=== PATIENT | female | born 1940 | race Caucasian/White ===

== ENCOUNTER 2019-05-11 08:34 | Emergency (ER) | payer MEDICARE, BC, SELFPAY ==
[2019-05-11 08:34] VITALS: BP 139/75; PULSE 81; RESP 17; TEMP 36.6; O2SAT 97; BMI 24.2
--- NOTE | 2019-05-11 09:01 | CT_ITS ---
STUDY: CT ABDOMEN AND PELVIS WITH CONTRAST REASON FOR EXAM: Female, 78 years old. Abdominal pain today RADIATION DOSAGE (If Supplied By Facility): CTDIvol = ( 10.70 ) mGy, DLP = ( 601.11 ) mGycm TECHNIQUE: Transaxial images were obtained from the dome of the diaphragm to the symphysis pubis with oral contrast. 80ml ml of Isovue 300 contrast was administered. Sagittal and coronal images were reconstructed. Individualized dose optimization techniques were used for this CT. COMPARISON: None. FINDINGS: Body wall soft tissues: No acute process. Osseous structures: Scoliosis, osteopenia, multilevel lumbar degenerative disc disease and facet arthropathy contributing to multilevel at least mild foraminal narrowing. Inferior chest: Minimal lung base atelectasis, normal distal esophagus, mild cardiomegaly. Hepatobiliary: The gallbladder appears to be present, partially contracted, obscured by bowel motion artifact and respiratory motion artifact. Nondilated intrahepatic biliary tree. Hepatic duct 9.1 mm. Common bile duct within the head of the pancreas 8.1 mm, ectatic. No visible radiodense calculus within the duct. Pancreas: Mild fatty atrophy. No ductal ectasia or suspicious lesion. Spleen: Normal. Adrenal glands: Normal. Urogenital: Left renal lower pole nonobstructing calyceal calculus 7 mm. Right kidney no calculi. No hydronephrosis or hydroureter. Normal urinary bladder. Unremarkable uterus. No adnexal mass or cyst. Pelvic floor and sidewalls and retroperitoneum: No mass or adenopathy. Vasculature: Mild atherosclerosis. Stomach: No acute process. Small bowel and mesentery: No acute process. Large bowel: The appendix is not well seen. There are no acute inflammatory features in the region of the cecum. Large bowel and rectum unremarkable. Free fluid or free air: None. CT/Abdomen/Pelvis WITH Contrast IMPRESSION: No acute abdominopelvic process is evident. Chronic-appearing biliary ductal ectasia. No evidence of acute gallbladder inflammation. Mild pancreatic atrophy. Nonobstructing calyceal calculus of the left kidney with no evidence of recent calculus passage. Cardiomegaly. Lumbar spondylosis. Electronically Signed: Mikel Ramires MD at 12:51 EDT Tel , Service support ,
--- NOTE | 2019-05-11 09:18 | ED.VISSUMM ---
- ER Visit Summary Date of Service: 05/11/19 Chief Complaint: Abdominal pain History of Present Illness: The patient is a 78 F who states that approximately 020 0 hours this morning she woke from sleep with a diffuse abdominal pain. She describes it as cramping. States she had a normal bowel movement. She feels bloated. No history of small bowel obstruction. She took a simethicone this morning around 0500. She went to urgent care and was referred here. She does note some nausea. States that she was told she has angioedema in the past states that she was told that this is led to some abdominal intermittent symptoms. She states that she takes his Singulair and carries an EpiPen. Physical Examination: Afebrile vital signs are stable Gen: Well-nourished well-developed Head: Normocephalic atraumatic Eyes: Perrl EOMI ENT: TMs clear no rhinorrhea moist mucous membranes Neck: Supple no lymphadenopathy no JVD nontender CVS: Regular rate rhythm no murmurs normal S1-S2 Respiratory: No distress clear to auscultation bilaterally chest nontender Abdomen: Soft diffusely tender to palpation nondistended hyperactive bowel sounds no masses Back: Nontender Extremity: Nontender no edema Skin: Normal color no rash Neuro: alert orientated ?3 CN II-XII intact normal strength sensation Psych: Normal affect normal mood Test Results: CBC CMP lipase normal. CT down pelvis did not demonstrate any bowel wall edema or any obvious evidence of acute pathology Emergency Department Course and Treatment: She received IV fluids, Zofran, Bentyl. She was improved for a while. After the results of her CTA went ahead and administered Solu-Medrol and Benadryl. Patient will be discharged home with instructions to continue Benadryl as well as low-dose prednisone. Given the negative CT negative labs and mild angioedema of the abdomen is not unreasonable. Impression: 1. Acute abdominal pain This note was generated with [employer] dictation software. It may contain incorrect words, spelling, and punctuation that were not noted in review of the chart prior to signing ED Disposition - Plan for ED Patient: Disposition: Home or Assisted Living Instructions: ABDOMINAL PAIN, Unknown Cause, (Female) Prescriptions: Prednisone [Deltasone] 40 mg PO DAILY #8 tab Prescription Printed Hydrocodone Bitart/Apap 5-325 [[place] 5MG-325MG] 1 tab PO Q6H PRN PRN 3 Days #10 tab PRN Reason: Pain Prescription Printed Ondansetron [Zofran Odt] 4 mg PO Q6H PRN PRN #10 tab PRN Reason: Nausea Prescription Printed Referrals: Castro Kidd MD [Primary Care Provider] - 3-5 Days if not improving Additional Instructions: Benadryl 1/2 tablet every 8 hours for 2 days
[2019-05-11] MEDS: Dicyclomine 20 MG/2 ML Vial IM (09:33)
[2019-05-11 10:12] VITALS: BP 160/67; PULSE 68; RESP 16; O2SAT 96
[2019-05-11] MEDS: 0.9% Normal Saline 1,000 ML 1000 ML IV (10:13)
[2019-05-11 10:14] LABS: Absolute Lymphocyte Count 1.23 X10^3/ul (0.83-4.51); Absolute Neutrophil Count 11.6 X10^3/uL (2.0-7.7); Basophil# 0.03 X10^3/uL; Basophil% 0.2 % (0-1); Eosinophil# 0.07 X10^3/uL; Eosinophils% 0.5 % (0-5); Hematocrit 42.5 % (37-47); Hemoglobin 14.2 g/dl (12.0-15.0); Lymphocyte # 1.23 X10^3/ul (4.0); Lymphocyte % 9.1 % (19-41); Mean Corp Hgb Conc 33.4 g/gl (32-36); Mean Corpuscular Hgb 31.3 pg (27.0-32.0); Mean Corpuscular Volume 93.6 fL (81-99); Mean Platelet Vol. 10.6 fl (6.2-12.0); Monocyte# 0.63 X10^3/uL; Monocyte% 4.7 % (0-10); Neutrophil # 11.57 X10^3/uL (2.7-7.7); Neutrophil % 85.4 % (47-70); POSITIVE COUNT NO; POSITIVE DIFFERENTIAL NO; POSITIVE MORPHOLOGY NO; Platelet Count 262 K/mm3 (150-450); RBC Distribution Width CV 13.8 % (11.6-14.6); RBC Distribution Width SD 47.1 fl (35.1-43.9); Red Blood Count 4.54 M/mm3 (4.2-5.4); White Blood Count 13.5 K/mm3 (4.4-11.0)
[2019-05-11] MEDS: Ondansetron 4 MG/2 ML Vial IV ×2 (10:14→13:07)
[2019-05-11 10:27] LABS: ALB/GLOB Ratio 1.1 RATIO (0.9-2.4); AST(SGOT) 18 U/L (15-37); Alanine Aminotransfer ALT/SGPT 35 U/L (13-56); Albumin, Serum 4.1 g/dL (3.2-5.0); Alkaline Phosphatase 89 U/L (45-117); Anion Gap 12 (5-15); BUN 29 mg/dL (7-18); BUN/Creat Ratio 24.8 RATIO (10-20); Calcium,Total 9.6 mg/dL (8.5-10.1); Chloride 101 mmol/L (98-107); Creatinine, Serum 1.17 mg/dL (0.55-1.02); EST Glomerular Filtration Rate 47 mL/min (>60); Est Glom Filt Rate - Afr Amer 57 mL/min (>60); Globulin 3.7 g/dL (2.2-4.2); Glucose 122 mg/dL (74-106); Lipase 146 U/L (73-393); Potassium 4.3 mmol/L (3.5-5.1); Protein, Total 7.8 g/dL (6.4-8.2); Sodium Level 136 mmol/L (136-145)
[2019-05-11] MEDS: MethylPREDNISolone 125 MG/2 ML Vial IV (13:06)
[2019-05-11] MEDS: DiphenhydrAMINE 50 MG/ML Syringe 12.5 MG IV (13:07)
[2019-05-11 13:12] VITALS: BP 126/96; PULSE 82; RESP 15; O2SAT 98
[2019-05-11] MEDS: Ketorolac 15 MG/ML Vial IV (14:42)
[2019-05-11 14:47] VITALS: BP 167/73; PULSE 75; RESP 16; O2SAT 97
[2019-05-11 15:23] VITALS: BP 168/73; PULSE 82; RESP 13; O2SAT 96
== END 2019-05-11 15:37 | disposition home or self-care (01) ==
PROVIDERS: Emergency Provider Emergency Medicine; Family Provider Family Medicine; PCP Family Medicine
DX: R10.9 Unspecified abdominal pain (principal); R11.0 Nausea; E78.00 Pure hypercholesterolemia, unspecified; Z86.73 Personal history of transient ischemic attack (TIA), and cerebral infarction without residual deficits
CPT/HCPCS: 74177; 80053; 83690; 85025; 96361; 96372; 96374; 96375; 96376; 99285; J7030; Q9967; A4216; J2405

== ENCOUNTER 2019-08-31 18:23 | Emergency (ER) | payer MEDICARE, BC, SELFPAY ==
[2019-08-31 18:24] VITALS: BP 134/77; PULSE 69; RESP 15; TEMP 36.8; O2SAT 95; BMI 23.0
--- NOTE | 2019-08-31 19:22 | CT_ITS ---
STUDY: CT CERVICAL SPINE WITHOUT CONTRAST REASON FOR EXAM: Female, 79 years old. Neck pain after fall. RADIATION DOSAGE (If Supplied By Facility): CTDIvol = ( 16.05 ) mGy, DLP = ( 363.83 ) mGycm TECHNIQUE: High resolution transaxial imaging was performed without contrast material. Sagittal and coronal images were reconstructed. Individualized dose optimization techniques were used for this CT. COMPARISON: None FINDINGS: Normal craniovertebral junction. Normal anterior atlantoaxial articulation. Normal odontoid process. There is straightening of the normal cervical lordosis. Negative for acute fracture of the cervical spine. C2-3: Mild degenerative disc and joint disease without central stenosis or substantial foraminal narrowing. C3-4: Degenerative disc narrowing, uncovertebral arthrosis and bilateral facet arthrosis without central stenosis. Mild bilateral foraminal narrowing. C4-5: Disc space is completely fused. Moderate posterior disc osteophyte. Moderate spinal stenosis and bilateral moderate foraminal narrowing. C5-6: Advanced disc narrowing and uncovertebral arthrosis. Posterior disc osteophyte left greater than right. Mild spinal stenosis and severe bilateral foraminal narrowing. C6-7: Degenerative disc narrowing and uncovertebral arthrosis. Mild posterior disc osteophyte without central stenosis. Moderate foraminal narrowing on the right severe foraminal narrowing on the left C7-T1: Degenerative facet arthrosis. Negative for central stenosis. Negative for substantial foraminal narrowing. CT/Spine Cervical without Contras IMPRESSION: Straightening of the cervical spine with otherwise normal alignment. Negative for acute fracture of the cervical spine. Degenerative disc and joint changes as stated above. Electronically Signed: Lucila Quiroga MD at 20:12 EDT , Service support ,
--- NOTE | 2019-08-31 19:22 | CT_ITS ---
STUDY: CT BRAIN WITHOUT CONTRAST REASON FOR EXAM: Female, 79 years old. Acute head injury during a fall. RADIATION DOSAGE (If Supplied By Facility): CTDIvol = ( 44.99 ) mGy, DLP = ( 779.24 ) mGycm TECHNIQUE: Transaxial CT imaging of the brain was performed without administration of intravenous contrast material. Individualized dose optimization techniques were used for this CT. COMPARISON: No relevant priors. FINDINGS: Posterior left scalp hematoma. Normal calvarium. Normal size ventricles and extra-axial spaces for the patient's age. There are areas of decreased attenuation within the white matter tracts of the supratentorial brain, consistent with microvascular disease changes. Normal basal ganglia and thalami. Normal brainstem. There is mild cerebellar atrophy. There is no intracranial hemorrhage. There are no findings of an acute ischemic infarction. Normal visualized paranasal sinuses. CT/Brain/Head without Contrast IMPRESSION: No acute intracranial findings. Negative for hemorrhage, hematoma or extra-axial fluid collection. Involutional changes normal for age. Posterior left scalp hematoma without underlying skull fracture. Electronically Signed: Lucila Quiroga MD at 19:54 EDT , Service support ,
--- NOTE | 2019-08-31 19:27 | ED.VIS.GEN ---
History of Present Illness Chief Complaint: Fall Informant: Patient Onset: Today Context: Sudden Onset Narrative: Patient is an 79-year-old female presenting with head injury. Patient states she leaned back in her chair and fell backwards. She hit the back of her head on a wooden floor. Patient denies loss of consciousness. She notes she is on Brilinta because of her history of strokes. She has pain in the back of her head. Her last stroke was 4 years ago. Patient came in for further evaluation because of her fall. She denies any other complaints at this time. Patient denies any associated weakness, numbness or vision changes. Past Medical History - Allergies and Home Meds Allergies/Adverse Reactions: Allergies morphine Allergy (Verified 08/31/19 18:26) Unknown Sulfa (Sulfonamide Antibiotics) Allergy (Verified 08/31/19 18:26) Unknown aspirin Adverse Reaction (Verified 08/31/19 18:26) Nausea/Vom/Diarrhea Primary Care Physician: Castro Kidd MD [Primary Care Provider] - Past Medical History: - - Stroke, hyperlipidemia, anxiety Surgical History: - - Oophorectomy, section. Shoulder surgery. Smoking Status: Never smoker - Family History Maternal Family History: Reports: No pertinent history Paternal Family History: Reports: No pertinent history Review of Systems All systems negative except as indicated Neurological: Reports: Headache Physical Exam Vital Signs/Narrative: Vital Signs Temp Pulse Resp BP Pulse Ox 08/31/19 18:24 98.3 F 69 15 134/77 H 95 Inital Vital Signs reviewed: Yes General: Well nourished, Well developed, No Acute Distress Head: Normocephalic, - - Posterior scalp hematoma approximately 2 cm x 2 cm Eyes: Perrl, EOMI, - ENT: Moist mucous membranes, No rhinorrhea, TM's clear, - - No Septal hematoma, no malocclusion Neck: Supple, Nontender, - - Normal range of motion, no midline tenderness, no step-off sign Cardiovascular: Regular rate, Regular rhythm, No murmurs Respiratory: No distress, CTA bilaterally, Chest nontender Abdomen: Soft, Nontender, Nondistended, Normal bowel sounds Back: Nontender, Normal Inspection Extremities: Nontender, No edema Skin: Normal color, No rash. Negative for: Trauma Neurological: Alert, Oriented x3, Cranial nerves II-XII grossly intact, Normal Strength, Normal Sensation, - - Mildly slowed speech, baseline per patient Psychological: Normal affect, Normal Mood Diagnostic/Tx/Re-eval Diagnostic Data Brain CT 08/31/19 19:22 IMPRESSION: No acute intracranial findings. Negative for hemorrhage, hematoma or extra-axial fluid collection. Involutional changes normal for age. Posterior left scalp hematoma without underlying skull fracture. Electronically Signed: Lucila Quiroga MD at 19:54 EDT , Service support , Cervical Spine CT 08/31/19 19:22 IMPRESSION: Straightening of the cervical spine with otherwise normal alignment. Negative for acute fracture of the cervical spine. Degenerative disc and joint changes as stated above. Electronically Signed: Lucila Quiroga MD at 20:12 EDT , Service support , - Medical Decision Making Patient is evaluated after a fall. She has a normal neurologic exam. Patient is hemodynamically stable. She does have a posterior scalp hematoma but no associated abrasion. Head CT and C-spine are negative for intracranial process or acute fracture. Patient be discharged home. Patient is counseled on signs and symptoms requiring return to the emergency room. Patient verbalizes agreement and understand this plan. Patient discharged home in stable and improved condition. ED Disposition - Plan for ED Patient: Disposition: Home or Assisted Living Diagnosis: Fall, Head injury, acute, Scalp hematoma Instructions: FALL, Mechanical, Hematoma Referrals: Castro Kidd MD [Primary Care Provider] - Additional Instructions: Return to the emergency room if you have any worsening symptoms such as change in vision, passing out or worsening headache. Please follow-up with your primary care doctor. Apply ice to the hematoma on the back of your head. You may take Tylenol as needed for pain.
[2019-08-31 20:25] VITALS: BP 139/72; PULSE 109; RESP 15; O2SAT 93
== END 2019-08-31 20:54 | disposition home or self-care (01) ==
PROVIDERS: Emergency Provider Emergency Medicine; Family Provider Family Medicine; PCP Family Medicine
DX: S00.03XA Contusion of scalp, initial encounter (principal); W07.XXXA Fall from chair, initial encounter; Y93.9 Activity, unspecified; Y92.9 Unspecified place or not applicable; E78.5 Hyperlipidemia, unspecified; F41.9 Anxiety disorder, unspecified; Z86.73 Personal history of transient ischemic attack (TIA), and cerebral infarction without residual deficits; Z79.82 Long term (current) use of aspirin; Z79.899 Other long term (current) drug therapy
CPT/HCPCS: 70450; 72125; 99282

== ENCOUNTER 2020-06-11 18:15 | Inpatient (IN) | payer MEDICARE, BC, SELFPAY ==
[2020-06-11 18:16] VITALS: BP 111/38; PULSE 64; RESP 18; TEMP 36.1; O2SAT 96; BMI 25.2
--- NOTE | 2020-06-11 19:20 | ED.VIS.GEN ---
History of Present Illness Chief Complaint: Abd Pain Informant: Patient, Family Limited by: Dementia Narrative: Presents with pain in her abdomen which started today. She states it began after she ate a can of beans. 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 Her son thought that this was the cause so he gave her prednisone and Bentyl prior to arrival. She states that she did have some pain yesterday but states it was sporadic sharp pain around her umbilicus. Today after she ate she started having more pain. He states he has very sensitive food allergies but nothing she ate which she was allergic to. She not had a fever. She is nauseous without vomiting. Patient herself is a very poor historian. Prior similar symptoms: Yes Past Medical History - Allergies and Home Meds Allergies/Adverse Reactions: Allergies morphine Allergy (Verified 06/11/20 18:19) Unknown Sulfa (Sulfonamide Antibiotics) Allergy (Verified 06/11/20 18:19) Unknown aspirin Adverse Reaction (Verified 06/11/20 18:19) Nausea/Vom/Diarrhea Prior records reviewed: Yes Surgical History: - - Oophorectomy, section. Shoulder surgery. Lives: With Family Smoking Status: Never smoker Alcohol: None Drugs: None - Family History Maternal Family History: Reports: No pertinent history Paternal Family History: Reports: No pertinent history Review of Systems General: Denies: Chills, Fever Eyes: Denies: Visual changes - bilaterally, Diplopia ENT: Denies: Rhinorrhea, Sore throat Cardiovascular: Denies: Chest pain, Palpitations Respiratory: Denies: Dyspnea, Cough, Dyspnea on exertion Gastrointestinal: Reports: Abdominal pain, Nausea Genitourinary: Denies: Dysuria, Hematuria Musculoskeletal: Denies: Myalgias Skin: Denies: Rash Neurological: Reports: Weakness. Denies: Headache Hematologic: Denies: Easy bruising, Easy bleeding Allergy: Denies: Uticaria, Swelling of the mouth, Swelling of the tongue Physical Exam Vital Signs/Narrative: Vital Signs Temp Pulse Resp BP Pulse Ox 06/11/20 18:16 97 F L 64 18 111/38 L 96 General: No Acute Distress Head: Normocephalic, Atraumatic Eyes: Perrl. Negative for: Scleral icterus ENT: Moist mucous membranes Cardiovascular: Regular rate, Regular rhythm Respiratory: No distress Abdomen: Tender - Relies tenderness to palpation worse in the central abdomen and right and left lower quadrants. Extremities: Nontender, No edema Skin: Normal color Neurological: Alert Psychological: Normal affect Diagnostic/Tx/Re-eval Clinical Impression(s) from Imaging Studies Abdomen/Pelvis CT 06/11/20 19:30 IMPRESSION: Acute appendicitis cannot be excluded based on the CT appearance as described above. No abscess or free air is seen. (I discussed this case with Dr. Potts by telephone at 9:14 PM EST on day of exam. Clinical presentation is described as more diffuse abdominal pain and swelling and no olive leukocytosis is present at this time.) Distended gallbladder and dilated common bile duct. N.B. : The above information has been verbally conveyed by Castro Pope MD to Hima Potts DO, on 06/11/2020 21:15:35 (ET). Electronically Signed: Castro Pope MD at 21:17 EDT Tel , Service support , ADDENDUM: 06/11/204 IMPRESSION: Acute appendicitis cannot be excluded based on the CT appearance as described above. No abscess or free air is seen. (I discussed this case with Dr. Potts by telephone at 9:14 PM EST on day of exam. Clinical presentation is described as more diffuse abdominal pain and swelling and no olive leukocytosis is present at this time.) Distended gallbladder and dilated common bile duct. N.B. : The above information has been verbally conveyed by Castro Pope MD to Hima Potts DO, on 06/11/2020 21:15:35 (ET). Electronically Signed: Castro Pope MD at 21:17 EDT Tel , Service support , Laboratory Data 06/11/20 06/11/20 06/11/20 19:40 19:40 20:23 WBC 10.9 RBC 3.91 L Hgb 12.4 Hct 38.6 MCV 98.7 MCH 31.7 MCHC 32.1 RDW Std Deviation 51.9 H RDW Coeff of Nithin 14.4 Plt Count 224 MPV 10.4 Immature Gran % (Auto) 0.400 Neut % (Auto) 88.3 H Lymph % (Auto) 7.0 L [place] % (Auto) 3.0 Eos % (Auto) 1.1 Baso % (Auto) 0.2 Absolute Neuts (auto) 9.6 H Absolute Lymphs (auto) 0.76 L Nucleated RBC % 0 Sodium 135 L Potassium 4.9 Chloride 105 Carbon Dioxide 27.0 Anion Gap 3 L BUN 24 H Creatinine 1.07 H Estim Creat Clear Calc 29.62 Est GFR (MDRD) Af Amer 63 Est GFR (MDRD) Non-Af 52 L BUN/Creatinine Ratio 22.4 H Glucose 101 Calcium 8.8 Total Bilirubin 0.50 AST 21 ALT 29 Alkaline Phosphatase 41 L Total Protein 6.2 L Albumin 3.4 Globulin 2.8 Albumin/Globulin Ratio 1.2 Lipase 119 Urine Color Yellow Urine Clarity Clear Urine pH 6.0 Ur Specific [place] 1.015 Urine Protein Negative Urine Glucose (UA) Normal Urine Ketones Negative Urine Occult Blood Negative Urine Nitrite Negative Urine Bilirubin Negative Urine Urobilinogen Normal Ur Leukocyte Esterase Negative Urine RBC 0 SEEN Urine WBC 0 SEEN Ur Squamous Epith Cells 0 SEEN Urine Bacteria 0 SEEN Urine Mucus 0 SEEN - Medical Decision Making She was seen and evaluated for her abdominal pain. Initially they thought it was from angioedema and they stated that she had a similar episode about a year ago in this hospital. I told him that I would look at how they treated her so that I can get her more comfortable. It looks like they initially treated with Bentyl and Zofran and this is what I started with. She continued to have pain and stated that she had an allergy to morphine but it was dry mouth. I asked her if she wanted to have morphine or go without. She and her son decided on a low-dose of morphine. She tolerated this well. Her pain improved. Her lab work is normal. CT abdomen pelvis shows concern for distended gallbladder as well as appendicitis. Given this I did consult general surgery who did review previous records and felt like she had similar presentation on her CT last year, and that her labs were normal. At the initial time of evaluation she was pain-free for morphine and he did not reproduce any pain. Patient was admitted to the medical service given that she has multiple comorbidities and is on Eliquis and cannot have surgery tonight. After she was admitted and evaluated by both the hospitalist and the surgeon she began to have pain again I did have the surgeon come and reevaluate her and he felt it was inconsistent with appendicitis as it was more generalized. Will be admitted for observation can discern the source of her symptoms. Impression: 1. Nausea 2. Stable appendicitis 3. History of angioedema ED Disposition - Plan for ED Patient: Disposition: Acute Care Hospital [facility]
--- NOTE | 2020-06-11 19:30 | CT_ITS ---
STUDY: CT ABDOMEN AND PELVIS WITH CONTRAST REASON FOR EXAM: Female, 80 years old. ABD PAIN TODAY, HX A-FIB,LOOP RECORDER, IBS RADIATION DOSAGE (If Supplied By Facility): CTDIvol = ( 13.65 ) mGy, DLP = ( 629.31 ) mGycm TECHNIQUE: Transaxial images were obtained from the dome of the diaphragm to the symphysis pubis without oral contrast. IV 100mL Isovue-300 was administered. Sagittal and coronal images were reconstructed. Individualized dose optimization techniques were used for this CT. COMPARISON: 05/11/2019 FINDINGS: The visualized lung bases are unremarkable. The visualized portions of the heart are within normal limits. Cardiac monitoring device on the left. Normal liver. Distended gallbladder. Dilated common bile duct, measuring up to 13 mm in diameter. Normal spleen. Normal pancreas. Normal bilateral adrenal glands. Normal right kidney. 8 mm stone in the gravity dependent portion of the left renal sinus. No evidence of ureter obstruction. Normal visualized stomach. Normal small intestine. Normal colon. Acute appendicitis cannot be excluded. The appendix measures 11 mm in diameter as seen on coronal image 49 and axial image 78. Normal abdominal aorta. Normal inferior vena cava. Normal retroperitoneum. Normal urinary bladder. Mild free pelvic fluid. Normal abdominal wall. There are diffuse degenerative changes of the visualized lumbar spine. CT/Abdomen/Pelvis W IV Cont ONLY IMPRESSION: Acute appendicitis cannot be excluded based on the CT appearance as described above. No abscess or free air is seen. (I discussed this case with Dr. Potts by telephone at 9:14 PM EST on day of exam. Clinical presentation is described as more diffuse abdominal pain and swelling and no olive leukocytosis is present at this time.) Distended gallbladder and dilated common bile duct. N.B. : The above information has been verbally conveyed by Castro Pope MD to Hima Potts DO, on 06/11/2020 21:15:35 (ET). Electronically Signed: Castro Pope MD at 21:17 EDT Tel , Service support ,
[2020-06-11 19:50] LABS: Absolute Lymphocyte Count 0.76 X10^3/uL (0.83-4.51); Absolute Neutrophil Count 9.6 X10^3/uL (2.0-7.7); Basophil# 0.02 X10^3/uL; Basophil% 0.2 % (0-1); Eosinophil# 0.12 X10^3/uL; Eosinophils% 1.1 % (0-5); Hematocrit 38.6 % (37-47); Hemoglobin 12.4 g/dL (12.0-15.0); Lymphocyte # 0.76 X10^3/ul (4.0); Mean Corp Hgb Conc 32.1 g/dL (32-36); Mean Corpuscular Hgb 31.7 pg (27.0-32.0); Mean Corpuscular Volume 98.7 fL (81-99); Mean Platelet Vol. 10.4 fl (6.2-12.0); Monocyte# 0.33 X10^3/uL; NRBC Flagged by Analyzer 0 % (0-5); Neutrophil % 88.3 % (47-70); Platelet Count 224 K/mm3 (150-450); RBC Distribution Width CV 14.4 % (11.6-14.6); RBC Distribution Width SD 51.9 fl (35.1-43.9); Red Blood Count 3.91 M/mm3 (4.2-5.4); White Blood Count 10.9 K/mm3 (4.4-11.0)
[2020-06-11] MEDS: 0.9% Normal Saline 1,000 ML 1000 ML IV (20:07)
[2020-06-11] MEDS: Dicyclomine 20 MG/2 ML Vial IM (20:12)
[2020-06-11 20:16] LABS: ALB/GLOB Ratio 1.2 RATIO (0.9-2.4); AST(SGOT) 21 U/L (15-37); Alanine Aminotransfer ALT/SGPT 29 U/L (13-56); Albumin, Serum 3.4 g/dL (3.2-5.0); Alkaline Phosphatase 41 U/L (45-117); Anion Gap 3 (5-15); BUN 24 mg/dL (7-18); BUN/Creat Ratio 22.4 RATIO (10-20); Calcium,Total 8.8 mg/dL (8.5-10.1); Chloride 105 mmol/L (98-107); Creatinine, Serum 1.07 mg/dL (0.55-1.02); EST Glomerular Filtration Rate 52 mL/min (>60); Est Glom Filt Rate - Afr Amer 63 mL/min (>60); Estimated Creatinine Clearance 29.62 ml/min; Globulin 2.8 g/dL (2.2-4.2); Glucose 101 mg/dL (74-106); Lipase 119 U/L (73-393); Potassium 4.9 mmol/L (3.5-5.1); Protein, Total 6.2 g/dL (6.4-8.2); Sodium Level 135 mmol/L (136-145)
[2020-06-11 20:29] LABS: Bacteria 0 SEEN /hpf (None Seen); Mucous, Urine 0 SEEN /hpf (<or=2+); Red Blood Cells-Urine 0 SEEN /hpf (0-5); Squamous Epithelial Cells - UA 0 SEEN /hpf (5-10); White Blood Cells 0 SEEN /hpf (0-5)
[2020-06-11 20:34] LABS: Color, Urine Yellow (Yellow); Glucose, Dipstick Normal (Normal); Ketone-Dipstick Negative (Negative); Leukocyte Esterase-Dipstick Negative /ul (Negative); Nitrite-Dipstick Negative (Negative); Occult Blood-Urine Negative /ul (Negative); Protein-Dipstick Negative (Negative); Specific Gravity, Urine 1.015 (1.002-1.030); Urine Bilirubin Dipstick Negative (Negative); Urine Clarity Clear (Clear); Urine Urobilinogen Normal (Normal)
[2020-06-11] MEDS: Morphine 2 MG/ML Syringe IV (21:54)
[2020-06-11 22:03] VITALS: BP 133/65; PULSE 80; RESP 16; O2SAT 94
--- NOTE | 2020-06-11 22:18 | PCM.CONS.GEN ---
Reason for Consult History of Present Illness: The patient is a 80 year old F [] Past Medical History Past Medical History (Chronic Problems): Chronic Problems (This Medical Record has been edited. Action required.) Hyperlipidemia (Chronic) Depression (Chronic) History of stroke (Chronic) Allergies morphine Allergy (Verified 06/11/20 18:19) Unknown Sulfa (Sulfonamide Antibiotics) Allergy (Verified 06/11/20 18:19) Unknown aspirin Adverse Reaction (Verified 06/11/20 18:19) Nausea/Vom/Diarrhea Home Medications: Ambulatory Orders Medication Instructions Recorded Atorvastatin Calcium [Lipitor] 80 mg PO QHS 09/11/16 Bupropion HCl [Bupropion HCl Sr] 200 mg PO DAILY 09/11/16 Loperamide HCl [Imodium A-D] 2 mg PO QHS 09/11/16 Montelukast [Singulair] 10 mg PO DAILY 09/11/16 Aspirin [Aspirin EC] 1 tab PO DAILY 08/11/17 Doxepin HCl 10 mg PO PRN PRN 08/11/17 Epinephrine [Epipen] 0.3 mg IJ PRN PRN 08/11/17 Multivitamin [Daily Multiple 1 each PO DAILY 08/11/17 Vitamin] Pantoprazole Sodium [Protonix] 40 mg PO DAILY 08/11/17 Travoprost 0.004% [Travatan-Z 1 drop EACH EYE DAILY 08/11/17 0.004% Eye Drop] Meclizine HCl 25 mg PO TID PRN PRN #20 tablet 08/12/17 Apixaban [Eliquis] 2.5 mg PO BID 06/11/20 Dicyclomine HCl 10 mg PO PRN PRN 06/11/20 Diphenoxylate HCl/Atropine 1 ea PO PRN PRN 06/11/20 [Diphenoxylate-Atrop 2.5-0.025] Escitalopram Oxalate [Lexapro] 10 mg PO DAILY 06/11/20 Metoprolol Succinate 25 mg PO DAILY 06/11/20 Nitroglycerin 0.4 mg SL Q5M PRN 06/11/20 Potassium Chloride [Klor-Con] 20 meq PO DAILY 06/11/20 Prednisone [Deltasone] 7.5 mg PO DAILY 06/11/20 traZODone [Desyrel] 300 mg PO QHS 06/11/20 Surgical History: - - Oophorectomy, section. Shoulder surgery. Psychiatric History: Anxiety, Depression MARKETING SUPPORT COORDINATOR History: No pertinent MARKETING SUPPORT COORDINATOR history Smoking Status: Never smoker - *Family History Maternal History Items: No pertinent history Paternal History Items: No pertinent history - Physical Exam Vitals/I&O's: Vital Signs Temp Pulse Resp BP Pulse Ox 97 F L 80 16 133/65 H 94 06/11/20 18:16 06/11/20 22:03 06/11/20 22:03 06/11/20 22:03 06/11/20 22:03 Oxygen Delivery Method Room Air Weight: 58.513 kg Body Mass Index (BMI) 25.2 Intake and Output for Last 24 Hours 06/09/20 06/10/20 06/11/20 23:59 23:59 23:59 Intake Total 1000 / 1000 Balance 1000 / 1000 Laboratory Results 06/11/20 19:40: WBC 10.9, RBC 3.91 L, Hgb 12.4, Hct 38.6, MCV 98.7, MCH 31.7, MCHC 32.1, RDW Std Deviation 51.9 H, RDW Coeff of Nithin 14.4, Plt Count 224, MPV 10.4, Immature Gran % (Auto) 0.400, Neut % (Auto) 88.3 H, Lymph % (Auto) 7.0 L, [place] % (Auto) 3.0, Eos % (Auto) 1.1, Baso % (Auto) 0.2, Absolute Neuts (auto) 9.6 H, Absolute Lymphs (auto) 0.76 L, Nucleated RBC % 0 06/11/20 19:40: Sodium 135 L, Potassium 4.9, Chloride 105, Carbon Dioxide 27.0, Anion Gap 3 L, BUN 24 H, Creatinine 1.07 H, Estim Creat Clear Calc 29.62, Est GFR (MDRD) Af Amer 63, Est GFR (MDRD) Non-Af 52 L, BUN/Creatinine Ratio 22.4 H, Glucose 101, Calcium 8.8, Total Bilirubin 0.50, AST 21, ALT 29, Alkaline Phosphatase 41 L, Total Protein 6.2 L, Albumin 3.4, Globulin 2.8, Albumin/Globulin Ratio 1.2, Lipase 119 06/11/20 20:23: Urine Color Yellow, Urine Clarity Clear, Urine pH 6.0, Ur Specific [place] 1.015, Urine Protein Negative, Urine Glucose (UA) Normal, Urine Ketones Negative, Urine Occult Blood Negative, Urine Nitrite Negative, Urine Bilirubin Negative, Urine Urobilinogen Normal, Ur Leukocyte Esterase Negative, Urine RBC 0 SEEN, Urine WBC 0 SEEN, Ur Squamous Epith Cells 0 SEEN, Urine Bacteria 0 SEEN, Urine Mucus 0 SEEN 06/11/20 21:40: COVID-19 (KATHERINE) Pending Current Medications Sodium Chloride () 1,000 mls @ 150 mls/hr IV .Q6H40M [facility] Assessment/Plan All Active Problems (This Medical Record has been edited. Action required.) Head injury, acute (Acute) Fall (Acute)
--- NOTE | 2020-06-11 22:33 | HP.PCM_ITS ---
Problem List (1) Intractable abdominal pain Status: Acute (2) Abdominal pain Status: Acute Qualifiers: Abdominal location: generalized Qualified Code(s): R10.84 - Generalized abdominal pain (3) Chest pain Status: Acute Qualifiers: Ischemic chest pain type: stable angina pectoris (4) Angioedema Status: Chronic Qualifiers: Encounter type: sequela Qualified Code(s): T78.3XXS - Angioneurotic edema, sequela (5) Hyperlipidemia Status: Chronic (6) Depression Status: Chronic (7) History of stroke Status: Chronic History of Present Illness Date of Admission: 06/11/20 Chief Complaint: abdominal pain The patient is a 80 year old F [place] history of paroxysmal A. fib; and idiopathic angioedema who presents emergency department with 1 day history of excruciating abdominal pain. Abdominal pain is diffuse. It radiates to her back. It worsens with movements. She denies any ameliorating factors. She describes her pain as darting pain. She denies any nausea or vomiting. On the day of presentation patient had diffuse substernal chest pain. The chest pain was nonradiating. The chest pain lasted for about 30 minutes and it was resolved with 3 tablets of sublingual nitroglycerin. Abdomen and pelvis CT at emergency department was interpreted as cannot exclude appendicitis. Subsequently, emergency department doctor discussed the case with Dr. Donnell Gray general surgeon. Because of a history of angioedema patient was evaluated at the emergency department by anesthesiologist. Of note with a history of idiopathic angioedema patients have had abdominal pain and swelling in the past. She was on steroids of 40 mg daily. An attempt was made to wean her off steroids however patient's developed adrenal insufficiency and was maintained on prednisone 7.5 mg daily. Past Medical History Past Medical History (Chronic Problems): Chronic Problems (This Medical Record has been edited. Action required.) Angioedema (Chronic) Hyperlipidemia (Chronic) Depression (Chronic) History of stroke (Chronic) Allergies morphine Allergy (Verified 06/11/20 18:19) Unknown Sulfa (Sulfonamide Antibiotics) Allergy (Verified 06/11/20 18:19) Unknown aspirin Adverse Reaction (Verified 06/11/20 18:19) Nausea/Vom/Diarrhea Home Medications: Ambulatory Orders Medication Instructions Recorded Atorvastatin Calcium [Lipitor] 80 mg PO QHS 09/11/16 Bupropion HCl [Bupropion HCl Sr] 200 mg PO DAILY 09/11/16 Loperamide HCl [Imodium A-D] 2 mg PO QHS 09/11/16 Montelukast [Singulair] 10 mg PO DAILY 09/11/16 Aspirin [Aspirin EC] 1 tab PO DAILY 08/11/17 Doxepin HCl 10 mg PO PRN PRN 08/11/17 Epinephrine [Epipen] 0.3 mg IJ PRN PRN 08/11/17 Multivitamin [Daily Multiple 1 each PO DAILY 08/11/17 Vitamin] Pantoprazole Sodium [Protonix] 40 mg PO DAILY 08/11/17 Travoprost 0.004% [Travatan-Z 1 drop EACH EYE DAILY 08/11/17 0.004% Eye Drop] Meclizine HCl 25 mg PO TID PRN PRN #20 tablet 08/12/17 Apixaban [Eliquis] 2.5 mg PO BID 06/11/20 Dicyclomine HCl 10 mg PO PRN PRN 06/11/20 Diphenoxylate HCl/Atropine 1 ea PO PRN PRN 06/11/20 [Diphenoxylate-Atrop 2.5-0.025] Escitalopram Oxalate [Lexapro] 10 mg PO DAILY 06/11/20 Metoprolol Succinate 25 mg PO DAILY 06/11/20 Nitroglycerin 0.4 mg SL Q5M PRN 06/11/20 Potassium Chloride [Klor-Con] 20 meq PO DAILY 06/11/20 Prednisone [Deltasone] 7.5 mg PO DAILY 06/11/20 traZODone [Desyrel] 300 mg PO QHS 06/11/20 Surgical History: - - Oophorectomy, section. Shoulder surgery. 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 Denies: Palpitations Respiratory: Denies: Cough, Shortness of breath at rest, Sputum production Gastrointestinal: Reports: Abdominal Pain, Constipation. Denies: Nausea, Vomiting Genitourinary: Denies: Dysuria Musculoskeletal: Denies: Joint Pain, Joint Tenderness Skin: Denies: Rash, Wounds Neurological: Denies: Numbness, Tingling, Focal weakness Psychiatric: Reports: Anxiety. Denies: Depression, Homicidal Ideations, Suicidal Ideations Hematologic/ Lymphatic: Denies: Easy Bruising, Easy Bleeding VTE Information - Inpt Only VTE Present on Admission: No VTE Mechan Device Prophylaxis: SCD's VTE Pharm Prophylaxis ordered?: No Patient Problems: Active and Suspected Problems (This Medical Record has been edited. Action required.) Abdominal pain (Acute) Chest pain (Acute) Intractable abdominal pain (Acute) - Physical Exam Vitals/I&O's: Vital Signs Temp Pulse Resp BP Pulse Ox 97 F L 80 16 133/65 H 94 06/11/20 18:16 06/11/20 22:03 06/11/20 22:03 06/11/20 22:03 06/11/20 22:03 Oxygen Delivery Method Room Air Weight: 58.513 kg Body Mass Index (BMI) 25.2 Intake and Output for Last 24 Hours 06/09/20 06/10/20 06/11/20 23:59 23:59 23:59 Intake Total 1000 / 1000 Balance 1000 / 1000 General: Alert, Oriented x3, Cooperative HEENT: Atraumatic, EOMI, Normocephalic Neck: Supple, Trachea Midline Lungs: Clear to auscultation, Normal air movement Cardiovascular: Regular rate, Normal S1, Normal S2, No murmurs Abdomen: Bowel Sounds Present, Soft, Tender Extremities: No edema, Capillary Refill Less than 3 Seconds Skin: No rashes, No breakdown Musculoskeletal: No Tenderness to Palpation of Joints or Extremities Neurological: Cranial nerves II-XII grossly intact - Uses hearing aids. Psych/Mental Status: Anxious Laboratory Results 06/11/20 19:40: WBC 10.9, RBC 3.91 L, Hgb 12.4, Hct 38.6, MCV 98.7, MCH 31.7, MCHC 32.1, RDW Std Deviation 51.9 H, RDW Coeff of Nithin 14.4, Plt Count 224, MPV 10.4, Immature Gran % (Auto) 0.400, Neut % (Auto) 88.3 H, Lymph % (Auto) 7.0 L, [place] % (Auto) 3.0, Eos % (Auto) 1.1, Baso % (Auto) 0.2, Absolute Neuts (auto) 9.6 H, Absolute Lymphs (auto) 0.76 L, Nucleated RBC % 0 06/11/20 19:40: Sodium 135 L, Potassium 4.9, Chloride 105, Carbon Dioxide 27.0, Anion Gap 3 L, BUN 24 H, Creatinine 1.07 H, Estim Creat Clear Calc 29.62, Est GFR (MDRD) Af Amer 63, Est GFR (MDRD) Non-Af 52 L, BUN/Creatinine Ratio 22.4 H, Glucose 101, Calcium 8.8, Total Bilirubin 0.50, AST 21, ALT 29, Alkaline Phosphatase 41 L, Total Protein 6.2 L, Albumin 3.4, Globulin 2.8, Albumin/Globulin Ratio 1.2, Lipase 119 06/11/20 20:23: Urine Color Yellow, Urine Clarity Clear, Urine pH 6.0, Ur Specific [place] 1.015, Urine Protein Negative, Urine Glucose (UA) Normal, Urine Ketones Negative, Urine Occult Blood Negative, Urine Nitrite Negative, Urine Bilirubin Negative, Urine Urobilinogen Normal, Ur Leukocyte Esterase Negative, Urine RBC 0 SEEN, Urine WBC 0 SEEN, Ur Squamous Epith Cells 0 SEEN, Urine Bacteria 0 SEEN, Urine Mucus 0 SEEN 06/11/20 21:40: COVID-19 (KATHERINE) Pending Current Medications Sodium Chloride () 1,000 mls @ 150 mls/hr IV .Q6H40M [facility] Assessment/Plan All Active Problems (This Medical Record has been edited. Action required.) Abdominal pain (Acute) Chest pain (Acute) Intractable abdominal pain (Acute) The patient is a 80 year old F [place] history of paroxysmal A. fib; and idiopathic angioedema who presents emergency department with excruciating abdominal pain and same day history of chest pain relieved with nitroglycerin. Intractable abdominal pain CT of abdomen and pelvis was interpreted as cannot rule out appendicitis. Discussed case with Dr. Gray general surgeon who also looked at current CT and previous CT in 2019. At this point appendicitis is inconclusive from CT. Because patient had received morphine at emergency department abdominal examination to conclude on appendicitis is limiting. The plan is no pain medicine until patient is reexamined by general surgeon in a.m. Received Zosyn at emergency department. Zosyn has been continued inpatient. Reported treatment with IV fluids and as needed antiemetics. N.p.o.Hold Eliquis in the setting of surgical evaluation for possible appendectomy. Depend upon further evaluation patient may be placed on only medical therapy Risk of appendectomy surgery: From ACS NSQIP surgical risk calculator patient risk of serious complication is 13.7%. Average risk is 6.1%. Risk of any complication is 19.0%. Average risk is 9.3%. Risk of pneumonia is also above average. Surgical site infection is above average. Urinary tract infection is above average; risk of venous thromboembolism is above average. Readmission rate is above average; return to the OR is above average; risk of is 2.4% which is above average risk of 0.1%. Discharged to nursing or rehab facility is 33.0% which is about average risk of 1.5%. Her risk of sepsis is 3.3% which is above average risk of 0.6%. Risk of cardiac complication is 0.8% which is above average risk of 0.2%. Will admit patient to progressive care unit. Chest pain We will get stat EKG and trend troponin. Home PRN nitroglycerin continued. Paroxysmal A. fib Hold Eliquis in the setting of surgical evaluation for possible appendectomy. Depression/anxiety Bupropion continued Lexapro continued GERD Protonix continued. DVT prophylaxis SCD ordered. Inpatient E&M: [id number] Init Hosp L3
--- NOTE | 2020-06-11 23:12 | HP.PCM_ITS ---
Problem List (1) Abdominal pain Status: Acute Qualifiers: Abdominal location: generalized Qualified Code(s): R10.84 - Generalized abdominal pain (2) Chest pain Status: Acute Qualifiers: Ischemic chest pain type: stable angina pectoris (3) Angioedema Status: Acute Qualifiers: Encounter type: sequela Qualified Code(s): T78.3XXS - Angioneurotic edema, sequela History of Present Illness Date of Admission: 06/11/20 The patient is a 80 year old F who I was asked to see by Dr. Potts in the emergency room for surgical consultation regarding abdominal pain of undetermined etiology. The patient presents with her son. I have a lot of the history provided by the son. The patient apparently earlier today complained of chest pain. She required 3 nitroglycerin to resolve the pain. According to the son the patient has routine angina. According to the son she had a thorough evaluation approximately a year ago because of a syncopal episode. She was found to be adrenal insufficient. She has a history of angioedema with tongue swelling. The son states she has not had a severe episode of that possibly within the past 7 years. She did have a hospitalization about a year and a half ago. She spends half of the year in [place]. This occurred when she was in [place] and she was hospitalized by report by [facility]. At that time she was said to have diffuse swelling of her abdomen. As far as I can tell it might of been a bout of microcytic colitis. Since that time she has had a syncopal episode which I believe was felt to have been secondary to adrenal insufficiency. According to the son she was on as much as 40 mg of prednisone per day but now is on 7.5 mg daily. At about 4:00 today she complained to the son of generalized abdominal pain. By his report she can be somewhat histrionic. He brought her to the emergency room. Laboratory demonstrates a white blood cell count of 10.9 with a hemoglobin 12.4 hematocrit 38.6 lately count 224,000. 88% neutrophils 7% lymphocytes. BUN is 24 creatinine 1.07. Alkaline phosphatase is 41. Total bilirubin AST and ALT are normal. A CT scan was obtained. It was interpreted as cannot exclude appendicitis. There is felt to be a tubular structure measuring up to 12 mm consistent with the appendix. I then had to personally contact the radiologist to have him compare this to a previous CAT scan done April 2019. At that point the radiologist suggested they could not see the appendix. The current radiologist is just testing he can see the appendix and it measured 10 mm at that time. He thinks perhaps it looks somewhat more active at this point. The current CT scan suggests a distended gallbladder. Dilated common bile duct measuring 13 mm. No stones identified. Urinalysis is not remarkable. COVID-19 is pending Prior to my seeing the patient she had already been given morphine. Her last food was water at 430. She had solid food prior to that. Her Eliquis and aspirin were taken at 11:00 this morning 12 hours ago now. Past Medical History Past Medical History (Chronic Problems): Chronic Problems (This Medical Record has been edited. Action required.) Hyperlipidemia (Chronic) Depression (Chronic) History of stroke (Chronic) Allergies morphine Allergy (Verified 06/11/20 18:19) Unknown Sulfa (Sulfonamide Antibiotics) Allergy (Verified 06/11/20 18:19) Unknown aspirin Adverse Reaction (Verified 06/11/20 18:19) Nausea/Vom/Diarrhea Home Medications: Ambulatory Orders Medication Instructions Recorded Atorvastatin Calcium [Lipitor] 80 mg PO QHS 09/11/16 Bupropion HCl [Bupropion HCl Sr] 200 mg PO DAILY 09/11/16 Loperamide HCl [Imodium A-D] 2 mg PO QHS 09/11/16 Montelukast [Singulair] 10 mg PO DAILY 09/11/16 Aspirin [Aspirin EC] 1 tab PO DAILY 08/11/17 Doxepin HCl 10 mg PO PRN PRN 08/11/17 Epinephrine [Epipen] 0.3 mg IJ PRN PRN 08/11/17 Multivitamin [Daily Multiple 1 each PO DAILY 08/11/17 Vitamin] Pantoprazole Sodium [Protonix] 40 mg PO DAILY 08/11/17 Travoprost 0.004% [Travatan-Z 1 drop EACH EYE DAILY 08/11/17 0.004% Eye Drop] Meclizine HCl 25 mg PO TID PRN PRN #20 tablet 08/12/17 Apixaban [Eliquis] 2.5 mg PO BID 06/11/20 Dicyclomine HCl 10 mg PO PRN PRN 06/11/20 Diphenoxylate HCl/Atropine 1 ea PO PRN PRN 06/11/20 [Diphenoxylate-Atrop 2.5-0.025] Escitalopram Oxalate [Lexapro] 10 mg PO DAILY 06/11/20 Metoprolol Succinate 25 mg PO DAILY 06/11/20 Nitroglycerin 0.4 mg SL Q5M PRN 06/11/20 Potassium Chloride [Klor-Con] 20 meq PO DAILY 06/11/20 Prednisone [Deltasone] 7.5 mg PO DAILY 06/11/20 traZODone [Desyrel] 300 mg PO QHS 06/11/20 Surgical History: - - Oophorectomy, section. Shoulder surgery. 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 Denies: Melena, Vomiting Psychiatric: Reports: Anxiety Endocrine: Denies: Change in Body Habitus VTE Information - Inpt Only VTE Present on Admission: No Patient Problems: Active and Suspected Problems (This Medical Record has been edited. Action required.) Abdominal pain (Acute) Chest pain (Acute) Angioedema (Acute) - Physical Exam Vitals/I&O's: Vital Signs Temp Pulse Resp BP Pulse Ox 97 F L 80 16 133/65 H 94 06/11/20 18:16 06/11/20 22:03 06/11/20 22:03 06/11/20 22:03 06/11/20 22:03 Oxygen Delivery Method Room Air Weight: 129 lb Body Mass Index (BMI) 25.2 Intake and Output for Last 24 Hours 06/09/20 06/10/20 06/11/20 23:59 23:59 23:59 Intake Total 1050 / 1050 Balance 1050 / 1050 General: Lethargic, - - Hard of hearing, appears fatigued HEENT: Atraumatic Oral: Moist Mucosa Neck: Trachea Midline Lungs: Clear to auscultation, Normal air movement Cardiovascular: Regular rate, Regular Rhythm Abdomen: Bowel Sounds Present, Soft, - - Clinical exam performed after the patient had already been given morphine narcotic. At one point she was tender to palpation the right lower quadrant but on reexamination she did not appear to be tender. Another part of the examination was tender in the left midabdomen but on recheck not so. Extremities: No Calf Tenderness Skin: - - Small areas of ecchymosis noted bilateral upper arms, no skin breakdown Musculoskeletal: No Tenderness to Palpation of Joints or Extremities Neurological: - - Patient is hard of hearing. Much of the history is provided by the son Psych/Mental Status: Normal Affect Laboratory Results 06/11/20 19:40: WBC 10.9, RBC 3.91 L, Hgb 12.4, Hct 38.6, MCV 98.7, MCH 31.7, MCHC 32.1, RDW Std Deviation 51.9 H, RDW Coeff of Nithin 14.4, Plt Count 224, MPV 10.4, Immature Gran % (Auto) 0.400, Neut % (Auto) 88.3 H, Lymph % (Auto) 7.0 L, [place] % (Auto) 3.0, Eos % (Auto) 1.1, Baso % (Auto) 0.2, Absolute Neuts (auto) 9.6 H, Absolute Lymphs (auto) 0.76 L, Nucleated RBC % 0 06/11/20 19:40: Sodium 135 L, Potassium 4.9, Chloride 105, Carbon Dioxide 27.0, Anion Gap 3 L, BUN 24 H, Creatinine 1.07 H, Estim Creat Clear Calc 29.62, Est GFR (MDRD) Af Amer 63, Est GFR (MDRD) Non-Af 52 L, BUN/Creatinine Ratio 22.4 H, Glucose 101, Calcium 8.8, Total Bilirubin 0.50, AST 21, ALT 29, Alkaline Phosphatase 41 L, Total Protein 6.2 L, Albumin 3.4, Globulin 2.8, Albumin/Globulin Ratio 1.2, Lipase 119 06/11/20 20:23: Urine Color Yellow, Urine Clarity Clear, Urine pH 6.0, Ur Specific [place] 1.015, Urine Protein Negative, Urine Glucose (UA) Normal, Urine Ketones Negative, Urine Occult Blood Negative, Urine Nitrite Negative, Urine Bilirubin Negative, Urine Urobilinogen Normal, Ur Leukocyte Esterase Negative, Urine RBC 0 SEEN, Urine WBC 0 SEEN, Ur Squamous Epith Cells 0 SEEN, Urine Bacteria 0 SEEN, Urine Mucus 0 SEEN 06/11/20 21:40: COVID-19 (KATHERINE) Pending Current Medications Sodium Chloride () 1,000 mls @ 150 mls/hr IV .Q6H40M [facility] Assessment/Plan All Active Problems (This Medical Record has been edited. Action required.) Abdominal pain (Acute) Chest pain (Acute) Angioedema (Acute) Head injury, acute (Acute) Fall (Acute) 80-year-old female with extraordinarily complex presentation. Abdominal pain of undetermined etiology. CT scan is indeterminate in discussing with the radiologist for appendicitis. The appendix does not look dissimilar from a previous CT scan April 2019 perhaps slightly larger. Small amount of free fluid is noted. The gallbladder is distended but there is no liver function test abnormality and she is not tender in the right upper quadrant. To further complicate features she has a history of angioedema. She has had a history of adrenal insufficiency. She is on chronic prednisone 7.5 mg daily. To further complicate features she has paroxysmal atrial fibrillation. She is on Eliquis and aspirin therapy having taken both of that at 11:00 today. To further complicate features she had chest pain earlier today requiring 3 nitroglycerin tablets. She does not have an absolute leukocytosis but she does have a left shift which would be consistent with acute appendicitis. I have asked Dr. Macias and Dr. Lopez valuate the patient for potential sandoval rgical intervention. This was a 2-hour interaction with the patient and son and review of materials. The son needs to talk to his mother regarding CODE STATUS and potential adverse outcome during the procedure. He clearly is at higher risk for adverse cardiac event angioedema and swelling event and hemorrhage. At this time I cannot absolutely confirm the presence of appendicitis but I have a significant level of suspicion. I recommend hospitalization. Recommend treatment with IV antibiotics. I recommend medical review and then if need be cardiology review. As noted anesthesia is already evaluating the patient. We will repeat clinical exam and laboratory in the morning hopefully when she has not been given narcotics. The son will then hopefully have had an opportunity to talk with his mother regarding options of surgery or no surgery as well as CODE STATUS. Donnell Gray M.D., F.A.C.S.
[2020-06-11 23:38] VITALS: BP 163/70; PULSE 80; RESP 18; O2SAT 100
--- NOTE | 2020-06-11 23:39 | ED.RN ---
THIS RN WENT IN TO EVALUATE PATIENT WHEN FAMILY MEMBER KEPT HIS FINGER ON THE CALL LIGHT UNTIL A NURSE ENTERED THE ROOM. I REQUESTED THE PRESCHOOL EDUCATION DIRECTOR AT THE DOOR TO ASK TO COME EVALUATE THE PT. THE SON AT BEDSIDE STATES THAT THAT PATIENT IS HAVING SOME SORT OF EPISODE WHERE SHE WAS SHAKING, IN PAIN AND HER LEFT ARM TURNING WHITE. THIS RN ASSESSED THE PATIENT AND FOUND HER TO HAVE MINOR TREMORS IN HER HANDS, HER LEFT INDEX AND MIDDLE FINGER PARK NATURALIST IN COLOR BUT WARM AND CAPILLARY REFILL <3 SEC. PT WAS ALERT AND STATES SHE HAS INCREASED PAIN, TENDER TO THE TOUCH IN ABD. DR. AYOUB AT BEDSIDE TO SEE PATIENT AND SET OF VITAL SIGNS OBTAINED AFTER HIS EVALUATION OF THE PATIENT.
[2020-06-12] VITALS (20 sets, daily range): BP systolic 98–158; BP diastolic 59–80; PULSE 61–137; RESP 16–18; TEMP 35.9–37.2; O2SAT 94–100; BMI 25.8
--- NOTE | 2020-06-12 | APP_PTH ---
PATIENT: SANDY HUGHES LOC: PCU U#:[id number] AGE/SX: 80/F ROOM: FMQ222 RE06/11/[address]: Dr. Donnell Gray MD : [id number] BED: 1 DIS: 06/15/2020 SPEC #: [id number] RECD: 06/12/20 12:30 STATUS: SANDRO WERNER #: [id number] BETY: 06/12/20 00:[address]: Donnell Gray DEPT: SURGICAL PATHOLOGY RECD BY: Maldonado Campuzano ENTERED: 06/12/20 12:30 SP TYPE: APPENDIX OTHR DR: MD Dar Peres Dr., MD Dr. Joseph Agyepong, MD Dr. Nicholas F Kotsonis, MD Dr. William Lago, MD Tissues: Appendix, NOS Procedures: Surgery Specimen Level III HEADER OPERATION: Laparoscopic appendectomy PRE-OP DIAGNOSIS: Acute appendicitis TISSUE SUBMITTED: Appendix MICROSCOPIC DIAGNOSIS Appendix, appendectomy: Acute appendicitis and periappendicitis. MEDINA:ella 06/13/20 MICROSCOPIC DESCRIPTION Slides are reviewed. GROSS DESCRIPTION Received is one container labeled with the patient's name and designated appendix. The specimen consists of an appendix measuring 2.9 cm in length and up to 07 cm in diameter. The attached periappendiceal adipose tissue measures up to 2 cm in width. The serosa is congested. No obvious perforation is identified. The lumen appears pinpoint. No fecalith is identified. The lumen also contains a small amount of hemorrhagic fluid. The entire appendix is submitted in one cassette. / MEDINA:ella 06/12/20 TC:2 CPT: 53234
--- NOTE | 2020-06-12 00:40 | EKG12_ITS ---
Test Reason : PRE-OP Blood Pressure : / mmHG Vent. Rate : 071 BPM Atrial Rate : 071 BPM P-R Int : 126 ms QRS Dur : 070 ms QT Int : 382 ms P-R-T Axes : 009 -42 015 degrees QTc Int : 415 ms Sinus rhythm with Premature supraventricular complexes Left axis deviation Nonspecific ST and T wave abnormality Abnormal ECG When compared with ECG of 12-SEP-2016 08:20, Premature supraventricular complexes are now Present Confirmed by JOSE CORTES ([id number]), society editor LANG DOVE ([id number]) on 06/16/2020 12:46:09 PM Referred By: NEGRITA Confirmed By:JOSE CORTES
[2020-06-12] MEDS: 0.9% Normal Saline 1,000 ML 80 ML IV ×2 (00:58→13:36)
[2020-06-12 04:11] LABS: Absolute Lymphocyte Count 0.53 X10^3/uL (0.83-4.51); Absolute Neutrophil Count 11.2 X10^3/uL (2.0-7.7); Basophil# 0.03 X10^3/uL; Basophil% 0.2 % (0-1); Eosinophil# 0.01 X10^3/uL; Eosinophils% 0.1 % (0-5); Hematocrit 35.2 % (37-47); Hemoglobin 11.4 g/dL (12.0-15.0); Lymphocyte # 0.53 X10^3/ul (4.0); Lymphocyte % 4.3 % (19-41); Mean Corp Hgb Conc 32.4 g/dL (32-36); Mean Corpuscular Hgb 32.2 pg (27.0-32.0); Mean Corpuscular Volume 99.4 fL (81-99); Mean Platelet Vol. 10.5 fl (6.2-12.0); Monocyte# 0.57 X10^3/uL; Monocyte% 4.6 % (0-10); NRBC Flagged by Analyzer 0 % (0-5); Neutrophil # 11.19 X10^3/uL (2.7-7.7); Neutrophil % 90.3 % (47-70); POSITIVE DIFFERENTIAL YES; Platelet Count 201 K/mm3 (150-450); RBC Distribution Width CV 14.7 % (11.6-14.6); RBC Distribution Width SD 53.7 fl (35.1-43.9); Red Blood Count 3.54 M/mm3 (4.2-5.4); White Blood Count 12.4 K/mm3 (4.4-11.0)
[2020-06-12 04:20] LABS: International Normalized Ratio 1.1; Prothrombin Time (Protime)PT. 13.6 SECONDS (11.7-14.9)
[2020-06-12 04:21] LABS: Differential Indicated SCAN CRITERIA MET
[2020-06-12 04:35] LABS: Differential Comment SCANNED
[2020-06-12 04:36] LABS: Ovalocyte RARE
[2020-06-12 04:40] LABS: AST(SGOT) 17 U/L (15-37); Alanine Aminotransfer ALT/SGPT 29 U/L (13-56); Albumin, Serum 2.9 g/dL (3.2-5.0); Alkaline Phosphatase 38 U/L (45-117); Amylase 62 U/L (25-115); Anion Gap 4 (5-15); BUN 21 mg/dL (7-18); BUN/Creat Ratio 19.1 RATIO (10-20); Calcium,Total 8.4 mg/dL (8.5-10.1); Chloride 106 mmol/L (98-107); EST Glomerular Filtration Rate 51 mL/min (>60); Est Glom Filt Rate - Afr Amer 61 mL/min (>60); Estimated Creatinine Clearance 28.81 ml/min; Globulin 2.9 g/dL (2.2-4.2); Glucose 111 mg/dL (74-106); Lipase 194 U/L (73-393); Potassium 4.6 mmol/L (3.5-5.1); Protein, Total 5.8 g/dL (6.4-8.2); Sodium Level 136 mmol/L (136-145)
--- NOTE | 2020-06-12 06:20 | PN.SURG_ITS ---
Patient Problems: Active and Suspected Problems (This Medical Record has been edited. Action required.) Abdominal pain (Acute) Chest pain (Acute) Intractable abdominal pain (Acute) Subjective: Patient states that she is feeling somewhat better today. On her own self- examination she notes persistent tenderness in the right lower quadrant. - Physical Exam Vitals/I&O's: Vital Signs Temp Pulse Resp BP Pulse Ox 97.5 F L 86 18 120/60 96 06/12/20 04:09 06/12/20 04:09 06/12/20 04:09 06/12/20 04:09 06/12/20 04:09 Oxygen Delivery Method Room Air Weight: 132 lb 4.438 oz Body Mass Index (BMI) 25.8 Intake and Output for Last 24 Hours 06/10/20 06/11/20 06/12/20 23:59 23:59 23:59 Intake Total 1050 / 1050 Balance 1050 / 1050 Abdomen: Soft - More impressive focal tenderness right lower quadrant. Exam more definitive, bowel sounds diminished from last night, nontender left abdomen Laboratory Results 06/11/20 19:40: WBC 10.9, RBC 3.91 L, Hgb 12.4, Hct 38.6, MCV 98.7, MCH 31.7, MCHC 32.1, RDW Std Deviation 51.9 H, RDW Coeff of Nithin 14.4, Plt Count 224, MPV 10.4, Immature Gran % (Auto) 0.400, Neut % (Auto) 88.3 H, Lymph % (Auto) 7.0 L, [place] % (Auto) 3.0, Eos % (Auto) 1.1, Baso % (Auto) 0.2, Absolute Neuts (auto) 9.6 H, Absolute Lymphs (auto) 0.76 L, Nucleated RBC % 0 06/11/20 19:40: Sodium 135 L, Potassium 4.9, Chloride 105, Carbon Dioxide 27.0, Anion Gap 3 L, BUN 24 H, Creatinine 1.07 H, Estim Creat Clear Calc 29.62, Est GFR (MDRD) Af Amer 63, Est GFR (MDRD) Non-Af 52 L, BUN/Creatinine Ratio 22.4 H, Glucose 101, Calcium 8.8, Total Bilirubin 0.50, AST 21, ALT 29, Alkaline Phosphatase 41 L, Total Protein 6.2 L, Albumin 3.4, Globulin 2.8, Albumin/Globulin Ratio 1.2, Lipase 119 06/11/20 20:23: Urine Color Yellow, Urine Clarity Clear, Urine pH 6.0, Ur Specific [place] 1.015, Urine Protein Negative, Urine Glucose (UA) Normal, Urine Ketones Negative, Urine Occult Blood Negative, Urine Nitrite Negative, Urine Bilirubin Negative, Urine Urobilinogen Normal, Ur Leukocyte Esterase Negative, Urine RBC 0 SEEN, Urine WBC 0 SEEN, Ur Squamous Epith Cells 0 SEEN, Urine Bacteria 0 SEEN, Urine Mucus 0 SEEN 06/11/20 21:40: COVID-19 (KATHERINE) Not Detected 06/12/20 01:02: Troponin I < 0.015 06/12/20 04:00: WBC 12.4 H, RBC 3.54 L, Hgb 11.4 L, Hct 35.2 L, MCV 99.4 H, MCH 32.2 H, MCHC 32.4, RDW Std Deviation 53.7 H, RDW Coeff of Nithin 14.7 H, Plt Count 201, MPV 10.5, Immature Gran % (Auto) 0.500, Neut % (Auto) 90.3 H, Lymph % (Auto) 4.3 L, [place] % (Auto) 4.6, Eos % (Auto) 0.1, Baso % (Auto) 0.2, Absolute Neuts (auto) 11.2 H, Absolute Lymphs (auto) 0.53 L, Nucleated RBC % 0, Differential Comment SCANNED, Ovalocytes RARE 06/12/20 04:00: PT 13.6, INR 1.1 06/12/20 04:00: Sodium 136, Potassium 4.6, Chloride 106, Carbon Dioxide 26.0, Anion Gap 4 L, BUN 21 H, Creatinine 1.10 H, Estim Creat Clear Calc 28.81, Est GFR (MDRD) Af Amer 61, Est GFR (MDRD) Non-Af 51 L, BUN/Creatinine Ratio 19.1, Glucose 111 H, Calcium 8.4 L, Total Bilirubin 0.70, AST 17, ALT 29, Alkaline Phosphatase 38 L, Total Protein 5.8 L, Albumin 2.9 L, Globulin 2.9, Albumin/Globulin Ratio 1.0, Amylase 62, Lipase 194 06/12/20 04:00: Troponin I 0.035 Current Medications Acetaminophen (Tylenol) 650 mg PO Q6H PRN PRN PRN Reason: Pain Score 1-10/10 Atorvastatin Calcium (Lipitor) 80 mg PO QHS [facility] Dextrose (D50w Syringe) 0 gm IV X1 PRN; Protocol PRN Reason: Hypoglycemia Diphenoxylate HCl/Atropine (Lomotil) 1 tablet PO 4X/DAY PRN PRN PRN Reason: LOOSE STOOLS Doxepin HCl (Sinequan) 10 mg PO PRN PRN PRN Reason: Swelling Epinephrine HCl () 0.3 mg IM DAILY PRN PRN PRN Reason: SEVERE ALLERGIC RXN Escitalopram Oxalate (Lexapro) 10 mg PO DAILY [facility] Glucagon () 1 mg IM .X1 PRN PRN Reason: Hypoglycemia Sodium Chloride () 1,000 mls @ 80 mls/hr IV .[id number] [facility] Last Admin: 06/12/20 00:58 Dose: 80 mls/hr Documented by: Piperacillin Sod/Tazobactam (Sod 3.375 gm/ Sodium Chloride) 50 mls @ 12.5 mls/hr IV Q8 [facility] Last Admin: 06/12/20 05:54 Dose: 12.5 mls/hr Documented by: Sodium Chloride () 250 mls @ 15 mls/hr IV .[id number] PRN PRN Reason: Saline Flush Latanoprost (Xalatan Opthalmic) 1 drop EACH EYE QHS [facility] Meclizine HCl (Antivert) 25 mg PO TID PRN PRN PRN Reason: DIZZINESS Metoprolol Succinate (Toprol Xl (Beta Gilson)) 25 mg PO DAILY [facility] Montelukast Sodium (Singulair) 10 mg PO DAILY [facility] Morphine Sulfate () 1 - 2 mg IV Q1H PRN PRN PRN Reason: Pain Score 1-10/10 Nitroglycerin (Nitrostat) 0.4 mg SUBLINGUAL Q5M PRN PRN Reason: CHEST PAIN Ondansetron HCl (Zofran) 4 mg IV Q8H PRN PRN PRN Reason: NAUSEA Pantoprazole Sodium (Protonix) 40 mg PO DAILY [facility] Sodium [facility]loride () 10 - 40 ml IV UD PRN PRN Reason: SALINE FLUSH Trazodone HCl (Desyrel) 300 mg PO QHS [facility] Medical Necessity - Tobacco Use Smoking Status: Never smoker Assessment/Plan All Active Problems (This Medical Record has been edited. Action required.) Abdominal pain (Acute) Chest pain (Acute) Intractable abdominal pain (Acute) 80-year-old female admitted last evening with abdominal pain. Complicating features included in the history and physical. She has been evaluated by medicine. Despite IV antibiotics for suspected early appendicitis she now has localized her pain more consistently to the right lower quadrant and she is focally tender in that area. The CT scan was interpreted as cannot exclude appendicitis. Despite appropriate IV antibiotics being utilized as a conservative means of treatment for acute appendicitis her white blood cell cou nt has increased. At 11 AM she will be 24 hours from her last Eliquis dosing. I proposed to the patient with her son present that we proceed with a laparoscopic appendectomy and I described technique, benefit, risk, alternatives. No guarantees of success are offered. Her COVID testing is negative. I have spoken with who believes based upon her cardiac history that she is above average risk for surgery. He is not opposed to us proceeding. I have extensively discussed findings with literally a 2-1/2-hour interview with the patient and son last evening and again a repeat evaluation this morning. The son and patient are now interested in proceeding with surgical intervention. I will notify the operating room and we will proceed as timing permits. Because of her angioedema and increased risk of adverse outcome I will initiate stress dose steroids this morning The patient had an additional discussion with her son. If during surgery she were to go into cardiac arrest or critical decline she would not want to undergo CPR or aggressive resuscitation. Donnell Gray M.D., F.A.C.S.
--- NOTE | 2020-06-12 06:27 | DCINST_ITS ---
Discharge Diet: Light diet - advance as tolerated - if you have questions about your diet instructions, please talk to you doctor. Discharge Activity: May Not Drive - for 1 week or while taking narcotic pain medicine. May shower in (days): 1 Lifting Restrictions: 10 pounds Call your doctor if your incision/area has: Continuous Slow Oozing, Sudden Increased Bleeding, Increased Pain/ Swelling, Increased Redness, Foul Smelling Discharge Call your doctor if you observe: Fever of 101 or Higher Suture Line Care: Avoid Pulling/Pushing, Avoid Pinching/Bending Additional Dressing/Incision Instructions:: Change or remove dressing in 3 days. Leave steri-strips in place for 1 week. Additional Instructions: You may resume your other medications at discharge. You may resume your aspirin at discharge. Barring any difficulties you may resume Eliquis on Tuesday June 16, 2020 Allergies/Adverse Reactions: Allergies morphine Allergy (Verified 06/11/20 18:19) Unknown Sulfa (Sulfonamide Antibiotics) Allergy (Verified 06/11/20 18:19) Unknown aspirin Adverse Reaction (Verified 06/11/20 18:19) Nausea/Vom/Diarrhea Medications to take at Discharge Atorvastatin Calcium [Lipitor] 80 mg PO QHS 09/11/16 Bupropion HCl [Bupropion HCl Sr] 200 mg PO DAILY 09/11/16 Loperamide HCl [Imodium A-D] 2 mg PO QHS 09/11/16 Montelukast [Singulair] 10 mg PO DAILY 09/11/16 Aspirin [Aspirin EC] 1 tab PO DAILY 08/11/17 Doxepin HCl 10 mg PO PRN PRN 08/11/17 Epinephrine [Epipen] 0.3 mg IJ PRN PRN 08/11/17 Multivitamin [Daily Multiple Vitamin] 1 each PO DAILY 08/11/17 Pantoprazole Sodium [Protonix] 40 mg PO DAILY 08/11/17 Travoprost 0.004% [Travatan-Z 0.004% Eye Drop] 1 drop EACH EYE DAILY 08/11/17 Meclizine HCl 25 mg PO TID PRN PRN #20 tablet 08/12/17 Apixaban [Eliquis] 2.5 mg PO BID 06/11/20 Dicyclomine HCl 10 mg PO PRN PRN 06/11/20 Diphenoxylate HCl/Atropine [Diphenoxylate-Atrop 2.5-0.025] 1 ea PO PRN PRN 06/11/20 Escitalopram Oxalate [Lexapro] 10 mg PO DAILY 06/11/20 Metoprolol Succinate 25 mg PO DAILY 06/11/20 Nitroglycerin 0.4 mg SL Q5M PRN 06/11/20 Potassium Chloride [Klor-Con] 20 meq PO DAILY 06/11/20 Prednisone [Deltasone] 7.5 mg PO DAILY 06/11/20 traZODone [Desyrel] 300 mg PO QHS 06/11/20 Amoxicillin/Potassium Clav [Augmentin 875-125 Tablet] 1 ea PO BID #6 tab 06/13/20 The following prescriptions were given: Amoxicillin/Potassium Clav [Augmentin 875-125 Tablet] 1 ea PO BID #6 tab Transmission Status: Pending to [id number] Primary Care Physician: Castro Kidd MD [Primary Care Provider] - Test Results: Test results from this visit will be discussed in further detail at your follow- up appointment, if applicable. Please Follow Up With: Donnell Gray MD - [phone] When: Call for 10-day appointment. This may be virtual
--- NOTE | 2020-06-12 07:55 | PCM.PN.HOSP ---
Patient Problems: Active and Suspected Problems (This Medical Record has been edited. Action required.) Abdominal pain (Acute) Chest pain (Acute) Intractable abdominal pain (Acute) Vitals/I&O's: Vital Signs Temp Pulse Resp BP Pulse Ox 97.5 F L 86 16 120/60 94 06/12/20 04:09 06/12/20 04:09 06/12/20 06:51 06/12/20 04:09 06/12/20 06:51 Oxygen Delivery Method Room Air Weight: 60 kg Body Mass Index (BMI) 25.8 Intake and Output for Last 24 Hours 06/10/20 06/11/20 06/12/20 23:59 23:59 23:59 Intake Total 1050 / 1050 Balance 1050 / 1050 Laboratory Results 06/11/20 19:40: WBC 10.9, RBC 3.91 L, Hgb 12.4, Hct 38.6, MCV 98.7, MCH 31.7, MCHC 32.1, RDW Std Deviation 51.9 H, RDW Coeff of Nithin 14.4, Plt Count 224, MPV 10.4, Immature Gran % (Auto) 0.400, Neut % (Auto) 88.3 H, Lymph % (Auto) 7.0 L, [place] % (Auto) 3.0, Eos % (Auto) 1.1, Baso % (Auto) 0.2, Absolute Neuts (auto) 9.6 H, Absolute Lymphs (auto) 0.76 L, Nucleated RBC % 0 06/11/20 19:40: Sodium 135 L, Potassium 4.9, Chloride 105, Carbon Dioxide 27.0, Anion Gap 3 L, BUN 24 H, Creatinine 1.07 H, Estim Creat Clear Calc 29.62, Est GFR (MDRD) Af Amer 63, Est GFR (MDRD) Non-Af 52 L, BUN/Creatinine Ratio 22.4 H, Glucose 101, Calcium 8.8, Total Bilirubin 0.50, AST 21, ALT 29, Alkaline Phosphatase 41 L, Total Protein 6.2 L, Albumin 3.4, Globulin 2.8, Albumin/Globulin Ratio 1.2, Lipase 119 06/11/20 20:23: Urine Color Yellow, Urine Clarity Clear, Urine pH 6.0, Ur Specific [place] 1.015, Urine Protein Negative, Urine Glucose (UA) Normal, Urine Ketones Negative, Urine Occult Blood Negative, Urine Nitrite Negative, Urine Bilirubin Negative, Urine Urobilinogen Normal, Ur Leukocyte Esterase Negative, Urine RBC 0 SEEN, Urine WBC 0 SEEN, Ur Squamous Epith Cells 0 SEEN, Urine Bacteria 0 SEEN, Urine Mucus 0 SEEN 06/11/20 21:40: COVID-19 (KATHERINE) Not Detected 06/12/20 01:02: Troponin I < 0.015 06/12/20 04:00: WBC 12.4 H, RBC 3.54 L, Hgb 11.4 L, Hct 35.2 L, MCV 99.4 H, MCH 32.2 H, MCHC 32.4, RDW Std Deviation 53.7 H, RDW Coeff of Nithin 14.7 H, Plt Count 201, MPV 10.5, Immature Gran % (Auto) 0.500, Neut % (Auto) 90.3 H, Lymph % (Auto) 4.3 L, [place] % (Auto) 4.6, Eos % (Auto) 0.1, Baso % (Auto) 0.2, Absolute Neuts (auto) 11.2 H, Absolute Lymphs (auto) 0.53 L, Nucleated RBC % 0, Differential Comment SCANNED, Ovalocytes RARE 06/12/20 04:00: PT 13.6, INR 1.1 06/12/20 04:00: Sodium 136, Potassium 4.6, Chloride 106, Carbon Dioxide 26.0, Anion Gap 4 L, BUN 21 H, Creatinine 1.10 H, Estim Creat Clear Calc 28.81, Est GFR (MDRD) Af Amer 61, Est GFR (MDRD) Non-Af 51 L, BUN/Creatinine Ratio 19.1, Glucose 111 H, Calcium 8.4 L, Total Bilirubin 0.70, AST 17, ALT 29, Alkaline Phosphatase 38 L, Total Protein 5.8 L, Albumin 2.9 L, Globulin 2.9, Albumin/Globulin Ratio 1.0, Amylase 62, Lipase 194 06/12/20 04:00: Troponin I 0.035 06/12/20 06:35: Troponin I 0.032 Current Medications Acetaminophen (Tylenol) 650 mg PO Q6H PRN PRN PRN Reason: Pain Score 1-10/10 Atorvastatin Calcium (Lipitor) 80 mg PO QHS [facility] Dextrose (D50w Syringe) 0 gm IV X1 PRN; Protocol PRN Reason: Hypoglycemia Diphenoxylate HCl/Atropine (Lomotil) 1 tablet PO 4X/DAY PRN PRN PRN Reason: LOOSE STOOLS Doxepin HCl (Sinequan) 10 mg PO PRN PRN PRN Reason: Swelling Epinephrine HCl () 0.3 mg IM DAILY PRN PRN PRN Reason: SEVERE ALLERGIC RXN Escitalopram Oxalate (Lexapro) 10 mg PO DAILY [facility] Glucagon () 1 mg IM .X1 PRN PRN Reason: Hypoglycemia Hydrocortisone Sodium Succinate (Solu-Cortef) 50 mg IV Q8 [facility] Sodium Chloride () 1,000 mls @ 80 mls/hr IV .[id number] [facility] Last Admin: 06/12/20 00:58 Dose: 80 mls/hr Documented by: Piperacillin Sod/Tazobactam (Sod 3.375 gm/ Sodium Chloride) 50 mls @ 12.5 mls/hr IV Q8 [facility] Last Admin: 06/12/20 05:54 Dose: 12.5 mls/hr Documented by: Sodium Chloride () 250 mls @ 15 mls/hr IV .[id number] PRN PRN Reason: Saline Flush Latanoprost (Xalatan Opthalmic) 1 drop EACH EYE QHS [facility] Meclizine HCl (Antivert) 25 mg PO TID PRN PRN PRN Reason: DIZZINESS Metoprolol Succinate (Toprol Xl (Beta Gilson)) 25 mg PO DAILY [facility] Montelukast Sodium (Singulair) 10 mg PO DAILY [facility] Morphine Sulfate () 1 - 2 mg IV Q1H PRN PRN PRN Reason: Pain Score 1-10/10 Nitroglycerin (Nitrostat) 0.4 mg SUBLINGUAL Q5M PRN PRN Reason: CHEST PAIN Ondansetron HCl (Zofran) 4 mg IV Q8H PRN PRN PRN Reason: NAUSEA Pantoprazole Sodium (Protonix) 40 mg PO DAILY [facility] () [facility] Sodium Ch[facility] () 10 - 40 ml IV UD PRN PRN Reason: SALINE FLUSH Trazodone HCl (Desyrel) 300 mg PO QHS [facility] Vital Signs/Narrative: Vital Signs Temp Pulse Resp BP Pulse Ox 06/12/20 06:51 16 94 06/12/20 04:09 97.5 F L 86 18 120/60 96 Medical Necessity - Tobacco Use Smoking Status: Never smoker Assessment/Plan All Active Problems (This Medical Record has been edited. Action required.) Abdominal pain (Acute) Chest pain (Acute) Intractable abdominal pain (Acute)
--- NOTE | 2020-06-12 08:15 | PN_ITS ---
Patient Problems: Active and Suspected Problems (This Medical Record has been edited. Action required.) Abdominal pain (Acute) Chest pain (Acute) Intractable abdominal pain (Acute) - Physical Exam Vitals/I&O's: Vital Signs Temp Pulse Resp BP Pulse Ox 97.5 F L 86 16 120/60 94 06/12/20 04:09 06/12/20 04:09 06/12/20 06:51 06/12/20 04:09 06/12/20 06:51 Oxygen Delivery Method Room Air Weight: 132 lb 4.438 oz Body Mass Index (BMI) 25.8 Intake and Output for Last 24 Hours 06/10/20 06/11/20 06/12/20 23:59 23:59 23:59 Intake Total 1050 / 1050 Balance 1050 / 1050 Laboratory Results 06/11/20 19:40: WBC 10.9, RBC 3.91 L, Hgb 12.4, Hct 38.6, MCV 98.7, MCH 31.7, MCHC 32.1, RDW Std Deviation 51.9 H, RDW Coeff of Nithin 14.4, Plt Count 224, MPV 10.4, Immature Gran % (Auto) 0.400, Neut % (Auto) 88.3 H, Lymph % (Auto) 7.0 L, [place] % (Auto) 3.0, Eos % (Auto) 1.1, Baso % (Auto) 0.2, Absolute Neuts (auto) 9.6 H, Absolute Lymphs (auto) 0.76 L, Nucleated RBC % 0 06/11/20 19:40: Sodium 135 L, Potassium 4.9, Chloride 105, Carbon Dioxide 27.0, Anion Gap 3 L, BUN 24 H, Creatinine 1.07 H, Estim Creat Clear Calc 29.62, Est GFR (MDRD) Af Amer 63, Est GFR (MDRD) Non-Af 52 L, BUN/Creatinine Ratio 22.4 H, Glucose 101, Calcium 8.8, Total Bilirubin 0.50, AST 21, ALT 29, Alkaline Phosphatase 41 L, Total Protein 6.2 L, Albumin 3.4, Globulin 2.8, Albumin/Globulin Ratio 1.2, Lipase 119 06/11/20 20:23: Urine Color Yellow, Urine Clarity Clear, Urine pH 6.0, Ur Specific [place] 1.015, Urine Protein Negative, Urine Glucose (UA) Normal, Urine Ketones Negative, Urine Occult Blood Negative, Urine Nitrite Negative, Urine Bilirubin Negative, Urine Urobilinogen Normal, Ur Leukocyte Esterase Negative, Urine RBC 0 SEEN, Urine WBC 0 SEEN, Ur Squamous Epith Cells 0 SEEN, Urine Bacteria 0 SEEN, Urine Mucus 0 SEEN 06/11/20 21:40: COVID-19 (KATHERINE) Not Detected 06/12/20 01:02: Troponin I < 0.015 06/12/20 04:00: WBC 12.4 H, RBC 3.54 L, Hgb 11.4 L, Hct 35.2 L, MCV 99.4 H, MCH 32.2 H, MCHC 32.4, RDW Std Deviation 53.7 H, RDW Coeff of Nithin 14.7 H, Plt Count 201, MPV 10.5, Immature Gran % (Auto) 0.500, Neut % (Auto) 90.3 H, Lymph % (Auto) 4.3 L, [place] % (Auto) 4.6, Eos % (Auto) 0.1, Baso % (Auto) 0.2, Absolute Neuts (auto) 11.2 H, Absolute Lymphs (auto) 0.53 L, Nucleated RBC % 0, Differential Comment SCANNED, Ovalocytes RARE 06/12/20 04:00: PT 13.6, INR 1.1 06/12/20 04:00: Sodium 136, Potassium 4.6, Chloride 106, Carbon Dioxide 26.0, Anion Gap 4 L, BUN 21 H, Creatinine 1.10 H, Estim Creat Clear Calc 28.81, Est GFR (MDRD) Af Amer 61, Est GFR (MDRD) Non-Af 51 L, BUN/Creatinine Ratio 19.1, Glucose 111 H, Calcium 8.4 L, Total Bilirubin 0.70, AST 17, ALT 29, Alkaline Phosphatase 38 L, Total Protein 5.8 L, Albumin 2.9 L, Globulin 2.9, Albumin/Globulin Ratio 1.0, Amylase 62, Lipase 194 06/12/20 04:00: Troponin I 0.035 06/12/20 06:35: Troponin I 0.032 Current Medications Acetaminophen (Tylenol) 650 mg PO Q6H PRN PRN PRN Reason: Pain Score 1-10/10 Atorvastatin Calcium (Lipitor) 80 mg PO QHS [facility] Dextrose (D50w Syringe) 0 gm IV X1 PRN; Protocol PRN Reason: Hypoglycemia Diphenoxylate HCl/Atropine (Lomotil) 1 tablet PO 4X/DAY PRN PRN PRN Reason: LOOSE STOOLS Doxepin HCl (Sinequan) 10 mg PO PRN PRN PRN Reason: Swelling Epinephrine HCl () 0.3 mg IM DAILY PRN PRN PRN Reason: SEVERE ALLERGIC RXN Escitalopram Oxalate (Lexapro) 10 mg PO DAILY [facility] Glucagon () 1 mg IM .X1 PRN PRN Reason: Hypoglycemia Hydrocortisone Sodium Succinate (Solu-Cortef) 50 mg IV Q8 [facility] Sodium Chloride () 1,000 mls @ 80 mls/hr IV .[id number] [facility] Last Admin: 06/12/20 00:58 Dose: 80 mls/hr Documented by: Piperacillin Sod/Tazobactam (Sod 3.375 gm/ Sodium Chloride) 50 mls @ 12.5 mls/hr IV Q8 [facility] Last Admin: 06/12/20 05:54 Dose: 12.5 mls/hr Documented by: Sodium Chloride () 250 mls @ 15 mls/hr IV .[id number] PRN PRN Reason: Saline Flush Latanoprost (Xalatan Opthalmic) 1 drop EACH EYE QHS [facility] Meclizine HCl (Antivert) 25 mg PO TID PRN PRN PRN Reason: DIZZINESS Metoprolol Succinate (Toprol Xl (Beta Gilson)) 25 mg PO DAILY [facility] Montelukast Sodium (Singulair) 10 mg PO DAILY [facility] Morphine Sulfate () 1 - 2 mg IV Q1H PRN PRN PRN Reason: Pain Score 1-10/10 Nitroglycerin (Nitrostat) 0.4 mg SUBLINGUAL Q5M PRN PRN Reason: CHEST PAIN Ondansetron HCl (Zofran) 4 mg IV Q8H PRN PRN PRN Reason: NAUSEA Pantoprazole Sodium (Protonix) 40 mg PO DAILY [facility] () [facility] Last Admin: 06/12/20 08:02 Dose: Not Given Documented by: Sodium Chloride () 10 - 40 ml IV UD PRN PRN Reason: SALINE FLUSH Trazodone HCl (Desyrel) 300 mg PO QHS [facility] Medical Necessity - Tobacco Use Smoking Status: Never smoker Assessment/Plan All Active Problems (This Medical Record has been edited. Action required.) Abdominal pain (Acute) Chest pain (Acute) Intractable abdominal pain (Acute)
--- NOTE | 2020-06-12 08:17 | PN_ITS ---
Patient Problems: Active and Suspected Problems (This Medical Record has been edited. Action required.) Abdominal pain (Acute) Chest pain (Acute) Subjective: Chief complaint: Follow-up after admission for abdominal pain, found to have suspected appendicitis. Patient seen and examined this morning. No acute events overnight. She is hard of hearing. She mentioned that when she lays down in a certain position, she has no more abdominal pain. She still gets the pain when she moves but feeling better today. Denied nausea or vomiting. Denied fever chills. She has no more chest pain. - Physical Exam Vitals/I&O's: Vital Signs Temp Pulse Resp BP Pulse Ox 97.5 F L 86 16 120/60 94 06/12/20 04:09 06/12/20 04:09 06/12/20 06:51 06/12/20 04:09 06/12/20 06:51 Oxygen Delivery Method Room Air Weight: 132 lb 4.438 oz Body Mass Index (BMI) 25.8 Intake and Output for Last 24 Hours 06/10/20 06/11/20 06/12/20 23:59 23:59 23:59 Intake Total 1050 / 1050 Balance 1050 / 1050 General: Alert, Oriented x3, Cooperative, No apparent distress HEENT: Atraumatic, PERRLA, EOMI, Normocephalic Oral: Moist Mucosa, No Gingival or Mucosal Lesions/ Ulcerations Neck: Supple, No JVD, Negative Carotid Bruits, Trachea Midline, Thyroid Normal Size and Texture Lungs: Clear to auscultation, Normal air movement, No rhonchi, No wheeze, No rales, Diminished Cardiovascular: Regular rate, Regular Rhythm, Normal S1, Normal S2, PMI Normal Abdomen: Bowel Sounds Present, Soft, Non-Distended, No Hepato-splenomegaly, Te nder - Mild tenderness at the lower abdomen, more towards the right lower quadrant. No guarding or rigidity. Extremities: No clubbing, No cyanosis Skin: No rashes, No breakdown Lymphatic: No Cervical, Supraclavicular, or Inguinal Adenopathy Neurological: Cranial nerves II-XII grossly intact, Neuro grossly intact Psych/Mental Status: Normal Affect, Appropriate Laboratory Results 06/11/20 19:40: WBC 10.9, RBC 3.91 L, Hgb 12.4, Hct 38.6, MCV 98.7, MCH 31.7, MCHC 32.1, RDW Std Deviation 51.9 H, RDW Coeff of Nithin 14.4, Plt Count 224, MPV 10.4, Immature Gran % (Auto) 0.400, Neut % (Auto) 88.3 H, Lymph % (Auto) 7.0 L, [place] % (Auto) 3.0, Eos % (Auto) 1.1, Baso % (Auto) 0.2, Absolute Neuts (auto) 9.6 H, Absolute Lymphs (auto) 0.76 L, Nucleated RBC % 0 06/11/20 19:40: Sodium 135 L, Potassium 4.9, Chloride 105, Carbon Dioxide 27.0, Anion Gap 3 L, BUN 24 H, Creatinine 1.07 H, Estim Creat Clear Calc 29.62, Est GFR (MDRD) Af Amer 63, Est GFR (MDRD) Non-Af 52 L, BUN/Creatinine Ratio 22.4 H, Glucose 101, Calcium 8.8, Total Bilirubin 0.50, AST 21, ALT 29, Alkaline Phosphatase 41 L, Total Protein 6.2 L, Albumin 3.4, Globulin 2.8, Albumin/Globulin Ratio 1.2, Lipase 119 06/11/20 20:23: Urine Color Yellow, Urine Clarity Clear, Urine pH 6.0, Ur Specific [place] 1.015, Urine Protein Negative, Urine Glucose (UA) Normal, Urine Ketones Negative, Urine Occult Blood Negative, Urine Nitrite Negative, Urine Bilirubin Negative, Urine Urobilinogen Normal, Ur Leukocyte Esterase Negative, Urine RBC 0 SEEN, Urine WBC 0 SEEN, Ur Squamous Epith Cells 0 SEEN, Urine Bacteria 0 SEEN, Urine Mucus 0 SEEN 06/11/20 21:40: COVID-19 (KATHERINE) Not Detected 06/12/20 01:02: Troponin I < 0.015 06/12/20 04:00: WBC 12.4 H, RBC 3.54 L, Hgb 11.4 L, Hct 35.2 L, MCV 99.4 H, MCH 32.2 H, MCHC 32.4, RDW Std Deviation 53.7 H, RDW Coeff of Nithin 14.7 H, Plt Count 201, MPV 10.5, Immature Gran % (Auto) 0.500, Neut % (Auto) 90.3 H, Lymph % (Auto) 4.3 L, [place] % (Auto) 4.6, Eos % (Auto) 0.1, Baso % (Auto) 0.2, Absolute Neuts (auto) 11.2 H, Absolute Lymphs (auto) 0.53 L, Nucleated RBC % 0, Differential Comment SCANNED, Ovalocytes RARE 06/12/20 04:00: PT 13.6, INR 1.1 06/12/20 04:00: Sodium 136, Potassium 4.6, Chloride 106, Carbon Dioxide 26.0, Anion Gap 4 L, BUN 21 H, Creatinine 1.10 H, Estim Creat Clear Calc 28.81, Est GFR (MDRD) Af Amer 61, Est GFR (MDRD) Non-Af 51 L, BUN/Creatinine Ratio 19.1, Glucose 111 H, Calcium 8.4 L, Total Bilirubin 0.70, AST 17, ALT 29, Alkaline Phosphatase 38 L, Total Protein 5.8 L, Albumin 2.9 L, Globulin 2.9, Albumin/Globulin Ratio 1.0, Amylase 62, Lipase 194 06/12/20 04:00: Troponin I 0.035 06/12/20 06:35: Troponin I 0.032 Clinical Impression(s) from Imaging Studies Abdomen/Pelvis CT 06/11/20 19:30 IMPRESSION: Acute appendicitis cannot be excluded based on the CT appearance as described above. No abscess or free air is seen. (I discussed this case with Dr. Potts by telephone at 9:14 PM EST on day of exam. Clinical presentation is described as more diffuse abdominal pain and swelling and no olive leukocytosis is present at this time.) Distended gallbladder and dilated common bile duct. N.B. : The above information has been verbally conveyed by Castro Pope MD to Hima Potts DO, on 06/11/2020 21:15:35 (ET). Electronically Signed: Castro Pope MD at 21:17 EDT Tel , Service support , ADDENDUM: 06/11/209 IMPRESSION: Acute appendicitis cannot be excluded based on the CT appearance as described above. No abscess or free air is seen. (I discussed this case with Dr. Potts by telephone at 9:14 PM EST on day of exam. Clinical presentation is described as more diffuse abdominal pain and swelling and no olive leukocytosis is present at this time.) Distended gallbladder and dilated common bile duct. N.B. : The above information has been verbally conveyed by Castro Pope MD to Hima Potts DO, on 06/11/2020 21:15:35 (ET). Electronically Signed: Castro Pope MD at 21:17 EDT Tel , Service support , Current Medications Acetaminophen (Tylenol) 650 mg PO Q6H PRN PRN PRN Reason: Pain Score 1-10/10 Atorvastatin Calcium (Lipitor) 80 mg PO QHS [facility] Dextrose (D50w Syringe) 0 gm IV X1 PRN; Protocol PRN Reason: Hypoglycemia Diphenoxylate HCl/Atropine (Lomotil) 1 tablet PO 4X/DAY PRN PRN PRN Reason: LOOSE STOOLS Doxepin HCl (Sinequan) 10 mg PO PRN PRN PRN Reason: Swelling Epinephrine HCl () 0.3 mg IM DAILY PRN PRN PRN Reason: SEVERE ALLERGIC RXN Escitalopram Oxalate (Lexapro) 10 mg PO DAILY [facility] Glucagon () 1 mg IM .X1 PRN PRN Reason: Hypoglycemia Hydrocortisone Sodium Succinate (Solu-Cortef) 50 mg IV Q8 [facility] Sodium Chloride () 1,000 mls @ 80 mls/hr IV .[id number] [facility] Last Admin: 06/12/20 00:58 Dose: 80 mls/hr Documented by: Piperacillin Sod/Tazobactam (Sod 3.375 gm/ Sodium Chloride) 50 mls @ 12.5 mls/hr IV Q8 [facility] Last Admin: 06/12/20 05:54 Dose: 12.5 mls/hr Documented by: Sodium Chloride () 250 mls @ 15 mls/hr IV .[id number] PRN PRN Reason: Saline Flush Latanoprost (Xalatan Opthalmic) 1 drop EACH EYE QHS [facility] Meclizine HCl (Antivert) 25 mg PO TID PRN PRN PRN Reason: DIZZINESS Metoprolol Succinate (Toprol Xl (Beta Gilson)) 25 mg PO DAILY [facility] Montelukast Sodium (Singulair) 10 mg PO DAILY [facility] Morphine Sulfate () 1 - 2 mg IV Q1H PRN PRN PRN Reason: Pain Score 1-10/10 Nitroglycerin (Nitrostat) 0.4 mg SUBLINGUAL Q5M PRN PRN Reason: CHEST PAIN Ondansetron HCl (Zofran) 4 mg IV Q8H PRN PRN PRN Reason: NAUSEA Pantoprazole Sodium (Protonix) 40 mg PO DAILY [facility] Last Admin: 06/12/20 08:02 Dose: Not Given Documented by: Sodium Chloride () 10 - 40 ml IV UD PRN PRN Reason: SALINE FLUSH Trazodone HCl (Desyrel) 300 mg PO QHS [facility] Medical Necessity - Tobacco Use Smoking Status: Never smoker Assessment/Plan All Active Problems (This Medical Record has been edited. Action required.) Abdominal pain (Acute) Chest pain (Acute) This is an 80 years old female patient presented to the emergency room because of abdominal pain, CAT scan abdomen done and stated that acute appendicitis cannot be ruled out and patient is going for surgery today. #1 abdominal pain/suspected acute appendicitis: CT scan abdomen reviewed. Patient still having abdominal pain upon movement, tender on the right upper quadrant. WBC is trending up, has been afebrile. She is on IV Zosyn. She is on stress dose of IV steroids. LFT and lipase were unremarkable. Urinalysis showed no evidence of infection. General surgery on the case and planning for laparoscopic appendectomy today. #2 chest pain: Patient has an episode of chest pain. Now, she has no more chest pain. EKG revealed normal sinus rhythm, PVCs, T wave inversion in leads V5 and V6 and those are chronic, no acute segment changes. Troponin negative x3. Patient had loop recorder placed for paroxysmal atrial fibrillation which was done in [place] this past December. She is on statins, metoprolol and nitr oglycerin PRN. At this time, no indication for further cardiac work-up. #3 paroxysmal atrial fibrillation: Heart rate stable, blood pressure maintained. Continue metoprolol for rate control, Eliquis on hold as she is going for surgery. #4 depression: Stable, continue Lexapro and trazodone. #5 hyperlipidemia: Continue statins. #6 history of angioedema: Stable, started on stress dose of IV steroids, she is on prednisone as well. #7 history of stroke: Stable, continue statin at this time. #8 DVT prophylaxis: Eliquis on hold at this time because patient went for surgery. This note was generated with [email or web address] dictation software. It may contain incorrect words, spelling, and punctuation that were not noted in checking the note before signing. Inpatient E&M: 56597 Subs Hosp L3
[2020-06-12] MEDS: Hydrocortisone Sod Succinate 100 MG/2 ML Vial 50 MG IV ×3 (11:38→22:00)
[2020-06-12] MEDS: Bupivacaine Mpf 0.5% 30 ML VIAL (11:40)
--- NOTE | 2020-06-12 11:51 | PCM.OPRPT ---
Problem List (1) Abdominal pain Status: Acute Qualifiers: Abdominal location: generalized Qualified Code(s): R10.84 - Generalized abdominal pain (2) Chest pain Status: Acute Qualifiers: Ischemic chest pain type: stable angina pectoris (3) Angioedema Status: Chronic Qualifiers: Encounter type: sequela Qualified Code(s): T78.3XXS - Angioneurotic edema, sequela (4) Acute appendicitis Status: Acute Qualifiers: Acute appendicitis type: with localized peritonitis Appendicitis gangrene presence: without gangrene Appendicitis perforation presence: without perforation Appendicitis abscess presence: without abscess Qualified Code(s): K35.30 - Acute appendicitis with localized peritonitis, without perforation or gangrene Report of Operation Date of Procedure: 06/12/20 Pre-Operative Diagnosis: Acute appendicitis Post-Operative Diagnosis: Acute separative appendicitis with localized peritonitis Surgery/Procedure Performed:: Laparoscopic appendectomy Description of Surgical Findings:: Timeout and informed consent was obtained. 80-year-old female was taken to the operating room placed upon the table underwent general endotracheal intubation anesthesia. She was already on therapeutic Zosyn therapy. The abdomen was sterilely prepped and draped. 0.5% Marcaine was used as a local anesthetic. Throughout the procedure total 26 cc was used. Local was instilled superior to the umbilicus a vertical incision was created sharp dissection carried down through the subcutaneous tissue. Direct access was gained to the abdomen. A 10 mm trocar was carefully inserted. The abdomen was insufflated with CO2 to a pressure of 10 mmHg pressure. 5 mm trochars were placed in the low mid abdomen and in the right upper quadrant. Inspection revealed generally dilated small and large bowel. There was injection of the anterior surface of the ascending colon in particular. Undetermined etiology possibly related to patient's here history of angioedema. Separative appendicitis was identified. There was a small amount of small bowel overlapping the appendix this was carefully dissected free. The appendiceal base was rapidly identified a window was made in the mesoappendix and using a 45 mm standard stapler the appendix was transected flush with the cecum. A small amount of oozing at the staple line laterally at the peritoneum was secured with a single hemo-lock clip. The mesoappendix was transected with harmonic scalpel. Appendix was placed in a retrieval bag. Gauze was used to hold pressure in the right lower quadrant. Because of the patient's Eliquis therapy there was still just some very light staining and so I placed fibular. I removed this area then became very nicely hemostatic. Carefully made sure there was no small bowel kinking. I then allowed the gas to escape through an antiviral valve. The appendix was easily removed at the umbilicus. The fascia at the umbilicus was approximated with a [id number] suture of 0 Vicryl. Skin edges approximated opted for Monocryl subdermal stitches. Steri-Strips Telfa OpSite dressings applied. Sponge and instrument and needle counts were reported to the surgeon to be correct. Specimens appendix. Drains none. Blood loss minimal. She was taken to the recovery area in satisfactory addition without apparent complication. Donnell Gray M.D., F.A.C.S. Type of Anesthesia:: General Anesthesiologist: Keegan Vega
[2020-06-12] MEDS: Pantoprazole Sodium 40 MG Tablet PO (13:37)
[2020-06-12] MEDS: predniSONE 5 MG Tablet 7.5 MG PO (13:37)
[2020-06-12] MEDS: Escitalopram Oxalate 10 MG Tablet PO (13:37)
[2020-06-12] MEDS: Metoprolol(XL)Succ 25 MG Tablet PO (13:38)
[2020-06-12] MEDS: Montelukast 10 MG Tablet PO (13:38)
--- NOTE | 2020-06-12 15:22 | PCM.PN.BLA ---
Progress Note Patient complains of sore throat secondary to intubation. Abdomen is stable She would like a walker to assist with walking. She has not been out of bed yet since surgery. Encouraged to mobilize. Donnell Gray M.D., F.A.C.S. STROKE Vital Signs/Narrative: Vital Signs Temp Pulse Resp BP Pulse Ox 06/12/20 13:51 98.6 F 68 16 112/59 L 98 06/12/20 13:38 70 112/68 06/12/20 12:41 96.9 F L 127 H 16 105/73 97 06/12/20 12:38 96.7 F L 137 H 16 105/73 97 06/12/20 12:33 137 H 16 121/80 H 97 06/12/20 12:15 68 16 119/62 100 06/12/20 12:00 98.9 F 74 16 128/61 H 100
[2020-06-12] MEDS: Acetaminophen 325 MG Tablet 650 MG PO (15:57)
[2020-06-12] MEDS: BENZOCAINE/MENTHOL 1 LOZENGE 2 LOZENGE MUCOUS MEM (15:58)
[2020-06-12] MEDS: Latanoprost 0.005% 1 Bottle 1 DRP EACH EYE (22:00)
[2020-06-12] MEDS: Atorvastatin Calcium 80 MG Tablet PO (22:00)
--- NOTE | 2020-06-12 22:55 | NURSING ---
RN CALLED BY SON JORGE ALBERTO THAT PATIENT CALLED HIM AND SAID SHE WAS HAVING AN ALLERGIC REACTION AND HER THROAT WAS CLOSING. RN CAME TO ROOM AND CALL LIGHT WAS WITHIN REACH OF PATIENT. PATIENT STATES TONGUE SWELLING, RN LOOKED IN MOUTH NO SWELLING NOTED, A SORE WAS NOTED IN BACK OF THROAT AND TONGUE IS VERY DRY. PATIENT IS ABLE TO TALK WITHOUT DIFFICULTY DENIES ANY SOB. NO WHEEZING NOTED. RN DID PAGED MD TO PHONE EXPLAINED PATIENT FEELS LIKE SHE MIGHT BE HAVING AN ALLERGIC REACTION AND TONGUE IS SWOLLEN. SEE ORDERS. MD WOULD NOT COME TO THE FLOOR AT THIS TIME DUE TO PATIENT BEING STABLE. OXYGEN 96% ON RA. WILL CONTINUE TO MONITOR.
[2020-06-12] MEDS: Loratadine 10 MG Tablet PO (23:27)
[2020-06-12] MEDS: Doxepin Hydrochloride 10 MG Capsule PO (23:27)
[2020-06-12] MEDS: DiphenhydrAMINE 25 MG Capsule PO (23:27)
[2020-06-12] MEDS: Famotidine 200 MG/20 ML MDV 20 MG in 0.9% Normal Saline (Pres. free 8 ML 300 MG IV (23:28)
--- NOTE | 2020-06-12 23:40 | NURSING ---
RN IN ROOM WITH PATIENT PLACED ON CONTINUOUS PULSE OX 96-98% ON RA. PATIENT IS TALKING TO RN WITHOUT DIFFICULTY BREATHING.
[2020-06-13] VITALS (12 sets, daily range): BP systolic 119–149; BP diastolic 60–82; PULSE 62–80; RESP 16–18; TEMP 36.5–37.1; O2SAT 93–98; BMI 25.8
--- NOTE | 2020-06-13 00:04 | NURSING ---
DR REES CAME TO ROOM TO ASSESS PATIENT, BELIEVES PATIENT IS ANXIOUS AND NOT HAVING AN ALLERGIC REACTION OR ANGIOEDEMA.
--- NOTE | 2020-06-13 00:36 | NURSING ---
RN CALLED SON JORGE ALBERTO AND UPDATED ABOUT PATIENT, NO CONCERNS VOICED AT THIS TIME.
--- NOTE | 2020-06-13 02:38 | NURSING ---
PATIENT STATES HER TONGUE FEELS BETTER, NO COMPLAINTS OF SWELLING AT THIS TIME.
--- NOTE | 2020-06-13 05:22 | DS.PCM_ITS ---
Discharge Date and Diagnosis Date of Admission: 06/11/20 Date of Discharge: 06/14/20 - Primary Discharge Diagnosis Acute Problems: Active Problems (This Medical Record has been edited. Action required.) Acute appendicitis (Acute) Abdominal pain (Acute) Chest pain (Acute) Pre operative and post operative paroxysmal atrial tachycardia delaying surgical discharge - Secondary Discharge Diagnosis Chronic Problems: Chronic Problems (This Medical Record has been edited. Action required.) Angioedema (Chronic) Hyperlipidemia (Chronic) Depression (Chronic) History of stroke (Chronic) Hospital Course and Treatment Operations: - - Laparoscopic appendectomy June 12, 2020 Summary of Care Provided: The patient is a 80 year old F who presented with abdominal pain. She was fully anticoagulated on Eliquis. CT scan findings indeterminate for acute appendicitis. She was initiated on conservative measures while waiting for anticoagulation to resolve. Clinical exam and laboratory suggested progressive appendicitis despite antibiotic therapy. She underwent a laparoscopic appendectomy. Postoperative course unremarkable. Plan to discharge on a short course of antibiotics and will resume her Eliquis on 04/16. A enteric-coated 81 mg aspirin will be initiated on June 14, 2020. Pt was to be discharged on 06/14/20 but incurred recurrent paroxysmal atrial tachycardia for which medicine felt required ongoing care. Pt converted and was discharged on 06/15/20. - Physical Exam Vitals/I&O's: Vital Signs Temp Pulse Resp BP Pulse Ox 97.7 F L 76 18 120/82 H 98 06/13/20 05:00 06/13/20 05:00 06/13/20 05:00 06/13/20 05:00 06/13/20 05:00 Oxygen Flow Rate (L/min) 2 Oxygen Delivery Method Room Air Weight: 132 lb 4.438 oz Body Mass Index (BMI) 25.8 Intake and Output for Last 24 Hours 06/11/20 06/12/20 06/13/20 23:59 23:59 23:59 Intake Total 1050 / 1050 1628.67 / 1928.67 390 / 390 Balance 1050 / 1050 1628.67 / 1928.67 390 / 390 Laboratory Results 06/12/20 06:35: Troponin I 0.032 Current Medications Acetaminophen (Tylenol) 650 mg PO Q6H PRN PRN PRN Reason: Pain Score 1-10/10 Last Admin: 06/12/20 15:57 Dose: 650 mg Documented by: Atorvastatin Calcium (Lipitor) 80 mg PO QHS [facility] Last Admin: 06/12/20 22:00 Dose: 80 mg Documented by: Dextrose (D50w Syringe) 0 gm IV X1 PRN; Protocol PRN Reason: Hypoglycemia Diphenoxylate HCl/Atropine (Lomotil) 1 tablet PO 4X/DAY PRN PRN PRN Reason: LOOSE STOOLS Doxepin HCl (Sinequan) 10 mg PO X1 ONE Stop: 06/13/20 23:11 Last Admin: 06/12/20 23:27 Dose: 10 mg Documented by: Epinephrine HCl () 0.3 mg IM DAILY PRN PRN PRN Reason: SEVERE ALLERGIC RXN Escitalopram Oxalate (Lexapro) 10 mg PO DAILY [facility] Last Admin: 06/12/20 13:37 Dose: 10 mg Documented by: Glucagon () 1 mg IM .X1 PRN PRN Reason: Hypoglycemia Sodium Chloride () 1,000 mls @ 30 mls/hr IV .[id number] [facility] Last Admin: 06/13/20 01:11 Dose: Not Given Documented by: Piperacillin Sod/Tazobactam (Sod 3.375 gm/ Sodium Chloride) 50 mls @ 12.5 mls/hr IV Q8 [facility] Last Infusion: 06/13/20 01:11 Dose: Infused Documented by: Sodium Chloride () 250 mls @ 15 mls/hr IV .[id number] PRN PRN Reason: Saline Flush Latanoprost (Xalatan Opthalmic) 1 drop EACH EYE QHS [facility] Last Admin: 06/12/20 22:00 Dose: 1 drop Documented by: Meclizine HCl (Antivert) 25 mg PO TID PRN PRN PRN Reason: DIZZINESS Metoprolol Succinate (Toprol Xl (Beta Gilson)) 25 mg PO DAILY [facility] Last Admin: 06/12/20 13:38 Dose: 25 mg Documented by: Montelukast Sodium (Singulair) 10 mg PO DAILY [facility] Last Admin: 06/12/20 13:38 Dose: 10 mg Documented by: Morphine Sulfate () 1 - 2 mg IV Q1H PRN PRN PRN Reason: Pain Score 1-10/10 Nitroglycerin (Nitrostat) 0.4 mg SUBLINGUAL Q5M PRN PRN Reason: CHEST PAIN Ondansetron HCl (Zofran) 4 mg IV Q8H PRN PRN PRN Reason: NAUSEA Pantoprazole Sodium (Protonix) 40 mg PO DAILY [facility] Last Admin: 06/12/20 13:37 Dose: 40 mg Documented by: [facility] () [facility] Last Admin: 06/12/20 13:37 Dose: 7.5 mg Documented by: Sodium Chloride () 10 - 40 ml IV UD PRN PRN Reason: SALINE FLUSH Throat Lozenges (Cepacol Sore Throat Lozenge) 2 lozenge MUCOUS MEM Q2H PRN PRN PRN Reason: SORE THROAT Last Admin: 06/12/20 15:58 Dose: 2 lozenge Documented by: Trazodone HCl (Desyrel) 300 mg PO QHS [facility] Last Admin: 06/12/20 21:59 Dose: Not Given Documented by: Discharge Diet: Light diet - advance as tolerated - if you have questions about your diet instructions, please talk to you doctor. Discharge Activity: May Not Drive - for 1 week or while taking narcotic pain medicine. May shower in (days): 1 Call your doctor if your incision/area has: Continuous Slow Oozing, Sudden Increased Bleeding, Increased Pain/ Swelling, Increased Redness, Foul Smelling Discharge Call your doctor if you observe: Fever of 101 or Higher Suture Line Care: Avoid Pulling/Pushing, Avoid Pinching/Bending Additional Dressing/Incision Instructions:: Change or remove dressing in 3 days. Leave steri-strips in place for 1 week. Home Medications: Medications to take at Discharge Atorvastatin Calcium [Lipitor] 80 mg PO QHS 09/11/16 Bupropion HCl [Bupropion HCl Sr] 200 mg PO DAILY 09/11/16 Loperamide HCl [Imodium A-D] 2 mg PO QHS 09/11/16 Montelukast [Singulair] 10 mg PO DAILY 09/11/16 Aspirin [Aspirin EC] 1 tab PO DAILY 08/11/17 Doxepin HCl 10 mg PO PRN PRN 08/11/17 Epinephrine [Epipen] 0.3 mg IJ PRN PRN 08/11/17 Multivitamin [Daily Multiple Vitamin] 1 each PO DAILY 08/11/17 Pantoprazole Sodium [Protonix] 40 mg PO DAILY 08/11/17 Travoprost 0.004% [Travatan-Z 0.004% Eye Drop] 1 drop EACH EYE DAILY 08/11/17 Meclizine HCl 25 mg PO TID PRN PRN #20 tablet 08/12/17 Apixaban [Eliquis] 2.5 mg PO BID 06/11/20 Dicyclomine HCl 10 mg PO PRN PRN 06/11/20 Diphenoxylate HCl/Atropine [Diphenoxylate-Atrop 2.5-0.025] 1 ea PO PRN PRN 06/11/20 Escitalopram Oxalate [Lexapro] 10 mg PO DAILY 06/11/20 Metoprolol Succinate 25 mg PO DAILY 06/11/20 Nitroglycerin 0.4 mg SL Q5M PRN 06/11/20 Potassium Chloride [Klor-Con] 20 meq PO DAILY 06/11/20 Prednisone [Deltasone] 7.5 mg PO DAILY 06/11/20 traZODone [Desyrel] 300 mg PO QHS 06/11/20 Amoxicillin/Potassium Clav [Augmentin 875-125 Tablet] 1 ea PO BID #6 tab 06/13/20 Following Prescrptions Were Given to Patient: Amoxicillin/Potassium Clav [Augmentin 875-125 Tablet] 1 ea PO BID #6 tab Transmission Status: Received by [facility]/pharmacy #[id number] Primary Care Physician: Castro Kidd MD [Primary Care Provider] - Please Follow Up With: Donnell Gray MD - [phone] When: Call for 10-day appointment. This may be virtual Additional Instructions: You may resume your other medications at discharge. You may resume your aspirin at discharge. Barring any difficulties you may resume Eliquis on Monday June 15, 2020 Medical Necessity - Tobacco Use Smoking Status: Never smoker Meaningful Use Info Meaningful Use Diagnoses (Choose all that apply): None applicable
[2020-06-13] MEDS: 0.9% Normal Saline 1,000 ML 30 ML IV (05:40)
--- NOTE | 2020-06-13 05:41 | NURSING ---
DR ENRIQUE IN TO SEE PATIENT, STATES PLAN TO DISCHARGE LATER TODAY, WANTS PATIENT UP AND WALKING. DOES NOT WANT ELIQUIS RESTARTED UNTIL TUESDAY WILL PUT IN DISCHARGE INSTRUCTIONS
--- NOTE | 2020-06-13 05:44 | PCM.PN.SRG ---
Patient Problems: Active and Suspected Problems (This Medical Record has been edited. Action required.) Acute appendicitis (Acute) Abdominal pain (Acute) Chest pain (Acute) Subjective: By nursing report the patient complained of tongue swelling last night and was seen by the hospitalist. Medications provided. Patient apparently had somewhat of a restless night. She denies any flatus. No fever noted - Physical Exam Vitals/I&O's: Vital Signs Temp Pulse Resp BP Pulse Ox 97.7 F L 76 18 120/82 H 98 06/13/20 05:00 06/13/20 05:00 06/13/20 05:00 06/13/20 05:00 06/13/20 05:00 Oxygen Flow Rate (L/min) 2 Oxygen Delivery Method Room Air Weight: 132 lb 4.438 oz Body Mass Index (BMI) 25.8 Intake and Output for Last 24 Hours 06/11/20 06/12/20 06/13/20 23:59 23:59 23:59 Intake Total 1050 / 1050 1628.67 / 1928.67 835 / 835 Balance 1050 / 1050 1628.67 / 1928.67 835 / 835 General: Alert Lungs: Clear to auscultation, Normal air movement Abdomen: - - nonspecific scattered bowel sounds, nontender, mildly distended Laboratory Results 06/12/20 06:35: Troponin I 0.032 Current Medications Acetaminophen (Tylenol) 650 mg PO Q6H PRN PRN PRN Reason: Pain Score 1-10/10 Last Admin: 06/12/20 15:57 Dose: 650 mg Documented by: Atorvastatin Calcium (Lipitor) 80 mg PO QHS [facility] Last Admin: 06/12/20 22:00 Dose: 80 mg Documented by: Dextrose (D50w Syringe) 0 gm IV X1 PRN; Protocol PRN Reason: Hypoglycemia Diphenoxylate HCl/Atropine (Lomotil) 1 tablet PO 4X/DAY PRN PRN PRN Reason: LOOSE STOOLS Doxepin HCl (Sinequan) 10 mg PO X1 ONE Stop: 06/13/20 23:11 Last Admin: 06/12/20 23:27 Dose: 10 mg Documented by: Epinephrine HCl () 0.3 mg IM DAILY PRN PRN PRN Reason: SEVERE ALLERGIC RXN Escitalopram Oxalate (Lexapro) 10 mg PO DAILY [facility] Last Admin: 06/12/20 13:37 Dose: 10 mg Documented by: Glucagon () 1 mg IM .X1 PRN PRN Reason: Hypoglycemia Sodium Chloride () 1,000 mls @ 30 mls/hr IV .[id number] [facility] Last Admin: 06/13/20 05:40 Dose: 30 mls/hr Documented by: Piperacillin Sod/Tazobactam (Sod 3.375 gm/ Sodium Chloride) 50 mls @ 12.5 mls/hr IV Q8 [facility] Last Admin: 06/13/20 05:40 Dose: 12.5 mls/hr Documented by: Sodium Chloride () 250 mls @ 15 mls/hr IV .[id number] PRN PRN Reason: Saline Flush Latanoprost (Xalatan Opthalmic) 1 drop EACH EYE QHS [facility] Last Admin: 06/12/20 22:00 Dose: 1 drop Documented by: Meclizine HCl (Antivert) 25 mg PO TID PRN PRN PRN Reason: DIZZINESS Metoprolol Succinate (Toprol Xl (Beta Gilson)) 25 mg PO DAILY [facility] Last Admin: 06/12/20 13:38 Dose: 25 mg Documented by: Montelukast Sodium (Singulair) 10 mg PO DAILY [facility] Last Admin: 06/12/20 13:38 Dose: 10 mg Documented by: Morphine Sulfate () 1 - 2 mg IV Q1H PRN PRN PRN Reason: Pain Score 1-10/10 Nitroglycerin (Nitrostat) 0.4 mg SUBLINGUAL Q5M PRN PRN Reason: CHEST PAIN Ondansetron HCl (Zofran) 4 mg IV Q8H PRN PRN PRN Reason: NAUSEA Pantoprazole Sodium (Protonix) 40 mg PO DAILY [facility] Last Admin: 06/12/20 13:37 Dose: 40 mg Documented by: Prednisone () 7.5 mg PO DAILYCM [facility] Last Admin: 06/12/20 13:37 Dose: 7.5 mg Documented by: Sodium Chloride () 10 - 40 ml IV UD PRN PRN Reason: SALINE FLUSH Throat Lozenges (Cepacol Sore Throat Lozenge) 2 lozenge MUCOUS MEM Q2H PRN PRN PRN Reason: SORE THROAT Last Admin: 06/12/20 15:58 Dose: 2 lozenge Documented by: Trazodone HCl (Desyrel) 300 mg PO QHS [facility] Last Admin: 06/12/20 21:59 Dose: Not Given Documented by: Medical Necessity - Tobacco Use Smoking Status: Never smoker Assessment/Plan All Active Problems (This Medical Record has been edited. Action required.) Acute appendicitis (Acute) Abdominal pain (Acute) Chest pain (Acute) We will encourage mobilization. We will hold it clear liquids for the time being. Hopefully anticipate discharge later today. Anticipate home on oral antibiotics. Will resume oral anticoagulants on Tuesday. Donnell Gray M.D., F.A.C.S.
[2020-06-13 06:23] LABS: Absolute Lymphocyte Count 1.07 X10^3/uL (0.83-4.51); Absolute Neutrophil Count 8.3 X10^3/uL (2.0-7.7); Basophil# 0.01 X10^3/uL; Basophil% 0.1 % (0-1); Eosinophil# 0.01 X10^3/uL; Eosinophils% 0.1 % (0-5); Hematocrit 33.6 % (37-47); Hemoglobin 10.7 g/dL (12.0-15.0); Lymphocyte # 1.07 X10^3/ul (4.0); Lymphocyte % 10.5 % (19-41); Mean Corp Hgb Conc 31.8 g/dL (32-36); Mean Corpuscular Hgb 31.8 pg (27.0-32.0); Mean Platelet Vol. 10.6 fl (6.2-12.0); Monocyte# 0.75 X10^3/uL; Monocyte% 7.4 % (0-10); NRBC Flagged by Analyzer 0 % (0-5); Neutrophil # 8.28 X10^3/uL (2.7-7.7); Neutrophil % 81.1 % (47-70); Platelet Count 201 K/mm3 (150-450); RBC Distribution Width CV 14.6 % (11.6-14.6); RBC Distribution Width SD 53.4 fl (35.1-43.9); Red Blood Count 3.36 M/mm3 (4.2-5.4); White Blood Count 10.2 K/mm3 (4.4-11.0)
[2020-06-13 06:39] LABS: Anion Gap 6 (5-15); BUN 18 mg/dL (7-18); BUN/Creat Ratio 18.6 RATIO (10-20); Calcium,Total 8.2 mg/dL (8.5-10.1); Chloride 109 mmol/L (98-107); Creatinine, Serum 0.97 mg/dL (0.55-1.02); EST Glomerular Filtration Rate 59 mL/min (>60); Est Glom Filt Rate - Afr Amer 71 mL/min (>60); Estimated Creatinine Clearance 32.67 ml/min; Glucose 107 mg/dL (74-106); Potassium 3.8 mmol/L (3.5-5.1); Sodium Level 137 mmol/L (136-145)
[2020-06-13] MEDS: Montelukast 10 MG Tablet PO (10:38)
[2020-06-13] MEDS: Pantoprazole Sodium 40 MG Tablet PO (10:38)
[2020-06-13] MEDS: predniSONE 5 MG Tablet 7.5 MG PO (10:38)
[2020-06-13] MEDS: Metoprolol(XL)Succ 25 MG Tablet PO (10:39)
[2020-06-13] MEDS: Lactulose 20 GM/30 ML UDC PO (10:39)
[2020-06-13] MEDS: Escitalopram Oxalate 10 MG Tablet PO (10:39)
--- NOTE | 2020-06-13 11:04 | CASEMGMT ---
Assessment- SW completed assessment with patient and her son. SW also confirmed address and phone number. Living situation- Patient lives in a 2 story home per son, but she is set up on the first level. There are entry steps per son. PCP: Dr Kidd Specialists: Per son she has numerous specialists in [place]. He did not elaborate [facility] ADL's/IADL's: Patient does her laundry, uses a walker sometimes, and bathes herself. Patient's son manages her medications, cooks, cleans, and drives. Past SNF/rehab: Yes in [place] Past HH: Yes. Could not remember the name LW: No POA: No Plan: SW spoke with therapy after they saw patient and patient did well. They said outpatient or home health pat be fine if she really wanted therapy. SW relayed this information to patient and her son and he said, I disagree. He asked patient if she has been up to go to the bathroom by herself. She said she has not. SW explained that usually patient's are not allowed to get up by themselves and require to use call button for help. He then asked SW, Is that usually or all patients. SW told him that it not all patient's require assist. He said, I do not agree with discharge as there is no evidence she can toilet herself. He said if she is discharged today they will appeal it. SW asked if he spoke with nurse about concerns and he said he did. SW told him she will relay the information to the physician. He asked if patient was going to [facility] at d/c. YVON told him no as therapy does not feel that is necessary and she is fine for home. He again said, I disagree. Martine ALEJANDRO MSW
--- NOTE | 2020-06-13 11:45 | PN_ITS ---
Patient Problems: Active and Suspected Problems (This Medical Record has been edited. Action required.) Acute appendicitis (Acute) Subjective: Chief complaint: Follow-up after consultation for postoperative medical management. Patient seen and examined. No acute events overnight. Today, she is feeling better. Abdominal pain improved but still having some tenderness. Denied nausea or vomiting. She is tolerating clear liquids. She has no bowel movement, no flatus. Her vital signs are stable. - Physical Exam Vitals/I&O's: Vital Signs Temp Pulse Resp BP Pulse Ox 98.1 F 79 18 124/73 H 93 06/13/20 09:00 06/13/20 10:39 06/13/20 09:00 06/13/20 10:39 06/13/20 09:00 Oxygen Flow Rate (L/min) 2 Oxygen Delivery Method Room Air Weight: 132 lb 4.438 oz Body Mass Index (BMI) 25.8 Intake and Output for Last 24 Hours 06/11/20 06/12/20 06/13/20 23:59 23:59 23:59 Intake Total 1050 / 1050 1628.67 / 1928.67 885 / 885 Balance 1050 / 1050 1628.67 / 1928.67 885 / 885 General: Alert, Oriented x3, Cooperative, No apparent distress HEENT: Atraumatic, PERRLA, EOMI, Normocephalic Oral: Moist Mucosa, No Gingival or Mucosal Lesions/ Ulcerations Neck: Supple, No JVD, Negative Carotid Bruits, Trachea Midline, Thyroid Normal Size and Texture Lungs: Clear to auscultation, Normal air movement, No rhonchi, No wheeze, No rales, Diminished Cardiovascular: Regular rate, Regular Rhythm, Normal S1, Normal S2, PMI Normal Abdomen: Soft, Non-Distended, No Hepato-splenomegaly, Hypoactive Bowel Sounds, Tender - Minimal tenderness, no guarding or rigidity. Extremities: No clubbing, No cyanosis, No edema Skin: No rashes, No breakdown Lymphatic: No Cervical, Supraclavicular, or Inguinal Adenopathy Neurological: Cranial nerves II-XII grossly intact, Neuro grossly intact Psych/Mental Status: Normal Affect, Appropriate Laboratory Results 06/13/20 05:50: WBC 10.2, RBC 3.36 L, Hgb 10.7 L, Hct 33.6 L, MCV 100.0 H, MCH 31.8, MCHC 31.8 L, RDW Std Deviation 53.4 H, RDW Coeff of Nithin 14.6, Plt Count 201, MPV 10.6, Immature Gran % (Auto) 0.800, Neut % (Auto) 81.1 H, Lymph % (Auto) 10.5 L, [place] % (Auto) 7.4, Eos % (Auto) 0.1, Baso % (Auto) 0.1, Absolute Neuts (auto) 8.3 H, Absolute Lymphs (auto) 1.07, Nucleated RBC % 0 06/13/20 05:50: Sodium 137, Potassium 3.8, Chloride 109 H, Carbon Dioxide 22.0, Anion Gap 6, BUN 18, Creatinine 0.97, Estim Creat Clear Calc 32.67, Est GFR (MDRD) Af Amer 71, Est GFR (MDRD) Non-Af 59 L, BUN/Creatinine Ratio 18.6, Glucose 107 H, Calcium 8.2 L Current Medications Acetaminophen (Tylenol) 650 mg PO Q6H PRN PRN PRN Reason: Pain Score 1-10/10 Last Admin: 06/12/20 15:57 Dose: 650 mg Documented by: Atorvastatin Calcium (Lipitor) 80 mg PO QHS [facility] Last Admin: 06/12/20 22:00 Dose: 80 mg Documented by: Dextrose (D50w Syringe) 0 gm IV X1 PRN; Protocol PRN Reason: Hypoglycemia Diphenoxylate HCl/Atropine (Lomotil) 1 tablet PO 4X/DAY PRN PRN PRN Reason: LOOSE STOOLS Doxepin HCl (Sinequan) 10 mg PO X1 ONE Stop: 06/13/20 23:11 Last Admin: 06/12/20 23:27 Dose: 10 mg Documented by: Epinephrine HCl () 0.3 mg IM DAILY PRN PRN PRN Reason: SEVERE ALLERGIC RXN Escitalopram Oxalate (Lexapro) 10 mg PO DAILY [facility] Last Admin: 06/13/20 10:39 Dose: 10 mg Documented by: Glucagon () 1 mg IM .X1 PRN PRN Reason: Hypoglycemia Sodium Chloride () 1,000 mls @ 30 mls/hr IV .[id number] [facility] Last Admin: 06/13/20 05:40 Dose: 30 mls/hr Documented by: Piperacillin Sod/Tazobactam (Sod 3.375 gm/ Sodium Chloride) 50 mls @ 12.5 mls/hr IV Q8 [facility] Last Infusion: 06/13/20 10:12 Dose: Infused Documented by: Sodium Chloride () 250 mls @ 15 mls/hr IV .[id number] PRN PRN Reason: Saline Flush Latanoprost (Xalatan Opthalmic) 1 drop EACH EYE QHS [facility] Last Admin: 06/12/20 22:00 Dose: 1 drop Documented by: Meclizine HCl (Antivert) 25 mg PO TID PRN PRN PRN Reason: DIZZINESS Metoprolol Succinate (Toprol Xl (Beta Gilson)) 25 mg PO DAILY [facility] Last Admin: 06/13/20 10:39 Dose: 25 mg Documented by: Montelukast Sodium (Singulair) 10 mg PO DAILY [facility] Last Admin: 06/13/20 10:38 Dose: 10 mg Documented by: Morphine Sulfate () 1 - 2 mg IV Q1H PRN PRN PRN Reason: Pain Score 1-10/10 Nitroglycerin (Nitrostat) 0.4 mg SUBLINGUAL Q5M PRN PRN Reason: CHEST PAIN Ondansetron HCl (Zofran) 4 mg IV Q8H PRN PRN PRN Reason: NAUSEA Pantoprazole Sodium (Protonix) 40 mg PO DAILY [facility] Last Admin: 06/13/20 10:38 Dose: 40 mg Documented by: Prednisone () 7.5 mg PO DAILYCM [facility] Last Admin: 06/13/20 10:38 Dose: 7.5 mg Documented by: Sodium Chloride () 10 - 40 ml IV UD PRN PRN Reason: SALINE FLUSH Throat Lozenges (Cepacol Sore Throat Lozenge) 2 lozenge MUCOUS MEM Q2H PRN PRN PRN Reason: SORE THROAT Last Admin: 06/12/20 15:58 Dose: 2 lozenge Documented by: Trazodone HCl (Desyrel) 300 mg PO QHS [facility] Last Admin: 06/12/20 21:59 Dose: Not Given Documented by: Medical Necessity - Tobacco Use Smoking Status: Never smoker Assessment/Plan All Active Problems (This Medical Record has been edited. Action required.) Acute appendicitis (Acute) This is an 80 years old female patient presented to the emergency room because of abdominal pain, CAT scan abdomen done and stated that acute appendicitis cannot be ruled out and patient is going for surgery today. #1 Acute suppurative appendicitis with localized peritonitis: Status post laparoscopic appendectomy, postoperative day 1. She remains on IV Zosyn, has been afebrile, leukocytosis resolved. Abdominal pain is improving, tolerating clear liquids. Repeat CBC and BMP from today reviewed, remarkable for hemoglobin of 10.7, otherwise unremarkable. She has been afebrile, other vital signs are stable. General surgery is managing. #2 chest pain: Resolved. EKG revealed normal sinus rhythm, PVCs, T wave inversion in leads V5 and V6 and those are chronic, no acute segment changes. Troponin negative x3. Patient had loop recorder placed for paroxysmal atrial fibrillation which was done in [place] this past December. She is on statins, metoprolol and nitroglycerin PRN. At this time, no indication for further cardiac work-up. #3 paroxysmal atrial fibrillation: Heart rate stable, blood pressure maintained. Continue metoprolol for rate control. Eliquis on hold. Resume Eliquis and aspirin as per general surgery. #4 depression: Stable, continue Lexapro and trazodone. #5 hyperlipidemia: Continue statins. #6 history of angioedema: She was on stress dose of IV steroids, IV hydrocortisone discontinued. Continue p.o. prednisone. #7 history of stroke: Stable, continue statin at this time. #8 DVT prophylaxis: SCDs. This note was generated with [employer] dictation software. It may contain incorrect words, spelling, and punctuation that were not noted in checking the note before signing. Inpatient E&M: 03997 Subs Hosp L2
[2020-06-13] MEDS: Bisacodyl 10 MG Suppository RECTAL (12:18)
--- NOTE | 2020-06-13 13:56 | CASEMGMT ---
YVON did call [facility] with referral and faxed information to see if they would accept patient. SW heard back from [facility] and they can accept patient. YVON explained her qualifying stay will be tomorrow. However, SW is not sure if the physician will keep her until tomorrow. YVON told her if physician keeps her overnight and the son still wants SNF she will come tomorrow. YVON then spoke with patient's son and let him know this information. YVON told him that if the physician feels patient is medically ready for discharge he cannot keep her just to qualify for [facility]. He asked about [facility] PT/OT. YVON told him SW can call and see if they would have availability. YVON called Amelia at [facility] and she said they could see patient for PT/OT on Tuesday. YVON did explain to her that patient may go to [facility] so SW will follow up with her on Tuesday to let her know where patient ended up going. Martine ALEJANDRO MSW
--- NOTE | 2020-06-13 14:36 | PN_ITS ---
Progress Note Extensive treatment plan discussion with the patient's son Plan initiating enteric-coated aspirin tomorrow morning. Recommend holding Eliquis restart until June 16. This has been discussed with Dr. Schneider and concurs Will advance to full liquids. The patient did have separative appendicitis and periappendicitis. We will continue IV antibiotics and plan discharge tomorrow on oral Augmentin for 3 days. Prescription is provided. Elderly 80-year-old female we will not prescribe home-going narcotics. Acetaminophen recommended as needed The patient will resume her routine medications including prednisone The patient's son is aware of the potential postoperative risk of bleeding. He is expressed significant discerns about postoperative stroke. He is aware that there is no uncomplicated means of approaching this decision. I believe that a reasonable approach is currently being taken by reinitiating the low-dose aspiri n tomorrow. Donnell Gray M.D., F.A.C.S. STROKE Vital Signs/Narrative: Vital Signs Pulse BP 06/13/20 13:55 66 06/13/20 10:39 79 124/73 H
--- NOTE | 2020-06-13 15:13 | CASEMGMT ---
YVON spoke with patient's son and let him know [facility] can see patient for PT/OT, but not until Tuesday. He said that is fine. Patient's son did talk with physician and patient is staying tonight. Patient's son is still not sure if he wants [facility] or home with home health. He wants to see how patient does tomorrow. YVON told him both plans are set up and SW will have the Tuesday SW check in with him regarding his plan. YVON told him that he will not be able to transport patient to [facility] as they are not allowing this. YVON told him she would go by wheelchair and this is not covered by insurance so they would get a bill. He verbalized understanding. YVON also told him patient will be in a 14 day quarantine at [facility]. YVON told him after her quarantine they are now doing scheduled outside visits at nursing homes. He verbalized understanding on all of the above. Plan: Tuesday SW to check with patient and her son to see if they want [facility] or home with home health. Both have been arranged. Green sheet in the chart. Martine ALEJANDRO MSW
[2020-06-13] MEDS: Atorvastatin Calcium 80 MG Tablet PO (21:27)
[2020-06-13] MEDS: Latanoprost 0.005% 1 Bottle 1 DRP EACH EYE (21:28)
[2020-06-13] MEDS: traZODone 100 MG Tablet 300 MG PO (21:28)
[2020-06-13] MEDS: 0.9% Saline Lock 10 ML Syringe IV (21:31)
[2020-06-14] VITALS (17 sets, daily range): BP systolic 91–147; BP diastolic 48–69; PULSE 49–192; RESP 17–18; TEMP 36.3–37.1; O2SAT 92–97
--- NOTE | 2020-06-14 08:54 | PN_ITS ---
Patient Problems: Active and Suspected Problems (This Medical Record has been edited. Action required.) Acute appendicitis (Acute) Subjective: Chief complaint: Follow-up after consultation following admission for acute appendicitis. Patient seen and examined. No acute events overnight. Today, patient is feeling better than yesterday. According to the patient, she passed flatus. Abdominal pain is improving. Denied nausea or vomiting. His abdomen is much softer than yesterday. Her vital signs are stable. - Physical Exam Vitals/I&O's: Vital Signs Temp Pulse Resp BP Pulse Ox 98.4 F 54 L 18 133/61 H 95 06/14/20 03:20 06/14/20 07:24 06/14/20 03:20 06/14/20 03:20 06/14/20 07:00 Oxygen Flow Rate (L/min) 2 Oxygen Delivery Method Room Air Weight: 132 lb 4.438 oz Body Mass Index (BMI) 25.8 Intake and Output for Last 24 Hours 06/12/20 06/13/20 06/14/20 23:59 23:59 23:59 Intake Total 1628.67 / 1928.67 1665.38 / 1665.38 299.62 / 299.62 Balance 1628.67 / 1928.67 1665.38 / 1665.38 299.62 / 299.62 General: Alert, Oriented x3, Cooperative, No apparent distress HEENT: Atraumatic, PERRLA, EOMI, Normocephalic Oral: Moist Mucosa, No Gingival or Mucosal Lesions/ Ulcerations Neck: Supple, No JVD, Negative Carotid Bruits, Trachea Midline, Thyroid Normal Size and Texture Lungs: Clear to auscultation, Normal air movement, No rhonchi, No wheeze, No rales, Diminished Cardiovascular: Regular rate, Regular Rhythm, Normal S1, Normal S2, PMI Normal Abdomen: Bowel Sounds Present, Soft, Non Tender, Non-Distended, No Hepato- splenomegaly Extremities: No clubbing, No cyanosis, No edema Lymphatic: No Cervical, Supraclavicular, or Inguinal Adenopathy Neurological: Cranial nerves II-XII grossly intact, Neuro grossly intact Psych/Mental Status: Normal Affect, Appropriate Current Medications Acetaminophen (Tylenol) 650 mg PO Q6H PRN PRN PRN Reason: Pain Score 1-10/10 Last Admin: 06/12/20 15:57 Dose: 650 mg Documented by: Aspirin (Ecotrin) 81 mg PO DAILY@0800 [facility] Atorvastatin Calcium (Lipitor) 80 mg PO QHS [facility] Last Admin: 06/13/20 21:27 Dose: 80 mg Documented by: Dextrose (D50w Syringe) 0 gm IV X1 PRN; Protocol PRN Reason: Hypoglycemia Diphenoxylate HCl/Atropine (Lomotil) 1 tablet PO 4X/DAY PRN PRN PRN Reason: LOOSE STOOLS Epinephrine HCl () 0.3 mg IM DAILY PRN PRN PRN Reason: SEVERE ALLERGIC RXN Escitalopram Oxalate (Lexapro) 10 mg PO DAILY [facility] Last Admin: 06/13/20 10:39 Dose: 10 mg Documented by: Glucagon () 1 mg IM .X1 PRN PRN Reason: Hypoglycemia Sodium Chloride () 1,000 mls @ 30 mls/hr IV .[id number] [facility] Last Infusion: 06/14/20 06:00 Dose: 30 mls/hr Documented by: Piperacillin Sod/Tazobactam (Sod 3.375 gm/ Sodium Chloride) 50 mls @ 12.5 mls/hr IV Q8 [facility] Last Admin: 06/14/20 05:17 Dose: 12.5 mls/hr Documented by: Sodium Chloride () 250 mls @ 15 mls/hr IV .[id number] PRN PRN Reason: Saline Flush Latanoprost (Xalatan Opthalmic) 1 drop EACH EYE QHS [facility] Last Admin: 06/13/20 21:28 Dose: 1 drop Documented by: Meclizine HCl (Antivert) 25 mg PO TID PRN PRN PRN Reason: DIZZINESS Metoprolol Succinate (Toprol Xl (Beta Gilson)) 25 mg PO DAILY [facility] Last Admin: 06/13/20 10:39 Dose: 25 mg Documented by: Montelukast Sodium (Singulair) 10 mg PO DAILY [facility] Last Admin: 06/13/20 10:38 Dose: 10 mg Documented by: Morphine Sulfate () 1 - 2 mg IV Q1H PRN PRN PRN Reason: Pain Score 1-10/10 Nitroglycerin (Nitrostat) 0.4 mg SUBLINGUAL Q5M PRN PRN Reason: CHEST PAIN Ondansetron HCl (Zofran) 4 mg IV Q8H PRN PRN PRN Reason: NAUSEA Pantoprazole Sodium (Protonix) 40 mg PO DAILY [facility] Last Admin: 06/13/20 10:38 Dose: 40 mg Documented by: Prednisone () 7.5 mg PO DAILYCM [facility] Last Admin: 06/13/20 10:38 Dose: 7.5 mg Documented by: Sodium Chloride () 10 - 40 ml IV UD PRN PRN Reason: SALINE FLUSH Last Admin: 06/13/20 21:31 Dose: 20 ml Documented by: Throat Lozenges (Cepacol Sore Throat Lozenge) 2 lozenge MUCOUS MEM Q2H PRN PRN PRN Reason: SORE THROAT Last Admin: 06/12/20 15:58 Dose: 2 lozenge Documented by: Trazodone HCl (Desyrel) 300 mg PO QHS [facility] Last Admin: 06/13/20 21:28 Dose: 300 mg Documented by: Medical Necessity - Tobacco Use Smoking Status: Never smoker Assessment/Plan All Active Problems (This Medical Record has been edited. Action required.) Acute appendicitis (Acute) This is an 80 years old female patient presented to the emergency room because of abdominal pain, CAT scan abdomen done and stated that acute appendicitis can not be ruled out and patient is going for surgery today. #1 Acute suppurative appendicitis with localized peritonitis: Status post laparoscopic appendectomy, postoperative day 2. She remains on IV Zosyn, has been afebrile, leukocytosis resolved. She passed flatus, abdominal pain is getting better. General surgery is managing. From medical standpoint, patient can be discharged today, plan to restart aspirin today, resume Eliquis on Tuesday, no other changes to her home medications. #2 chest pain: Resolved. EKG revealed normal sinus rhythm, PVCs, T wave inversion in leads V5 and V6 and those are chronic, no acute segment changes. Troponin negative x3. Patient had loop recorder placed for paroxysmal atrial fibrillation which was done in [place] this past December. She is on statins, metoprolol and nitroglycerin PRN. At this time, no indication for further cardiac work-up. #3 paroxysmal atrial fibrillation: Heart rate stable, blood pressure maintained. Continue metoprolol for rate control. Eliquis still on hold. Plan as above, resume aspirin today, resume Eliquis on Tuesday. #4 depression: Stable, continue Lexapro and trazodone. #5 hyperlipidemia: Continue statins. #6 history of angioedema: Continue p.o. prednisone. #7 history of stroke: Stable, continue statin at this time. #8 DVT prophylaxis: SCDs. This note was generated with [employer] dictation software. It may contain incorrect words, spelling, and punctuation that were not noted in checking the note before signing. Inpatient E&M: 87760 Subs Hosp L2
--- NOTE | 2020-06-14 09:08 | PN.SURG_ITS ---
Patient Problems: Active and Suspected Problems (This Medical Record has been edited. Action required.) Acute appendicitis (Acute) Subjective: No complaints this morning. Objective: Dressings are dry abdomen is obese and soft - Physical Exam Vitals/I&O's: Vital Signs Temp Pulse Resp BP Pulse Ox 98.4 F 54 L 18 133/61 H 95 06/14/20 03:20 06/14/20 07:24 06/14/20 03:20 06/14/20 03:20 06/14/20 07:00 Oxygen Flow Rate (L/min) 2 Oxygen Delivery Method Room Air Weight: 132 lb 4.438 oz Body Mass Index (BMI) 25.8 Intake and Output for Last 24 Hours 06/12/20 06/13/20 06/14/20 23:59 23:59 23:59 Intake Total 1628.67 / 1928.67 1665.38 / 1665.38 299.62 / 299.62 Balance 1628.67 / 1928.67 1665.38 / 1665.38 299.62 / 299.62 Current Medications Acetaminophen (Tylenol) 650 mg PO Q6H PRN PRN PRN Reason: Pain Score 1-10/10 Last Admin: 06/12/20 15:57 Dose: 650 mg Documented by: Aspirin (Ecotrin) 81 mg PO DAILY@0800 [facility] Atorvastatin Calcium (Lipitor) 80 mg PO QHS [facility] Last Admin: 06/13/20 21:27 Dose: 80 mg Documented by: Dextrose (D50w Syringe) 0 gm IV X1 PRN; Protocol PRN Reason: Hypoglycemia Diphenoxylate HCl/Atropine (Lomotil) 1 tablet PO 4X/DAY PRN PRN PRN Reason: LOOSE STOOLS Epinephrine HCl () 0.3 mg IM DAILY PRN PRN PRN Reason: SEVERE ALLERGIC RXN Escitalopram Oxalate (Lexapro) 10 mg PO DAILY [facility] Last Admin: 06/13/20 10:39 Dose: 10 mg Documented by: Glucagon () 1 mg IM .X1 PRN PRN Reason: Hypoglycemia Sodium Chloride () 1,000 mls @ 30 mls/hr IV .[id number] [facility] Last Infusion: 06/14/20 06:00 Dose: 30 mls/hr Documented by: Piperacillin Sod/Tazobactam (Sod 3.375 gm/ Sodium Chloride) 50 mls @ 12.5 mls/hr IV Q8 [facility] Last Admin: 06/14/20 05:17 Dose: 12.5 mls/hr Documented by: Sodium Chloride () 250 mls @ 15 mls/hr IV .[id number] PRN PRN Reason: Saline Flush Latanoprost (Xalatan Opthalmic) 1 drop EACH EYE QHS [facility] Last Admin: 06/13/20 21:28 Dose: 1 drop Documented by: Meclizine HCl (Antivert) 25 mg PO TID PRN PRN PRN Reason: DIZZINESS Metoprolol Succinate (Toprol Xl (Beta Gilson)) 25 mg PO DAILY [facility] Last Admin: 06/13/20 10:39 Dose: 25 mg Documented by: Montelukast Sodium (Singulair) 10 mg PO DAILY [facility] Last Admin: 06/13/20 10:38 Dose: 10 mg Documented by: Morphine Sulfate () 1 - 2 mg IV Q1H PRN PRN PRN Reason: Pain Score 1-10/10 Nitroglycerin (Nitrostat) 0.4 mg SUBLINGUAL Q5M PRN PRN Reason: CHEST PAIN Ondansetron HCl (Zofran) 4 mg IV Q8H PRN PRN PRN Reason: NAUSEA Pantoprazole Sodium (Protonix) 40 mg PO DAILY [facility] Last Admin: 06/13/20 10:38 Dose: 40 mg Documented by: [facility] () [facility] Last Admin: 06/13/20 10:38 Dose: 7.5 mg Documented by: Sodium Chloride () 10 - 40 ml IV UD PRN PRN Reason: SALINE FLUSH Last Admin: 06/13/20 21:31 Dose: 20 ml Documented by: Throat Lozenges (Cepacol Sore Throat Lozenge) 2 lozenge MUCOUS MEM Q2H PRN PRN PRN Reason: SORE THROAT Last Admin: 06/12/20 15:58 Dose: 2 lozenge Documented by: Trazodone HCl (Desyrel) 300 mg PO QHS [facility] Last Admin: 06/13/20 21:28 Dose: 300 mg Documented by: Medical Necessity - Tobacco Use Smoking Status: Never smoker Assessment/Plan All Active Problems (This Medical Record has been edited. Action required.) Acute appendicitis (Acute) Patient is ready for discharge today.
[2020-06-14] MEDS: predniSONE 5 MG Tablet 7.5 MG PO (10:25)
[2020-06-14] MEDS: Aspirin E.C. 81 MG Tablet PO (10:25)
[2020-06-14] MEDS: Metoprolol(XL)Succ 25 MG Tablet PO (10:26)
[2020-06-14] MEDS: Escitalopram Oxalate 10 MG Tablet PO (10:26)
[2020-06-14] MEDS: Pantoprazole Sodium 40 MG Tablet PO (10:26)
[2020-06-14] MEDS: Montelukast 10 MG Tablet PO (10:26)
--- NOTE | 2020-06-14 10:40 | EKG12_ITS ---
Test Reason : RHYTHM Blood Pressure : / mmHG Vent. Rate : 157 BPM Atrial Rate : 330 BPM P-R Int : 000 ms QRS Dur : 070 ms QT Int : 290 ms P-R-T Axes : 000 -14 -33 degrees QTc Int : 468 ms Atrial flutter with variable A-V block with premature ventricular or aberrantly conducted complexes Nonspecific ST abnormality Abnormal ECG When compared with ECG of 14-JUN-2020 14:17, MANUAL COMPARISON REQUIRED, DATA IS UNCONFIRMED Confirmed by ALINA ARROYO, DEISY ([id number]), video effects editor [employer] ([id number]) on 06/18/2020 1:21:08 PM Referred By: KLAUS Confirmed By:DEISY FULLER MD
--- NOTE | 2020-06-14 11:29 | NURSING ---
Attempted to return call to Marisela at [facility]. No answer.
[2020-06-14] MEDS: dilTIAZem 25 MG/5 ML Vial 20 MG IV BOLUS (11:50)
--- NOTE | 2020-06-14 14:11 | EKG12_ITS ---
Test Reason : RHYTHM Blood Pressure : / mmHG Vent. Rate : 066 BPM Atrial Rate : 066 BPM P-R Int : 108 ms QRS Dur : 078 ms QT Int : 414 ms P-R-T Axes : 074 -17 081 degrees QTc Int : 434 ms Sinus rhythm with short AR with Premature atrial complexes in a pattern of bigeminy Nonspecific ST abnormality Abnormal ECG When compared with ECG of 14-JUN-2020 10:45, MANUAL COMPARISON REQUIRED, DATA IS UNCONFIRMED Confirmed by ALINA ARROYO, DEISY ([id number]), associate editor [employer] ([id number]) on 06/18/2020 1:23:34 PM Referred By: KLAUS Confirmed By:DEISY FULLER MD
--- NOTE | 2020-06-14 16:35 | EKG12_ITS ---
Test Reason : RHYTHM Blood Pressure : / mmHG Vent. Rate : 146 BPM Atrial Rate : 156 BPM P-R Int : 000 ms QRS Dur : 074 ms QT Int : 230 ms P-R-T Axes : 000 -17 260 degrees QTc Int : 358 ms Atrial fibrillation Marked ST abnormality, possible inferior subendocardial injury Abnormal ECG When compared with ECG of 12-JUN-2020 01:19, MANUAL COMPARISON REQUIRED, DATA IS UNCONFIRMED Confirmed by ALINA ARROYO, DEISY ([id number]), editor farm journal [employer] ([id number]) on 06/18/2020 1:23:41 PM Referred By: KLAUS Confirmed By:DEISY FULLER MD
[2020-06-14] MEDS: 0.9% Normal Saline 1,000 ML 30 ML IV (18:15)
[2020-06-14] MEDS: Metoprolol Tartrate 5 MG/5 ML Vial IV (18:16)
[2020-06-14] MEDS: Atorvastatin Calcium 80 MG Tablet PO (21:25)
[2020-06-14] MEDS: traZODone 100 MG Tablet 300 MG PO (21:25)
[2020-06-14] MEDS: Latanoprost 0.005% 1 Bottle 1 DRP EACH EYE (21:26)
[2020-06-14] MEDS: Metoprolol Tartrate 25 MG Tablet PO (22:58)
[2020-06-15] VITALS (7 sets, daily range): BP systolic 130–135; BP diastolic 65–73; PULSE 58–71; RESP 15–17; TEMP 36.4–36.7; O2SAT 93–96
--- NOTE | 2020-06-15 07:58 | PN_ITS ---
Patient Problems: Active and Suspected Problems (This Medical Record has been edited. Action required.) Acute appendicitis (Acute) Subjective: Chief complaint: Follow-up after consultation for postoperative medical management following admission for acute appendicitis. Patient seen and examined. No acute events overnight. She remained in sinus rhythm overnight. Yesterday evening, she went into A. fib again but she converted back to sinus rhythm. This morning, she has no complaints. She remained in sinus rhythm, her vital signs are stable. - Physical Exam Vitals/I&O's: Vital Signs Temp Pulse Resp BP Pulse Ox 97.6 F L 71 15 135/73 H 93 06/15/20 03:39 06/15/20 07:21 06/15/20 03:39 06/15/20 03:39 06/15/20 07:20 Oxygen Flow Rate (L/min) 2 Oxygen Delivery Method Room Air Weight: 132 lb 4.438 oz Body Mass Index (BMI) 25.8 Intake and Output for Last 24 Hours 06/13/20 06/14/20 06/15/20 23:59 23:59 23:59 Intake Total 1665.38 / 1665.38 1619.62 / 1619.62 50 / 50 Balance 1665.38 / 1665.38 1619.62 / 1619.62 50 / 50 General: Alert, Oriented x3, Cooperative, No apparent distress HEENT: Atraumatic, PERRLA, EOMI, Normocephalic Oral: Moist Mucosa, No Gingival or Mucosal Lesions/ Ulcerations Neck: Supple, No JVD, Negative Carotid Bruits, Trachea Midline, Thyroid Normal Size and Texture Lungs: Clear to auscultation, Normal air movement, No rhonchi, No wheeze, No rales, Diminished Cardiovascular: Regular rate, Regular Rhythm, Normal S1, Normal S2, PMI Normal Abdomen: Bowel Sounds Present, Soft, Non Tender, Non-Distended, No Hepato- splenomegaly Extremities: No clubbing, No cyanosis, No edema Skin: No rashes, No breakdown Lymphatic: No Cervical, Supraclavicular, or Inguinal Adenopathy Neurological: Cranial nerves II-XII grossly intact, Neuro grossly intact Psych/Mental Status: Normal Affect, Appropriate Current Medications Acetaminophen (Tylenol) 650 mg PO Q6H PRN PRN PRN Reason: Pain Score 1-10/10 Last Admin: 06/12/20 15:57 Dose: 650 mg Documented by: Amoxicillin/Clavulanate Potassium (Augmentin Tablet) [facility] Stop: 06/16/20 17:01 Aspirin (Ecotrin) 81 mg PO DAILY@0800 [facility] Last Admin: 06/14/20 10:25 Dose: 81 mg Documented by: Atorvastatin Calcium (Lipitor) 80 mg PO QHS [facility] Last Admin: 06/14/20 21:25 Dose: 80 mg Documented by: Dextrose (D50w Syringe) 0 gm IV X1 PRN; Protocol PRN Reason: Hypoglycemia Diphenoxylate HCl/Atropine (Lomotil) 1 tablet PO 4X/DAY PRN PRN PRN Reason: LOOSE STOOLS Epinephrine HCl () 0.3 mg IM DAILY PRN PRN PRN Reason: SEVERE ALLERGIC RXN Escitalopram Oxalate (Lexapro) 10 mg PO DAILY [facility] Last Admin: 06/14/20 10:26 Dose: 10 mg Documented by: Glucagon () 1 mg IM .X1 PRN PRN Reason: Hypoglycemia Sodium Chloride () 250 mls @ 15 mls/hr IV .[id number] PRN PRN Reason: Saline Flush Latanoprost (Xalatan Opthalmic) 1 drop EACH EYE QHS [facility] Last Admin: 06/14/20 21:26 Dose: 1 drop Documented by: Meclizine HCl (Antivert) 25 mg PO TID PRN PRN PRN Reason: DIZZINESS Metoprolol Succinate (Toprol Xl (Beta Gilson)) 25 mg PO DAILY [facility] Last Admin: 06/14/20 10:26 Dose: 25 mg Documented by: Montelukast Sodium (Singulair) 10 mg PO DAILY [facility] Last Admin: 06/14/20 10:26 Dose: 10 mg Documented by: Morphine Sulfate () 1 - 2 mg IV Q1H PRN PRN PRN Reason: Pain Score 1-10/10 Nitroglycerin (Nitrostat) 0.4 mg SUBLINGUAL Q5M PRN PRN Reason: CHEST PAIN Ondansetron HCl (Zofran) 4 mg IV Q8H PRN PRN PRN Reason: NAUSEA Pantoprazole Sodium (Protonix) 40 mg PO DAILY [facility] Last Admin: 06/14/20 10:26 Dose: 40 mg Documented by: Prednisone () [facility] Last Admin: 06/14/20 10:25 Dose: 7.5 mg Documented by: Sodium Chloride () 10 - 40 ml IV UD PRN PRN Reason: SALINE FLUSH Last Admin: 06/13/20 21:31 Dose: 20 ml Documented by: Throat Lozenges (Cepacol Sore Throat Lozenge) 2 lozenge MUCOUS MEM Q2H PRN PRN PRN Reason: SORE THROAT Last Admin: 06/12/20 15:58 Dose: 2 lozenge Documented by: Trazodone HCl (Desyrel) 300 mg PO QHS [facility] Last Admin: 06/14/20 21:25 Dose: 300 mg Documented by: Medical Necessity - Tobacco Use Smoking Status: Never smoker Assessment/Plan All Active Problems (This Medical Record has been edited. Action required.) Acute appendicitis (Acute) This is an 80 years old female patient presented to the emergency room because of abdominal pain, CAT scan abdomen done and stated that acute appendicitis cannot be ruled out and patient is going for surgery today. #1 Acute suppurative appendicitis with localized peritonitis: Status post laparoscopic appendectomy, postoperative day 3. She remains on IV Zosyn, has been afebrile, leukocytosis resolved. She is tolerating regular diet, passing flatus. General surgery on the case. From medical standpoint, patient can be discharged today, plan to resume Eliquis tomorrow, no other changes to her home medications. #2 chest pain: Resolved. EKG revealed normal sinus rhythm, PVCs, T wave inversion in leads V5 and V6 and those are chronic, no acute segment changes. Troponin negative x3. Patient had loop recorder placed for paroxysmal atrial fibrillation which was done in [place] this past December. She is on statins, metoprolol and nitroglycerin PRN. At this time, no indication for further cardiac work-up. #3 paroxysmal atrial fibrillation: Yesterday afternoon, she went into A. fib with RVR, heart rate was in the 150s, received 1 dose of IV Cardizem bolus. She returned back to sinus rhythm. Later in the day, she went into A. fib with RVR again, no medication was given and she went back to sinus rhythm. She was given extra dose of metoprolol p.o. last night. This morning, she remained in sinus rhythm, rate is controlled. Blood pressure stable. She is asymptomatic. Plan to DC home today, resume Eliquis tomorrow continue other home medications without any changes. #4 depression: Stable, continue Lexapro and trazodone. #5 hyperlipidemia: Continue statins. #6 history of angioedema: Continue p.o. prednisone. #7 history of stroke: Stable, continue statin at this time. #8 DVT prophylaxis: SCDs. This note was generated with [employer] dictation software. It may contain incorrect words, spelling, and punctuation that were not noted in checking the note before signing. Inpatient E&M: 75828 Subs Hosp L2
[2020-06-15] MEDS: Metoprolol(XL)Succ 25 MG Tablet PO (08:26)
[2020-06-15] MEDS: predniSONE 5 MG Tablet 7.5 MG PO (09:39)
[2020-06-15] MEDS: Amox/Clavulanate 875 MG Tablet PO (09:39)
[2020-06-15] MEDS: Aspirin E.C. 81 MG Tablet PO (09:39)
[2020-06-15] MEDS: Pantoprazole Sodium 40 MG Tablet PO (09:40)
[2020-06-15] MEDS: Montelukast 10 MG Tablet PO (09:40)
[2020-06-15] MEDS: Escitalopram Oxalate 10 MG Tablet PO (09:40)
--- NOTE | 2020-06-15 10:50 | NURSING ---
Reviewed discharge teaching with patient and her son. Both voiced understanding of same.
== END 2020-06-15 11:01 | disposition home or self-care (01) | DRG 342 ==
LOC: ED 19:10 → PCU 23:47
PROVIDERS: Hospitalist; Admitting Provider Hospitalist; Emergency Provider Student in an Organized Health Care Education/Training Program; PCP Family Medicine; Visit Provider Surgery
PROC: 0DTJ4ZZ Resection of Appendix, Percutaneous Endoscopic Approach (ICD-10-PCS; CPT 44970; principal; 2020-06-12 07:10)
DX: K35.30 Acute appendicitis with localized peritonitis, without perforation or gangrene (principal); E27.40 Unspecified adrenocortical insufficiency; I47.1 Supraventricular tachycardia; R07.9 Chest pain, unspecified; T78.3XXA Angioneurotic edema, initial encounter; E78.5 Hyperlipidemia, unspecified; F32.9 Major depressive disorder, single episode, unspecified; I48.0 Paroxysmal atrial fibrillation; F41.9 Anxiety disorder, unspecified; K21.9 Gastro-esophageal reflux disease without esophagitis; Z79.52 Long term (current) use of systemic steroids; Z79.01 Long term (current) use of anticoagulants; Z79.82 Long term (current) use of aspirin; Z86.73 Personal history of transient ischemic attack (TIA), and cerebral infarction without residual deficits; H91.90 Unspecified hearing loss, unspecified ear; Z88.5 Allergy status to narcotic agent
CPT/HCPCS: 36415; 74177; 80048; 80053; 81001; 82150; 83690; 84484; 85025; 85610; 87635; 88304; 93005; 97162; 97166; 97802; 99251; 99282; G2023; J7030; Q9967; A4216; G0463; J2405; J3490; U0003

== ENCOUNTER 2020-06-21 20:52 | Emergency (ER) | payer MEDICARE, BC, SELFPAY ==
[2020-06-12 09:33] VITALS: BMI 25.8
[2020-06-21 20:53] VITALS: BP 118/66; PULSE 60; RESP 16; TEMP 37; O2SAT 95; BMI 27.5
--- NOTE | 2020-06-21 20:56 | CT_ITS ---
STUDY: CT BRAIN WITHOUT CONTRAST REASON FOR EXAM: Female, 80 years old. FALL/NO LOC/LAC LT SIDE OF HEAD. Pt on thinners. Hx of afib, HTN, asthma and recent appendectomy RADIATION DOSAGE (If Supplied By Facility): CTDIvol = ( 44.99 ) mGy, DLP = ( 762.36 ) mGycm TECHNIQUE: Transaxial CT imaging of the brain was performed without administration of intravenous contrast material. Individualized dose optimization techniques were used for this CT. COMPARISON: CT brain 08/31/2019 FINDINGS: Normal soft tissue structures. Normal calvarium. There is mild cerebral atrophy with widening of the extra-axial spaces and ventricular dilatation. There are areas of decreased attenuation within the white matter tracts of the supratentorial brain, consistent with microvascular disease changes. Normal basal ganglia and thalami. Normal brainstem. Normal cerebellum. There is no intracranial hemorrhage. There are no findings of an acute ischemic infarction. Normal visualized paranasal sinuses. CT/Brain/Head without Contrast IMPRESSION: Chronic involutional changes of the brain. Electronically Signed: Delvin Kelley MD at 21:26 EDT , Service support ,
--- NOTE | 2020-06-21 20:56 | CT_ITS ---
STUDY: CT CERVICAL SPINE WITHOUT CONTRAST REASON FOR EXAM: Female, 80 years old. FALL/NO LOC/LAC LT SIDE OF HEAD. Pt on thinners. Hx of afib, HTN, asthma and recent appendectomy RADIATION DOSAGE (If Supplied By Facility): CTDIvol = ( 13.51 ) mGy, DLP = ( 270.83 ) mGycm TECHNIQUE: High resolution transaxial imaging was performed without contrast material. Sagittal and coronal images were reconstructed. Individualized dose optimization techniques were used for this CT. COMPARISON: CT cervical spine 08/31/2019 FINDINGS: Normal craniovertebral junction. Normal anterior atlantoaxial articulation. Normal odontoid process. Normal cervical lordosis. Normal vertebral bodies and posterior osseous elements. C2-3: Normal endplates. Normal disc height and morphology. Normal central canal and intervertebral neuroforamina. C3-4: Normal endplates. Normal disc height and morphology. Normal central canal and intervertebral neuroforamina. C4-5: Normal endplates. Decreased disc height and morphology. Normal central canal and decreased intervertebral neuroforamina. C5-6: Normal endplates. Decreased disc height and morphology. Normal central canal and decreased intervertebral neuroforamina. C6-7: Normal endplates. Decreased disc height and morphology. Normal central canal and decreased intervertebral neuroforamina. C7-T1: Normal endplates. Normal disc height and morphology. Normal central canal and intervertebral neuroforamina. Normal visualized soft tissue structures. CT/Spine Cervical without Contras IMPRESSION: No fractures Electronically Signed: Delvin Kelley MD at 21:29 EDT , Service support ,
--- NOTE | 2020-06-21 21:43 | ED.VISSUMM ---
- ER Visit Summary Date of Service: 06/21/20 Chief Complaint: Fall History of Present Illness: The patient is a 80 F who stubbed her toe and fell at home. She hit the left side of her head and noted some bleeding. She also injured her left forearm. She is on Eliquis. She did not lose consciousness. No other injuries or complaints. Physical Examination: Afebrile and vital signs unremarkable. There is a small abrasion to her left scalp and a skin tear to her left forearm. Otherwise HEENT exam is unremarkable. Neck is nontender. Heart regular. Lungs clear. Abdomen soft. Back is nontender. Extremities nontender with no weakness or numbness. Test Results: CT brain and cervical spine show chronic changes. Nothing acute. No fracture. No bleeding. Emergency Department Course and Treatment: Patient's wounds were cleaned by nursing. There is a tiny scalp abrasion. This has stopped bleeding. No indication for rosalina or sutures. This was cleaned and dressed. There is a skin tear to her left forearm which was cleaned and dressed. Patient is appropriate for outpatient care and will be discharged with her family. Treatment Plan: As above Disposition: Discharge Impression: Concussion, scalp abrasion, skin tear left forearm This note was generated with [employer] dictation software. It may contain incorrect words, spelling, and punctuation that were not noted in review of the chart prior to signing ED Disposition - Plan for ED Patient: Referrals: Castro Kidd MD [Primary Care Provider] -
--- NOTE | 2020-06-21 21:45 | ED.DEP ---
ED Disposition - Plan for ED Patient: Instructions: ED Concussion Referrals: Castro Kidd MD [Primary Care Provider] -
== END 2020-06-21 21:59 | disposition home or self-care (01) ==
PROVIDERS: Emergency Provider Emergency Medicine; PCP Family Medicine
DX: S00.01XA Abrasion of scalp, initial encounter (principal); S51.812A Laceration without foreign body of left forearm, initial encounter; W22.8XXA Striking against or struck by other objects, initial encounter; Y92.009 Unspecified place in unspecified non-institutional (private) residence as the place of occurrence of the external cause; Z79.01 Long term (current) use of anticoagulants; J45.909 Unspecified asthma, uncomplicated; I48.91 Unspecified atrial fibrillation
CPT/HCPCS: 70450; 72125; 99284

== ENCOUNTER 2020-06-22 10:57 | Emergency (ER) | payer MEDICARE, BC, SELFPAY ==
[2020-06-21 20:53] VITALS: BMI 27.5
[2020-06-22 10:58] VITALS: BP 102/50; PULSE 64; RESP 16; TEMP 36.1; O2SAT 94; BMI 26.2
--- NOTE | 2020-06-22 11:32 | RAD_ITS ---
STUDY: X-RAY - PELVIS REASON FOR EXAM: Female, 80 years old. Pain fall TECHNIQUE: One view of the pelvis was obtained. COMPARISON: June 11 2020 FINDINGS: The bones of the pelvis are intact and located. Soft tissues are unremarkable. RAD/Pelvis 1 or 2 Views IMPRESSION: Normal x-ray examination of the pelvis. Electronically Signed: Marcia Carter, at 13:07 EDT Tel , Service support ,
--- NOTE | 2020-06-22 11:32 | RAD_ITS ---
STUDY: X-RAY - UNILATERAL RIBS ( RIGHT ) WITH CHEST REASON FOR EXAM: Female, 80 years old. PATIENT FELL LAST NIGHT. PAIN IN RIGHT RIBS POSTERIORLY, MOSTLY UPPER BUT RADIATES TO MID AND LOWER RIBS. TECHNIQUE - RIBS: 4 view(s) of the ribs. TECHNIQUE - CHEST: Frontal view of the chest COMPARISON: None. Findings: There are no displaced rib fractures. The lungs are clear and expanded. There is no demonstrated pleural abnormality. Normal size heart. Normal mediastinum and nikia. Normal visualized pulmonary arteries. Normal visualized aortic arch and descending thoracic aorta. Normal visualized thoracic spine. Normal visualized ribs, clavicles, and shoulders. Loop recorder is implanted over the precordium. There is prior right shoulder orthopedic anchor placement. There is no demonstrated abnormality of the visualized soft tissue structures of the upper abdomen. RAD/Ribs Uni Min 3V w/PA Chest IMPRESSION: No pneumothorax. No displaced rib fractures. Clear chest. Electronically Signed: Marcia Carter, at 13:09 EDT Tel , Service support ,
--- NOTE | 2020-06-22 11:32 | RAD_ITS ---
STUDY: X-RAY - RIGHT FOOT CLINICAL: Female, 80 years old. SEEN LAST NIGHT FOR FALL, TODAY IS HAVING RIGHT ANKLE/RIGHT FOOT PAIN, LOTS OF SWELLING AND BRUISING IN ENTIRE RIGHT FOOT INTO RIGHT ANKLE TECHNIQUE: 3 view(s) of the foot. COMPARISON: None. FINDINGS: There is a small avulsion fracture at the base of the fifth metatarsal at the attachment of the peroneal tendons. Remainder of the bones are intact and located. There is deformity of the anterior medial surface of the first metatarsal, possibly postsurgical. Mineralization is diffusely decreased. Soft tissues are normal. RAD/Foot min 3 Views IMPRESSION: Small corner avulsion fracture at the base of the fifth metatarsal. Electronically Signed: Marcia Carter, at 13:08 EDT Tel , Service support ,
--- NOTE | 2020-06-22 11:32 | ED.VIS.FALL ---
History of Present Illness Chief Complaint: Fall Informant: Patient, Family Occurred: Yesterday Mechanism/Context: Same level fall Location: mainly R ankle; also in left hand, right pelvis, right ribcage, right shldr Quality of Pain: Aching Current Severity: Moderate Worsened by: movement, palpation Relieved by: remaining still Associated Symptoms: Negative for: Parasthesias, Weakness, Loss of function, Inability to ambulate, Loss of consciousness, Amnesia Narrative: Patient here for a fall last night, she was seen directly after the fall, had obvious injuries to the left scalp and left forearm, she has CT that was negative, she is on anticoagulation. Her wounds were managed, bleeding was controlled. She discovered new areas that were hurting last night after she got home, and other areas this morning as well. These were not evidently injured when she was here last night. See above. She is able to ambulate. Recent Illness/Hospitalization: Yes - Appendicitis surgery 10 days ago, recovering well - Past Medical History (1) Depression Status: Chronic (2) History of stroke Status: Chronic (3) Hyperlipidemia Status: Chronic Past Medical History - Allergies and Home Meds Allergies/Adverse Reactions: Allergies morphine Allergy (Verified 06/22/20 11:00) Unknown Sulfa (Sulfonamide Antibiotics) Allergy (Verified 06/22/20 11:00) Unknown aspirin Adverse Reaction (Verified 06/22/20 11:00) Nausea/Vom/Diarrhea Primary Care Physician: Sandi Aguilar DPM [STAFF PHYSICIAN] - (Call for appointment) Castro Kidd MD [Primary Care Provider] - Surgical History: appendectomy, - - Oophorectomy, section. Shoulder surgery. Lives: With Family Smoking Status: Never smoker - Family History Maternal Family History: Reports: Cancer Paternal Family History: Reports: Heart Disease Review of Systems General: Denies: Chills, Fever, Sweats Eyes: Denies: Visual changes - bilaterally, Diplopia ENT: Denies: Bilateral ear pain, Rhinorrhea, Sore throat Cardiovascular: Denies: Chest pain, Palpitations Respiratory: Denies: Dyspnea, Cough, Dyspnea on exertion Gastrointestinal: Denies: Abdominal pain, Nausea, Vomiting, Diarrhea, Melena, Hematochezia Genitourinary: Denies: Dysuria, Hematuria, Frequency Musculoskeletal: Reports: Back pain, Extremity Pain. Denies: Neck pain Skin: Reports: Wounds. Denies: Rash Neurological: Denies: Headache, Weakness, Numbness Physical Exam Vital Signs/Narrative: Vital Signs Temp Pulse Resp BP Pulse Ox 06/22/20 10:58 97 F L 64 16 102/50 L 94 Inital Vital Signs reviewed: Yes General: Well nourished, Well developed, - - No acute distress. At baseline mental status per son. Head: Normocephalic, Atraumatic Eyes: Perrl, EOMI ENT: No trauma Neck: Full ROM, Paraspinal Tenderness - Mild, right trapezius, more towards shoulder/posterior to clavicle. Negative for: Spinal Tenderness Cardiovascular: Regular rate, Regular rhythm, No murmurs Respiratory: No distress, CTA bilaterally - With equal breath sounds bilaterally, Chest tenderness - Mild last anterior right rib without step-off. Also tender in the right flank, posterior axillary line, and into the back rib cage, no crepitance, subcutaneous emphysema, obvious step-off, or signs of trauma there. Abdomen: Soft, Nontender, Nondistended, Normal bowel sounds Back: Paraspinal Tenderness - Mild right thoracic in the ribs only, as well as the lateral aspect of the ilium. No crepitance, signs of trauma there, or deformity to AP compression which the pelvis is stable to.. Negative for: Spinal Tenderness Extremeties: Significant bruising, swelling, tenderness along the lateral aspect of the right ankle and foot including the base of the fifth metatarsal. No deformities. Able to move her ankle. Tender contusion right volar palm of the hand near the base of the thumb, but dorsally there is no bony tenderness with firm palpation everywhere in the hand, wrist, distal forearm. Full range of motion throughout all 4 extremities without any other joint limitations. No tenderness at the right acromioclavicular joint or the clavicle. Mild trapezius tenderness, no bony scapular tenderness. Skin: Normal color, Trauma - Contusion left hand, right ankle/foot where there is more of a hematoma. Bandage intact left forearm. Neurological: Alert, Oriented x3, Cranial nerves II-XII grossly intact, Normal Strength - Grossly symmetric bilaterally Psychological: Normal affect, Normal Mood Diagnostic/Tx/Re-eval Impressions Foot X-Ray 06/22/20 11:32 IMPRESSION: Small corner avulsion fracture at the base of the fifth metatarsal. Electronically Signed: Marcia Carter, at 13:08 EDT Tel , Service support , Pelvis X-Ray 06/22/20 11:32 IMPRESSION: Normal x-ray examination of the pelvis. Electronically Signed: Marcia Carter, at 13:07 EDT Tel , Service support , Ribs w/Chest X-Ray 06/22/20 11:32 IMPRESSION: No pneumothorax. No displaced rib fractures. Clear chest. Electronically Signed: Marcia Carter, at 13:09 EDT Tel , Service support , 06/22/20 11:32 Foot min 3 Views [RAD] Stat Pelvis 1 or 2 Views [RAD] Stat Ribs Uni Min 3V w/PA Chest [RAD] Stat 06/22/20 11:50 Ankle min 3 Views [RAD] Stat --- on ED physician interpretation, negative ankle fracture - Medical Decision Making There is an avulsion fracture at the base of the fifth metatarsal on the right foot, likely explaining all of the pain and bruising/hematoma there. I am less suspicious for an ankle sprain given that she has been walking on it well with less ankle pain. The rest of her x-rays are unremarkable. She was given a postop shoe, and ankle wrapped just in case, which her son will help her manage since he lives with her, and podiatry follow-up is given. She has a cane and a walker to help her ambulate. She declined analgesics. ED Disposition - Plan for ED Patient: Disposition: Home or Assisted Living Diagnosis: Closed nondisplaced fracture of fifth metatarsal bone of right foot, Contusion of rib on right side, Accidental fall, Contusion of left hand Instructions: ED FOOT FRACTURE, ED Contusion Vs Minor Fx Rib Referrals: Castro Kidd MD [Primary Care Provider] - Sandi Aguilar DPM [STAFF PHYSICIAN] - (Call for appointment)
--- NOTE | 2020-06-22 11:50 | RAD_ITS ---
STUDY: X-RAY - RIGHT ANKLE REASON FOR EXAM: Female, 80 years old. Status post fall, pain and swelling. TECHNIQUE: 3 view(s) of the ankle. COMPARISON: None. FINDINGS: Normal visualized distal tibia and fibula. Normal medial and lateral malleoli. Narrowing and degenerative arthrosis of the tibiotalar joint with sclerosis. There is a slightly displaced fracture of the base of the fifth metatarsal. Normal visualized talus and calcaneus. The visualized subtalar, talonavicular, calcaneocuboid and tarsal articulations are normal. There is soft tissue swelling. RAD/Ankle min 3 Views IMPRESSION: 1. Fracture of the base of the fifth metatarsal. 2. Degenerative arthrosis. 3. Soft tissue swelling. Electronically Signed: Tk Morris MD at 13:47 EDT Tel , Service support ,
== END 2020-06-22 13:53 | disposition home or self-care (01) ==
PROVIDERS: Emergency Provider Emergency Medicine; PCP Family Medicine
DX: S22.31XA Fracture of one rib, right side, initial encounter for closed fracture (principal); S60.222A Contusion of left hand, initial encounter; S92.354A Nondisplaced fracture of fifth metatarsal bone, right foot, initial encounter for closed fracture; W18.30XA Fall on same level, unspecified, initial encounter; Y93.9 Activity, unspecified; Y92.89 Other specified places as the place of occurrence of the external cause; Y99.9 Unspecified external cause status; E78.5 Hyperlipidemia, unspecified; F32.9 Major depressive disorder, single episode, unspecified; Z86.73 Personal history of transient ischemic attack (TIA), and cerebral infarction without residual deficits; Z79.01 Long term (current) use of anticoagulants; Z82.49 Family history of ischemic heart disease and other diseases of the circulatory system; Z88.2 Allergy status to sulfonamides; Z88.6 Allergy status to analgesic agent
CPT/HCPCS: 71101; 72170; 73610; 73630; 99283

== ENCOUNTER 2020-06-26 11:47 | Emergency (ER) | payer MEDICARE, BC, SELFPAY ==
[2020-06-26 11:48] VITALS: BP 143/56; PULSE 61; RESP 15; TEMP 36.3; O2SAT 98; BMI 26.2
--- NOTE | 2020-06-26 12:02 | ED.DCSUM_ITS ---
History of Present Illness Chief Complaint: Lower Extremity Injury Informant: Patient, Family Onset: Days Context: Gradual Onset Timing: Continuous Current Severity: Mild Maximum Severity: Mild Narrative: The patient is an 80-year-old female that presents to the emergency department for evaluation. Patient had a mechanical fall about 5 days ago. She is on Eliquis. At that point, she had x-rays done of her chest, along with CT of her head and neck. These were negative. She returned a day later because she noticed bruising and more pain in her foot. Plain films show fracture in the left foot. She states that she is just felt some generalized malaise over the past few days. She describes some diffuse aches and pains after her fall. She did follow-up with podiatry today. She was placed in a boot orthosis. She was concerned because she noticed bruising over her left hip. She is able to ambulate, but does describe some mild pain. She denies fever or chills. She denies nausea or vomiting. She is had no chest pain or dyspnea. She states she is otherwise been in her normal state of health. Prior similar symptoms: Yes Recent Illness/Hospitalization: No Past Medical History - Allergies and Home Meds Allergies/Adverse Reactions: Allergies morphine Allergy (Verified 06/22/20 11:00) Unknown Sulfa (Sulfonamide Antibiotics) Allergy (Verified 06/22/20 11:00) Unknown aspirin Adverse Reaction (Verified 06/22/20 11:00) Nausea/Vom/Diarrhea Primary Care Physician: Castro Kidd MD [Primary Care Provider] - Prior records reviewed: Yes Past Medical History: - - Hypertension, atrial fibrillation Surgical History: appendectomy, - - Oophorectomy, section. Shoulder surgery. Smoking Status: Never smoker - Family History Maternal Family History: Reports: Cancer Paternal Family History: Reports: Heart Disease Review of Systems General: Reports: Malaise. Denies: Chills, Fever, Sweats Eyes: Denies: Visual changes - bilaterally, Diplopia ENT: Denies: Rhinorrhea, Sore throat Cardiovascular: Denies: Chest pain, Palpitations Respiratory: Denies: Dyspnea, Cough, Dyspnea on exertion Gastrointestinal: Denies: Abdominal pain, Nausea, Vomiting, Diarrhea, Melena, Hematochezia Genitourinary: Denies: Dysuria, Hematuria, Frequency Musculoskeletal: Reports: Arthralgias, Extremity Pain. Denies: Back pain Skin: Denies: Rash, Wounds Neurological: Denies: Headache, Weakness, Numbness Physical Exam Vital Signs/Narrative: Vital Signs Temp Pulse Resp BP Pulse Ox 06/26/20 11:48 97.4 F L 61 15 143/56 H 98 Inital Vital Signs reviewed: Yes General: Well nourished, Well developed, No Acute Distress Head: Normocephalic, Atraumatic Eyes: Perrl, EOMI ENT: Moist mucous membranes, No rhinorrhea Neck: Supple, Nontender Cardiovascular: Regular rate, Regular rhythm, No murmurs Respiratory: No distress, CTA bilaterally, Chest nontender Abdomen: Soft, Nontender, Nondistended, Normal bowel sounds Back: Nontender, Normal Inspection Extremities: Nontender, No edema Skin: Normal color, No rash Neurological: Alert, Oriented x3, Cranial nerves II-XII grossly intact, Normal Strength, Normal Sensation Psychological: Normal affect, Normal Mood Diagnostic/Tx/Re-eval Clinical Impression(s) from Imaging Studies Abdomen/Pelvis CT 06/26/20 12:17 IMPRESSION: No suspicious solid organ abnormality, gallbladder not seen on today''s study. Nonobstructing 7 mm stone in the left renal pelvis Constipation Uterus is still present, the endometrium cannot be adequately evaluated with CT Degenerative bony changes, no demonstrated fracture Electronically Signed: Mushtaq Britton MD at 14:32 EDT , Service support , Abnormal Lab Results 06/26/20 06/26/20 06/26/20 12:26 13:35 13:35 WBC 9.7 RBC 3.97 L Hgb 12.3 Hct 39.4 MCV 99.2 H MCH 31.0 MCHC 31.2 L RDW Std Deviation 51.2 H RDW Coeff of Nithin 13.9 Plt Count 283 MPV 10.5 Immature Gran % (Auto) 0.700 Neut % (Auto) 77.3 H Lymph % (Auto) 13.9 L [place] % (Auto) 6.6 Eos % (Auto) 1.2 Baso % (Auto) 0.3 Absolute Neuts (auto) 7.5 Absolute Lymphs (auto) 1.35 Nucleated RBC % 0 Sodium 137 Potassium 4.8 Chloride 109 H Carbon Dioxide 22.0 Anion Gap 6 BUN 30 H Creatinine 1.01 Estim Creat Clear Calc 40.67 Est GFR (MDRD) Af Amer 68 Est GFR (MDRD) Non-Af 56 L BUN/Creatinine Ratio 29.7 H Glucose 121 H Calcium 9.1 Total Bilirubin 0.40 AST 11 L ALT 28 Alkaline Phosphatase 47 Total Protein 6.2 L Albumin 3.2 Globulin 3.0 Albumin/Globulin Ratio 1.1 Urine Color Brown Urine Clarity Cloudy Urine pH 5.0 Ur Specific [place] 1.020 Urine Protein 100 H Urine Glucose (UA) Normal Urine Ketones 5 H Urine Occult Blood 250 H Urine Nitrite Positive H Urine Bilirubin Negative Urine Urobilinogen 1 H Ur Leukocyte Esterase 100 H Urine RBC 25-50 SEEN Urine WBC 10-25 SEEN Ur Squamous Epith Cells 0-5 SEEN Urine Bacteria 1+ Urine Mucus 0 SEEN - Medical Decision Making The patient presents with contusion over her left hip. She was placed in a gown and I did examine her skin. She has no other evidence of injury. She also was noted to have some hematuria. As she was on anticoagulants with a fall, I did feel that metabolic work-up would be appropriate. Urine was obtained. There is some evidence of hemorrhagic cystitis. I did add a culture. Patient underwent CT imaging of the abdomen and pelvis given the fall and hematuria. There was no evidence of renal injury. Solid organs are unremarkable. Pelvis and hip are unremarkable. I did add a culture to her urine. Her hemoglobin is stable. She has no significant pain. At this point, I am going to treat her with Keflex. She will be discharged home. Social work was involved with the patient and family given her fall and needs at home. Impression 1. Left hip contusion 2. Hemorrhagic cystitis ED Disposition - Plan for ED Patient: Instructions: ED Sprain Hip, ED CYSTITIS Female Adult Prescriptions: Cephalexin [Keflex] 500 mg PO Q8 #21 cap Prescription Printed Referrals: Castro Kidd MD [Primary Care Provider] -
--- NOTE | 2020-06-26 12:17 | CT_ITS ---
STUDY: CT ABDOMEN AND PELVIS WITH CONTRAST REASON FOR EXAM: Female, 80 years old. PT STATED MULTIPLE FALLS, LEFT SIDE AND HIP PAIN, HX APPY RADIATION DOSAGE (If Supplied By Facility): CTDIvol = ( 6.21 ) mGy, DLP = ( 461.26 ) mGycm TECHNIQUE: Transaxial images were obtained from the dome of the diaphragm to the symphysis pubis without oral contrast. IV 100mL Isovue-300 was administered. Sagittal and coronal images were reconstructed. Individualized dose optimization techniques were used for this CT. COMPARISON: 06/11/2020 FINDINGS: There are chronic interstitial fibrotic changes of the lung bases. The visualized portions of the heart are within normal limits, calcified coronary vessels noted. Normal liver. There are surgical clips in the gallbladder fossa consistent with a prior cholecystectomy. Normal spleen. Normal pancreas. Normal bilateral adrenal glands. No obstructive uropathy or suspicious solid renal lesion. There is a nonobstructing 7 mm stone in the left renal pelvis Normal visualized stomach. Normal small intestine. Retained stool noted in the colon. There are surgical clips in the region of the appendix consistent with a prior appendectomy. There is diffuse atherosclerotic calcification of the abdominal aorta, without a demonstrated aneurysm. Normal inferior vena cava. Normal retroperitoneum. Normal urinary bladder. Uterus is still present, the endometrium cannot be directly evaluated with CT. Normal abdominal wall. There are diffuse degenerative changes of the visualized lumbar spine, and pelvis. CT/Abdomen/Pelvis W IV Cont ONLY IMPRESSION: No suspicious solid organ abnormality, gallbladder not seen on today''s study. Nonobstructing 7 mm stone in the left renal pelvis Constipation Uterus is still present, the endometrium cannot be adequately evaluated with CT Degenerative bony changes, no demonstrated fracture Electronically Signed: Mushtaq Britton MD at 14:32 EDT , Service support ,
[2020-06-26 12:52] LABS: Mucous, Urine 0 SEEN /hpf (<or=2+)
[2020-06-26 12:56] LABS: Color, Urine Brown (Yellow); Glucose, Dipstick Normal (Normal); Ketone-Dipstick 5 mg/dl (Negative); Leukocyte Esterase-Dipstick 100 /ul (Negative); Nitrite-Dipstick Positive (Negative); Occult Blood-Urine 250 /ul (Negative); Protein-Dipstick 100 mg/dl (Negative); Urine Bilirubin Dipstick Negative (Negative); Urine Clarity Cloudy (Clear); Urine Urobilinogen 1 mg/dl (Normal)
[2020-06-26 13:02] LABS: Bacteria 1+ /hpf (None Seen); Red Blood Cells-Urine 25-50 SEEN /hpf (0-5); Squamous Epithelial Cells - UA 0-5 SEEN /hpf (5-10); White Blood Cells 10-25 SEEN /hpf (0-5)
[2020-06-26 13:53] LABS: Absolute Lymphocyte Count 1.35 X10^3/uL (0.83-4.51); Absolute Neutrophil Count 7.5 X10^3/uL (2.0-7.7); Basophil# 0.03 X10^3/uL; Basophil% 0.3 % (0-1); Eosinophil# 0.12 X10^3/uL; Eosinophils% 1.2 % (0-5); Hematocrit 39.4 % (37-47); Hemoglobin 12.3 g/dL (12.0-15.0); Lymphocyte # 1.35 X10^3/ul (4.0); Lymphocyte % 13.9 % (19-41); Mean Corp Hgb Conc 31.2 g/dL (32-36); Mean Corpuscular Volume 99.2 fL (81-99); Mean Platelet Vol. 10.5 fl (6.2-12.0); Monocyte# 0.64 X10^3/uL; Monocyte% 6.6 % (0-10); NRBC Flagged by Analyzer 0 % (0-5); Neutrophil # 7.48 X10^3/uL (2.7-7.7); Neutrophil % 77.3 % (47-70); Platelet Count 283 K/mm3 (150-450); RBC Distribution Width CV 13.9 % (11.6-14.6); RBC Distribution Width SD 51.2 fl (35.1-43.9); Red Blood Count 3.97 M/mm3 (4.2-5.4); White Blood Count 9.7 K/mm3 (4.4-11.0)
[2020-06-26 13:58] LABS: ALB/GLOB Ratio 1.1 RATIO (0.9-2.4); AST(SGOT) 11 U/L (15-37); Alanine Aminotransfer ALT/SGPT 28 U/L (13-56); Albumin, Serum 3.2 g/dL (3.2-5.0); Alkaline Phosphatase 47 U/L (45-117); Anion Gap 6 (5-15); BUN 30 mg/dL (7-18); BUN/Creat Ratio 29.7 RATIO (10-20); Calcium,Total 9.1 mg/dL (8.5-10.1); Chloride 109 mmol/L (98-107); Creatinine, Serum 1.01 mg/dL (0.55-1.02); EST Glomerular Filtration Rate 56 mL/min (>60); Est Glom Filt Rate - Afr Amer 68 mL/min (>60); Estimated Creatinine Clearance 40.67 ml/min; Glucose 121 mg/dL (74-106); Potassium 4.8 mmol/L (3.5-5.1); Protein, Total 6.2 g/dL (6.4-8.2); Sodium Level 137 mmol/L (136-145)
[2020-06-26 14:45] VITALS: BP 136/81; PULSE 58; RESP 12; O2SAT 94
--- NOTE | 2020-06-26 15:02 | CM.ED ---
Addendum entered by Pat Cade 06/26/20 21:14: Patient sonChristian is Health Care Power of Customer Services Manager. Original Note: Social Work Consult: Discharge Planning Informant: Nursing staff. Met with patient and patient sonChristian in room. Introduced self and social media specialist role. Patient son currently provides 24/7 care for patient in the home. Patient uses a walker and has a medical alert. Patient is active with skilled home health services through [facility] ([facility]). Patient had a fall and is now non-weight bearing to left foot due to fracture. Patient and Christian wanting to continue with patient in the home but asking questions about three day qualifying stay in the event that things don't go well. Patient did have a three day qualifying stay under Medicare 10 days ago. Educated Christian/patient on 30 day window for skilled placement if this would be needed. Christian states that patient currently at [facility] through [facility]. Christian is inquiring about possible option for ADMIN SECRETARY and OT to be added to skilled services. Christian also asking about respite options in the home for Christian to be able to leave and attend to own self care. This social media specialist providing Christian with list of private duty aides. Per Christian, finances are not an issue for patient. Active support and listening provided. Collaborating with Dr. Garcia. Agreeable to order for ADMIN SECRETARY/OT in the home. Patient/Christian updated on order for increased services in the home. Telephone call to [facility] Amelia MOSQUERA. Voicemail left with referral information and order faxed. FLAVIA Trinidad
[2020-06-26 15:23] VITALS: BP 136/81; PULSE 56; RESP 16; O2SAT 96
== END 2020-06-26 15:40 | disposition home or self-care (01) ==
LOC: ED 14:06
PROVIDERS: Emergency Provider Emergency Medicine; PCP Family Medicine
DX: S70.02XA Contusion of left hip, initial encounter (principal); W19.XXXA Unspecified fall, initial encounter; Y93.9 Activity, unspecified; Y92.89 Other specified places as the place of occurrence of the external cause; Y99.9 Unspecified external cause status; N30.91 Cystitis, unspecified with hematuria; I10 Essential (primary) hypertension; I48.91 Unspecified atrial fibrillation; K59.00 Constipation, unspecified; R29.6 Repeated falls; Z79.01 Long term (current) use of anticoagulants; Z82.49 Family history of ischemic heart disease and other diseases of the circulatory system; Z88.2 Allergy status to sulfonamides; Z88.6 Allergy status to analgesic agent
CPT/HCPCS: 74177; 80053; 81001; 85025; 87086; 87088; 99285; J7040; Q9967; A4216

== ENCOUNTER 2020-07-14 15:15 | Outpatient (RCR) | payer MEDICARE, BC, SELFPAY ==
[2020-07-14 17:11] LABS: Color, Urine Yellow (Yellow); Glucose, Dipstick Normal (Normal); Ketone-Dipstick Negative (Negative); Leukocyte Esterase-Dipstick 100 /ul (Negative); Nitrite-Dipstick Negative (Negative); Occult Blood-Urine Negative /ul (Negative); Protein-Dipstick 15 mg/dl (Negative); Urine Bilirubin Dipstick Negative (Negative); Urine Clarity Sl. Cloudy (Clear); Urine Urobilinogen Normal (Normal)
== END 2020-07-21 18:00 | disposition home or self-care (01) ==
LOC: HHLAB 15:15
PROVIDERS: PCP Family Medicine; Referring Provider Family Medicine; Visit Provider Family Medicine
DX: N30.91 Cystitis, unspecified with hematuria (principal); R30.0 Dysuria
CPT/HCPCS: 81002; 87077; 87086; 87088; 87186

== ENCOUNTER 2021-05-09 16:33 | Emergency (ER) | payer MEDICARE, BC, SELFPAY ==
[2021-05-09 16:34] VITALS: BP 140/72; PULSE 60; RESP 14; TEMP 36.4; O2SAT 98; BMI 21.5
[2021-05-09 17:53] LABS: Absolute Lymphocyte Count 2.04 X10^3/uL (0.83-4.51); Absolute Neutrophil Count 4.4 X10^3/uL (2.0-7.7); Basophil# 0.06 X10^3/uL; Basophil% 0.8 % (0-1); Eosinophils% 5.2 % (0-5); Hematocrit 37.1 % (37-47); Hemoglobin 12.2 g/dL (12.0-15.0); Lymphocyte # 2.04 X10^3/ul (0.83-4.51); Lymphocyte % 26.4 % (19-41); Mean Corp Hgb Conc 32.9 g/dL (32-36); Mean Corpuscular Hgb 31.9 pg (27.0-32.0); Mean Corpuscular Volume 97.1 fL (81-99); Mean Platelet Vol. 10.9 fl (6.2-12.0); Monocyte# 0.82 X10^3/uL; Monocyte% 10.6 % (0-10); NRBC Flagged by Analyzer 0 % (0-5); Neutrophil % 56.7 % (47-70); Platelet Count 230 K/mm3 (150-450); RBC Distribution Width CV 13.5 % (11.6-14.6); RBC Distribution Width SD 48.3 fl (35.1-43.9); Red Blood Count 3.82 M/mm3 (4.2-5.4); White Blood Count 7.7 K/mm3 (4.4-11.0)
[2021-05-09] MEDS: Nitrofurantoin Macrocrystals 100 MG Capsule PO (18:03)
[2021-05-09] MEDS: levoFLOXacin IV 750 MG/150 ML BAG 100 MG IV (18:06)
[2021-05-09 18:11] LABS: ALB/GLOB Ratio 1.3 RATIO (0.9-2.4); AST(SGOT) 15 U/L (15-37); Alanine Aminotransfer ALT/SGPT 29 U/L (13-56); Albumin, Serum 3.4 g/dL (3.2-5.0); Alkaline Phosphatase 66 U/L (45-117); Anion Gap 8 (5-15); BUN 31 mg/dL (7-18); BUN/Creat Ratio 34.2 RATIO (10-20); Calcium,Total 8.8 mg/dL (8.5-10.1); Chloride 107 mmol/L (98-107); Creatinine, Serum 0.91 mg/dL (0.55-1.02); EST Glomerular Filtration Rate 63 mL/min (>60); Est Glom Filt Rate - Afr Amer 76 mL/min (>60); Estimated Creatinine Clearance 34.83 ml/min; Globulin 2.7 g/dL (2.2-4.2); Glucose 93 mg/dL (74-106); Potassium 4.3 mmol/L (3.5-5.1); Protein, Total 6.1 g/dL (6.4-8.2); Sodium Level 138 mmol/L (136-145)
[2021-05-09 18:12] LABS: Bacteria 0 SEEN /hpf (None Seen); Color, Urine Yellow (Yellow); Glucose, Dipstick Normal (Normal); Ketone-Dipstick Negative (Negative); Leukocyte Esterase-Dipstick 100 /ul (Negative); Mucous, Urine 0 SEEN /hpf (<or=2+); Nitrite-Dipstick Negative (Negative); Occult Blood-Urine 250 /ul (Negative); Protein-Dipstick 30 mg/dl (Negative); Urine Bilirubin Dipstick Negative (Negative); Urine Clarity Sl. Cloudy (Clear); Urine Urobilinogen Normal (Normal)
[2021-05-09 18:18] LABS: Squamous Epithelial Cells - UA 0-5 SEEN /hpf (5-10); White Blood Cells 0-5 SEEN /hpf (0-5)
[2021-05-09 18:19] LABS: Red Blood Cells-Urine > 100 SEEN /hpf (0-5)
[2021-05-09 18:37] VITALS: BP 140/72; PULSE 60; RESP 14; TEMP 36.9; O2SAT 98
[2021-05-09 18:53] VITALS: TEMP 36.9
--- NOTE | 2021-05-09 18:53 | ED.RN ---
RN called to room to assess IV. redness to vein. flushed site with saline flush and had blood return. MD notified and ordered to slow IV levaquin.
[2021-05-09 19:30] VITALS: BP 122/79; PULSE 59; RESP 16; TEMP 36.7; O2SAT 97
--- NOTE | 2021-05-09 19:30 | EDS_ITS ---
HPI History of Present Illness Chief Complaint: Complaint Informant: patient Onset/Context/Timing Onset: Days (3) Context: Gradual Onset Timing: Continuous Worsened by: Nothing Relieved by: Nothing Narrative Narrative: Patient presents with urinary tract infection that has been constant for the past 3 days. Patient was seen by her primary care physician and diagnosed with a urinary tract infection 3 days ago. Patient had a urine culture obtained which showed Enterococcus faecium. The son has the patient's urine culture results but does not have any sensitivities. Patient has had a similar urinary tract infection in the past. Patient states she was called and told to come to the emergency department for IV antibiotics. Patient admits to some urgency and frequency. Patient denies any dysuria or hematuria. Patient denies any fevers or chills. Patient denies any nausea or vomiting. [facility] Medical History (Updated 05/09/21 @ 19:[address] Jack Green, DO) Appendicitis Depression Glaucoma Stroke Home Medications atorvastatin 80 mg PO QHS 09/11/16 [History Last Taken 09/10/16] bupropion HCl 200 mg PO DAILY 09/11/16 [History Last Taken 09/11/16] loperamide [Imodium A-D] 2 mg PO QHS PRN 09/11/16 [History Last Taken 09/10/16] montelukast 10 mg PO DAILY 09/11/16 [History Last Taken 09/11/16] aspirin 1 tab PO DAILY 08/11/17 [History Last Taken Unknown] doxepin 10 mg PO PRN PRN 08/11/17 [History Last Taken Unknown] epinephrine [EpiPen] 0.3 mg IJ PRN PRN 08/11/17 [History Last Taken Unknown] multivitamin [Daily Multiple] 1 ea PO DAILY 08/11/17 [History Last Taken Unknown] meclizine 25 mg PO TID PRN PRN #20 tab 08/12/17 [Rx Last Taken Unknown] apixaban 2.5 mg PO BID 06/11/20 [History Last Taken Unknown] escitalopram oxalate 10 mg PO DAILY 06/11/20 [History Last Taken Unknown] metoprolol succinate 25 mg PO DAILY 06/11/20 [History Last Taken Unknown] nitroglycerin 0.4 mg SL Q5M PRN 06/11/20 [History Last Taken Unknown] potassium chloride 20 meq PO DAILY 06/11/20 [History Last Taken Unknown] trazodone 300 mg PO QHS 06/11/20 [History Last Taken Unknown] brimonidine 1 drp OPHTHALMIC (EYE) TID 06/21/20 [History Last Taken Unknown] budesonide 3 mg PO DAILY 05/09/21 [History Last Taken Unknown] dorzolamide-timolol 1 drp EACH EYE BID 05/09/21 [History Last Taken Unknown] nitrofurantoin 100 mg PO QHS 05/09/21 [History Last Taken Unknown] Allergy/AdvReac Type Severity Reaction Status Date / Time morphine Allergy Unknown Verified 05/09/21 16:38 Sulfa (Sulfonamide Allergy Unknown Verified 05/09/21 16:38 Antibiotics) aspirin AdvReac Nausea/Vom/ Verified 05/09/21 16:38 Diarrhea Surgical History (Updated 05/09/21 @ 19:[address] Jack Green DO) History of appendectomy History of bunionectomy Social History Smoking Status: Never smoker ROS ROS ED Constitutional Constitutional ED: Denies chills or fever(s) Eyes Eyes: Denies blurry vision or change in vision ENT ENT ED: Denies rhinorrhea or sore throat Cardiovascular Cardiovascular: Denies chest pain or palpitations Respiratory/Chest Respiratory/Chest: Denies cough or dyspnea Gastrointestinal Gastrointestinal: Denies nausea or vomiting Genitourinary Genitourinary ED: Reports urinary frequency; Denies dysuria or hematuria Musculoskeletal Musculoskeletal: Denies back pain or neck pain Integumentary Denies abscess or rash Neurologic Neurologic: Denies headache(s) or weakness Allergic/Immunologic Allergic/Immunologic ED: Denies mouth swelling or urticaria EXAM Physical Exam Const Vital Signs: 05/09/21 16:34 05/09/21 18:37 05/09/21 18:53 Temperature 97.5 F L 98.4 F 98.4 F Temperature Source Temporal Temporal Oral Pulse Rate 60 60 Respiratory Rate 14 14 Blood Pressure 140/72 H 140/72 H Blood Pressure Mean 94 94 Pulse Ox 98 98 Oxygen Delivery Method Room Air Room Air 05/09/21 19:30 05/09/21 19:51 05/09/21 20:12 Temperature 98.1 F 98.1 F 98.3 F Temperature Source Oral Oral Pulse Rate 59 L 59 L 54 L Respiratory Rate 16 16 14 Blood Pressure 122/79 H 122/79 H 131/70 H Blood Pressure Mean 93 90 Pulse Ox 97 97 93 Oxygen Delivery Method Room Air Room Air Positive well nourished and well developed General Appearance ED: well developed HEENT Reports moist mucous membranes Neck supple and no JVD Resp normal respiratory effort and clear to auscultation bilaterally Cardio regular rate, regular rhythm and no murmurs GI normal to inspection, nondistended, normoactive bowel sounds and non-tender Palpation: soft Extremity normal to inspection General Extremety ED: Negative for edema or tenderness General Extremity: Negative for edema Neuro oriented x3, CN's II-XII intact bilaterally and no sensory deficits noted Sensorium / Orientation: alert Motor Exam: strength 5/5 throughout Psych mental status grossly normal Skin no rashes or lesions noted MDM MDM MDM Narrative Medical decision making narrative: CBC was within normal limits. Comprehensive metabolic profile was normal. Urinalysis shows leukocyte esterase of 100. There were greater than 100 red blood cells. There is 0-5 white blood cells. Patient was given a dose of Levaquin and Macrobid here. Patient was instructed to follow-up with her primary care physician in 5 to 7 days. Patient was instructed return if worse in any way. Patient understood and was agreeable with the plan. All questions were answered. Lab Data Attestation: I reviewed the patient's lab results. Labs: Laboratory Results - last 24 hr 05/09/21 05/09/21 05/09/21 17:38 17:38 18:00 WBC 7.7 RBC 3.82 L Hgb 12.2 Hct 37.1 MCV 97.1 MCH 31.9 MCHC 32.9 RDW Std Deviation 48.3 H RDW Coeff of Nithin 13.5 Plt Count 230 MPV 10.9 Immature Gran % (Auto) 0.300 Neut % (Auto) 56.7 Lymph % (Auto) 26.4 [place] % (Auto) 10.6 H Eos % (Auto) 5.2 H Baso % (Auto) 0.8 Absolute Neuts (auto) 4.4 Absolute Lymphs (auto) 2.04 Nucleated RBC % 0 Sodium 138 Potassium 4.3 Chloride 107 Carbon Dioxide 23.0 Anion Gap 8 BUN 31 H Creatinine 0.91 Estim Creat Clear Calc 34.83 Est GFR (MDRD) Af Amer 76 Est GFR (MDRD) Non-Af 63 BUN/Creatinine Ratio 34.2 H Glucose 93 Calcium 8.8 Total Bilirubin 0.40 AST 15 ALT 29 Alkaline Phosphatase 66 Total Protein 6.1 L Albumin 3.4 Globulin 2.7 Albumin/Globulin Ratio 1.3 Urine Color Yellow Urine Clarity Sl. Cloudy Urine pH 7.0 Ur Specific [place] 1.010 Urine Protein 30 H Urine Glucose (UA) Normal Urine Ketones Negative Urine Occult Blood 250 H Urine Nitrite Negative Urine Bilirubin Negative Urine Urobilinogen Normal Ur Leukocyte Esterase 100 H Urine RBC > 100 SEEN Urine WBC 0-5 SEEN Ur Squamous Epith Cells 0-5 SEEN Urine Bacteria 0 SEEN Urine Mucus 0 SEEN Discharge Plan Triage Chief Complaint: Complaint ED Provider: Jack Green Dx/Rx/DC Orders Clinical Impression: Urinary urgency Instructions: ED Urinary Tract Infections in Women Prescriptions: No Action atorvastatin 80 MG tablet 80 mg PO QHS RF: 0 bupropion HCl 200 MG tablet sustained-release 12 hr 200 mg PO DAILY RF: 0 loperamide [Imodium A-D] 2 MG tablet 2 mg PO QHS PRN (Reason: loose stools) RF: 0 montelukast 10 MG tablet 10 mg PO DAILY RF: 0 multivitamin [Daily Multiple] 1 EACH tablet 1 ea PO DAILY RF: 0 doxepin 10 MG capsule 10 mg PO PRN PRN (Reason: Swelling) RF: 0 aspirin 81 MG tablet,delayed release (DR/EC) 1 tab PO DAILY RF: 0 epinephrine [EpiPen] 0.3 MG/0.3 ML auto-injector 0.3 mg IJ PRN PRN (Reason: Allergies) RF: 0 meclizine 25 MG tablet 25 mg PO TID PRN PRN (Reason: Dizziness) Qty: 20 RF: 0 potassium chloride 20 MEQ packet 20 meq PO DAILY RF: 0 trazodone 100 MG tablet 300 mg PO QHS RF: 0 nitroglycerin 0.4 MG tablet, sublingual 0.4 mg SL Q5M PRN (Reason: CHEST PAIN) RF: 0 metoprolol succinate 25 MG tablet extended release 24 hr 25 mg PO DAILY RF: 0 escitalopram oxalate 10 MG tablet 10 mg PO DAILY RF: 0 apixaban 2.5 MG tablet 2.5 mg PO BID RF: 0 brimonidine 1 DROP bottle 1 drp ophthalmic (eye) TID RF: 0 nitrofurantoin 100 mg Capsule 100 mg PO QHS RF: 0 dorzolamide-timolol 22.3-6.8 mg/mL Drops 1 drp EACH EYE BID RF: 0 budesonide 3 mg Capsule,Delayed,Extend.Release 3 mg PO DAILY RF: 0 Primary Care Provider: Castro Kidd Referrals: Castro Kidd MD [Primary Care Provider] - 3-5 Days Disposition Disposition: Home, self care Discharge Date/Time: 05/09/21 21:05
[2021-05-09 19:51] VITALS: BP 122/79; PULSE 59; RESP 16; TEMP 36.7; O2SAT 97
[2021-05-09 20:12] VITALS: BP 131/70; PULSE 54; RESP 14; TEMP 36.8; O2SAT 93
== END 2021-05-09 21:05 | disposition home or self-care (01) ==
PROVIDERS: Emergency Provider Emergency Medicine; PCP Family Medicine
DX: R39.15 Urgency of urination (principal); N39.0 Urinary tract infection, site not specified; F32.9 Major depressive disorder, single episode, unspecified; H40.9 Unspecified glaucoma; Z79.01 Long term (current) use of anticoagulants; Z79.82 Long term (current) use of aspirin; Z87.440 Personal history of urinary (tract) infections
CPT/HCPCS: 80053; 81001; 85025; 87040; 96361; 96365; 96366; 99284; J7050; A4216

== ENCOUNTER → 2021-05-14 14:46 | Outpatient (CLI) | payer MEDICARE, BC, SELFPAY ==
[2021-05-09 16:34] VITALS: BMI 21.5
[2021-05-14 14:52] VITALS: BP 115/62; PULSE 60; RESP 16; TEMP 36.4; O2SAT 100; BMI 21.9
[2021-05-14 16:28] VITALS: BP 100/53; PULSE 58; RESP 16; TEMP 36.6
== END ==
PROVIDERS: PCP Family Medicine; Referring Provider Obstetrics & Gynecology; Visit Provider Obstetrics & Gynecology
DX: N39.0 Urinary tract infection, site not specified (principal); B95.2 Enterococcus as the cause of diseases classified elsewhere
CPT/HCPCS: 96365; J7050; A4216

== ENCOUNTER → 2021-05-15 13:42 | Outpatient (CLI) | payer MEDICARE, BC, SELFPAY ==
[2021-05-09 16:34] VITALS: BMI 21.5
[2021-05-14 14:52] VITALS: BMI 21.9
[2021-05-15 13:50] VITALS: BP 123/66; PULSE 56; RESP 16; TEMP 36.2; O2SAT 97
[2021-05-15 15:14] VITALS: BP 128/91; PULSE 58; RESP 16; TEMP 36.7; O2SAT 98
== END ==
PROVIDERS: PCP Family Medicine; Referring Provider Obstetrics & Gynecology; Visit Provider Obstetrics & Gynecology
DX: N39.0 Urinary tract infection, site not specified (principal); B95.2 Enterococcus as the cause of diseases classified elsewhere
CPT/HCPCS: 96365; J7050

== ENCOUNTER 2021-05-16 11:47 | Outpatient (CLI) | payer MEDICARE, BC, SELFPAY ==
[2021-05-14 14:52] VITALS: BMI 21.9
[2021-05-16] MEDS: 0.9% Saline Lock 10 ML Syringe IV (12:20)
[2021-05-16 13:50] VITALS: BP 118/57; PULSE 57; RESP 18; TEMP 36.9; O2SAT 95
== END 2021-05-16 13:53 | disposition home or self-care (01) ==
LOC: MEDOUTP 11:48 → MS3 11:57
PROVIDERS: PCP Family Medicine; Referring Provider Obstetrics & Gynecology; Visit Provider Obstetrics & Gynecology
DX: N39.0 Urinary tract infection, site not specified (principal); B95.2 Enterococcus as the cause of diseases classified elsewhere
CPT/HCPCS: 96365; J7050; A4216

== ENCOUNTER 2021-05-17 11:45 | Outpatient (CLI) | payer MEDICARE, BC, SELFPAY ==
[2021-05-14 14:52] VITALS: BMI 21.9
[2021-05-17 12:49] VITALS: BP 88/52; PULSE 57; RESP 16; TEMP 36.7; O2SAT 97
[2021-05-17 13:11] VITALS: BP 86/50; PULSE 59
--- NOTE | 2021-05-17 13:22 | NURSING ---
Son concerned about patient's blood pressure being low today, asked for this nurse to speak to physician in charge. Keyla, safe deposit clerk called, she requested I speak to Dr. Evy Duffy. Dr. Duffy returned call and was updated of vitals and that pt is sitting in chair, drinking coffee, denies symptoms. MD stated that she recommends patient receive the IV antibiotic today and that she suggested the family reach out to the patients PCP to address concerns with her blood pressure. If any further symptoms, patient should be referred to the ER for treatment.
[2021-05-17 14:04] VITALS: BP 113/54; PULSE 55
[2021-05-17 14:45] VITALS: BP 114/61; PULSE 54; RESP 16; TEMP 36.3
== END 2021-05-17 15:05 | disposition home or self-care (01) ==
LOC: MEDOUTP 11:48 → MS3 11:49
PROVIDERS: PCP Family Medicine; Referring Provider Obstetrics & Gynecology; Visit Provider Obstetrics & Gynecology
DX: N39.0 Urinary tract infection, site not specified (principal); B95.2 Enterococcus as the cause of diseases classified elsewhere
CPT/HCPCS: 96365; J7050

== ENCOUNTER → 2021-05-18 08:17 | Outpatient (CLI) | payer MEDICARE, BC, SELFPAY ==
[2021-05-09 16:34] VITALS: BMI 21.5
[2021-05-14 14:52] VITALS: BMI 21.9
[2021-05-18 08:29] VITALS: BP 114/70; PULSE 56; RESP 16; TEMP 36; O2SAT 100; BMI 21.9
[2021-05-18 10:44] VITALS: BP 108/52; PULSE 52; RESP 14; TEMP 35.9; O2SAT 97
== END ==
PROVIDERS: PCP Family Medicine; Referring Provider Obstetrics & Gynecology; Visit Provider Obstetrics & Gynecology
DX: N39.0 Urinary tract infection, site not specified (principal); B95.2 Enterococcus as the cause of diseases classified elsewhere
CPT/HCPCS: 96365; 96366; J7050

== ENCOUNTER 2023-06-14 21:31 | Emergency (ER) | payer MEDICARE, BC, SELFPAY ==
[2023-06-14 21:32] VITALS: BP 97/55; PULSE 65; RESP 18; TEMP 36.1; O2SAT 96
--- NOTE | 2023-06-14 22:09 | ED.VIS.FEGU ---
HPI HPI - Female History of Present Illness Chief Complaint: Vag Bleeding Detail of Chief Complaint: Vaginal bleeding Informant: patient and family Narrative Narrative: Patient presents with vaginal bleeding that started 3 days ago. Patient had a hysterectomy on 05-18 at [facility]. Patient started with light bleeding 3 days ago and heavier bleeding last evening. She was seen by nurse practitioner her surgeon's office today and had cautery. Patient continues to bleed. Son talk to the surgeon and they were advised to come to the emergency department to be evaluated. Patient on Eliquis for history of A-fib and history of strokes. Patient denies any abdominal pain. [facility] Medical History (Updated 06/15/23 @ 00:[address] Nadir Marroquin, ) Appendicitis Depression Glaucoma Stroke Home Medications bupropion HCl 200 mg tablet,12 hr sustained-release 200 mg PO DAILY mental health 09/11/16 [History Last Taken 09/11/16] loperamide 2 mg tablet (Imodium A-D) 2 mg PO QHS PRN loose stools 09/11/16 [History Last Taken 09/10/16] montelukast 10 mg tablet 10 mg PO DAILY allergies 09/11/16 [History Last Taken 09/11/16] aspirin 81 mg tablet,delayed release 1 tab PO DAILY heart health 08/11/17 [History Last Taken Unknown] doxepin 10 mg capsule 10 mg PO PRN PRN Swelling 08/11/17 [History Last Taken Unknown] epinephrine 0.3 mg/0.3 mL injection, auto-injector (EpiPen) 0.3 mg PRN PRN Allergies 08/11/17 [History Last Taken Unknown] multivitamin (Daily Multiple tablet) 1 ea PO DAILY vitamin 08/11/17 [History Last Taken Unknown] meclizine 25 mg tablet 25 mg PO TID PRN PRN Dizziness #20 tabs 08/12/17 [Rx Last Taken Unknown] apixaban 2.5 mg tablet 2.5 mg PO BID blood thinner 06/11/20 [History Last Taken Unknown] escitalopram oxalate 10 mg tablet 10 mg PO DAILY mental health 06/11/20 [History Last Taken Unknown] metoprolol succinate 25 mg tablet,extended release 24 hr 25 mg PO DAILY blood pressure 06/11/20 [History Last Taken Unknown] nitroglycerin 0.4 mg sublingual tablet 0.4 mg SL Q5M PRN CHEST PAIN 06/11/20 [History Last Taken Unknown] trazodone 100 mg tablet 300 mg PO QHS sleep 06/11/20 [History Last Taken Unknown] brimonidine 0.15 % eye drops 1 drp ophthalmic (eye) TID 06/21/20 [History Last Taken Unknown] budesonide 3 mg capsule,delayed,extended release 3 mg PO DAILY 05/09/21 [History Last Taken Unknown] dorzolamide 22.3 mg-timolol 6.8 mg/mL eye drops 1 drp EACH EYE BID 05/09/21 [History Last Taken Unknown] atorvastatin 20 mg tablet 20 mg PO QHS 06/14/23 [History Last Taken Unknown] hydroquinone 4 % topical cream 1 applic topical TID PRN PRN skin 06/14/23 [History Last Taken Unknown] methenamine hippurate 1 gram tablet 1 g PO DAILY 06/14/23 [History Last Taken Unknown] midodrine 2.5 mg tablet 2.5 mg PO TID 06/14/23 [History Last Taken Unknown] Allergy/AdvReac Type Severity Reaction Status Date / Time morphine Allergy Unknown Verified 06/14/23 21:32 Sulfa (Sulfonamide Allergy Unknown Verified 06/14/23 21:32 Antibiotics) aspirin AdvReac Nausea/Vom/ Verified 06/14/23 21:32 Diarrhea Surgical History (Updated 05/09/21 @ 19:[address] Jack Green DO) History of appendectomy History of bunionectomy Social History Smoking Status: Never smoker ROS ROS ED Constitutional Constitutional ED: Reports systems reviewed and no addt'l complaints, except as documented; Denies body ache(s), change in weight or chills Eyes Eyes: Denies acute decrease in peripheral vision, change in vision, double vision or loss of vision ENT ENT ED: Reports none; Denies ear pain, lip swelling, loss taste/smell, neck pain, otalgia or sore throat Cardiovascular Cardiovascular: Reports none; Denies abdominal pain, chest pain with activity, leg edema, lightheadedness, palpitations, rapid heart rate or syncope Respiratory/Chest Respiratory/Chest: Reports none; Denies change in mental status, dry cough, dyspnea, hemoptysis, shortness of breath at rest or shortness of breath with exertion Gastrointestinal Gastrointestinal: Reports none; Denies abdominal pain, change in stool character, diarrhea, hematemesis, hematochezia, melena, rectal bleeding or vomiting Genitourinary Genitourinary ED: Reports none and other Details: Vaginal bleeding ; Denies abdominal discomfort, anuria, dysuria, genital pain or polyuria Musculoskeletal Musculoskeletal: Reports none; Denies arthralgias, back pain, difficulty walking, extremity pain, muscle weakness or myalgias Integumentary Reports none; Denies abscess or rash Neurologic Neurologic: Reports none; Denies abnormal gait, confusion, focal weakness, frequent falls, headache(s), loss of vision, numbness, paresthesias, radicular pain, vertigo or weakness Psychiatric Psychiatric: Reports systems reviewed and no addt'l complaints, except as documented and none; Denies behavioral changes, confusion, difficulty concentrating, hallucinations, suicidal ideation, tactile hallucinations or visual hallucinations Endocrine Endocrinology: Denies none, cold intolerance, excessive sweating, fatigue or heat intolerance Hematologic/Lymphatic Hematologic/Lymphatic: Reports none; Denies anemia, easy bleeding or easy bruising Allergic/Immunologic Allergic/Immunologic ED: Denies as per HPI, none, lip swelling, mouth swelling, throat swelling, tongue swelling or hives EXAM Physical Exam Const Vital Signs: 06/14/23 21:32 06/14/23 23:37 Temperature 96.9 F L Temperature Source Temporal Pulse Rate 65 Pulse Rate [Lying] 57 L Pulse Rate [Sitting (for 1 minute prior to obtaining)] 61 Pulse Rate [Standing (for 1 minute prior to obtaining)] 62 Respiratory Rate 18 Blood Pressure 97/55 L Blood Pressure [Lying] 111/61 Blood Pressure [Sitting (for 1 minute prior to obtaining)] 108/56 L Blood Pressure [Standing (for 1 minute prior to obtaining)] 101/62 Blood Pressure Mean 69 Blood Pressure Mean [Lying] 77 Blood Pressure Mean [Sitting (for 1 minute prior to obtaining)] 73 Blood Pressure Mean [Standing (for 1 minute prior to obtaining)] 75 Pulse Ox 96 Oxygen Delivery Method Room Air Positive well nourished and well developed General Appearance ED: well developed and NAD HEENT Reports TM's clear and moist mucous membranes normocephalic and atraumatic; Negative for trauma or tenderness Tympanic Membrane ED: Yes TM's clear Eyes PERRL and EOMs intact bilaterally General Eye ED: Negative for pale conjunctiva or scleral icterus Neck no lymphadenopathy, supple and no JVD General: Negative for tenderness Chest Wall inspection of chest normal and palpation of chest normal Chest: Negative for tenderness Resp normal respiratory effort and clear to auscultation bilaterally Effort and Inspection: Negative for respiratory distress or pain with movement Auscultation: Negative for rhonchi, wheezes or diminished lung sounds Cardio regular rate, regular rhythm, S1 normal heart sound, S2 normal heart sound and no murmurs Peripheral Pulses: pulses 2+ throughout GI normal to inspection, nondistended, normoactive bowel sounds, soft to palpation, non-tender, non-distended and no masses Back/Spine no CVA tenderness and no thoracic nor lumbar tenderness Extremity normal to inspection General Extremety ED: Negative for edema General Extremity: Negative for edema Neuro oriented x3, CN's II-XII intact bilaterally, no sensory deficits noted and gait normal Sensorium / Orientation: awake, alert, oriented to person, oriented to place and oriented to time Motor Exam: strength 5/5 throughout and strength abnormal Psych mental status grossly normal Skin no rashes or lesions noted and no wounds MDM MDM MDM Narrative Medical decision making narrative: Patient presents with postop vaginal bleeding. She had a hysterectomy on 05-18. Patient started having vaginal bleeding 3 days ago. Seen in the office earlier today and had cautery. Subsequently passed a clot. In the differential would be continued vaginal hemorrhaging status post hysterectomy. In the differential would be anemia. Patient is on Eliquis. IV line established on arrival. CBC with differential obtained showed a white count of 8.3 with a hemoglobin of 11.1 and platelet count of 241. Orthostatic vital signs were negative. I did perform a pelvic exam and on my exam there is no active bleeding. I am able to evaluate the vaginal cuff and appears intact. There was a small area of clot to the cuff but no active bleeding. I did attempt to place some Surgicel over the area. I did discuss case with Dr. Kumar who is the CHEMICAL TREATMENT OPERATOR on-call for . Dr. Kumar is familiar with the patient and the case. He agrees that there is no indication for admission as her hemoglobin is stable and she is not orthostatic and there is no active bleeding. He did asked that we hold her Eliquis next dose and they can reevaluate her in the office tomorrow. Patient and son comfortable with plan. Advised him to return if persistent heavy bleeding or condition should worsen anyway. Lab Data Attestation: I reviewed the patient's lab results. Labs: Laboratory Results - last 24 hr 06/14/23 22:41 WBC 8.3 RBC 3.52 L Hgb 11.1 L Hct 35.8 L MCV 101.7 H MCH 31.5 MCHC 31.0 L RDW Std Deviation 53.4 H RDW Coeff of Nithin 14.5 Plt Count 241 MPV 10.6 Immature Gran % (Auto) 0.600 Neut % (Auto) 56.5 Lymph % (Auto) 25.5 [place] % (Auto) 11.6 H Eos % (Auto) 5.1 H Baso % (Auto) 0.7 Absolute Neuts (auto) 4.7 Absolute Lymphs (auto) 2.11 Nucleated RBC % 0 PT 14.7 INR 1.2 APTT 25.4 Discharge Plan Triage Chief Complaint: Vag Bleeding ED Provider: Nadir Marroquin Dx/Rx/DC Orders Clinical Impression: Post-op bleeding, Vaginal bleeding Instructions: ED Post Op Wound Check, Bleeding Prescriptions: No Action bupropion HCl 200 MG tablet sustained-release 12 hr 200 mg PO DAILY Patient Comments: depression loperamide [Imodium A-D] 2 MG tablet 2 mg PO QHS PRN (Reason: loose stools) Patient Comments: diarrhea montelukast 10 MG tablet 10 mg PO DAILY Patient Comments: breathing multivitamin [Daily Multiple] 1 EACH tablet 1 ea PO DAILY doxepin 10 MG capsule 10 mg PO PRN PRN (Reason: Swelling) aspirin 81 MG tablet,delayed release (DR/EC) 1 tab PO DAILY epinephrine [EpiPen] 0.3 MG/0.3 ML auto-injector 0.3 mg IJ PRN PRN (Reason: Allergies) meclizine 25 MG tablet 25 mg PO TID PRN PRN (Reason: Dizziness) Qty: 20 0RF trazodone 100 MG tablet 300 mg PO QHS nitroglycerin 0.4 MG tablet, sublingual 0.4 mg SL Q5M PRN (Reason: CHEST PAIN) metoprolol succinate 25 MG tablet extended release 24 hr 25 mg PO DAILY escitalopram oxalate 10 MG tablet 10 mg PO DAILY apixaban 2.5 MG tablet 2.5 mg PO BID brimonidine 1 DROP bottle 1 drp ophthalmic (eye) TID dorzolamide-timolol 22.3-6.8 mg/mL Drops 1 drp EACH EYE BID budesonide 3 mg Capsule,Delayed,Extend.Release 3 mg PO DAILY methenamine hippurate 1 gram tablet 1 g PO DAILY Patient Comments: TAKE 1 TABLET BY MOUTH EVERY DAY hydroquinone 4 % cream 1 applic TOPICAL TID PRN PRN (Reason: skin) Patient Comments: APPLY TO AFFECTED AREA 3 TIMES A DAY midodrine 2.5 mg tablet 2.5 mg PO TID Patient Comments: TAKE 1 TABLET BY MOUTH THREE TIMES A DAY FOR 90 DAYS atorvastatin 20 mg tablet 20 mg PO QHS Primary Care Provider: Castro Kidd Referrals: Castro Kidd MD [Primary Care Provider] - Activity Restrictions/Additional Instructions: Is hold the next Eliquis dose until you follow-up with your CHEMICAL TREATMENT OPERATOR tomorrow. Disposition Disposition: Home, Self Care
[2023-06-14 22:51] LABS: Absolute Lymphocyte Count 2.11 X10^3/uL (0.83-4.51); Absolute Neutrophil Count 4.7 X10^3/uL (2.0-7.7); Basophil# 0.06 X10^3/uL; Basophil% 0.7 % (0-1); Eosinophil# 0.42 X10^3/uL; Eosinophils% 5.1 % (0-5); Hematocrit 35.8 % (37-47); Hemoglobin 11.1 g/dL (12.0-15.0); Lymphocyte # 2.11 X10^3/ul (0.83-4.51); Lymphocyte % 25.5 % (19-41); Mean Corpuscular Hgb 31.5 pg (27.0-32.0); Mean Corpuscular Volume 101.7 fL (81-99); Mean Platelet Vol. 10.6 fl (6.2-12.0); Monocyte# 0.96 X10^3/uL; Monocyte% 11.6 % (0-10); NRBC Flagged by Analyzer 0 % (0-5); Neutrophil # 4.69 X10^3/uL (2.7-7.7); Neutrophil % 56.5 % (47-70); Platelet Count 241 K/mm3 (150-450); RBC Distribution Width CV 14.5 % (11.6-14.6); RBC Distribution Width SD 53.4 fl (35.1-43.9); Red Blood Count 3.52 M/mm3 (4.2-5.4); White Blood Count 8.3 K/mm3 (4.4-11.0)
[2023-06-14 23:04] LABS: Partial Thromboplast Time 25.4 Seconds (24.1-36.2)
[2023-06-14 23:24] LABS: International Normalized Ratio 1.2; Prothrombin Time (Protime)PT. 14.7 SECONDS (11.7-14.9)
[2023-06-14 23:37] VITALS: BP 101/62; BP 108/56; BP 111/61; PULSE 57; PULSE 61; PULSE 62
== END 2023-06-15 00:08 | disposition home or self-care (01) ==
PROVIDERS: Emergency Provider Emergency Medicine; PCP Family Medicine; Visit Provider Emergency Medicine
DX: N93.9 Abnormal uterine and vaginal bleeding, unspecified (principal); I48.91 Unspecified atrial fibrillation; N99.821 Postprocedural hemorrhage of a genitourinary system organ or structure following other procedure; Z90.710 Acquired absence of both cervix and uterus; Z79.01 Long term (current) use of anticoagulants; Z86.73 Personal history of transient ischemic attack (TIA), and cerebral infarction without residual deficits; F32.A Depression, unspecified; Z79.899 Other long term (current) drug therapy; Z79.82 Long term (current) use of aspirin; H40.9 Unspecified glaucoma
CPT/HCPCS: 85025; 85610; 85730; 86850; 86900; 86901; 99283; A4216

== ENCOUNTER 2024-05-01 09:46 | Inpatient (IN) | payer MEDICARE, BC, SELFPAY ==
[2024-05-01] VITALS (12 sets, daily range): BP systolic 121–169; BP diastolic 63–84; PULSE 54–64; RESP 12–18; TEMP 36–36.8; O2SAT 95–100; BMI 21.7; BMI 21.9
--- NOTE | 2024-05-01 09:48 | NURSING ---
[id number] STROKE ALERT CALLED FROM TRIAGE
--- NOTE | 2024-05-01 09:54 | CT_ITS ---
STUDY: CT HEAD STROKE PROTOCOL W/O CONTRAST INJECTION REASON FOR EXAM: Female, 83 years old. Neuro deficit, acute, stroke suspected RADIATION DOSAGE (If Supplied By Facility): CTDIvol = ( 44.99 ) mGy, DLP = ( 745.49 ) mGycm TECHNIQUE: Transaxial CT imaging of the brain was performed without administration of intravenous contrast material. Individualized dose optimization techniques were used for this CT. COMPARISON: Comparison is made with prior study June 21, 2020. FINDINGS: Normal soft tissue structures. There is hyperostosis frontalis internus. There is mild cerebral atrophy with widening of the extra-axial spaces and ventricular dilatation. There are areas of decreased attenuation within the white matter tracts of the supratentorial brain, consistent with microvascular disease changes. Normal basal ganglia and thalami. Normal brainstem. There is mild cerebellar atrophy. There is no intracranial hemorrhage. There are no findings of an acute ischemic infarction. Atherosclerotic calcification of the cavernous portions of the internal carotid arteries bilaterally. Normal visualized paranasal sinuses. ASPECT score: 10 CT/STROKE Brain/Head without Cont IMPRESSION: Chronic involutional changes of the brain. N.B. : The above Results were Read Back by Antonio Cowan MD to Chaz Cyr and understanding confirmed on 05/01/2024 10:07:54 (ET). Electronically Signed: Antonio Cowan MD at 10:09 EDT ,
--- NOTE | 2024-05-01 09:54 | EKG12_ITS ---
Test Reason : STROKE ALERT Blood Pressure : / mmHG Vent. Rate : 056 BPM Atrial Rate : 056 BPM P-R Int : 134 ms QRS Dur : 082 ms QT Int : 300 ms P-R-T Axes : 074 -25 143 degrees QTc Int : 289 ms Sinus bradycardia Nonspecific ST and T wave abnormality Abnormal ECG Confirmed by Mark Blackburn ([id number]), newspaper editor LILA QUEVEDO ([id number]) on 05/02/2024 8:55:46 AM Referred By: Confirmed By:Mark Blackburn
--- NOTE | 2024-05-01 09:55 | CT_ITS ---
STUDY: CTA HEAD AND NECK WITH CONTRAST REASON FOR EXAM: Female, 83 years old. Neuro deficit, acute, stroke suspected RADIATION DOSAGE (If Supplied By Facility): CTDIvol = ( 13.91 ) mGy, DLP = ( 864.12 ) mGycm TECHNIQUE: CT angiography was performed with a multi-detector CT scanner. Data acquisition was obtained from the skull base through the vertex following intravenous administration of IV 100mL Isovue-300. MIP images were reconstructed from the axial data set. Post-processing of the angiographic images was performed, with multiplanar reformation and 3D reconstruction. Individualized dose optimization techniques were used for this CT. COMPARISON: No relevant priors. FINDINGS: Normal bilateral petrous carotid arteries. There is calcified plaque formation of the right cavernous carotid artery, without a cross-sectional luminal stenosis. Normal left cavernous carotid artery with a normal supraclinoid bifurcation. There is hypoplastic development of the right A1 segment of the anterior cerebral arteries with an atretic but intact artery. Normal left A1 segments of the anterior cerebral artery. Normal intact anterior communicating artery (ACOM). Normal bilateral A2 segments of the anterior cerebral arteries. Normal right M1 and M2 segments of the middle cerebral arteries, with a normal M1 bifurcation. Normal left M1 and M2 segments of the middle cerebral arteries, with a normal M1 bifurcation. 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 Normal left posterior communicating artery (PCOM). Normal bilateral vertebral arteries. Normal basilar artery with a normal basilar bifurcation. The visualized bilateral superior cerebellar (SCA) arteries are normal. Normal bilateral P1, P2 and visualized P3 segments of the posterior cerebral arteries. There is no demonstrated aneurysm of the [place]. AORTIC ARCH: There is mild atherosclerotic calcific plaque formation of the aortic arch and great vessels arising from the aortic arch, without a hemodynamically significant stenosis. There is a bovine origin of the great vessels with a common origin of the brachiocephalic and left common carotid artery. Normal origin of the left subclavian artery. RIGHT CAROTID ARTERIES: Normal right common carotid artery (CCA). Normal right common carotid bulb. Normal origin of the right internal carotid (ICA) artery without a hemodynamically significant stenosis. Normal visualized cervical portion of the right internal carotid artery. Normal origin of the right external carotid artery (ECA). LEFT CAROTID ARTERIES: Normal left common carotid artery (CCA). Normal left common carotid bulb. There is mild atherosclerotic plaque formation of the origin of the left internal carotid artery with less than 50% cross sectional diameter stenosis. Normal visualized cervical portion of the left internal carotid artery. Normal origin of the left external carotid artery (ECA). VERTEBRAL ARTERIES: There is enhancement within the bilateral vertebral arteries with a small left vertebral artery, and a dominant right vertebral artery. CT/STROKE CTA Head AND Neck W/Con IMPRESSION: Mild degree of calcific plaque at the origin of the left internal carotid artery. N.B. : The above Results were Read Back by Antonio Cowan MD to Dr Ger DO, and understanding confirmed on 05/01/2024 10:26:43 (ET). Electronically Signed: Antonio Cowan MD at 10:27 EDT ,
--- NOTE | 2024-05-01 09:58 | NURSING ---
[id number] STROKE ALERT CALLED FROM TRIAGE
--- NOTE | 2024-05-01 10:06 | EX.ED.DYSGE1 ---
HPI History of Present Illness Chief Complaint: Stroke Alert [facility] Medical History Appendicitis Glaucoma Depression Stroke Home Medications ?Medication ?Instructions ?Recorded ?Last Taken ?Type bupropion HCl 200 mg tablet,12 hr 200 mg PO DAILY mental health 09/11/16 09/11/16 History sustained-release loperamide 2 mg tablet (Imodium 2 mg PO QHS PRN loose stools 09/11/16 09/10/16 History A-D) montelukast 10 mg tablet 10 mg PO DAILY allergies 09/11/16 09/11/16 History aspirin 81 mg tablet,delayed 1 tab PO DAILY heart health 08/11/17 Unknown History release doxepin 10 mg capsule 10 mg PO PRN PRN Swelling 08/11/17 Unknown History epinephrine 0.3 mg/0.3 mL 0.3 mg PRN PRN Allergies 08/11/17 Unknown History injection, auto-injector (EpiPen) meclizine 25 mg tablet 25 mg PO TID PRN PRN Dizziness #20 08/12/17 Unknown Rx tabs escitalopram oxalate 10 mg tablet 10 mg PO DAILY mental health 06/11/20 Unknown History nitroglycerin 0.4 mg sublingual 0.4 mg SL Q5M PRN CHEST PAIN 06/11/20 Unknown History tablet brimonidine 0.15 % eye drops 1 drp ophthalmic (eye) BID 06/21/20 Unknown History budesonide 3 mg 3 mg PO DAILY 05/09/21 Unknown History capsule,delayed,extended release dorzolamide 22.3 mg-timolol 6.8 1 drp EACH EYE BID 05/09/21 Unknown History mg/mL eye drops atorvastatin 20 mg tablet 20 mg PO QHS 06/14/23 Unknown History hydroquinone 4 % topical cream 1 applic topical TID PRN PRN skin 06/14/23 Unknown History methenamine hippurate 1 gram tablet 1 g PO BID 06/14/23 Unknown History apixaban 5 mg tablet (Eliquis) 2.5 mg PO BID 05/01/24 Unknown History bimatoprost 0.01 % eye drops 1 drp ophthalmic (eye) DAILY 05/01/24 Unknown History (Yifan) midodrine 5 mg tablet 5 mg PO QHS 05/01/24 Unknown History multivitamin (Daily Multi-Vitamin 1 tab PO DAILY 05/01/24 Unknown History tablet) trazodone 150 mg tablet 200 mg PO DAILY 05/01/24 Unknown History Allergy/AdvReac Type Severity Reaction Status Date / Time morphine Allergy Unknown Verified 06/14/23 21:32 Sulfa (Sulfonamide Allergy Unknown Verified 06/14/23 21:32 Antibiotics) aspirin AdvReac Nausea/Vom/ Verified 06/14/23 21:32 Diarrhea Family History (Updated 05/01/24 @ 12:[address] Jack Angelo DO) Other CVA (cerebral vascular accident) Heart disease Surgical History History of hysterectomy for cancer History of bunionectomy History of appendectomy Social History Smoking Status: Never smoker EXAM Physical Exam Const Vital Signs: 05/01/24 09:54 05/01/24 09:54 05/01/24 10:20 Temperature 96.9 F L 98.3 F Temperature Source Temporal Oral Pulse Rate 59 L 64 Respiratory Rate 16 13 Blood Pressure 121/63 H 158/67 H Blood Pressure Mean 82 97 Pulse Ox 97 97 Oxygen Delivery Method Room Air Room Air Room Air 05/01/24 10:30 05/01/24 10:45 05/01/24 11:00 Temperature Temperature Source Pulse Rate 55 L 54 L 54 L Respiratory Rate 14 16 12 Blood Pressure 153/74 H 147/74 H 148/67 H Blood Pressure Mean 100 98 94 Pulse Ox 99 97 95 Oxygen Delivery Method Room Air Room Air Room Air 05/01/24 11:30 05/01/24 11:47 Temperature 98.3 F Temperature Source Pulse Rate 54 L 54 L Respiratory Rate 17 17 Blood Pressure 152/84 H 152/84 H Blood Pressure Mean 106 106 Pulse Ox 99 99 Oxygen Delivery Method Room Air MDM MDM MDM Narrative Medical decision making narrative: HISTORY OF PRESENT ILLNESS: 83-year-old female who currently anticoagulated with Eliquis presents acute onset of speech changes, left-sided weakness and incoordination. Last known well was 6:30 AM on 05/01/2024. History provided by the patient, son and EMS. Patient notes she woke up at 5:30 AM and then started experiencing weakness and difficulty speaking. Notes history of 6 strokes in 2018. Notes compliance with Eliquis. Denies any falls or recent trauma. Denies any chest pain shortness of breath palpitations. REVIEW OF SYSTEMS: Pertinent positives: Difficulty speaking, left-sided incoordination and weakness Pertinent negatives: Headache, chest pain, recent trauma PHYSICAL EXAM: Nursing triage notes reviewed, Vital signs reviewed Constitutional: please see mdm HENT: MMM Eyes: Pupils equal round and reactive to light, Extraocular muscles intact Neck: No stridor, no JVD, full neck ROM Lungs: Clear to auscultation, No wheezing or rales. No increased work of breathing, no conversational dyspnea, no accessory muscle use, no nasal flaring. No respiratory distress noted Heart: Regular rate and rhythm, No murmurs, No rubs and No gallops, 2+ distal pulses (radial, femoral, posterior tibial) in all extremities Abdomen: Soft, there is no tenderness, rigidity, rebound or guarding, no obvious peritoneal signs, no palpable pulsatile abdominal masses, no auscultated abdominal bruit : No CVAT Extremities: No edema Neuro: The patient was alert and oriented to person, age, had left upper extremity drift, left lower extremity drift had left upper and lower extremity ataxia, NIH of 6 Skin: No rash or lesions noted MEDICAL DECISION MAKING: Chief Complaint: Code stroke External records reviewed: CT scan of the head from 2019 shows no acute intracranial abnormality Factors affecting care: CVA Social determinants of health: none [] History obtained from others: Patient's son Consults: n stroke radiology, stroke neurology, internal medicine (Dr. Angelo) [facility] Narrative: Patient was initially hemodynamically stable, afebrile and nontoxic-appearing. Initial exam concerning for acute CVA. Initial NIH of 6. Patient is on Eliquis which precludes TNK however she is still within thrombectomy window. She was taken immediately from the CVA/CT landing zone to CT. Obtained a CT scan of the brain, CTA head and neck showed no evidence of ICH or large vessel occlusion. I considered the following differential diagnosis: ICH, LVO, focal seizure, Acute CVA ALL IMAGES (IF OBTAINED) HAVE BEEN PERSONALLY REVIEWED AND INTERPRETED BY MYSELF. CT scan of the head, CTA of the head and neck show no evidence of acute abnormality explain the patient's symptoms I have personally reviewed the patient's chest x-ray. Chest x-ray is unremarkable for pulmonary edema, pneumothorax, pneumonia or focal cardiopulmonary abnormality. High-sensitivity troponin is negative, no evidence of myocardial ischemia CBC without leukocytosis, severe anemia, no thrombocytopenia. No coagulopathy BMP without evidence of significant electrolyte abnormalities, no anion gap, no acute kidney injury. Urinalysis shows no evidence of urinary inflammation suggestive of UTI The synthesis of the patient's history, physical exam, labs images suggest likely acute CVA. discussed with stroke radiology so no evidence of ICH or large vessel occlusion. Also discussed with stroke neurology recommended Admission for MRI and risk factor modification. Further discussed with internal medicine who admit recommended admission as well. Patient was admitted in stable condition The patient and/or family, caregivers express understanding. The patient and/or family, caregivers agrees with the plan. Shared decision making: I will have a discussion with the patient and or visitors regarding risk/benefits of further testing or admission. They will be made aware of of the risk/benefits inherent in this decision they will be given the opportunity to voice understanding. Total critical care time today provided was at least 35 minutes. This excludes separately billable procedures. Critical care time (if documented) is secondary to the patient having high probability of clinically significant/life threatening deterioration in the patient's condition which required my urgent intervention. Impression: 1. Acute CVA 2. History of CVA 3. History of hyperlipidemia Dispo: Admit to PCU This note was generated with [employer] dictation software. It may contain incorrect words, spelling, and punctuation that were not noted in review of the chart prior to signing. Lab Data Labs: Laboratory Results - last 24 hr 05/01/24 05/01/24 05/01/24 09:55 10:05 10:15 WBC 7.7 RBC 3.81 L Hgb 12.1 Hct 37.2 MCV 97.6 MCH 31.8 MCHC 32.5 RDW Std Deviation 51.5 H RDW Coeff of Nithin 14.3 Plt Count 245 MPV 10.7 Immature Gran % (Auto) 2.000 H Neut % (Auto) 62.2 Lymph % (Auto) 19.1 [place] % (Auto) 10.8 H Eos % (Auto) 4.7 Baso % (Auto) 1.2 H Absolute Neuts (auto) 4.8 Absolute Lymphs (auto) 1.47 Nucleated RBC % 0 PT 15.6 H INR 1.2 APTT 26.1 Sodium 137 Potassium 3.5 Chloride 107 Carbon Dioxide 24.0 Anion Gap 6 BUN 21 H Creatinine 0.91 Estim Creat Clear Calc 33.06 Est GFR (MDRD) Af Amer 75 Est GFR (MDRD) Non-Af 62 BUN/Creatinine Ratio 23.0 H Glucose 112 H Hemoglobin A1c 5.0 Calcium 8.9 Total Bilirubin Cancelled Direct Bilirubin Cancelled Indirect Bilirubin Cancelled Troponin I High Sens 16 POC Glucose 109 H Radiography Diagnostic Testing: Clinical Impression(s) from Imaging Studies Brain CT 05/01/24 09:54 IMPRESSION: Chronic involutional changes of the brain. N.B. : The above Results were Read Back by Antonio Cowan MD to Chaz Cyr and understanding confirmed on 05/01/2024 10:07:54 (ET). Electronically Signed: Antonio Cowan MD at 10:09 EDT , Head/Neck CTA 05/01/24 09:55 IMPRESSION: Mild degree of calcific plaque at the origin of the left internal carotid artery. N.B. : The above Results were Read Back by Antonio Cowan MD to Dr Ger DO, and understanding confirmed on 05/01/2024 10:26:43 (ET). Electronically Signed: Antonio Cowan MD at 10:27 EDT , ADDENDUM: 05/01/24 1034 IMPRESSION: Mild degree of calcific plaque at the origin of the left internal carotid artery. N.B. : The above Results were Read Back by Antonio Cowan MD to Dr Ger DO, and understanding confirmed on 05/01/2024 10:26:43 (ET). Electronically Signed: Antonio Cowan MD at 10:27 EDT , Chest X-Ray 05/01/24 10:45 IMPRESSION: No acute abnormality is seen. Electronically Signed: Antonio Cowan MD at 10:59 EDT , Discharge Plan Disposition Disposition: Acute Care Hospital [facility] Discharge Date/Time: 05/01/24 13:00
[2024-05-01 10:12] LABS: Absolute Lymphocyte Count 1.47 X10^3/uL (0.83-4.51); Absolute Neutrophil Count 4.8 X10^3/uL (2.0-7.7); Basophil# 0.09 X10^3/uL; Basophil% 1.2 % (0-1); Eosinophil# 0.36 X10^3/uL; Eosinophils% 4.7 % (0-5); Hematocrit 37.2 % (37-47); Hemoglobin 12.1 g/dL (12.0-15.0); Lymphocyte # 1.47 X10^3/ul (0.83-4.51); Lymphocyte % 19.1 % (19-41); Mean Corp Hgb Conc 32.5 g/dL (32-36); Mean Corpuscular Hgb 31.8 pg (27.0-32.0); Mean Corpuscular Volume 97.6 fL (81-99); Mean Platelet Vol. 10.7 fl (6.2-12.0); Monocyte# 0.83 X10^3/uL; Monocyte% 10.8 % (0-10); NRBC Flagged by Analyzer 0 % (0-5); Neutrophil # 4.79 X10^3/uL (2.7-7.7); Neutrophil % 62.2 % (47-70); Platelet Count 245 K/mm3 (150-450); RBC Distribution Width CV 14.3 % (11.6-14.6); RBC Distribution Width SD 51.5 fl (35.1-43.9); Red Blood Count 3.81 M/mm3 (4.2-5.4); White Blood Count 7.7 K/mm3 (4.4-11.0)
[2024-05-01 10:22] LABS: International Normalized Ratio 1.2; Prothrombin Time (Protime)PT. 15.6 SECONDS (11.7-14.9)
[2024-05-01 10:23] LABS: Partial Thromboplast Time 26.1 Seconds (24.1-36.2)
[2024-05-01 10:31] LABS: Anion Gap 6 (5-15); BUN 21 mg/dL (7-18); Calcium,Total 8.9 mg/dL (8.5-10.1); Chloride 107 mmol/L (98-107); Creatinine, Serum 0.91 mg/dL (0.55-1.02); EST Glomerular Filtration Rate 62 mL/min (>60); Est Glom Filt Rate - Afr Amer 75 mL/min (>60); Estimated Creatinine Clearance 33.06 ml/min; Glucose 112 mg/dL (74-106); Potassium 3.5 mmol/L (3.5-5.1); Sodium Level 137 mmol/L (136-145); Troponin-I HS 16 pg/mL (3.0-54.0)
[2024-05-01 10:35] LABS: Bedside Glucose 109 mg/dL (74-106)
--- NOTE | 2024-05-01 10:45 | RAD_ITS ---
STUDY: X-RAY CHEST REASON FOR EXAM: Female, 83 years old. Neuro deficit, acute, stroke suspected TECHNIQUE: Single AP portable view of the chest. COMPARISON: Comparison is made with prior study dated June 22, 2020. FINDINGS: EKG electrodes are seen. The lungs are clear and expanded. There is no demonstrated pleural abnormality. Normal size heart. A loop recorder device is seen overlying the heart. Normal mediastinum and nikia. Normal visualized pulmonary arteries. There is atherosclerotic tortuosity of the aortic arch and descending thoracic aorta. There are diffuse degenerative changes of the visualized thoracic spine. Surgical anchors are seen in both humeral head suggestive of prior rotator cuff surgery. There is no demonstrated abnormality of the visualized soft tissue structures of the upper abdomen. RAD/Chest 1 View IMPRESSION: No acute abnormality is seen. Electronically Signed: Antonio Cowan MD at 10:59 EDT ,
--- NOTE | 2024-05-01 11:37 | NURSING ---
DR PHIL MCPHERSON
--- NOTE | 2024-05-01 11:41 | NURSING ---
MADDY VILLARREAL ACUTE CVA
--- NOTE | 2024-05-01 12:08 | HP.PCM.HOS_ITS ---
[facility] - General General Date of Admission: 05/01/24 Date of Service: 05/01/24 Chief Complaint: Difficulty speaking and left-sided weakness. [facility] Narrative SANDY ROWANPAULINEURGER, is a 83 F who presents with acute onset of dysarthria and left-sided weakness. Patient woke at 0530 and noted at 0630 that she was having difficulty speaking and left-sided weakness. Patient brought to the hospital where it was concerning patient had a stroke and stroke alert was called. Patient underwent head CT and CTA of the head and neck that was unremarkable. Patient was seen by neurology recommends additional workup. Patient has never had a left-sided symptoms but has had right-sided symptoms in the past from a stroke. Patient does have known atrial fibrillation and she does take apixaban for that and has been compliant with her medications. [facility] Medical History (Updated 05/01/24 @ 12:[address] Jack Angelo, DO) Appendicitis Glaucoma Depression Stroke Home Medications ?Medication ?Instructions ?Recorded ?Last Taken ?Type bupropion HCl 200 mg tablet,12 hr 200 mg PO DAILY mental health 09/11/16 09/11/16 History sustained-release loperamide 2 mg tablet (Imodium 2 mg PO QHS PRN loose stools 09/11/16 09/10/16 History A-D) montelukast 10 mg tablet 10 mg PO DAILY allergies 09/11/16 09/11/16 History aspirin 81 mg tablet,delayed 1 tab PO DAILY heart health 08/11/17 Unknown History release doxepin 10 mg capsule 10 mg PO PRN PRN Swelling 08/11/17 Unknown History epinephrine 0.3 mg/0.3 mL 0.3 mg PRN PRN Allergies 08/11/17 Unknown History injection, auto-injector (EpiPen) meclizine 25 mg tablet 25 mg PO TID PRN PRN Dizziness #20 08/12/17 Unknown Rx tabs escitalopram oxalate 10 mg tablet 10 mg PO DAILY mental health 06/11/20 Unknown History nitroglycerin 0.4 mg sublingual 0.4 mg SL Q5M PRN CHEST PAIN 06/11/20 Unknown History tablet brimonidine 0.15 % eye drops 1 drp ophthalmic (eye) BID 06/21/20 Unknown History budesonide 3 mg 3 mg PO DAILY 05/09/21 Unknown History capsule,delayed,extended release dorzolamide 22.3 mg-timolol 6.8 1 drp EACH EYE BID 05/09/21 Unknown History mg/mL eye drops atorvastatin 20 mg tablet 20 mg PO QHS 06/14/23 Unknown History hydroquinone 4 % topical cream 1 applic topical TID PRN PRN skin 06/14/23 Unknown History methenamine hippurate 1 gram tablet 1 g PO BID 06/14/23 Unknown History apixaban 5 mg tablet (Eliquis) 2.5 mg PO BID 05/01/24 Unknown History bimatoprost 0.01 % eye drops 1 drp ophthalmic (eye) DAILY 05/01/24 Unknown History (Lumigan) midodrine 5 mg tablet 5 mg PO QHS 05/01/24 Unknown History multivitamin (Daily Multi-Vitamin 1 tab PO DAILY 05/01/24 Unknown History tablet) trazodone 150 mg tablet 200 mg PO DAILY 05/01/24 Unknown History Allergy/AdvReac Type Severity Reaction Status Date / Time morphine Allergy Unknown Verified 06/14/23 21:32 Sulfa (Sulfonamide Allergy Unknown Verified 06/14/23 21:32 Antibiotics) aspirin AdvReac Nausea/Vom/ Verified 06/14/23 21:32 Diarrhea Family History (Updated 05/01/24 @ 12:[address] Jack Angelo DO) Other CVA (cerebral vascular accident) Heart disease Surgical History History of hysterectomy for cancer History of bunionectomy History of appendectomy Social History Smoking Status: Never smoker ROS ROS Narrative No headache. No blurred vision. All review of systems were negative except as mentioned above in the history of present illness and the other review of systems. Vital Signs Vital Signs Vital Signs: 05/01/24 09:54 05/01/24 09:54 05/01/24 10:20 Temperature 36.1 C L 36.8 C Temperature Source Temporal Oral Pulse Rate 59 L 64 Respiratory Rate 16 13 Blood Pressure 121/63 H 158/67 H Blood Pressure Mean 82 97 Pulse Ox 97 97 Oxygen Delivery Method Room Air Room Air Room Air 05/01/24 10:30 05/01/24 10:45 05/01/24 11:00 Temperature Temperature Source Pulse Rate 55 L 54 L 54 L Respiratory Rate 14 16 12 Blood Pressure 153/74 H 147/74 H 148/67 H Blood Pressure Mean 100 98 94 Pulse Ox 99 97 95 Oxygen Delivery Method Room Air Room Air Room Air 05/01/24 11:30 05/01/24 11:47 Temperature 36.8 C Temperature Source Pulse Rate 54 L 54 L Respiratory Rate 17 17 Blood Pressure 152/84 H 152/84 H Blood Pressure Mean 106 106 Pulse Ox 99 99 Oxygen Delivery Method Room Air Weight Weight: 50.5 kg Body Mass Index (BMI) 21.7 Physical Exam Const alert and no apparent distress Constitutional Narrative: Speech was difficult to understand when initially presented to speak with her but became more coherent when I had her perform her NIH. Hard of hearing. General Appearance: cooperative HEENT normocephalic, head/scalp atraumatic, moist oral mucous membranes and oropharynx normal Eyes PERRL and EOMs intact bilaterally Eyes Narrative: Glasses. No icterus Neck no lymphadenopathy and no carotid bruits Resp normal respiratory effort, no retractions, no use of accessory muscles and clear to auscultation bilaterally Cardio regular rate, regular rhythm, S1 normal heart sound and S2 normal heart sound GI normal to inspection, nondistended, normoactive bowel sounds, soft to palpation, non-tender and non-distended Extremity normal to inspection and full ROM Neuro oriented x3, CN's II-XII intact bilaterally and moves all extremities Neuro Narrative: Strength 5-5 in right upper and right lower extremity, 4 out of 5 in the left upper and left lower extremity. Some ataxia in the left upper and left lower extremity. Patient able to perform the NIH scale appropriately by reading. Speech is a little bit slurred but coherent otherwise. Able to identify objects and situations appropriately. Sensorium / Orientation: awake and alert Psych affect normal Results Lab / Micro Data Attestation: I reviewed the patient's lab results. 05/01/24 10:05 05/01/24 10:05 Labs: Laboratory Results - last 24 hr 05/01/24 09:55: Total Bilirubin Cancelled, Direct Bilirubin Cancelled, Indirect Bilirubin Cancelled 05/01/24 10:05: WBC 7.7, RBC 3.81 L, Hgb 12.1, Hct 37.2, MCV 97.6, MCH 31.8, MCHC 32.5, RDW Std Deviation 51.5 H, RDW Coeff of Nithin 14.3, Plt Count 245, MPV 10.7, Immature Gran % (Auto) 2.000 H, Neut % (Auto) 62.2, Lymph % (Auto) 19.1, M bam % (Auto) 10.8 H, Eos % (Auto) 4.7, Baso % (Auto) 1.2 H, Absolute Neuts (auto) 4.8, Absolute Lymphs (auto) 1.47, Nucleated RBC % 0, PT 15.6 H, INR 1.2, APTT 26.1, Sodium 137, Potassium 3.5, Chloride 107, Carbon Dioxide 24.0, Anion Gap 6, BUN 21 H, Creatinine 0.91, Estim Creat Clear Calc 33.06, Est GFR (MDRD) Af Amer 75, Est GFR (MDRD) Non-Af 62, BUN/Creatinine Ratio 23.0 H, Glucose 112 H , Calcium 8.9, Troponin I High Sens 16 05/01/24 10:15: POC Glucose 109 H EKG Initial EKG: Attestation: I personally reviewed and interpreted this EKG as follows: Prior EKG tracings: available for review EKG Rhythm Intrepretation: Sinus Rhythm Imaging Radiology Impression Brain CT 05/01/24 09:54 IMPRESSION: Chronic involutional changes of the brain. N.B. : The above Results were Read Back by Antonio Cowan MD to Chaz Cyr and understanding confirmed on 05/01/2024 10:07:54 (ET). Electronically Signed: Antonio Cowan MD at 10:09 EDT , Head/Neck CTA 05/01/24 09:55 IMPRESSION: Mild degree of calcific plaque at the origin of the left internal carotid artery. N.B. : The above Results were Read Back by Antonio Cowan MD to Dr Ger DO, and understanding confirmed on 05/01/2024 10:26:43 (ET). Electronically Signed: Antonio Cowan MD at 10:27 EDT , ADDENDUM: 05/01/24 1034 IMPRESSION: Mild degree of calcific plaque at the origin of the left internal carotid artery. N.B. : The above Results were Read Back by Antonio Cowan MD to Dr Ger DO, and understanding confirmed on 05/01/2024 10:26:43 (ET). Electronically Signed: Antonio Cowan MD at 10:27 EDT , Chest X-Ray 05/01/24 10:45 IMPRESSION: No acute abnormality is seen. Electronically Signed: Antonio Cowan MD at 10:59 EDT , Assessment & Plan Assessment/Plan (1) Stroke: PLAN: Plan Acute CVA * Suspected given the patient is known history of A-fib and prior stroke * Symptoms seem to be improving. * Not a candidate for TNK as she is already anticoagulated on apixaban * Brain CT, CTA of the head and neck were unremarkable. Plan to order MRI, 2D echocardiogram, fasting lipid panel and A1c per neurology recommendations. * Continue neurology consultation * PT, OT and speech therapy. Patient will be n.p.o. until she is deemed safe to swallow. * Permissive hypertension in light of the stroke * Continue with aspirin and statin Paroxysmal atrial fibrillation * Currently in normal sinus rhythm * Continue with apixaban History of urinary tract infections * Asymptomatic at this time * Continue with methenamine * Check UA and urine culture VTE prophylaxis: Not indicated as patient are anticoagulated. Advance care planning: Spent additional 16 minutes where I spent time talking with the patient's son as well as the patient herself. They previously had DNR documentation down to [place] but none currently. He spoke with his mother and she agreed to DNR [employer] [employer] arrest. He said that he would like a DNR form before she would be discharged. Charges/Coding Visit Charges Inpatient E&M: 65692 Init Hosp L3
--- NOTE | 2024-05-01 12:29 | MRI_ITS ---
We are attempting to reach an attending provider to discuss findings. An addendum with communication details will be sent when the communication is complete. STUDY: MRI BRAIN WITHOUT CONTRAST REASON FOR EXAM: Female, 83 years old. CVA, lt sided weakness, dysarthria, prev cva TECHNIQUE: Standardized multiplanar fat and water weighted pulse sequences were obtained. COMPARISON: CT and CTA brain from today. FINDINGS: There is moderate cerebral atrophy with widening of the extra-axial spaces and ventricular dilatation. There are multiple white matter hyperintensities, distributed throughout the deep white matter tracts of the cerebral hemispheres, consistent with moderate chronic white matter ischemic changes. Restricted diffusion neostriatum on the right. Normal bilateral basal ganglia. Normal thalami. There is no extra-axial fluid accumulation. Normal flow voids within the major intracranial circulation suggesting patency by spin echo criteria. Normal sella turcica, pituitary gland, infundibular stalk, optic chiasm and hypothalamus. Normal tectal plate and pineal gland. Normal midbrain, carmela and medulla. Normal cerebellum. Normal basal cisterns. Normal bilateral temporal bones. Normal bilateral internal auditory canals. Elongated irregular globes bilaterally. Normal visualized paranasal sinuses. Normal calvarium and skull base. Normal visualized soft tissue structures. Normal visualized upper cervical spine. MRI/Brain without Contrast IMPRESSION: Acute or subacute stroke right neostriatum Electronically Signed: Delvin Kelley MD at 18:31 EDT ,
--- NOTE | 2024-05-01 12:29 | ECHOCS_ITS ---
Reason For Study: TIA/CVA Procedure This was a 2D Doppler, Color Flow transthoracic echocardiogram. Contrast injection was performed. Exam performed portable in patient room. Left Ventricle Normal LV size. Left ventricular systolic function is normal. The estimated ejection fraction is 60 %. No regional wall motion abnormalities noted. Right Ventricle Normal RV size. Normal systolic function. Atria Normal left atrium. Normal right atrium. Bubble contrast study negative for right to left interatrial shunt. Mitral Valve Normal mitral valve. Tricuspid Valve Normal tricuspid valve. Mild (1+) tricuspid valve insufficiency. Pulmonary artery systolic pressure is 30 mmHg. Aortic Valve Trisinus/trileaflet aortic valve. Great Vessels Normal aortic root. The pulmonary artery is normal size. Normal inferior vena cava. Pericardium/Pleural No pericardial effusion. Medication Diluted definity 2ml given slow IV push to enhance endocardial definition. Performed a rapid injection of agitated mix of 9 cc saline and 1cc air to assess for atrial septal defect. MMode/2D Measurements & Calculations LVIDd: 4.2 cm IVSd: 0.91 cm Ao root diam: 3.3 cm LVIDs: 2.5 cm LVPWd: 0.94 cm RVDd: 2.6 cm FS: 40.7 % LAV(MOD-bp): 36.7 ml LVAd ap4: 20.0 cm2 SV(MOD-sp4): 35.4 ml LAV(MOD-bp) Indexed: 25.2 ml/m2 LVLd ap4: 6.3 cm LAV(MOD-sp2): 36.8 ml EDV(MOD-sp4): 53.2 ml LAV(MOD-sp4): 32.8 ml EDV(sp4-el): 53.4 ml LVAs ap4: 10.1 cm2 LVLs ap4: 4.9 cm ESV(MOD-sp4): 17.8 ml ESV(sp4-el): 17.5 ml EF(MOD-sp4): 66.5 % EF(sp4-el): 67.2 % SV(sp4-el): 35.9 ml LA A4 area: 13.7 cm2 LA dimension(2D): 2.9 cm RA A4 area: 14.5 cm2 TAPSE: 2.1 cm Time Measurements MV dec time: 0.25 sec Doppler Measurements & Calculations MV E max flaco: 79.3 cm/sec Lat Peak E' Flaco: 8.6 cm/sec Med Peak E' Flaco: 7.4 cm/sec MV A max flaco: 27.0 cm/sec E/E' lat: 9.2 E/E' med: 10.7 MV E/A: 2.9 Ao V2 max: 122.9 cm/sec AI max flaco: 376.6 cm/sec MV dec slope: 322.9 cm/sec2 Ao max P.0 mmHg AI max P.0 mmHg Ao V2 mean: 86.3 cm/sec Ao mean P.3 mmHg AI dec slope: 140.6 cm/sec2 Ao V2 VTI: 27.6 cm AI P1/2t: 784.3 msec LV V1 max: 91.0 cm/sec PA V2 max: 77.7 cm/sec TR max flaco: 253.1 cm/sec LV V1 max P.3 mmHg TR max P.6 mmHg ECHO/Echo Complete W/ Contrast Interpretation Summary Normal LV size. Left ventricular systolic function is normal. The estimated ejection fraction is 60 %. Bubble contrast study negative for right to left interatrial shunt. Pulmonary artery systolic pressure is 30 mmHg. Contrast injection was performed. Ordering Physician: Jack Angelo Referring Physician: Castro Kidd Performed By: Trudi Johns, ISAAC, RVT
[2024-05-01 13:57] LABS: Mucous, Urine 0 SEEN /hpf (<or=2+)
[2024-05-01 14:02] LABS: Glucose, Dipstick Normal (Normal); Ketone-Dipstick Negative (Negative); Leukocyte Esterase-Dipstick 100 /ul (Negative); Nitrite-Dipstick Negative (Negative); Occult Blood-Urine 25 /ul (Negative); Protein-Dipstick 15 mg/dl (Negative); Urine Bilirubin Dipstick Negative (Negative); Urine Urobilinogen Normal (Normal)
[2024-05-01 14:09] LABS: Color, Urine Yellow (Yellow); Urine Clarity Clear (Clear)
[2024-05-01 14:11] LABS: Bacteria RARE /hpf (None Seen); Red Blood Cells-Urine 0-5 SEEN /hpf (0-5); Squamous Epithelial Cells - UA 0-5 SEEN /hpf (5-10); White Blood Cells 10-25 SEEN /hpf (0-5)
[2024-05-01] MEDS: BRIMONIDINE 0.15% 5 ML Bottle 1 DRP OPHTHALMIC (20:36)
[2024-05-01] MEDS: APIXABAN 2.5 MG TABLET (WCH) PO (20:39)
[2024-05-01] MEDS: Atorvastatin Calcium 20 MG Tablet PO (20:39)
[2024-05-01] MEDS: Methenamine Hippurate 1 GM Tablet PO (20:39)
[2024-05-01] MEDS: Dorzolamide HCL/Timolol 10 ml Bottle 1 DRP EACH EYE (21:56)
[2024-05-01] MEDS: traZODone 100 MG Tablet 200 MG PO (23:56)
[2024-05-02] VITALS (7 sets, daily range): BP systolic 146–171; BP diastolic 67–83; PULSE 52–62; RESP 16–18; TEMP 35.9–37.1; O2SAT 94–99; BMI 21.9
[2024-05-02 07:06] LABS: Cholesterol 156 mg/dL (200); High Density Lipoprotein 52 mg/dL; Triglycerides 104 mg/dL; Very Low Density Lipoprotein 21 mg/dL (5-40)
--- NOTE | 2024-05-02 07:59 | PCM.PN.HOSP ---
Reason for Visit Reason for Visit: Diagnoses Cerebral infarction, unspecified (05/01/24) Subjective Subjective Upset that she is still having difficulty with her left-sided weakness. I did not sleep well last night. Did not get her trazodone until midnight. Objective Data Objective Data Vital Signs: Vital Signs Temp Pulse Resp BP Pulse Ox O2 Del Method 35.9 C L 52 L 18 154/71 H 95 Room Air 05/02/24 05:46 05/02/24 05:46 05/02/24 05:46 05/02/24 05:46 05/02/24 05:46 05/02/24 05:46 Oxygen Delivery Method Room Air Weight: 51 kg Body Mass Index (BMI) 21.9 Intake & Output: Intake and Output for Last 24 Hours 04/30/24 05/01/24 05/02/24 23:59 23:59 23:59 Intake Total 480 / 580 100 / 100 Balance 480 / 580 100 / 100 Lab / Micro Data 05/01/24 10:05 05/01/24 10:05 Labs: Laboratory Results - last 24 hr 05/01/24 09:55: Total Bilirubin Cancelled, Direct Bilirubin Cancelled, Indirect Bilirubin Cancelled 05/01/24 10:05: WBC 7.7, RBC 3.81 L, Hgb 12.1, Hct 37.2, MCV 97.6, MCH 31.8, MCHC 32.5, RDW Std Deviation 51.5 H, RDW Coeff of Nithin 14.3, Plt Count 245, MPV 10.7, Immature Gran % (Auto) 2.000 H, Neut % (Auto) 62.2, Lymph % (Auto) 19.1, [place] % (Auto) 10.8 H, Eos % (Auto) 4.7, Baso % (Auto) 1.2 H, Absolute Neuts (auto) 4.8, Absolute Lymphs (auto) 1.47, Nucleated RBC % 0, PT 15.6 H, INR 1.2, APTT 26.1, Sodium 137, Potassium 3.5, Chloride 107, Carbon Dioxide 24.0, Anion Gap 6, BUN 21 H, Creatinine 0.91, Estim Creat Clear Calc 33.06, Est GFR (MDRD) Af Amer 75, Est GFR (MDRD) Non-Af 62, BUN/Creatinine Ratio 23.0 H, Glucose 112 H, Hemoglobin A1c 5.0, Calcium 8.9, Troponin I High Sens 16 05/01/24 10:15: POC Glucose 109 H 05/01/24 13:50: Urine Color Yellow, Urine Clarity Clear, Urine pH 7.0, Ur Specific [place] 1.010, Urine Protein 15 H, Urine Glucose (UA) Normal, Urine Ketones Negative, Urine Occult Blood 25 H, Urine Nitrite Negative, Urine Bilirubin Negative, Urine Urobilinogen Normal, Ur Leukocyte Esterase 100 H, Urine RBC 0-5 SEEN, Urine WBC 10-25 SEEN, Ur Squamous Epith Cells 0-5 SEEN, Urine Bacteria RARE, Urine Mucus 0 SEEN 05/02/24 05:32: Triglycerides 104, Cholesterol 156, LDL Cholesterol 83, VLDL Cholesterol 21, HDL Cholesterol 52, TSH 1.30 Radiography Diagnostic Testing: Radiology Impression Brain CT 05/01/24 09:54 IMPRESSION: Chronic involutional changes of the brain. N.B. : The above Results were Read Back by Antonio Cowan MD to Chaz Cyr and understanding confirmed on 05/01/2024 10:07:54 (ET). Electronically Signed: Antonio Cowan MD at 10:09 EDT , Head/Neck CTA 05/01/24 09:55 IMPRESSION: Mild degree of calcific plaque at the origin of the left internal carotid artery. N.B. : The above Results were Read Back by Antonio Cowan MD to Dr Ger DO, and understanding confirmed on 05/01/2024 10:26:43 (ET). Electronically Signed: Antonio Cowan MD at 10:27 EDT , ADDENDUM: 05/01/24 1034 IMPRESSION: Mild degree of calcific plaque at the origin of the left internal carotid artery. N.B. : The above Results were Read Back by Antonio Cowan MD to Dr Ger DO, and understanding confirmed on 05/01/2024 10:26:43 (ET). Electronically Signed: Antonio Cowan MD at 10:27 EDT , Chest X-Ray 05/01/24 10:45 IMPRESSION: No acute abnormality is seen. Electronically Signed: Antonio Cowan MD at 10:59 EDT , Brain MRI 05/01/24 12:29 IMPRESSION: Acute or subacute stroke right neostriatum Electronically Signed: Delvin Kelley MD at 18:31 EDT , ADDENDUM: 05/01/24 1854 IMPRESSION: Acute or subacute stroke right neostriatum N.B. : The above Results were Read Back by Delvin Kelley MD to Hawa Nguyen RN, and understanding confirmed on 05/01/2024 18:47:41 (ET). Electronically Signed: Delvin Kelley MD at 18:31 EDT , Physical Exam Const alert and no apparent distress HEENT head/scalp atraumatic and moist oral mucous membranes HEENT Narrative: No facial droop. Head and Scalp: normocephalic Eyes Eyes Narrative: Glasses. No icterus. Resp normal respiratory effort and no retractions Extremity normal to inspection and full ROM Neuro Neuro Narrative: Muscle strength 4 out of 5 in right upper and right lower extremity. 4-5 in left lower and left upper extremity. Psych affect normal Assessment & Plan Assessment/Plan (1) Stroke: PLAN: Plan Acute CVA Suspected given the patient is known history of A-fib and prior stroke Symptoms seem to be improving. Was not a candidate for TNK as she is already anticoagulated on apixaban Brain CT, CTA of the head and neck were unremarkable. 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 Permissive hypertension in light of the stroke Continue with aspirin and statin Paroxysmal atrial fibrillation Currently in normal sinus rhythm Continue with apixaban History of urinary tract infections Asymptomatic at this time Continue with methenamine Check UA and urine culture Insomnia: Patient normally takes her trazodone 8:00 but did not receive it until midnight. Reviewed the MAR in the patient's room with her son and herself. Looks like it was ordered before midnight and then was administered around that time. Likely the trazodone may have not been on her admission MAR which is why may have missed that. She would like it between 8 and 9 PM and I put in that in the description. Glaucoma Patient takes 3 different eyedrops and has very specific times and administrations for that. gave me instructions about how those should be administered and I have entered those in description of those eyedrops. See the MAR for those details. VTE prophylaxis: Not indicated as patient are anticoagulated. Code [id number] Charges/Coding Visit Charges Inpatient E&M: 71666 Subs Hosp L3
--- NOTE | 2024-05-02 09:29 | CASEMGMT ---
Discharge Planning A list of?SNF providers including quality and resource use data and consistent with the patient's preferred geographic region, medical needs, and insurance network was created in [employer] Guide.? This list was provided to the RN ALBERT. Naty Kong, Discharge Planning Asst.
[2024-05-02] MEDS: BRIMONIDINE 0.15% 5 ML Bottle 1 DRP OPHTHALMIC ×2 (10:08→21:00)
[2024-05-02] MEDS: buPROPion (SR) 100 MG TABLET.SA 200 MG PO (10:09)
[2024-05-02] MEDS: Dorzolamide HCL/Timolol 10 ml Bottle 1 DRP EACH EYE ×2 (10:09→16:18)
[2024-05-02] MEDS: APIXABAN 2.5 MG TABLET (WCH) PO ×2 (10:10→21:01)
[2024-05-02] MEDS: Aspirin E.C. 81 MG Tablet PO (10:10)
[2024-05-02] MEDS: Methenamine Hippurate 1 GM Tablet PO ×2 (10:10→21:01)
[2024-05-02] MEDS: Budesonide 3 MG CAPSULE.EC PO (10:10)
[2024-05-02] MEDS: Multivitamins,Therapeutic Tablet 1 TABLET PO (10:10)
[2024-05-02] MEDS: Escitalopram Oxalate 10 MG Tablet PO (10:10)
[2024-05-02] MEDS: Meclizine HCl 25 MG Tablet PO ×2 (10:17→14:28)
[2024-05-02] MEDS: Acetaminophen 325 MG Tablet 650 MG PO (10:17)
--- NOTE | 2024-05-02 12:03 | STROKE.CONS ---
Assessment and Plan: Stroke Assessment/Plan SANDY HUGHES is a 83 F with a history of AFib, stroke presents with left sided weakness. Currently on eliquis and ASA, for which she is compliant. Developed recurrence symptoms despite AC. Neurological examination shows Dysarthria, left sided sensory loss and left lower extremity ataxia Neuroimaging shows acute to subacute stroke right neostriatum. LDL: 83. CTA: No LVO. Acute ischemic stroke likely from Afib. Plan Continue Eliquis (dose adjusted for age, weight) and ASA Can increase dose of statin to keep target LDL <70 Please obtain HbA1C PT,OT evaluation Will likely need rehab based on weakness. Thanks for consult. I spent 35 min in evaluation of the patient. HPI Consult Data Date of Consult: 05/02/24 HPI Narrative HPI Narrative: SANDY HUGHES, is a 83 F who present with acute onset of dysarthria and left-sided weakness. Patient woke at 0530 and noted at 0630 that she was having difficulty speaking and left-sided weakness. Patient brought to the hospital where it was concerning patient had a stroke and stroke alert was called. Patient underwent head CT and CTA of the head and neck that was unremarkable. Patient was seen by telestroke and not a tNK candidate as on eliquis. Patient has never had a left-sided symptoms but has had right-sided symptoms in the past from a stroke. Patient does have known atrial fibrillation and she does take apixaban for that and has been compliant with her medications. Also has slurred speech. No change since yesterday. [facility] Medical History Appendicitis Glaucoma Depression Stroke Home Medications ?Medication ?Instructions ?Recorded ?Last Taken ?Type bupropion HCl 200 mg tablet,12 hr 200 mg PO DAILY mental health 09/11/16 09/11/16 History sustained-release loperamide 2 mg tablet (Imodium 2 mg PO QHS PRN loose stools 09/11/16 09/10/16 History A-D) montelukast 10 mg tablet 10 mg PO DAILY allergies 09/11/16 09/11/16 History aspirin 81 mg tablet,delayed 1 tab PO DAILY heart health 08/11/17 Unknown History release doxepin 10 mg capsule 10 mg PO PRN PRN Swelling 08/11/17 Unknown History epinephrine 0.3 mg/0.3 mL 0.3 mg PRN PRN Allergies 08/11/17 Unknown History injection, auto-injector (EpiPen) meclizine 25 mg tablet 25 mg PO TID PRN PRN Dizziness #20 08/12/17 Unknown Rx tabs escitalopram oxalate 10 mg tablet 10 mg PO DAILY mental health 06/11/20 Unknown History nitroglycerin 0.4 mg sublingual 0.4 mg SL Q5M PRN CHEST PAIN 06/11/20 Unknown History tablet brimonidine 0.15 % eye drops 1 drp ophthalmic (eye) BID 06/21/20 Unknown History budesonide 3 mg 3 mg PO DAILY 05/09/21 Unknown History capsule,delayed,extended release dorzolamide 22.3 mg-timolol 6.8 1 drp EACH EYE BID 05/09/21 Unknown History mg/mL eye drops atorvastatin 20 mg tablet 20 mg PO QHS 06/14/23 Unknown History hydroquinone 4 % topical cream 1 applic topical TID PRN PRN skin 06/14/23 Unknown History methenamine hippurate 1 gram tablet 1 g PO BID 06/14/23 Unknown History apixaban 5 mg tablet (Eliquis) 2.5 mg PO BID 05/01/24 Unknown History bimatoprost 0.01 % eye drops 1 drp ophthalmic (eye) DAILY 05/01/24 Unknown History (Yifan) midodrine 5 mg tablet 5 mg PO QHS 05/01/24 Unknown History multivitamin (Daily Multi-Vitamin 1 tab PO DAILY 05/01/24 Unknown History tablet) trazodone 150 mg tablet 200 mg PO DAILY 05/01/24 Unknown History Allergy/AdvReac Type Severity Reaction Status Date / Time morphine Allergy Unknown Verified 06/14/23 21:32 Sulfa (Sulfonamide Allergy Unknown Verified 06/14/23 21:32 Antibiotics) aspirin AdvReac Nausea/Vom/ Verified 06/14/23 21:32 Diarrhea Family History (Updated 05/01/24 @ 12:[address] Jack Angelo DO) Other CVA (cerebral vascular accident) Heart disease Surgical History History of hysterectomy for cancer History of bunionectomy History of appendectomy Social History Smoking Status: Former smoker Vital Signs Vital Signs Vital Signs: 05/01/24 12:23 05/01/24 12:35 05/01/24 17:40 Temperature 97.8 F 98.3 F Temperature Source Oral Temporal Pulse Rate 56 L 60 Respiratory Rate 18 16 Respiratory Effort Respiratory Depth Respiratory Pattern Blood Pressure 162/75 H 154/64 H Blood Pressure Mean 104 94 Blood Pressure Source Monitor Monitor Blood Pressure Position Semi-Fowlers Semi-Fowlers Blood Pressure Location Right Arm Right Arm Pulse Ox 100 99 Oxygen Delivery Method Room Air Room Air Room Air 05/01/24 17:40 05/01/24 20:30 05/01/24 22:00 Temperature 98.3 F Temperature Source Temporal Pulse Rate 60 Respiratory Rate 16 Respiratory Effort Normal Respiratory Depth Normal Respiratory Pattern Normal Blood Pressure 154/64 H Blood Pressure Mean 94 Blood Pressure Source Monitor Blood Pressure Position Semi-Fowlers Blood Pressure Location Right Arm Pulse Ox 99 98 Oxygen Delivery Method Room Air Room Air Room Air 05/01/24 22:00 05/02/24 02:00 05/02/24 04:00 Temperature 96.8 F L 98.7 F Temperature Source Temporal Temporal Pulse Rate 60 58 L Respiratory Rate 18 18 Respiratory Effort Normal Respiratory Depth Normal Respiratory Pattern Normal Blood Pressure 148/66 H 146/71 H Blood Pressure Mean 93 96 Blood Pressure Source Monitor Monitor Blood Pressure Position Supine Semi-Fowlers Blood Pressure Location Left Arm Left Arm Pulse Ox 95 96 Oxygen Delivery Method Room Air Room Air Room Air 05/02/24 05:46 05/02/24 07:10 05/02/24 10:00 Temperature 96.7 F L 97.9 F Temperature Source Temporal Oral Pulse Rate 52 L 62 Respiratory Rate 18 16 Respiratory Effort Respiratory Depth Respiratory Pattern Blood Pressure 154/71 H 171/73 H Blood Pressure Mean 98 105 Blood Pressure Source Monitor Monitor Blood Pressure Position Semi-Fowlers Semi-Fowlers Blood Pressure Location Left Arm Right Arm Pulse Ox 95 94 99 Oxygen Delivery Method Room Air Room Air Room Air Weight Weight: 51 kg Body Mass Index (BMI) 21.9 EEG Results Procedure Details EEG Procedure Details: SANDY PETERSON AUGSPURGER is a 83 year old F with a past medical history of , who presents for evaluation of Electroencephalogram on DATE at TIME NIHSS NIHSS Nursing Documentation NIHSS Nursing Documentation: NIHSS: Ischemic Stroke/TIA Start: 05/01/24 12:29 Text: For PCU Patients: NIH and Neuro Check every 4 Status: Active hours, PRN and with change in RN caregiver. Freq: [id number] Protocol: Activity Type Activity Date Activity User E-sign Co-sign Detail Recorded Client Recorded Date Recorded By Document 05/02/24 05:46 [id number] 05/02/24 05:47 05/02/24 05:46 NIH Stroke Scale [NIHSS] A score of 0 is normal or asymptomatic . Total possible score is 42. Inpatient: RN or Physician to activate a stroke alert for onset of new stroke symptoms or with NIHSS increase >/= 3 points. Following change in neurological status, NIHSS will be performed per physician order or more frequently PRN. -1a. Level of Consciousness Alert; keenly responsive -1b. LOC Questions Answers BOTH questions correctly. -1c. LOC Commands Performs both tasks correctly . -2. Best Gaze Normal -3. Visual No visual loss -4. Facial Palsy Normal symmetrical movements -5a. Left Arm Drift; arm drifts downward but doesn?t hit the bed -5b. Right Arm No drift; arm holds 90 (or 45 ) degrees for full 10 seconds -6a. Left Leg Some effort against gravity ; -6b. Right Leg No drift; leg holds 30-degree position for full 5 seconds -7. Limb Ataxia Present in 1 limb -8. Sensory Normal; no sensory loss -9. Best Language No aphasia; normal -10. Dysarthria Mild-to- moderate dysarthria; -11. Extinction and Inattention No abnormality -Total 5 Query Text:A score of 0 is normal or asymptomatic. Total possible score is 42 . ED: Notify Physician for NIHSS increase by > / = 3 points. Inpatient: RN or Physician to activate a stroke alert for NIHSS increase of > / = 3 points. Coma Scale [Assess] -Eye Opening Spontaneous -Motor Obeys Commands -Verbal Oriented [Total] -Coma Scale Total 15 NIHSS 1a. Level of Consciousness: Alert; keenly responsive 1b. LOC Questions: Answers BOTH questions correctly. 1c. LOC Commands: Performs both tasks correctly. 2. Best Gaze: Normal 3. Visual: No visual loss 4. Facial Palsy: Normal symmetrical movements 5a. Left Arm: No drift; arm holds 90 (or 45) degrees for full 10 seconds 5b. Right Arm: No drift; arm holds 90 (or 45) degrees for full 10 seconds 6a. Left Leg: No drift; leg holds 30-degree position for full 5 seconds 6b. Right Leg: No drift; leg holds 30-degree position for full 5 seconds 7. Limb Ataxia: Present in 1 limb 8. Sensory: [id number] sensory loss; 9. Best Language: No aphasia; normal 10. Dysarthria: [id number] dysarthria; 11. Extinction and Inattention: No abnormality Total: 3 Physical Exam Const alert, oriented x3 and no apparent distress HEENT normocephalic and head/scalp atraumatic Eyes EOMs intact bilaterally and conjunctivae normal Neck full ROM Resp normal respiratory effort Neuro Neuro Narrative: Awake, alert oriented X3 Comprehension intact Mild dysarthria Cranial nerves intact Moves all extremities antigravity Decreased sensation on left Mild left LE ataxia Lab / Micro Data 05/01/24 10:05 05/01/24 10:05 Labs: Laboratory Results - last 24 hr 05/01/24 10:05: Hemoglobin A1c 5.0 05/01/24 13:50: Urine Color Yellow, Urine Clarity Clear, Urine pH 7.0, Ur Specific [place] 1.010, Urine Protein 15 H, Urine Glucose (UA) Normal, Urine Ketones Negative, Urine Occult Blood 25 H, Urine Nitrite Negative, Urine Bilirubin Negative, Urine Urobilinogen Normal, Ur Leukocyte Esterase 100 H, Urine RBC 0-5 SEEN, Urine WBC 10-25 SEEN, Ur Squamous Epith Cells 0-5 SEEN, Urine Bacteria RARE, Urine Mucus 0 SEEN 05/02/24 05:32: Triglycerides 104, Cholesterol 156, LDL Cholesterol 83, VLDL Cholesterol 21, HDL Cholesterol 52, TSH 1.30 Imaging Radiology Impression Brain MRI 05/01/24 12:29 IMPRESSION: Acute or subacute stroke right neostriatum Electronically Signed: Delvin Kelley MD at 18:31 EDT , ADDENDUM: 05/01/24 6801 IMPRESSION: Acute or subacute stroke right neostriatum N.B. : The above Results were Read Back by Delvin Kelley MD to Hawa Nguyen RN, and understanding confirmed on 05/01/2024 18:47:41 (ET). Electronically Signed: Delvin Kelley MD at 18:31 EDT , Active Medications Active Medications Active Medications: Current Medications Generic Name Dose Route Start Last Admin Trade Name Freq PRN Reason Stop Dose Admin Acetaminophen 650 mg 05/01/24 12:29 05/02/24 10:17 Acetaminophen 325 Mg Tablet PO 650 mg Q6H PRN PRN Administration Pain 1-10 Or Fever>100.7 Apixaban 2.5 mg 05/01/24 22:00 05/02/24 10:10 Apixaban 2.5 Mg Tablet ([facility]) PO 2.5 mg BID LANDEN Administration Aspirin 81 mg 05/02/24 10:00 05/02/24 10:10 Aspirin E.C. 81 Mg Tablet PO 81 mg DAILY LANDEN Administration Atorvastatin Calcium 20 mg 05/01/24 22:00 05/01/24 20:39 Atorvastatin Calcium 20 Mg Tablet PO 20 mg QHS LANDEN Administration Brimonidine Tartrate 1 drp 05/02/24 20:00 05/02/24 10:08 Brimonidine 0.15% 5 Ml Bottle OPHTHALMIC 1 drp 0800,2000 LANDEN Administration Budesonide 3 mg 05/02/24 10:00 05/02/24 10:10 Budesonide 3 Mg Capsule.Ec PO 3 mg DAILY LANDEN Administration Bupropion HCl 200 mg 05/02/24 10:00 05/02/24 10:09 Bupropion (Sr) 100 Mg Tablet.Sa PO 200 mg DAILY LANDEN Administration Dorzolamide/Timolol 1 drp 05/02/24 16:00 05/02/24 10:09 Dorzolamide Hcl/Timolol 10 Ml Bottle EACH EYE 1 drp 0800,1600 LANDEN Administration Doxepin HCl 10 mg 05/02/24 10:00 Doxepin Hydrochloride 10 Mg Capsule PO DAILY PRN SWELLING Escitalopram Oxalate 10 mg 05/02/24 10:00 05/02/24 10:10 Escitalopram Oxalate 10 Mg Tablet PO 10 mg DAILY LANDEN Administration Hydralazine HCl 5 mg 05/01/24 12:29 Hydralazine 20 Mg/Ml Vial IV 05/02/24 12:29 Q30M PRN maintain BP parameters with HR <60 Latanoprost 1 drp 05/02/24 20:30 Latanoprost 0.005% 1 Bottle OPHTHALMIC 2030 [facility] Loperamide HCl 2 mg 05/01/24 12:38 Loperamide 2 Mg Capsule PO QHS PRN loose stools Meclizine HCl 25 mg 05/01/24 12:29 05/02/24 10:17 Meclizine Hcl 25 Mg Tablet PO 25 mg TID PRN PRN Administration Dizziness Methenamine Hippurate 1 gm 05/01/24 22:00 05/02/24 10:10 Methenamine Hippurate 1 Gm Tablet PO 1 gm BID [facility] Administration Midodrine 5 mg 05/01/24 22:00 05/01/24 20:40 Midodrine Hcl 5 Mg Tablet PO Not Given QHS [facility] Multivitamins 1 tablet 05/02/24 08:00 05/02/24 10:10 Multivitamins,Therapeutic Tablet PO 1 tablet DAILYCM [facility] Administration Nitroglycerin 0.4 mg 05/01/24 12:29 Nitroglycerin (Inpatient Use) 0.4 Mg Tab.Subl SL Q5M PRN CHEST PAIN Ondansetron HCl 4 mg 05/01/24 12:29 Ondansetron 4 Mg/2 Ml Vial IV Q8H PRN PRN NAUSEA/VOMITING Sodium Chloride 10 - 40 ml 05/01/24 12:30 0.9% Saline Lock 10 Ml Syringe IV UD PRN SALINE FLUSH Trazodone HCl 200 mg 05/02/24 20:00 Trazodone 100 Mg Tablet PO 1999 [facility]
--- NOTE | 2024-05-02 13:28 | CASEMGMT ---
Discharge Planning A list of RU providers including quality and resource use data and consistent with the patient's preferred geographic region, medical needs, and insurance network was created in [employer] Guide.? This list was provided to the RN ALBERT. Naty Kong, Discharge Planning Asst.
--- NOTE | 2024-05-02 13:30 | CASEMGMT ---
DES PRICE Face to Face with patient for initial transition planning/care coordination assessment. DES PRICE introduced self and role at [facility]. Patient sitting in chair, alert and oriented, son at bedside. Patient willing to participate in assessment and is able to answer all questions appropriately. Care providers, pharmacy, and demographics verified. PCP: [facility] Specialists: Son states patient see some specialist but did not want to divulge specialist as he felt is wasn't relevant to this hospitalization Preferred Pharmacy: [facility] Insurance: Sonia SESAY Prescription Benefit: yes Living Will/HPOA: yes, son Christian Augspurger LNOK: son Living Arrangements: Patient lives with son in a single story home with ramp to enter. Patient states she was mostly independent at home but son would assist at times Transportation: son DME/HHC: Patient has shower chair, raised toilet, grab bars, rollator, cpap, pulse ox, and BP cuff at home. Patient has been to multiple [facility] and SNF but son would not state agencies. Patient has had [facility] HHC in the past. DES PRICE discussed progress with therapy and recommendations for RU vs SNF at discharge. DES PRICE provided RU and SNF list to patient and son. Patient and son agreeable to RU and prefer [facility] RU. Patient and son state they have no further needs or concerns at this time. SW updated regarding request for RU. CM to follow for discharge planning needs that may arise. Disposition Plan: [facility] RU pending acceptance. Sindy SEGUNDO, RN, CM
--- NOTE | 2024-05-02 14:25 | CHAPLAIN ---
Type of Pastoral Visit _x__ Initial Visit ___ Follow-up Visit ___ On-call Visit ___ General Patient Visit ___ Spiritual Assessment ___ Family Conference ___ Bereavement ___ Rapid Response ___ Code Blue ___ Other (describe below) Pastoral Care Referral From _x__ Patient ___ Family ___ Nurse ___ Physician ___ Commutator Repairer ___ Vertical Boring Mill Operator ___ Other (describe below) Sacrament/Intervention _x__ Active listening ___ Anointing ___ Muslim ___ Bereavement ___ Communion ___ Maryam exploration ___ _x__ Life review _x__ Prayer ___ Reconciliation ___ Sacrament of Sick _x__ Supportive presence ___ Wedding ___ Other (describe below) Pastoral Comments patient was able to focus and give answers to questions but also was slow or hesitant to answer some due to affects of a stroke; son was in the room but was working on a computer and did not engage in the conversation; pt has had strokes before and knows what she will have to do which brings her some disappointment; pt is open to support and a prayer; aides come in to move pt back to bed; prayer given and visit ended
--- NOTE | 2024-05-02 16:30 | CASEMGMT ---
Social Work - PHQ9/CVA diagnosis Reason for intervention: positive CVA, PHQ9 screening per protocol Met with patient in room, introducing to self and social work role. Educated to PHQ9 screening for positive CVA diagnosis. Patient agreeable to speak with medical social consultant. Patient with a score of 8, falling into the moderate range of depression. Patient acknowledges having depression, reflecting on chronic illness and history of strokes which have impacted patients daily functioning. Patient reflects medical issues have impacted mood, but reports to keep moving forward. Patient also reflective of losses in her life, including her 's passing 10 years ago and having 2 children (total of 4 children, 2 still living). Patient talked of a friend losing a loved one 2 days ago, which is also increasing reflection in the patient's life. Patient reports current symptoms on the PHQ9 are in part due to depression, but also due to patient recently being sick with an acute illness which had patient in bed with loss of energy and appetite. Patient denies any current or recent thoughts of being better off or suicide. Patient admits that sometimes thinks of , that patient is almost 84 and others around her are passing. Patient reports there have been times in the past when thought would be better off , but nothing recent. Reports thoughts were fleeting, no formulation of plans or intent, no history of attempts. Patient reports that don't dwell when feeling down. Patient reports will get a cup of coffee and enjoy this, or do her exercises when she is feeling low. Patient reports exercises she has learned in therapy makes me feel good though patient reports to know she may not ever be quite like used to before having strokes. In fact, patient spontaneously discussed that she has been considering whether patient is getting to the point of needing care in a residential facility rather than home. Patient reports history of counseling in the past, when feeling low, and reports this helped. Patient does not perceive current need to reestablish with counseling. Patient is currently on antidepressant medications, and reports to feel these are working. Patient expresses understanding that social work is available for support, as well as resources for after the hospital. Through conversation, patient showed insight into her care needs, mood, and how physical issues and life experiences have impacted mood. Patient able to voice forward thinking, is able to identify distraction techniques to help when low feelings or negative thoughts surface. Eye contact normal. Smiled at appropriate times. Thought process logical. Patient expressed appreciation for social work visit today. Social work remains involved and actively working on discharge planning. -ZACH Jung
--- NOTE | 2024-05-02 16:45 | CASEMGMT ---
SW - Advance Directive/Discharge Planning Advance Directive EMR and paper charts reviewed and unable to find any POAHC or Living Will on file for patient. Noted in admission quesiton report that documents have been provided to the hospital. Talked with patient about inability to find documents and let patient know this clinical writer was thinking to call the son to bring documents in. Patient then reported she and the son realized the advance directive documents were done in [place] and not from [place]. Unclear whether documents are health care related or financial. Reports the son has the [place] documents, but have never been completed. Educated the patient that this clinical writer or social work can help with completion of [place] documents. Patient reports this is not something wishes to do at this time. Let patient know if changes mind, and would like assist can call this clinical writer. Left this clinical writer's contact information on patient's white board in the room. Educated patient that when no advanced directives are in place, decision making then goes in a particular order. In patient's case, it would be the consensus of both the patient's son (who has lived with patient since the patient's 10 years ago) and patient's daughter who lives in [place]. Discharge Planning Received handoff from DES Lozada who reports the patient and son chose [facility] acute rehab as preference for aftercare. Referral to Ngozi in Acute Rehab admissions. Ngozi called this clinical writer back to let this clinical writer know that if patient is ready for discharge, RU could accept patient as early as 05.03.2024. Patient declined this clinical writer calling the son and rpeorted that she will update her son when he comes back to visit. Plan: [facility] Acute Rehab. -ZACH Jung
[2024-05-02] MEDS: traZODone 100 MG Tablet 200 MG PO (20:04)
[2024-05-02] MEDS: Latanoprost 0.005% 1 Bottle 1 DRP OPHTHALMIC (20:04)
[2024-05-02] MEDS: Atorvastatin Calcium 20 MG Tablet PO (21:01)
[2024-05-03 00:57] VITALS: BMI 21.9
[2024-05-03 03:00] VITALS: BP 150/71; PULSE 55; RESP 18; TEMP 36.7; O2SAT 97
--- NOTE | 2024-05-03 08:07 | PCM.PN.HOSP ---
Reason for Visit Reason for Visit: Diagnoses Cerebral infarction, unspecified (05/01/24) Subjective Subjective No new events overnight. Objective Data Objective Data Vital Signs: Vital Signs Temp Pulse Resp BP Pulse Ox O2 Del Method 36.7 C 55 L 18 150/71 H 97 Room Air 05/03/24 03:00 05/03/24 03:00 05/03/24 03:00 05/03/24 03:00 05/03/24 03:00 05/03/24 03:02 Oxygen Delivery Method Room Air Weight: 51 kg Body Mass Index (BMI) 21.9 Intake & Output: Intake and Output for Last 24 Hours 05/01/24 05/02/24 05/03/24 23:59 23:59 23:59 Intake Total 480 / 580 340 / 340 120 / 120 Balance 480 / 580 340 / 340 120 / 120 Lab / Micro Data 05/01/24 10:05 05/01/24 10:05 Radiography Diagnostic Testing: Radiology Impression Echocardiogram 05/01/24 12:29 Interpretation Summary Normal LV size. Left ventricular systolic function is normal. The estimated ejection fraction is 60 %. Bubble contrast study negative for right to left interatrial shunt. Pulmonary artery systolic pressure is 30 mmHg. Contrast injection was performed. Ordering Physician: Jack Angelo Referring Physician: Castro Kidd Performed By: Trudi Johns, ISAAC, RVT Physical Exam Const Constitutional Narrative: sleeping, did not awake. Assessment & Plan Assessment/Plan (1) Stroke: PLAN: Plan Acute CVA Suspected given the patient is known history of A-fib and prior stroke Symptoms seem to be improving. Was not a candidate for TNK as she is already anticoagulated on apixaban Brain CT, CTA of the head and neck were unremarkable. 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 Permissive hypertension in light of the stroke Continue with aspirin and statin Paroxysmal atrial fibrillation Currently in normal sinus rhythm Continue with apixaban History of urinary tract infections Asymptomatic at this time Continue with methenamine Check UA and urine culture Insomnia: Patient normally takes her trazodone 8:00 but did not receive it until midnight. Reviewed the MAR in the patient's room with her son and herself. Looks like it was ordered before midnight and then was administered around that time. Likely the trazodone may have not been on her admission MAR which is why may have missed that. She would like it between 8 and 9 PM and I put in that in the description. Glaucoma Patient takes 3 different eyedrops and has very specific times and administrations for that. gave me instructions about how those should be administered and I have entered those in description of those eyedrops. See the MAR for those details. HTN: start lisinopril 10mg/d. H/O orthostatic hypotension on midodrine. VTE prophylaxis: Not indicated as patient are anticoagulated. Code DNRCCA
[2024-05-03 08:23] VITALS: O2SAT 95
[2024-05-03 08:24] VITALS: BP 155/82; PULSE 57; RESP 16; TEMP 36.8; O2SAT 100
[2024-05-03] MEDS: Multivitamins,Therapeutic Tablet 1 TABLET PO (08:36)
[2024-05-03] MEDS: BRIMONIDINE 0.15% 5 ML Bottle 1 DRP OPHTHALMIC (08:37)
[2024-05-03] MEDS: Dorzolamide HCL/Timolol 10 ml Bottle 1 DRP EACH EYE (09:14)
[2024-05-03] MEDS: Aspirin E.C. 81 MG Tablet PO (09:16)
[2024-05-03] MEDS: Methenamine Hippurate 1 GM Tablet PO (09:17)
[2024-05-03] MEDS: buPROPion (SR) 100 MG TABLET.SA 200 MG PO (09:17)
[2024-05-03] MEDS: Escitalopram Oxalate 10 MG Tablet PO (09:17)
[2024-05-03] MEDS: Budesonide 3 MG CAPSULE.EC PO (09:17)
[2024-05-03] MEDS: APIXABAN 2.5 MG TABLET (WCH) PO (09:17)
--- NOTE | 2024-05-03 10:54 | DS.PCM_ITS ---
Providers Date of Admission: 05/01/24 Primary Care Physician: Dr. Castro Kidd MD Consultations 05/01/24 12:29 Consult: Tele-Neurology Routine Consulting Provider: [facility] Reason for Consult: Acute Ischemic Stroke/TIA EMERGENT Consult: No MD Notified: Yes Date Notified: 05/01/24 Time Notified: 12:02 Method of Notification: ED Physician Initiated Nursing Unit Staff Notify [facility] of Tele-Neurology Consult: Yes Reason For Visit: ACUTE CVA Diagnosis Discharge Diagnosis (1) Stroke: Status: Acute Code(s): I63.9 - Cerebral infarction, unspecified Plan Acute CVA * Suspected given the patient is known history of A-fib and prior stroke * Symptoms seem to be improving. * Was not a candidate for TNK as she is already anticoagulated on apixaban * Brain CT, CTA of the head and neck were unremarkable. 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 * Permissive hypertension in light of the stroke * Continue with aspirin and statin Paroxysmal atrial fibrillation * Currently in normal sinus rhythm * Continue with apixaban History of urinary tract infections * Asymptomatic at this time * Continue with methenamine * Check UA and urine culture Insomnia: * Patient normally takes her trazodone 8:00 but did not receive it until midnight. Reviewed the MAR in the patient's room with her son and herself. Looks like it was ordered before midnight and then was administered around that time. Likely the trazodone may have not been on her admission MAR which is why may have missed that. She would like it between 8 and 9 PM and I put in that in the description. Glaucoma * Patient takes 3 different eyedrops and has very specific times and administrations for that. gave me instructions about how those should be administered and I have entered those in description of those eyedrops. See the MAR for those details. HTN: start lisinopril 10mg/d. H/O orthostatic hypotension on midodrine. VTE prophylaxis: Not indicated as patient are anticoagulated. Code DNRCCA Medications at Discharge Home Medications bupropion HCl 200 mg tablet,12 hr sustained-release 200 mg PO DAILY mental health 09/11/16 loperamide 2 mg tablet (Imodium A-D) 2 mg PO QHS PRN loose stools 09/11/16 aspirin 81 mg tablet,delayed release 1 tab PO DAILY heart health 08/11/17 doxepin 10 mg capsule 10 mg PO PRN PRN Swelling 08/11/17 epinephrine 0.3 mg/0.3 mL injection, auto-injector (EpiPen) 0.3 mg PRN PRN Allergies 08/11/17 meclizine 25 mg tablet 25 mg PO TID PRN PRN Dizziness #20 tabs 08/12/17 escitalopram oxalate 10 mg tablet 10 mg PO DAILY mental health 06/11/20 nitroglycerin 0.4 mg sublingual tablet 0.4 mg SL Q5M PRN CHEST PAIN 06/11/20 budesonide 3 mg capsule,delayed,extended release 3 mg PO DAILY 05/09/21 atorvastatin 20 mg tablet 20 mg PO QHS 06/14/23 hydroquinone 4 % topical cream 1 applic topical TID PRN PRN skin 06/14/23 methenamine hippurate 1 gram tablet 1 g PO BID 06/14/23 apixaban 5 mg tablet (Eliquis) 2.5 mg PO BID 05/01/24 midodrine 5 mg tablet 5 mg PO QHS 05/01/24 multivitamin (Daily Multi-Vitamin tablet) 1 tab PO DAILY 05/01/24 trazodone 150 mg tablet 200 mg PO DAILY 05/01/24 acetaminophen 325 mg tablet 650 mg (2 x 325 mg) PO Q6H PRN PRN Pain 1-10 Or Fever>100.7 #0 tabs 05/03/24 bimatoprost 0.01 % eye drops (Lumigan) 1 drp ophthalmic (eye) DAILY #2.5 mL 05/03/24 brimonidine 0.15 % eye drops 1 drp ophthalmic (eye) BID #5 mL 05/03/24 dorzolamide 22.3 mg-timolol 6.8 mg/mL eye drops 1 drp EACH EYE BID #10 mL 05/03/24 lisinopril 10 mg tablet 10 mg PO DAILY #0 tabs 05/03/24 Hospital Course Operations None Procedures 2-D Echocardiogram Summary of Care Provided Minutes Spent on Discharge: 36 Hospital Course: 79-year-old patient presents with dysarthria and left-sided weakness. Patient was not a candidate for tenecteplase she was already on anticoagulation with apixaban. Initial head CT and CTA of the head and neck were unremarkable. MRI showed an acute or subacute right stroke of the neostriatum. Patient will continue with aspirin and statin. Patient has expressed compliance with her apixaban. Patient will follow-up with neurology as outpatient. Patient does have a history of urinary tract infections, however urinalysis was negative for infection. Had lengthy conversation with the patient's son about her glaucoma medications as it was need to be given at specific times and not to be given at the same time as well. Blood pressure has been studies been here with been in the 150s. Patient will be started on lisinopril 10 mg daily. There will need to be caution in regards to monitoring her blood pressure as she does have a history of orthostatic hypotension. If she does not seem to be more orthostatic, that medication may need to be discontinued with permissive hypertension. Patient's son has been very active in the patient's care. Have spoken to him on nearly daily basis. Weight / BMI Weight Weight: 51 kg Body Mass Index (BMI) 21.9 ABG / Lab / Microbiology Data 05/01/24 10:05 05/01/24 10:05 Radiography Diagnostic Testing: Radiology Impression Echocardiogram 05/01/24 12:29 Interpretation Summary Normal LV size. Left ventricular systolic function is normal. The estimated ejection fraction is 60 %. Bubble contrast study negative for right to left interatrial shunt. Pulmonary artery systolic pressure is 30 mmHg. Contrast injection was performed. Ordering Physician: Jack Angelo Referring Physician: Castro Kidd Performed By: Trudi Johns, ISAAC, RVT D/C Instructions Discharge Diet: Low fat / Low cholesterol Meaningful Use Info Meaningful Use Meaningful Use Diagnoses (Choose all that apply): Ischemic CVA CVA Therapy Assessed for PT,OT and/or ST?: Yes Ischemic Stroke Antithrombotic order at d/c?: Yes Dx of Atrial fib/flutter?: Yes Anticoagulant at discharge?: Yes Statin Dosing Therapy Reference: STATIN DOSE THERAPY REFERENCE: * Patients > 75 years receive moderate or high dose statin therapy. * Patients 75 years or YOUNGER should receive HIGH intensity statin dose unless contraindicated. You will be required to document reason for non-treatment if statin daily dose does not meet guidelines. HIGH DOSE STATIN THERAPY DAILY Atorvastatin > than or = to 40 mg Rosuvastatin > than or = to 20 mg Amlodipine + Atorvastatin > than or = to 2.5/40 mg Ezetimibe + Simvastatin 10/80 mg Simvastatin 80mg Statins at discharge?: Yes Primary Dx Acute Ischemic CVA?: Yes IV thrombolytic ordered during stay?: No Reason IV thrombolytic not ordered: Treatment not Indicated Discharge Plan Admission Admit Date/Time: 05/01/24 11:59 Primary Reason for Your Visit: Stroke Attending Provider: Jack Angelo Primary Care Provider: Castro Kidd Consulting Providers: Jamar Huitron; Mis Phan; Shereen Germain; Monie Go; Marcella Babin; Alexander Dukes; Summer Allen; Trenton Laura; Clive Grove; Dwight Aguilar; Varsha Logan; Alxe Mooney; Skylar Huston; Bobby Edwards; Alvaro Foster; Rodolfo Waldron; Dashawn Burns; Amol Rooney; Kay Marcelino; Alexis Quezada Instructions Additional Instructions / Restrictions: Follow up with Dr. Aguero, [facility] neurology or another neurologist in the next 2-3 months. Discharge Orders/Prescriptions Prescriptions: New lisinopril 10 mg Tablet 10 mg PO DAILY Qty: 0 0RF acetaminophen 325 mg Tablet 650 mg PO Q6H PRN PRN (Reason: Pain 1-10 Or Fever>100.7) Qty: 0 0RF Continued bupropion HCl 200 MG tablet sustained-release 12 hr 200 mg PO DAILY loperamide [Imodium A-D] 2 MG tablet 2 mg PO QHS PRN (Reason: loose stools) Patient Comments: diarrhea doxepin 10 MG capsule 10 mg PO PRN PRN (Reason: Swelling) aspirin 81 MG tablet,delayed release (DR/EC) 1 tab PO DAILY epinephrine [EpiPen] 0.3 MG/0.3 ML auto-injector 0.3 mg IJ PRN PRN (Reason: Allergies) meclizine 25 MG tablet 25 mg PO TID PRN PRN (Reason: Dizziness) Qty: 20 0RF nitroglycerin 0.4 MG tablet, sublingual 0.4 mg SL Q5M PRN (Reason: CHEST PAIN) escitalopram oxalate 10 MG tablet 10 mg PO DAILY budesonide 3 mg Capsule,Delayed,Extend.Release 3 mg PO DAILY methenamine hippurate 1 gram tablet 1 g PO BID hydroquinone 4 % cream 1 applic TOPICAL TID PRN PRN (Reason: skin) Patient Comments: APPLY TO AFFECTED AREA 3 TIMES A DAY atorvastatin 20 mg tablet 20 mg PO QHS midodrine 5 mg tablet 5 mg PO QHS multivitamin [Daily Multi-Vitamin] Tablet 1 tab PO DAILY trazodone 150 mg tablet 200 mg PO DAILY Eliquis 5 mg tablet 2.5 mg PO BID dorzolamide-timolol 22.3-6.8 mg/mL Drops 1 drp EACH EYE BID Qty: 10 0RF Rx Instructions: to be given at 0800 and 1600, AM dose to be given 10 minutes AFTER brimonidine brimonidine 1 DROP bottle 1 drp ophthalmic (eye) BID Qty: 5 0RF Rx Instructions: give at 0800 and 2000 Lumigan 0.01 % drops 1 drp ophthalmic (eye) DAILY Qty: 2.5 0RF Rx Instructions: to be given at night at least 10 minutes after brominidine and timolol gtts. Discontinued montelukast 10 MG tablet 10 mg PO DAILY Patient Comments: breathing Referrals / Follow Up: Castro Kidd MD [Primary Care Provider] - Within 2 Weeks Disposition Disposition (needs filled in before D/C Order can be placed): Inpatient Rehab Unit/Facility Charges/Coding Visit Charges Inpatient E&M: 90611 Disch Hosp >30min
[2024-05-03] MEDS: Lisinopril 10 MG Tablet PO (11:21)
--- NOTE | 2024-05-03 11:29 | PHA.DC.MR.R ---
Pharmacy [place] Med Reconciliation Pharmacy Service has performed discharge medication reconciliation for this patient upon transfer to inpatient rehab The patient's discharge medication list was reviewed for discrepancies and discrepancies were resolved. Medications at Discharge Home Medications bupropion HCl 200 mg tablet,12 hr sustained-release 200 mg PO DAILY mental health 09/11/16 loperamide 2 mg tablet (Imodium A-D) 2 mg PO QHS PRN loose stools 09/11/16 aspirin 81 mg tablet,delayed release 1 tab PO DAILY heart health 08/11/17 doxepin 10 mg capsule 10 mg PO PRN PRN Swelling 08/11/17 epinephrine 0.3 mg/0.3 mL injection, auto-injector (EpiPen) 0.3 mg PRN PRN Allergies 08/11/17 meclizine 25 mg tablet 25 mg PO TID PRN PRN Dizziness #20 tabs 08/12/17 escitalopram oxalate 10 mg tablet 10 mg PO DAILY mental health 06/11/20 nitroglycerin 0.4 mg sublingual tablet 0.4 mg SL Q5M PRN CHEST PAIN 06/11/20 budesonide 3 mg capsule,delayed,extended release 3 mg PO DAILY 05/09/21 atorvastatin 20 mg tablet 20 mg PO QHS 06/14/23 hydroquinone 4 % topical cream 1 applic topical TID PRN PRN skin 06/14/23 methenamine hippurate 1 gram tablet 1 g PO BID 06/14/23 apixaban 5 mg tablet (Eliquis) 2.5 mg PO BID 05/01/24 midodrine 5 mg tablet 5 mg PO QHS 05/01/24 multivitamin (Daily Multi-Vitamin tablet) 1 tab PO DAILY 05/01/24 trazodone 150 mg tablet 200 mg PO DAILY 05/01/24 acetaminophen 325 mg tablet 650 mg (2 x 325 mg) PO Q6H PRN PRN Pain 1-10 Or Fever>100.7 #0 tabs 05/03/24 bimatoprost 0.01 % eye drops (Lumigan) 1 drp ophthalmic (eye) DAILY #2.5 mL 05/03/24 brimonidine 0.15 % eye drops 1 drp ophthalmic (eye) BID #5 mL 05/03/24 dorzolamide 22.3 mg-timolol 6.8 mg/mL eye drops 1 drp EACH EYE BID #10 mL 05/03/24 lisinopril 10 mg tablet 10 mg PO DAILY #0 tabs 05/03/24
--- NOTE | 2024-05-03 12:29 | CASEMGMT ---
Social Work - discharge note Patient is discharged today to [facility] inpatient rehab unit. Faxed discharge orders to RU for continuity of care and spoke with patient's RN Megan to update on discharge; coordinate time with RU on time when calls report as RU having team meetings today. Met with patient today who was lying in bed awake. Son present, sitting at bedside on laptop. Updated patient to discharge today. Patient stated I'm ready. Son asked what the preapproval is for patient to go to the RU. Educated to referral process, review of patient's needs by admission and RU provider, and that is also a CVA is a qualifying diagnosis. Son expressed that wants to know how many days patient is approved for. Educated that with traditional Medicare length of stay is determined by diagnosis and additional assessment information, which then determines qualifying days. Educated there are team meeting days on the RU, and at patient's team meeting length of stay/approved days will be discussed. Son voiced that his understanding of Medicare is different than what clinical social worker has explained and wanted this data analyst report writer to find out more; not accepting of this data analyst report writer's education. While inroom with the patient and son, this data analyst report writer called Ngozi in admissions at [facility] to inquire about whether patient had preapproved days for RU admission. Ngozi reports no preapproved days, but that Medicare approved days are determined after admission, usually on day 3 or 4. This data analyst report writer explained this information to the son, who thanked this data analyst report writer and stated this was helpful. Plan: [facility] inpatient rehab unit 05.03.2024. No other services requested or indicated. -ZACH Jung
== END 2024-05-03 13:30 | DRG 65 ==
LOC: ED 11:46 → PCU 12:00
PROVIDERS: Emergency Provider Emergency Medicine; PCP Family Medicine
DX: I63.89 Other cerebral infarction (principal); G81.94 Hemiplegia, unspecified affecting left nondominant side; I48.0 Paroxysmal atrial fibrillation; I10 Essential (primary) hypertension; R47.1 Dysarthria and anarthria; R47.81 Slurred speech; R29.706 NIHSS score 6; H40.9 Unspecified glaucoma; G47.00 Insomnia, unspecified; Z66 Do not resuscitate; Z79.82 Long term (current) use of aspirin; Z79.01 Long term (current) use of anticoagulants; Z79.899 Other long term (current) drug therapy
CPT/HCPCS: 36415; 70450; 70496; 70498; 70551; 71045; 80048; 80061; 81001; 82962; 83036; 84443; 84484; 85025; 85610; 85730; 87086; 87088; 92610; 93005; 93306; 94762; 97162; 97166; 97530; 97535; 97802; 99285; Q9957; Q9967; A4216; C8929

== ENCOUNTER 2024-05-03 13:45 | Inpatient (IN) | payer MEDICARE, BC, SELFPAY ==
[2024-05-03 14:39] VITALS: BP 141/72; PULSE 54; RESP 15; TEMP 36.9; O2SAT 95; BMI 23.6
--- NOTE | 2024-05-03 15:47 | HP.PCM_ITS ---
[facility] - General General Date of Admission: 05/03/24 Date of Service: 05/03/24 Chief Complaint: POST STROKE DEBILITY HPI Manasa ROWANSPURGER, is a 83 F with a PMH of depression, prior strokes, collagenous colitis (on budesonide), glaucoma, orthostatic hypotension, frequent urinary tract infections, falls, atrial fibrillation, remote hysterectomy for cancer and chronic anticoagulation with apixaban who presented to the emergency department at [facility] on 05/01/2024 with complaint of acute onset of change in speech, left-sided weakness and incoordination. A stat noncontrast brain CT showed chronic involutional changes of the brain with no acute findings. CTA of the head and neck showed a mild degree of calcific plaque at the origin of the left internal carotid artery. Teleneurology was consulted and per their exam the NIHSS score was 1 for sensory loss. TNK was not recommended because she is on Eliquis. Continuation of Eliquis, aspirin and a statin was recommended. She was admitted to the hospitalist service. MRI of the brain revealed acute or subacute ischemic CVA in the right medial striatal. Transthoracic echocardiogram showed a normal-sized left ventricle with normal systolic function and an estimated ejection fraction of 60%. There were no wall motion abnormalities. Both atria were of normal size and the bubble contrast study was negative for right to left interatrial shunt. The pulmonary artery pressure was estimated at 30. There was no significant valvular heart disease. Hemoglobin A1c was 5.0%. The lipid panel showed triglycerides of 104, LDL of 83 and an HDL of 52. UA had 10-25 WBCs and 0-5 squamous epithelial cells. It was nitrite negative. Urine culture was ordered but is still pending at the time of discharge from the acute hospital stay. She has been afebrile with a normal white blood cell count and an unremarkable differentiation. She was not started on antibiotics. While in the hospital she was seen by PT/OT/ST and a recommendation for acute rehab at [facility] was made. She was transferred to the acute inpt rehab unit at [facility] on 05/03/24 for 3 hours of therapy daily to restore function/independence at or near her level prior to the recent CVA. She was ambulating with a WW at baseline. She has had fecal incontinence at times. Her son Mehdi is her metal solderer. Lab done since presentation to the emergency room was personally reviewed. The GFR is 62 which is consistent with stage II chronic renal failure but the estimated creatinine clearance is only 33. Mehdi tells me that she may have adrenal insufficiency from the Budesonide. He sometimes holds the Budesonide when she is constipated. She lists ASA as an allergy and states the reaction is N/V/diarrhea. Has been on ASA since the ED presentation and denies N/V/D at this time. [facility] Medical History (Updated 05/04/24 @ 12:[address] Alena Deal, DO) Ataxia due to cerebrovascular disease Urinary urgency Chronic anticoagulation Paroxysmal atrial fibrillation Orthostatic hypotension HTN (hypertension) Collagenous colitis Angioedema History of multiple strokes Appendicitis Glaucoma Depression Home Medications ?Medication ?Instructions ?Recorded ?Last Taken ?Type bupropion HCl 200 mg tablet,12 hr 200 mg PO DAILY mental health 09/11/16 09/11/16 History sustained-release loperamide 2 mg tablet (Imodium 2 mg PO QHS PRN loose stools 09/11/16 09/10/16 History A-D) aspirin 81 mg tablet,delayed 1 tab PO DAILY heart health 08/11/17 Unknown History release escitalopram oxalate 10 mg tablet 10 mg PO DAILY mental health 06/11/20 Unknown History nitroglycerin 0.4 mg sublingual 0.4 mg SL Q5M PRN CHEST PAIN 06/11/20 Unknown History tablet budesonide 3 mg 3 mg PO DAILY breathing 05/09/21 Unknown History capsule,delayed,extended release atorvastatin 20 mg tablet 20 mg PO QHS stroke 06/14/23 Unknown History hydroquinone 4 % topical cream 1 applic topical TID PRN PRN skin 06/14/23 Unknown History methenamine hippurate 1 gram tablet 1 g PO BID bladder 06/14/23 Unknown History apixaban 5 mg tablet (Eliquis) 2.5 mg PO BID blood thinner 05/01/24 Unknown History midodrine 5 mg tablet 5 mg PO QHS bp 05/01/24 Unknown History multivitamin (Daily Multi-Vitamin 1 tab PO DAILY supp 05/01/24 Unknown History tablet) trazodone 150 mg tablet 200 mg PO DAILY sleep 05/01/24 Unknown History acetaminophen 325 mg tablet 650 mg (2 x 325 mg) PO Q6H PRN PRN 05/03/24 Unknown Rx Pain 1-10 Or Fever>100.7 #0 tabs bimatoprost 0.01 % eye drops 1 drp ophthalmic (eye) DAILY eye 05/03/24 Unknown Rx (Lumigan) #2.5 mL brimonidine 0.15 % eye drops 1 drp ophthalmic (eye) BID eye #5 05/03/24 Unknown Rx mL dorzolamide 22.3 mg-timolol 6.8 1 drp EACH EYE BID eye #10 mL 05/03/24 Unknown Rx mg/mL eye drops lisinopril 10 mg tablet 10 mg PO DAILY bp #0 tabs 05/03/24 Unknown Rx meclizine 25 mg tablet 12.5 mg PO TID PRN PRN Dizziness 05/03/24 Unknown History Allergy/AdvReac Type Severity Reaction Status Date / Time morphine Allergy Unknown Verified 06/14/23 21:32 Sulfa (Sulfonamide Allergy Unknown Verified 06/14/23 21:32 Antibiotics) aspirin AdvReac Nausea/Vom/ Verified 06/14/23 21:32 Diarrhea Family History Other CVA (cerebral vascular accident) Heart disease Surgical History History of hysterectomy for cancer History of bunionectomy History of appendectomy Social History Smoking Status: Former smoker ROS Constitutional Constitutional: Denies anorexia, change in weight, chills, fatigue, fever(s), night sweats or weakness Eyes Eyes: Denies blurry vision, change in vision, eye pain or loss of vision ENT HEENT: Reports abnormal hearing; Denies dysphagia, headache(s), hearing loss, nasal congestion or sore throat Cardiovascular Cardiovascular: Reports lightheadedness; Denies chest pain, dyspnea on exertion, edema, orthopnea, palpitations, paroxysmal nocturnal dyspnea or syncope Respiratory/Chest Respiratory/Chest: Denies cough, dyspnea, shortness of breath at rest, shortness of breath with exertion or wheezing Gastrointestinal Gastrointestinal: Reports constipation and diarrhea; Denies abdominal pain, dyspepsia, hematemesis, hematochezia, nausea or vomiting Genitourinary Genitourinary: Reports urinary incontinence; Denies dysuria, hematuria, nocturia, urinary frequency, urinary hesitancy or urinary urgency Musculoskeletal Musculoskeletal: Denies back pain, joint pain, joint swelling or neck pain Neurologic Neurologic: Reports dizziness, focal weakness and weakness; Denies confusion, disequilibrium, headache(s), paresthesias, seizures or tremor(s) Psychiatric Psychiatric: Denies anxiety, depression, homicidal ideation or suicidal ideation Endocrine Endocrinology: Denies change in body appearance, polydipsia or polyuria Hematologic/Lymphatic Hematologic/Lymphatic: Denies easy bleeding, easy bruising or lymphadenopathy Allergic/Immunologic Allergic/Immunologic: Denies rhinitis, eczemia or asthma Vital Signs Vital Signs Vital Signs: 05/03/24 14:39 Temperature 98.5 F Temperature Source Temporal Pulse Rate 54 L Respiratory Rate 15 Blood Pressure 141/72 H Blood Pressure Mean 95 Blood Pressure Source Monitor Blood Pressure Position Semi-Fowlers Blood Pressure Location Left Arm Pulse Ox 95 Oxygen Delivery Method Room Air Indicators for Scoring Admitted with or Primary Diagnosis of CVA/Stroke: Yes Hx of CVA/Stroke: Yes Modified Andrew Score MRS Score at time of Evaluation: 4-Moderate/severe disability NIHSS NIHSS 1a. Level of Consciousness: Alert; keenly responsive 1b. LOC Questions: Answers BOTH questions correctly. 1c. LOC Commands: Performs both tasks correctly. 2. Best Gaze: Normal 3. Visual: No visual loss 4. Facial Palsy: Normal symmetrical movements 5a. Left Arm: Drift; arm drifts downward but doesn?t hit the bed 5b. Right Arm: No drift; arm holds 90 (or 45) degrees for full 10 seconds 6a. Left Leg: Drift; leg falls by the end of 5-seconds, but does not hit bed 6b. Right Leg: No drift; leg holds 30-degree position for full 5 seconds 7. Limb Ataxia: Present in 2 limbs (Left upper extremity and left lower extremity.) 8. Sensory: Normal; no sensory loss 9. Best Language: No aphasia; normal 10. Dysarthria: [id number] dysarthria; (She speaks softly and her voice does not project well making it difficult to understand her. Mehdi tells me that this waxes and wanes and started after one of the strokes. Not really aphasic on my exam. ) 11. Extinction and Inattention: No abnormality Total: 5 Stroke Questions Stroke Team Activated: No Physical Exam Const alert and no apparent distress General Appearance: cooperative HEENT head/scalp atraumatic HEENT Narrative: No evidence of thrush. Mouth: dry mucous membranes Eyes PERRL and EOMs intact bilaterally Eyes Narrative: No discharge from the eyes. No scleral icterus. No conjunctival injection. No nystagmus. No visual field cuts. Neck no JVD, No nodes and no carotid bruits General: trachea midline Chest Chest: symmetrical chest wall rise Resp Resp Narrative: She had coarse crackles in the left lung base laterally mostly resolved after a couple deep breaths. No wheezing. No conversational dyspnea. Not tachypneic. No accessory muscle use. Cardio regular rate, regular rhythm, S1 normal heart sound, S2 normal heart sound, no murmurs, no rub and no gallops Cardio Narrative: No ectopy GI GI Narrative: The abdomen is mildly distended and tympanic. She had no guarding with palpation. Low-frequency bowel sounds were heard in all 4 quadrants. She had no guarding with palpation. Extremity no calf tenderness Extremity Narrative: Pedal pulses are 2+ bilaterally. General Extremity: Negative for edema Skin General Skin Exam: no breakdown Rashes: no rashes Neuro CN's II-XII intact bilaterally and no sensory deficits noted Neuro Narrative: She has no visual field cuts. No extinction. The voice is soft and does not project well and speech is not crisp. No aphasia was perceived. She does speak slowly. She has some dysarthria. Psych cooperative Psych Narrative: She does not appear anxious or depressed. She makes good eye contact when speaking with me. She is calm and appropriate. 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: (5) Ataxia due to cerebrovascular disease: (6) Paroxysmal atrial fibrillation: (7) Chronic anticoagulation: (8) HTN (hypertension): QUALIFIERS: Hypertension type: primary hypertension Qualified Code(s): I10 - Essential (primary) hypertension (9) Orthostatic hypotension: (10) Collagenous colitis: (11) Hyperlipidemia: QUALIFIERS: Hyperlipidemia type: unspecified Qualified Code(s): E 78.5 - Hyperlipidemia, unspecified (12) Depression: QUALIFIERS: Depression Type: persistent depressive disorder Q ualified Code(s): F34.1 - Dysthymic disorder (13) History of multiple strokes: PLAN: Plan PLAN PT for gait stability OT for ADL's ST for evaluation Analgesics as needed Bowel protocol Fall precautions Assess for Anxiety/Depression GI prophylaxis -not indicated at this time. DVT prophylaxis with Eliquis 2.5 mg twice daily Follow up with PCP, neurology following DC from [facility] Rehab AM lab including CMP, CBC, Mag and Phos - ordered Check orthostatic vital signs Decrease meclizine to 12.5 mg 3 times daily as needed vertigo - she admits to being dizzy at times but, she is not having vertigo. Antihistamines are on the Beer's list. No tx indicated for pyuria at this time. She is AF and has had a normal WBC count. Await the final culture results but, I suspect it was a clean catch urine and the bacteria are likely contaminants. I met with her son Mehdi and answered all his Questions and address the concerns he has. He has been her metal solderer for 10 years and is very involved in her care and protective of his mother. Check an AM cortisol. 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 She was transition to budesonide which very infrequently lead to any adrenal suppression and she is on a low-dose. Will discuss trying to decrease the Trazodone dose with Mehdi. She used to take 300 mg at HS and then this was decreased to 200 mg a few years ago. Charges/Coding Visit Charges Inpatient E&M: 41297 Init Hosp L3
[2024-05-03 16:14] VITALS: BP 120/56; BP 127/67; BP 158/70; PULSE 56; PULSE 70
[2024-05-03] MEDS: BRIMONIDINE 0.15% 5 ML Bottle 1 DRP OPHTHALMIC (21:15)
[2024-05-03] MEDS: traZODone 100 MG Tablet 200 MG PO (21:16)
[2024-05-03] MEDS: Methenamine Hippurate 1 GM Tablet PO (21:16)
[2024-05-03] MEDS: APIXABAN 2.5 MG TABLET (WCH) PO (21:16)
[2024-05-03] MEDS: Atorvastatin Calcium 40 MG Tablet PO (21:17)
[2024-05-03] MEDS: Senna/Docusate Sodium 1 Tablet PO (21:17)
[2024-05-03] MEDS: Midodrine HCl 5 MG Tablet PO (21:17)
[2024-05-03] MEDS: 0.9% Saline Lock 10 ML Syringe IV (21:20)
[2024-05-03 21:32] VITALS: BMI 23.6
[2024-05-03 22:00] VITALS: BP 127/67; PULSE 56; PULSE 60; RESP 15; TEMP 36.4; O2SAT 95; O2SAT 96
--- NOTE | 2024-05-04 04:56 | NURSING ---
Pt could be heard yelling out and found confused in bed. Staff attempted to reorient pt. Pt was assisted with repositioning and checked for incontinence. Pt was dry. Pt denied needs at this time or could not answer why she could be heard yelling out loud. Pt settled down after staff provided reassurance. Pt was asleep when staff returned to pt to check on condition. Pt appeared to resting quietly.
[2024-05-04] MEDS: Cosyntropin 0.25 MG in 0.9% Normal Saline (Pres. free 4 ML 150 MG IV (05:10)
[2024-05-04] MEDS: 0.9% Saline Lock 10 ML Syringe IV (05:10)
[2024-05-04 05:44] LABS: Hematocrit 37.8 % (37-47); Hemoglobin 12.2 g/dL (12.0-15.0); Mean Corp Hgb Conc 32.3 g/dL (32-36); Mean Corpuscular Volume 99.2 fL (81-99); Mean Platelet Vol. 10.8 fl (6.2-12.0); Platelet Count 220 K/mm3 (150-450); RBC Distribution Width CV 14.2 % (11.6-14.6); RBC Distribution Width SD 52.2 fl (35.1-43.9); Red Blood Count 3.81 M/mm3 (4.2-5.4); White Blood Count 7.1 K/mm3 (4.4-11.0)
[2024-05-04 06:00] LABS: ALB/GLOB Ratio 1.4 RATIO (0.9-2.4); AST(SGOT) 21 U/L (15-37); Alanine Aminotransfer ALT/SGPT 38 U/L (13-56); Albumin, Serum 3.2 g/dL (3.2-5.0); Alkaline Phosphatase 52 U/L (45-117); Anion Gap 7 (5-15); BUN 23 mg/dL (7-18); BUN/Creat Ratio 27.8 RATIO (10-20); Calcium,Total 8.6 mg/dL (8.5-10.1); Chloride 107 mmol/L (98-107); Creatinine, Serum 0.83 mg/dL (0.55-1.02); EST Glomerular Filtration Rate 70 mL/min (>60); Est Glom Filt Rate - Afr Amer 84 mL/min (>60); Estimated Creatinine Clearance 36.24 ml/min; Globulin 2.3 g/dL (2.2-4.2); Glucose 95 mg/dL (74-106); Magnesium 2.4 mg/dL (1.6-2.6); Phosphorus 3.5 mg/dL (2.5-4.9); Potassium 3.9 mmol/L (3.5-5.1); Protein, Total 5.5 g/dL (6.4-8.2); Sodium Level 139 mmol/L (136-145)
[2024-05-04] MEDS: BRIMONIDINE 0.15% 5 ML Bottle 1 DRP OPHTHALMIC ×2 (08:10→20:04)
[2024-05-04] MEDS: Dorzolamide HCL/Timolol 10 ml Bottle 1 DRP EACH EYE ×2 (08:32→16:31)
[2024-05-04 08:47] VITALS: BP 172/84; PULSE 68; RESP 16; TEMP 36.5; O2SAT 97
[2024-05-04] MEDS: buPROPion (SR) 100 MG TABLET.SA 200 MG PO (09:08)
[2024-05-04] MEDS: Methenamine Hippurate 1 GM Tablet PO ×2 (09:08→20:29)
[2024-05-04] MEDS: Multivitamins,Therapeutic Tablet 1 TABLET PO (09:08)
[2024-05-04] MEDS: Budesonide 3 MG CAPSULE.EC PO (09:09)
[2024-05-04] MEDS: Escitalopram Oxalate 10 MG Tablet PO (09:09)
[2024-05-04] MEDS: Senna/Docusate Sodium 1 Tablet PO ×2 (09:09→20:28)
[2024-05-04] MEDS: Aspirin E.C. 81 MG Tablet PO (09:09)
[2024-05-04] MEDS: Lisinopril 10 MG Tablet PO (09:09)
[2024-05-04] MEDS: APIXABAN 2.5 MG TABLET (WCH) PO ×2 (09:10→20:29)
[2024-05-04 09:15] VITALS: BP 116/56; PULSE 57
--- NOTE | 2024-05-04 12:14 | REHABEVAL_ITS ---
Admission Information Primary Diagnosis:: Post stroke debility Status Changes from Prescreening?: No changes Identified Actual Problem List:: Falls, Cognitve Impr/Memory Loss, Depression, Mobility Impaired, Self Care Deficit and Alteration-Leisure Activ. Potential Problem List:: DVT, Bleeding, Infection, UTI, Aspiration, Falls, Skin Integrity and Depression Risk of Complications DVT: RACHELL Burche and - (Eliquis) Bleeding: Monitor Lab Values, Nursing to Teach Precautions for anti-coagulation therapy., Wound, if applicable, to be assessed every shift. and Stroke patients assessed for lethargy or change in status. Infection: Clinical Staff to Monitor for S/S of infection: and S/S of infection include fever, redness, warmth, etc. Urinary Tract Infection: Monitor for frequency, burning, discomfort, or incontinence. and Nursing will obtain urine sample for urinalysis and C&S when ordered. Aspiration: Clinical staff will monitor for coughing, drooling, congestion., Speech will evaluate swallowing and dsyphasia. and Nursing will monitor patient swallowing during meals. Falls: Patient will be evaluated for Fall Precautions and Patient will be placed on Fall Precautions as indicated per protocol. Skin Breakdown: Nursing will assess skin daily using assessment tool. and Nursing will place on Skin Breakdown Precautions as indicated. Pain: Clinical staff will assess patient's pain level per protocol., Medications will be given, if needed, and the pain level reassessed. and Other methods: Massage, distraction, decrease stimulus, etc. used PRN. Plan of Care Patient requires physician specializing in physical medicine and rehab oversight to provide close medical supervision of rehab issues including: Pain Management, Sleep Problems, Bowel and Bladder, Medical and co-morbidity Management, DVT prophylaxis, Rehabilitation Leadership and Coordination of treatment team Patient needs Physical Therapy: For a minimum of 1 hour and At least 5 out of 7 days Patient needs Physical Therapy to improve:: Mobility, Strengthening, Transfers, Stretching, ROM, Endurance, Stairs, Gait and Balance Patient needs Occupational Therapy: For a minimum of 1 hour and At least 5 out of 7 days Patient needs Occupational Therapy to improve ADL's incl.: Eating, Grooming, Bathing, Dressing, Toileting, Toilet transfers, Community Reintegration, Higher functioning activities, Household tasks, Adaptive Equipment, Splinting and Other activities as determined Patient requires speech therapy: For a minimum of 1 hour and At least 5 out of 7 days Patient requires speech therapy for: Swallowing, Cognition, Language Skills and Compensatory Strategies Patient requires 24/ Rehabilitation Nursing for: Pain Issues, Identifying and preventing risk factors, Monitoring and reporting current medical conditions, Assisting with ambulation, transfer, and all ADL's, Teaching patients about disease process and medications, Family teaching, Providing safe environment, Bowel and Bladder Issues, Skin integrity and Medication Management Patient needs Adult And Pediatric Neurologist/ Case Management for: Discharge Planning, Arranging Home Equipment or Services and Family Interventions Patient needs Dietary and Nutrition Services for: Adequate Nutrition, Nutritional Supplements and Nutritional Education Goals Goals Patient will remain: free from falls Patient will perform eating at: MOD I level of assist. Patient will perform bed mobility at: MOD I level of assist. Patient will complete transfers from bed to chair at: MOD I level of assist. Patient will ambulate: - (350 feet with a rollator walker on various surfaces at standby assist) Patient will complete upper body dressing at: - (Supervision) Patient will complete lower body dressing at: - (Supervision) Patient will complete toilet transfer at: MOD I level of assist. Patient will complete toileting at: MOD I level of assist. Patient will perform bathing at: - (Upper body bathing at supervision and lower body bathing at supervision with adaptive equipment as needed for increased independence.) Patient will perform Tub/Shower transfer at: - (Supervision with AE as needed to increase independence) Patient will complete grooming at: - (Supervision while standing at the sink) Patient will achieve: - (1 curb step at SBA/CGA) Patient will have pain level of: of 3 or less Patient's skin will: remain intact Patient will receive: adequate nutrition. Discharge Planning Pt Prognosis for Sig. Practical Improv. w/in Reasonable Time: Good Estimated Length of stay (days): 21 Anticipated D/C Destination: Home with Home Health
--- NOTE | 2024-05-04 12:17 | PCM.PROGNOTE ---
Subjective Subjective Afebrile VSS - Orthostatic vital signs were negative yesterday. Occasional high blood pressure but for the most part well-controlled. Maintaining appropriate oxygen saturation on RA Oral intake - FOOD-good FLUIDS poor Last bowel movement was 05/02/2024. Discussed with nursing - no problems that need addressed. Postvoid residual was 78. Reviewed the THERAPY notes Medication list reviewed. All lab drawn this morning was personally reviewed. The white blood cell count is normal at 7.1 and hemoglobin is normal at 12.2. MCV is mildly elevated at 99.2. Platelets are within normal limits sodium is 139 and the potassium is 3.9. The BUN is stable at 23 and the creatinine is stable at 0.83 and is within her baseline. Phosphorus and magnesium are both normal. LFTs are normal. AM cortisol was normal at 12.3 and it increased to 42.8 following ACTH. Denies lightheadedness, cephalgia, chest pain, shortness of breath, nausea/vomiting/abdominal pain, dysuria, palpitations, calf tenderness. She does not feel bloated. Objective Data Objective Data Vital Signs: Vital Signs Temp Pulse Resp BP Pulse Ox O2 Del Method 97.7 F L 57 L 16 116/56 L 97 Room Air 05/04/24 08:47 05/04/24 09:15 05/04/24 08:47 05/04/24 09:15 05/04/24 08:47 05/04/24 09:52 Oxygen Delivery Method Room Air Weight: 113 lb 1.554 oz Body Mass Index (BMI) 23.6 Intake & Output: Intake and Output for Last 24 Hours 05/02/24 05/03/24 05/04/24 23:59 23:59 23:59 Intake Total 250 / 250 485 / 485 Output Total 250 / 250 300 / 300 Balance 0 / 0 185 / 185 Lab / Micro Data 05/04/24 05:10 05/04/24 05:10 Labs: Laboratory Results - last 24 hr 05/04/24 05:10: WBC 7.1, RBC 3.81 L, Hgb 12.2, Hct 37.8, MCV 99.2 H, MCH 32.0, MCHC 32.3, RDW Std Deviation 52.2 H, RDW Coeff of Nithin 14.2, Plt Count 220, MPV 10.8, Sodium 139, Potassium 3.9, Chloride 107, Carbon Dioxide 25.0, Anion Gap 7, BUN 23 H, Creatinine 0.83, Estim Creat Clear Calc 36.24, Est GFR (MDRD) Af Amer 84, Est GFR (MDRD) Non-Af 70, BUN/Creatinine Ratio 27.8 H, Glucose 95, Calcium 8.6, Phosphorus 3.5, Magnesium 2.4, Total Bilirubin 0.40, AST 21, ALT 38, Alkaline Phosphatase 52, Total Protein 5.5 L, Albumin 3.2, Globulin 2.3, Albumin/Globulin Ratio 1.4, Cortisol 12.30 05/04/24 06:08: Cortisol 42.80 H Physical Exam Const alert, oriented x3 and no apparent distress Constitutional Narrative: Pleasant and appropriate. General Appearance: cooperative HEENT Mouth: dry mucous membranes Resp Resp Narrative: Initially had coarse crackles in the bases but, she was clear after a few deep breaths. No conversational dyspnea. Effort and Inspection: Negative for tachypneic Cardio regular rate, regular rhythm, no murmurs, no rub and no gallops Cardio Narrative: No ectopy. GI normal to inspection, nondistended, normoactive bowel sounds, soft to palpation and non-tender GI Narrative: Bowel sounds are more active than they were yesterday. Extremity no calf tenderness Extremity Narrative: RACHELL hose in place. General Extremity: Negative for edema Skin General Skin Exam: no breakdown Rashes: no rashes Neuro Neuro Narrative: Speech is slow and halting. Having some difficulty with memory but is trying her best to learn everyone's name. She was able to remember my name from our meeting yesterday. Weak on the left side. Some ataxia on the left side. No facial droop. 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 Continue therapy 2. I did discuss decreasing the dose of trazodone to 150 mg at at bedtime and Mehdi was in agreement with this. Would like to avoid as many potentially sedating medications as possible and this 83-year-old with multiple strokes and cognitive dysfunction. She also has a history of falls, especially at night. 3. No indication for treatment for a UTI as the patient is asymptomatic with a normal white blood cell count and no fever. If she develops any acute mental status change, decreased appetite or increased urinary frequency and urgency will do a straight cath and send a culture. Mehdi related to me that she has had multidrug-resistant infections in the past. 4. If she does not have a bowel movement by tomorrow we will give a laxative. Will continue senna/docusate for now at 1 tablet twice daily. Bowel sounds are more active today than they were yesterday. 5. Continue to monitor the blood pressure closely. She did have 1 blood pressure of 172/84 and that was this morning at approximately 8:45 AM. 30 minutes later the blood pressure was 116/56. Charges/Coding Visit Charges Inpatient E&M: 50903 Subs Hosp L2
[2024-05-04 15:41] VITALS: BMI 23.6
[2024-05-04] MEDS: Acetaminophen 325 MG Tablet 650 MG PO (16:49)
[2024-05-04] MEDS: traZODone 50 MG Tablet 150 MG PO (20:10)
[2024-05-04 20:20] VITALS: BMI 23.6
[2024-05-04] MEDS: Midodrine HCl 5 MG Tablet PO (20:29)
[2024-05-04] MEDS: Atorvastatin Calcium 40 MG Tablet PO (20:30)
[2024-05-04] MEDS: Latanoprost 0.005% 1 Bottle 1 DRP OPHTHALMIC (20:30)
[2024-05-04 22:00] VITALS: BP 158/78; PULSE 68; PULSE 69; RESP 15; RESP 16; TEMP 36.9; O2SAT 97
[2024-05-05 06:57] VITALS: O2SAT 93
[2024-05-05 07:37] VITALS: BP 148/68; PULSE 60; RESP 16; TEMP 36.6; O2SAT 97
[2024-05-05] MEDS: Multivitamins,Therapeutic Tablet 1 TABLET PO (08:01)
[2024-05-05] MEDS: Dorzolamide HCL/Timolol 10 ml Bottle 1 DRP EACH EYE ×2 (08:01→16:30)
[2024-05-05] MEDS: BRIMONIDINE 0.15% 5 ML Bottle 1 DRP OPHTHALMIC ×2 (08:01→20:10)
[2024-05-05] MEDS: Budesonide 3 MG CAPSULE.EC PO (08:01)
[2024-05-05] MEDS: Senna/Docusate Sodium 1 Tablet PO ×2 (08:02→20:59)
[2024-05-05] MEDS: Lisinopril 10 MG Tablet PO (08:02)
[2024-05-05] MEDS: Methenamine Hippurate 1 GM Tablet PO ×2 (08:02→20:59)
[2024-05-05] MEDS: APIXABAN 2.5 MG TABLET (WCH) PO ×2 (08:02→20:58)
[2024-05-05] MEDS: Aspirin E.C. 81 MG Tablet PO (08:02)
[2024-05-05] MEDS: Escitalopram Oxalate 10 MG Tablet PO (08:02)
[2024-05-05] MEDS: buPROPion (SR) 100 MG TABLET.SA 200 MG PO (08:02)
--- NOTE | 2024-05-05 14:43 | CASEMGMT ---
Rehab Unit Case Management Sw presented to bedside to complete initial admission assessment, however patient not at bedside. Engineer Third Assistant informed sw that patient was accompanied by her son who took her outside for some sunshine. Sw found patient and her son outside, sw introduced self to them and explained reason for sw involvement. Sw stated that due to patient's admission to rehab unit there are admission questions that are relevant to sw that need to be reviewed. Patient's son stated that patient has already been asked questions four times in his presence and questioned who authorized the questions. Sw explained that due to patient admission to rehab unit there are initial assessment questions mandated of all patients. Sw attempted to move forward with assessment, however patient's son would continue to interrupt stating that she has already been asked these questions before. Patient's son stated that at this current time it is their time and questioned as to why social work is meeting with them in the afternoon. Sw explained that there are times when a hospital functions 24/7 and people are working to get necessary work done. Patient's son stated that this time is not working for them. Sw offered to come back to meet with patient at a different time, and asked patient and son when would work for them. Patients' son then stated that it was fine to told sw to continue with assessment. Sw attempted to complete rest of assessment, however it was not allowable due to patient's son continuing to interrupt and shake his head. Completing BIMS and PHQ-9 did not seem appropriate at this time. Sw explained to patient that social work will continue to follow her throughout her admission and will meet with her again. Patient nodded head in understanding. Sw will attempt at later date/ time to meet with patient in order to conduct a successful admissions assessment. Padma Cuellar, DOG FOOD DOUGH MIXER, DIRECTOR PRODUCT DEVELOPMENT
[2024-05-05 19:48] VITALS: BP 163/77; PULSE 64; RESP 16; TEMP 36.3; O2SAT 97
[2024-05-05] MEDS: traZODone 50 MG Tablet 150 MG PO (20:58)
[2024-05-05] MEDS: Latanoprost 0.005% 1 Bottle 1 DRP OPHTHALMIC (20:58)
[2024-05-05] MEDS: Midodrine HCl 5 MG Tablet PO (20:59)
[2024-05-05] MEDS: Atorvastatin Calcium 40 MG Tablet PO (20:59)
[2024-05-05 22:08] VITALS: BMI 23.6
[2024-05-06 07:02] VITALS: O2SAT 96
[2024-05-06 08:05] VITALS: BP 174/81; PULSE 67; RESP 17; TEMP 36.7; O2SAT 97
[2024-05-06 09:00] VITALS: BP 162/74
[2024-05-06] MEDS: BRIMONIDINE 0.15% 5 ML Bottle 1 DRP OPHTHALMIC ×2 (09:00→20:13)
[2024-05-06] MEDS: Aspirin E.C. 81 MG Tablet PO (09:02)
[2024-05-06] MEDS: Escitalopram Oxalate 10 MG Tablet PO (09:02)
[2024-05-06] MEDS: Multivitamins,Therapeutic Tablet 1 TABLET PO (09:02)
[2024-05-06] MEDS: Budesonide 3 MG CAPSULE.EC PO (09:02)
[2024-05-06] MEDS: Lisinopril 10 MG Tablet PO (09:02)
[2024-05-06] MEDS: Methenamine Hippurate 1 GM Tablet PO ×2 (09:03→20:22)
[2024-05-06] MEDS: APIXABAN 2.5 MG TABLET (WCH) PO ×2 (09:03→20:22)
[2024-05-06] MEDS: Senna/Docusate Sodium 1 Tablet PO (09:03)
[2024-05-06] MEDS: buPROPion (SR) 100 MG TABLET.SA 200 MG PO (09:07)
[2024-05-06] MEDS: Dorzolamide HCL/Timolol 10 ml Bottle 1 DRP EACH EYE ×2 (09:08→16:00)
[2024-05-06 10:02] VITALS: BMI 23.6
[2024-05-06] MEDS: Acetaminophen 325 MG Tablet 650 MG PO (15:59)
[2024-05-06] MEDS: Budesonide 3 MG CAPSULE.EC 9 MG PO (18:55)
[2024-05-06] MEDS: Loperamide 2 MG Capsule 4 MG PO (18:55)
--- NOTE | 2024-05-06 19:01 | NURSING ---
Patient has had several loose bowel movements today. Patient complains of an upset stomach and son reports this is what happens when she has a colitis flare. Son said she gets an extra 9mg budenoside and 4mg imodium today and then tomorrow she will get a total of 9mg budesonide and she should be ok. Dr. Deal approved of the order and patient and son aware.
[2024-05-06 19:51] VITALS: BP 140/70; PULSE 70; RESP 18; TEMP 36.4; O2SAT 96
[2024-05-06] MEDS: traZODone 50 MG Tablet 150 MG PO (20:21)
[2024-05-06] MEDS: Atorvastatin Calcium 40 MG Tablet PO (20:21)
[2024-05-06] MEDS: Latanoprost 0.005% 1 Bottle 1 DRP OPHTHALMIC (20:22)
[2024-05-06] MEDS: Midodrine HCl 5 MG Tablet PO (20:22)
[2024-05-06 22:07] VITALS: BMI 23.6
[2024-05-07] MEDS: Acetaminophen 325 MG Tablet 650 MG PO (04:52)
[2024-05-07 07:38] VITALS: BP 165/69; PULSE 59; RESP 17; TEMP 36.6; O2SAT 97
[2024-05-07] MEDS: BRIMONIDINE 0.15% 5 ML Bottle 1 DRP OPHTHALMIC ×2 (08:00→20:07)
[2024-05-07] MEDS: Budesonide 3 MG CAPSULE.EC PO (09:10)
[2024-05-07] MEDS: Dorzolamide HCL/Timolol 10 ml Bottle 1 DRP EACH EYE ×2 (09:10→16:36)
[2024-05-07] MEDS: Methenamine Hippurate 1 GM Tablet PO ×2 (09:11→20:13)
[2024-05-07] MEDS: Escitalopram Oxalate 10 MG Tablet PO (09:11)
[2024-05-07] MEDS: Lisinopril 10 MG Tablet PO (09:11)
[2024-05-07] MEDS: Budesonide 3 MG CAPSULE.EC 6 MG PO (09:11)
[2024-05-07] MEDS: APIXABAN 2.5 MG TABLET (WCH) PO ×2 (09:11→20:14)
[2024-05-07] MEDS: Aspirin E.C. 81 MG Tablet PO (09:11)
[2024-05-07] MEDS: buPROPion (SR) 100 MG TABLET.SA 200 MG PO (09:11)
[2024-05-07] MEDS: Multivitamins,Therapeutic Tablet 1 TABLET PO (09:11)
--- NOTE | 2024-05-07 09:50 | PCM.PROGNOTE ---
Subjective Subjective Barbie was seen on TEAM rounds today. Mehdi was present in the room for rounds. Afebrile VSS -heart rate is within normal limits. Blood pressure over the past 48 hours has ranged from 140/78 to 174/81. Current antihypertensives include lisinopril 10 mg daily. She takes Midodrine at HS only? she gives a hx of orthostatic hypotension.......she was not orthostatic at admission to rehab. Maintaining appropriate oxygen saturation on RA Oral intake - FOOD fair FLUIDS good Discussed with nursing - Had diarrhea and fecal incontinence over the weekend. Her son Mehdi tells us when this happens he usually gives 9 mg of Budesonide for 2 days and then everything is OK again. Reviewed the THERAPY notes Medication list reviewed. She is c/o feeling foggy today and tells me that she just does not feel well today. She is sleeping well at night. She normally takes the Lexapro at night and this may be contributing to the fogginess. She denies lightheadedness, cephalgia, abd pain, calf tenderness, CP and SOB. No nausea and no vomiting. No dysuria. Objective Data Objective Data Vital Signs: Vital Signs Temp Pulse Resp BP Pulse Ox O2 Del Method 97.9 F 59 L 17 165/69 H 97 Room Air 05/07/24 07:38 05/07/24 07:38 05/07/24 07:38 05/07/24 07:38 05/07/24 07:38 05/07/24 09:34 Oxygen Delivery Method Room Air Weight: 113 lb 1.554 oz Body Mass Index (BMI) 23.6 Intake & Output: Intake and Output for Last 24 Hours 05/05/24 05/06/24 05/07/24 23:59 23:59 23:59 Intake Total 1700 / 1700 1900 / 1900 320 / 320 Output Total 1550 / 1550 1425 / 1425 450 / 450 Balance 150 / 150 475 / 475 -130 / -130 Lab / Micro Data 05/04/24 05:10 05/04/24 05:10 Physical Exam Const alert, oriented x3 and no apparent distress Constitutional Narrative: Pleasant and appropriate. General Appearance: cooperative HEENT Mouth: dry mucous membranes Resp Resp Narrative: Initially had coarse crackles in the bases but, she was clear after a few deep breaths. No conversational dyspnea. Effort and Inspection: Negative for tachypneic Cardio regular rate, regular rhythm, no murmurs, no rub and no gallops Cardio Narrative: No ectopy. GI normal to inspection, nondistended, normoactive bowel sounds, soft to palpation and non-tender GI Narrative: No guarding with palpation. Had 2 bowel movements yesterday but there is none recorded for today so far. Extremity no calf tenderness Extremity Narrative: RACHELL hose in place. 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 Continue therapy 2. Budesonide 9 mg daily today and tomorrow and then go back to 3 mg daily. Continue as needed Imodium. 3. Recheck orthostatics today. If she is not orthostatic will increase lisinopril to keep the blood pressure less than 130/80. 4. change the Lexapro to HS and decrease the dose to 5 mg. Charges/Coding Visit Charges Inpatient E&M: 96918 Subs Hosp L2
[2024-05-07 13:32] VITALS: BP 110/67; BP 127/61; BP 98/71; PULSE 54; PULSE 55
--- NOTE | 2024-05-07 14:30 | CASEMGMT ---
Team meeting held today with pt and pt's son present. PT/OT/ST/SN updated pt, son and team on pt progress with therapy and that pt is participating well and progressing with rehabilitation. SW updated pt that Medicare has approved 13 days of stay with an anticipated discharge date of 05/16. Pt and son expressing understanding. Pt lives at home with her son and plans to return home at time of discharge. Will continue with treatment plan at this time and ReTeam next week. LAUREN Stratton
[2024-05-07 15:24] VITALS: BMI 23.6
--- NOTE | 2024-05-07 16:22 | CHAPLAIN ---
Type of Pastoral Visit ___ Initial Visit ___ Follow-up Visit ___ On-call Visit ___ General Patient Visit ___ Spiritual Assessment ___ Family Conference ___ Bereavement ___ Rapid Response ___ Code Blue ___ Other (describe below) Pastoral Care Referral From ___ Patient ___ Family ___ Nurse ___ Physician ___ Forming Machine Operator ___ Rubber Attacher ___ Other (describe below) Sacrament/Intervention ___ Active listening ___ Anointing ___ Rastafarian ___ Bereavement ___ Communion ___ Maryam exploration ___ ___ Life review ___ Prayer ___ Reconciliation ___ Sacrament of Sick ___ Supportive presence ___ Wedding ___ Other (describe below) Pastoral Comments attempted a visit but patient was sleeping and did not awaken to her name
[2024-05-07 19:00] VITALS: BP 133/66; PULSE 57; RESP 16; TEMP 36.3
[2024-05-07] MEDS: Latanoprost 0.005% 1 Bottle 1 DRP OPHTHALMIC (20:08)
[2024-05-07] MEDS: traZODone 50 MG Tablet 150 MG PO (20:09)
[2024-05-07] MEDS: Escitalopram Oxalate 10 MG Tablet 5 MG PO (20:11)
[2024-05-07] MEDS: Atorvastatin Calcium 40 MG Tablet PO (20:12)
[2024-05-07] MEDS: Midodrine HCl 5 MG Tablet 2.5 MG PO (20:12)
[2024-05-07] MEDS: Senna/Docusate Sodium 1 Tablet PO (20:14)
[2024-05-07 21:21] VITALS: BP 134/66; PULSE 57; RESP 16; TEMP 36.3; O2SAT 96
[2024-05-07 21:24] VITALS: BMI 23.6
[2024-05-07 22:00] VITALS: PULSE 57; RESP 15; O2SAT 96
[2024-05-08 07:39] VITALS: BP 134/68; PULSE 58; RESP 16; TEMP 36.4; O2SAT 96
[2024-05-08] MEDS: Multivitamins,Therapeutic Tablet 1 TABLET PO (08:24)
[2024-05-08] MEDS: BRIMONIDINE 0.15% 5 ML Bottle 1 DRP OPHTHALMIC ×2 (08:24→20:21)
[2024-05-08] MEDS: Aspirin E.C. 81 MG Tablet PO (08:24)
[2024-05-08] MEDS: Budesonide 3 MG CAPSULE.EC PO (08:24)
[2024-05-08] MEDS: APIXABAN 2.5 MG TABLET (WCH) PO ×2 (08:25→20:20)
[2024-05-08] MEDS: Dorzolamide HCL/Timolol 10 ml Bottle 1 DRP EACH EYE ×2 (08:45→15:20)
[2024-05-08] MEDS: buPROPion (SR) 100 MG TABLET.SA 200 MG PO (08:46)
[2024-05-08] MEDS: Lisinopril 10 MG Tablet PO (08:47)
[2024-05-08] MEDS: Methenamine Hippurate 1 GM Tablet PO ×2 (08:47→20:20)
--- NOTE | 2024-05-08 11:23 | CASEMGMT ---
Social Work SW met with pt and completed pyschosocial assessment. Pt Verified that she is a DNRCCA and that her son Mehdi is a HCPOA. SW notified pt that documents are not on file at [facility]. SW updated pt that Medicare has approved 13 days with expected dc on 05/16. Pt plans to return home with her son at that time. SW will continue to follow for dc planning. LAUREN Stratton
[2024-05-08 15:07] VITALS: BMI 23.6
--- NOTE | 2024-05-08 15:46 | PCM.PROGNOTE ---
Subjective Subjective Afebrile VSS -blood pressures are getting better. The systolic is in the 1 30-1 35 range and the diastolic is always within goal. Orthostatic vital signs yesterday were negative. Maintaining appropriate oxygen saturation on RA Oral intake - FOOD highly variable. She ate 75 to 100% of her breakfast today and then ate 50 to 74% of her lunch which is better than yesterday. FLUIDS good incontinent of urine at times. Discussed with nursing - no problems that need addressed. She refused senna this morning but took 1 tablet last night. Reviewed the THERAPY notes Medication list reviewed. Barbie denies lightheadedness, cephalgia, chest pain, cough, shortness of breath, nausea/vomiting/abdominal pain, diarrhea, dysuria and calf pain. Her only complaint is she feels tired. The fogginess she was complaining of yesterday morning resolved with transitioning the Lexapro dose to at bedtime. Objective Data Objective Data Vital Signs: Vital Signs Temp Pulse Resp BP Pulse Ox O2 Del Method 97.6 F L 58 L 16 134/68 H 96 Room Air 05/08/24 07:39 05/08/24 07:39 05/08/24 07:39 05/08/24 07:39 05/08/24 07:39 05/08/24 07:39 Oxygen Delivery Method Room Air Weight: 113 lb 1.554 oz Body Mass Index (BMI) 23.6 Intake & Output: Intake and Output for Last 24 Hours 05/06/24 05/07/24 05/08/24 23:59 23:59 23:59 Intake Total 1900 / 1900 1220 / 1220 690 / 690 Output Total 1425 / 1425 950 / 950 350 / 350 Balance 475 / 475 270 / 270 340 / 340 Lab / Micro Data 05/04/24 05:10 05/04/24 05:10 Physical Exam Const alert and no apparent distress Constitutional Narrative: She is resting in bed. Speech is less halting than it was at admission General Appearance: cooperative HEENT moist oral mucous membranes Resp normal respiratory effort and clear to auscultation bilaterally Effort and Inspection: Negative for tachypneic or labored Cardio regular rate, regular rhythm, no murmurs and no gallops Cardio Narrative: No ectopy GI normal to inspection, nondistended, normoactive bowel sounds, soft to palpation and non-tender GI Narrative: No guarding with palpation. the last BM was on 05/06. 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 Continue therapy 2. No changes to the drug regimen today. Charges/Coding Visit Charges Inpatient E&M: 09741 Subs Hosp L1
[2024-05-08 19:54] VITALS: BMI 23.6
[2024-05-08] MEDS: Escitalopram Oxalate 10 MG Tablet 5 MG PO (20:20)
[2024-05-08] MEDS: Midodrine HCl 5 MG Tablet 2.5 MG PO (20:20)
[2024-05-08] MEDS: Atorvastatin Calcium 40 MG Tablet PO (20:20)
[2024-05-08] MEDS: traZODone 50 MG Tablet 150 MG PO (20:20)
[2024-05-08] MEDS: Latanoprost 0.005% 1 Bottle 1 DRP OPHTHALMIC (20:21)
[2024-05-08] MEDS: Senna/Docusate Sodium 1 Tablet PO (20:21)
[2024-05-08 21:05] VITALS: BP 136/63; PULSE 53; RESP 15; TEMP 36.4; O2SAT 93
[2024-05-08 22:00] VITALS: PULSE 53; RESP 15; O2SAT 93
[2024-05-09 06:00] VITALS: BMI 23.7
[2024-05-09 07:46] VITALS: BP 138/70; PULSE 54; RESP 16; TEMP 36.4; O2SAT 94
[2024-05-09] MEDS: BRIMONIDINE 0.15% 5 ML Bottle 1 DRP OPHTHALMIC ×2 (08:09→20:07)
[2024-05-09] MEDS: Methenamine Hippurate 1 GM Tablet PO ×2 (08:13→20:17)
[2024-05-09] MEDS: Dorzolamide HCL/Timolol 10 ml Bottle 1 DRP EACH EYE ×2 (08:13→15:45)
[2024-05-09] MEDS: APIXABAN 2.5 MG TABLET (WCH) PO ×2 (08:14→20:18)
[2024-05-09] MEDS: buPROPion (SR) 100 MG TABLET.SA 200 MG PO (08:14)
[2024-05-09] MEDS: Lisinopril 10 MG Tablet PO (08:14)
[2024-05-09] MEDS: Budesonide 3 MG CAPSULE.EC PO (08:14)
[2024-05-09] MEDS: Senna/Docusate Sodium 1 Tablet PO ×2 (08:14→20:19)
[2024-05-09] MEDS: Aspirin E.C. 81 MG Tablet PO (08:14)
[2024-05-09] MEDS: Multivitamins,Therapeutic Tablet 1 TABLET PO (08:15)
[2024-05-09 11:44] VITALS: BMI 23.7
[2024-05-09] MEDS: Acetaminophen 325 MG Tablet 650 MG PO (15:58)
--- NOTE | 2024-05-09 16:04 | CHAPLAIN ---
Type of Pastoral Visit ___ Initial Visit _x__ Follow-up Visit ___ On-call Visit ___ General Patient Visit ___ Spiritual Assessment ___ Family Conference ___ Bereavement ___ Rapid Response ___ Code Blue ___ Other (describe below) Pastoral Care Referral From _x__ Patient ___ Family ___ Nurse ___ Physician ___ Nanny Caregiver ___ Director Of Consumer Affairs ___ Other (describe below) Sacrament/Intervention ___ Active listening ___ Anointing ___ Adventist ___ Bereavement ___ Communion ___ Maryam exploration ___ ___ Life review ___ Prayer ___ Reconciliation ___ Sacrament of Sick _x__ Supportive presence ___ Wedding ___ Other (describe below) Pastoral Comments this patient was seen previously in PCU; pt is resting in bed in Rehab; called her name and initially did not respond; knowing pt is hard of hearing, this stock checkerer tried again and pt opened her eyes; pt is offered presence, support, and or a prayer; pt states that she is very tired; offer of letting her sleep and pt agrees that this is her desire
[2024-05-09 19:00] VITALS: BP 150/70; PULSE 54; RESP 15; TEMP 36.7; O2SAT 96
[2024-05-09] MEDS: traZODone 50 MG Tablet 150 MG PO (20:08)
[2024-05-09 20:10] VITALS: RESP 15; O2SAT 96; BMI 23.7
[2024-05-09] MEDS: Midodrine HCl 5 MG Tablet 2.5 MG PO (20:16)
[2024-05-09] MEDS: Atorvastatin Calcium 40 MG Tablet PO (20:16)
[2024-05-09] MEDS: Escitalopram Oxalate 10 MG Tablet 5 MG PO (20:19)
[2024-05-09] MEDS: Latanoprost 0.005% 1 Bottle 1 DRP OPHTHALMIC (20:25)
[2024-05-10 07:39] VITALS: BP 159/68; PULSE 63; RESP 17; TEMP 36; O2SAT 98
[2024-05-10] MEDS: BRIMONIDINE 0.15% 5 ML Bottle 1 DRP OPHTHALMIC ×2 (07:48→20:04)
[2024-05-10] MEDS: buPROPion (SR) 100 MG TABLET.SA 200 MG PO (07:50)
[2024-05-10] MEDS: Methenamine Hippurate 1 GM Tablet PO ×2 (07:50→19:59)
[2024-05-10] MEDS: Budesonide 3 MG CAPSULE.EC PO (07:50)
[2024-05-10] MEDS: Lisinopril 10 MG Tablet PO (07:50)
[2024-05-10] MEDS: Senna/Docusate Sodium 1 Tablet PO ×2 (07:50→19:58)
[2024-05-10] MEDS: Aspirin E.C. 81 MG Tablet PO (07:50)
[2024-05-10] MEDS: Multivitamins,Therapeutic Tablet 1 TABLET PO (07:50)
[2024-05-10] MEDS: APIXABAN 2.5 MG TABLET (WCH) PO ×2 (07:50→19:59)
[2024-05-10] MEDS: Dorzolamide HCL/Timolol 10 ml Bottle 1 DRP EACH EYE ×2 (07:52→15:56)
--- NOTE | 2024-05-10 09:18 | PCM.PROGNOTE ---
Subjective Subjective Afebrile VSS -blood pressures in the morning are high and this may be due to the fact that she gets Midodrine at for presumed low blood pressure that lead to a fall during the night in the past. Heart rate over the past 4 days has ranged from 53-63 but is most often in the 50s. Maintaining appropriate oxygen saturation on RA Oral intake - FOOD - appetite has improved and she is now taking 75 to 100% of most of her meals. FLUIDS fair Discussed with nursing - no problems that need addressed Reviewed the THERAPY notes Medication list reviewed. Slept well last night. Denies feeling foggy this morning. Eating well. Denies cephalgia, chest pain, palpitations, shortness of breath, cough, nausea/vomiting/abdominal pain, dysuria and calf tenderness. She had a bowel movement today and she denies feeling constipated or bloated. Objective Data Objective Data Vital Signs: Vital Signs Temp Pulse Resp BP Pulse Ox O2 Del Method 96.8 F L 63 17 159/68 H 98 Room Air 05/10/24 07:39 05/10/24 07:39 05/10/24 07:39 05/10/24 07:39 05/10/24 07:39 05/10/24 07:39 Oxygen Delivery Method Room Air Weight: 113 lb 1.554 oz Body Mass Index (BMI) 23.7 Intake & Output: Intake and Output for Last 24 Hours 05/08/24 05/09/24 05/10/24 23:59 23:59 23:59 Intake Total 1820 / 1820 1080 / 1080 240 / 240 Output Total 900 / 900 880 / 880 200 / 200 Balance 920 / 920 200 / 200 40 / 40 Lab / Micro Data 05/04/24 05:10 05/04/24 05:10 Physical Exam Const alert and no apparent distress Constitutional Narrative: She is resting in bed. Speech is less halting than it was at admission General Appearance: cooperative HEENT moist oral mucous membranes Resp normal respiratory effort and clear to auscultation bilaterally Effort and Inspection: Negative for tachypneic or labored Cardio regular rate, regular rhythm, no murmurs and no gallops Cardio Narrative: No ectopy GI normal to inspection, nondistended, normoactive bowel sounds, soft to palpation and non-tender Extremity no calf tenderness General Extremity: Negative for edema Skin Rashes: no rashes Assessment & Plan Assessment/Plan (1) Debility: (2) Ischemic cerebrovascular accident (CVA): (3) 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 Continue therapy 2. Check orthostatic vital signs-denies lightheadedness today. Charges/Coding Visit Charges Inpatient E&M: 14263 Subs Hosp L1
[2024-05-10 09:57] VITALS: BP 104/61; BP 127/59; BP 128/62; PULSE 50; PULSE 52; PULSE 57
[2024-05-10] MEDS: Meclizine 12.5 MG Tablet PO (11:17)
[2024-05-10 13:40] VITALS: BMI 23.7
[2024-05-10] MEDS: Latanoprost 0.005% 1 Bottle 1 DRP OPHTHALMIC (19:54)
[2024-05-10] MEDS: Atorvastatin Calcium 40 MG Tablet PO (19:58)
[2024-05-10] MEDS: traZODone 50 MG Tablet 150 MG PO (19:59)
[2024-05-10] MEDS: Escitalopram Oxalate 10 MG Tablet 5 MG PO (20:00)
[2024-05-10 20:10] VITALS: BP 110/64; BP 115/73; BP 123/79; PULSE 69; PULSE 71; PULSE 76
[2024-05-10 20:11] VITALS: BP 123/79; PULSE 71; RESP 16; TEMP 36.4; O2SAT 94
[2024-05-11 05:48] VITALS: BP 112/59; BP 127/71; BP 97/58; PULSE 60; PULSE 61; PULSE 62
[2024-05-11 07:23] VITALS: BP 127/71; PULSE 60; RESP 18; TEMP 36.6; O2SAT 97
[2024-05-11] MEDS: buPROPion (SR) 100 MG TABLET.SA 200 MG PO (08:54)
[2024-05-11] MEDS: Lisinopril 10 MG Tablet PO (08:54)
[2024-05-11] MEDS: Senna/Docusate Sodium 1 Tablet PO (08:54)
[2024-05-11] MEDS: Methenamine Hippurate 1 GM Tablet PO ×2 (08:54→20:42)
[2024-05-11] MEDS: BRIMONIDINE 0.15% 5 ML Bottle 1 DRP OPHTHALMIC ×2 (08:54→20:41)
[2024-05-11] MEDS: APIXABAN 2.5 MG TABLET (WCH) PO ×2 (08:55→20:41)
[2024-05-11] MEDS: Multivitamins,Therapeutic Tablet 1 TABLET PO (08:55)
[2024-05-11] MEDS: Budesonide 3 MG CAPSULE.EC PO (08:55)
[2024-05-11] MEDS: Aspirin E.C. 81 MG Tablet PO (08:55)
[2024-05-11] MEDS: Dorzolamide HCL/Timolol 10 ml Bottle 1 DRP EACH EYE ×2 (09:11→15:35)
--- NOTE | 2024-05-11 14:00 | PCM.PROGNOTE ---
Subjective Subjective Blood pressure lying down today was 127/71 with a heart rate of 60. Sitting up the blood pressure dropped to 112/59 with a heart rate of 62. Standing the blood pressure was 97/58 with a heart rate of 61 and thus the test is + for orthostatic hypotension. Midodrine was held at HS last night. Orthostatic vital signs last evening and at bedtime were negative for orthostatic hypotension. Eating well. Good fluid intake. Sleeping well at night. No complaints today. Therapy notes were personally reviewed. The medication list was also reviewed. Trazodone can cause bradycardia. Brimonidine can cause bradycardia but this occurs in less than 1% of patients. I suspect that she has some sinoatrial node dysfunction. TSH is normal. I reviewed the EKG done at admission to the hospital and she had sinus bradycardia at that time. Trazodone was decreased from 200 mg at HS to 150 mg at admission to rehab. Denies lightheadedness, cephalgia, cough, shortness of breath, nausea/vomiting, dysuria and calf pain. Objective Data Objective Data Vital Signs: Vital Signs Temp Pulse Resp BP Pulse Ox O2 Del Method 98 F 60 18 127/71 H 97 Room Air 05/11/24 07:23 05/11/24 07:23 05/11/24 07:23 05/11/24 07:23 05/11/24 07:23 05/11/24 07:23 Oxygen Delivery Method Room Air Weight: 113 lb 1.554 oz Body Mass Index (BMI) 23.7 Intake & Output: Intake and Output for Last 24 Hours 05/09/24 05/10/24 05/11/24 23:59 23:59 23:59 Intake Total 1080 / 1080 1140 / 1290 1550 / 1550 Output Total 880 / 880 600 / 600 Balance 200 / 200 540 / 690 1550 / 1550 Lab / Micro Data 05/04/24 05:10 05/04/24 05:10 Physical Exam Const alert and no apparent distress Resp normal respiratory effort, normal air movement and clear to auscultation bilaterally Cardio regular rhythm Cardio Narrative: Bradycardic at times. The heart rate is in the 50s at times and I suspect this contributes to the drop in blood pressure when she stands. 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 PLAN: Plan 1. Continue therapy 2. Continue to hold midodrine at at bedtime. 3. No changes to the drug regimen today. 4. Consider a 14-day event monitor at discharge to see if her heart rate drops even lower than the 50s. TSH and cortisol are normal. 5. Check an overnight trending pulse ox. 6. Recheck BMP on Tuesday 7. If her HR drops after Trazodone at night will discuss with Christopher further decreasing the Trazodone dose to see if the HR improves. Charges/Coding Visit Charges Inpatient E&M: 10333 Subs Hosp L1
[2024-05-11 14:33] VITALS: BMI 23.7
[2024-05-11 20:00] VITALS: BP 137/73; PULSE 59; RESP 20; TEMP 36.6; O2SAT 97
[2024-05-11] MEDS: Latanoprost 0.005% 1 Bottle 1 DRP OPHTHALMIC (20:40)
[2024-05-11] MEDS: traZODone 50 MG Tablet 150 MG PO (20:41)
[2024-05-11] MEDS: Acetaminophen 325 MG Tablet 650 MG PO (20:42)
[2024-05-11] MEDS: Escitalopram Oxalate 10 MG Tablet 5 MG PO (20:42)
[2024-05-11] MEDS: Atorvastatin Calcium 40 MG Tablet PO (20:42)
[2024-05-11] MEDS: Loperamide 2 MG Capsule PO (20:43)
[2024-05-11 21:53] VITALS: PULSE 54; O2SAT 97
[2024-05-12 00:24] VITALS: BMI 23.7
[2024-05-12] MEDS: Aspirin E.C. 81 MG Tablet PO (07:33)
[2024-05-12] MEDS: APIXABAN 2.5 MG TABLET (WCH) PO ×2 (07:33→20:06)
[2024-05-12] MEDS: Budesonide 3 MG CAPSULE.EC PO (07:33)
[2024-05-12] MEDS: Multivitamins,Therapeutic Tablet 1 TABLET PO (07:33)
[2024-05-12] MEDS: Methenamine Hippurate 1 GM Tablet PO ×2 (07:34→20:07)
[2024-05-12] MEDS: buPROPion (SR) 100 MG TABLET.SA 200 MG PO (07:34)
[2024-05-12] MEDS: Lisinopril 10 MG Tablet PO (07:36)
[2024-05-12] MEDS: BRIMONIDINE 0.15% 5 ML Bottle 1 DRP OPHTHALMIC ×2 (07:41→20:06)
[2024-05-12 08:00] VITALS: BP 134/67; PULSE 58; RESP 17; TEMP 36.2; O2SAT 97
[2024-05-12] MEDS: Dorzolamide HCL/Timolol 10 ml Bottle 1 DRP EACH EYE ×2 (09:08→16:54)
[2024-05-12 09:36] VITALS: BMI 23.7
[2024-05-12 19:34] VITALS: BP 132/72; PULSE 54; RESP 16; TEMP 36.6; O2SAT 96
[2024-05-12 19:37] VITALS: BMI 23.7
[2024-05-12] MEDS: traZODone 50 MG Tablet 150 MG PO (20:06)
[2024-05-12] MEDS: Atorvastatin Calcium 40 MG Tablet PO (20:08)
[2024-05-12] MEDS: Escitalopram Oxalate 10 MG Tablet 5 MG PO (20:08)
[2024-05-12] MEDS: Latanoprost 0.005% 1 Bottle 1 DRP OPHTHALMIC (20:09)
[2024-05-12 20:23] VITALS: PULSE 54; RESP 15; O2SAT 96
[2024-05-13] MEDS: BRIMONIDINE 0.15% 5 ML Bottle 1 DRP OPHTHALMIC ×2 (07:47→20:06)
[2024-05-13] MEDS: buPROPion (SR) 100 MG TABLET.SA 200 MG PO (07:48)
[2024-05-13] MEDS: Aspirin E.C. 81 MG Tablet PO (07:48)
[2024-05-13] MEDS: Multivitamins,Therapeutic Tablet 1 TABLET PO (07:49)
[2024-05-13] MEDS: Budesonide 3 MG CAPSULE.EC PO (07:49)
[2024-05-13] MEDS: Methenamine Hippurate 1 GM Tablet PO ×2 (07:49→20:33)
[2024-05-13] MEDS: Lisinopril 10 MG Tablet PO (07:49)
[2024-05-13] MEDS: APIXABAN 2.5 MG TABLET (WCH) PO ×2 (07:50→20:33)
[2024-05-13] MEDS: Dorzolamide HCL/Timolol 10 ml Bottle 1 DRP EACH EYE ×2 (07:54→16:59)
[2024-05-13 08:00] VITALS: BP 126/57; PULSE 55; RESP 15; TEMP 36.4; O2SAT 96
[2024-05-13 11:08] VITALS: BMI 23.7
[2024-05-13 19:45] VITALS: BP 126/68; PULSE 52; RESP 15; TEMP 36.4; O2SAT 98
[2024-05-13] MEDS: traZODone 50 MG Tablet 150 MG PO (20:06)
[2024-05-13] MEDS: Escitalopram Oxalate 10 MG Tablet 5 MG PO (20:33)
[2024-05-13] MEDS: Senna/Docusate Sodium 1 Tablet PO (20:34)
[2024-05-13] MEDS: Latanoprost 0.005% 1 Bottle 1 DRP OPHTHALMIC (20:34)
[2024-05-13] MEDS: Atorvastatin Calcium 40 MG Tablet PO (20:34)
[2024-05-13 21:12] VITALS: BMI 23.7
[2024-05-13 21:36] VITALS: PULSE 55; RESP 15; O2SAT 96
[2024-05-14 06:43] LABS: Anion Gap 7 (5-15); BUN 28 mg/dL (7-18); BUN/Creat Ratio 33.6 RATIO (10-20); Calcium,Total 8.9 mg/dL (8.5-10.1); Chloride 111 mmol/L (98-107); Creatinine, Serum 0.83 mg/dL (0.55-1.02); EST Glomerular Filtration Rate 69 mL/min (>60); Est Glom Filt Rate - Afr Amer 84 mL/min (>60); Estimated Creatinine Clearance 36.24 ml/min; Glucose 94 mg/dL (74-106); Potassium 3.8 mmol/L (3.5-5.1); Sodium Level 138 mmol/L (136-145)
[2024-05-14 07:17] VITALS: BP 129/62; PULSE 51; RESP 16; TEMP 36.3; O2SAT 95
[2024-05-14] MEDS: BRIMONIDINE 0.15% 5 ML Bottle 1 DRP OPHTHALMIC ×2 (07:29→20:52)
[2024-05-14] MEDS: Senna/Docusate Sodium 1 Tablet PO ×2 (07:39→20:58)
[2024-05-14] MEDS: APIXABAN 2.5 MG TABLET (WCH) PO ×2 (07:39→20:58)
[2024-05-14] MEDS: Dorzolamide HCL/Timolol 10 ml Bottle 1 DRP EACH EYE ×2 (07:39→16:54)
[2024-05-14] MEDS: buPROPion (SR) 100 MG TABLET.SA 200 MG PO (07:39)
[2024-05-14] MEDS: Multivitamins,Therapeutic Tablet 1 TABLET PO (07:40)
[2024-05-14] MEDS: Budesonide 3 MG CAPSULE.EC PO (07:40)
[2024-05-14] MEDS: Aspirin E.C. 81 MG Tablet PO (07:40)
[2024-05-14] MEDS: Lisinopril 10 MG Tablet PO (07:40)
[2024-05-14] MEDS: Methenamine Hippurate 1 GM Tablet PO ×2 (07:40→20:57)
--- NOTE | 2024-05-14 10:24 | CASEMGMT ---
Addendum entered by Priti Moses 05/14/24 12:16: YVON met with patient and son at bedside to review patient choice for home health care provider. Patient's son informed YVON that he would like home health care to be arranged with [facility] for continued PT/OT services in the home. SW inquired about any additional services for home health care I.E nursing or rn home care. Patient's son informed YVON that he would like to discuss with care team. SW notified Physician, Dr. Deal SW submitted referral to [facility] [employer], [place]. SW will continue to monitor to arrange home health care services Original Note: Social Work SW met with patient at bedside to introduce self and role. Patient anticipates discharge on 05/16/2024. SW inquired about discharge plans. Patient anticipates discharge home with son. SW inquired about home health care with PT/OT. Patient informed YVON that she would like home health care for PT/OT, if recommended. SW will provide patient with a list of home health care agencies with preference of geographic area, medical need, and within insurance network via [employer] Guidelines. Patient has care plan meeting scheduled today, 05/14/2024 with care team. FLAVIA Maddox
--- NOTE | 2024-05-14 10:51 | PCM.PROGNOTE ---
Subjective Subjective Barbie was seen on TEAM rounds today. Her son, Mehdi, was present in the room for rounds. Afebrile VSS -blood pressure is mostly at goal. Occasional systolic ranging from 130-135. Hr has been in the 50's. Maintaining appropriate oxygen saturation on RA Oral intake - FOOD good FLUIDS good Discussed with nursing - no problems that need addressed. Nursing reports she is sleeping okay at night but, has an occasional night terror. She is incontinent of urine at times. Reviewed the THERAPY notes Medication list reviewed. The BUN is 28 and the creatinine is stable at 0.83. BMP drawn this morning shows a sodium of 138 and a potassium of 3.8. Serum bicarb is low at 20? HR drops into the 40's 6.16% of the time she was monitored at night. 88.8% of the time the HR was between 50-59. She did not desaturate. Barbie denies lightheadedness, cephalgia, chest pain, shortness of breath, cough, nausea/vomiting/abdominal pain/diarrhea, dysuria and calf tenderness. Her last bowel movement was 05/11/2024 and she seems to move her bowels every 3 to 4 days. She was not taking the senna since the evening on 05/11/2024 but she had 1 tablet yesterday at bedtime and she took 1 tablet today. Objective Data Objective Data Vital Signs: Vital Signs Temp Pulse Resp BP Pulse Ox O2 Del Method O2 Flow Rate 97.4 F L 51 L 16 129/62 H 95 Room Air 0 05/14/24 07:17 05/14/24 07:17 05/14/24 07:17 05/14/24 07:17 05/14/24 07:17 05/14/24 07:17 05/11/24 21:53 FiO2 21 05/11/24 21:53 Oxygen Flow Rate (L/min) 0 Oxygen Delivery Method Room Air Weight: 113 lb 1.554 oz Body Mass Index (BMI) 23.7 Intake & Output: Intake and Output for Last 24 Hours 05/12/24 05/13/24 05/14/24 23:59 23:59 23:59 Intake Total 1465 / 1465 1260 / 1260 190 / 190 Output Total 1525 / 1525 950 / 950 350 / 350 Balance -60 / -60 310 / 310 -160 / -160 Lab / Micro Data 05/04/24 05:10 05/14/24 05:58 Labs: Laboratory Results - last 24 hr 05/14/24 05:58: Sodium 138, Potassium 3.8, Chloride 111 H, Carbon Dioxide 20.0 L, Anion Gap 7, BUN 28 H, Creatinine 0.83, Estim Creat Clear Calc 36.24, Est GFR (MDRD) Af Amer 84, Est GFR (MDRD) Non-Af 69, BUN/Creatinine Ratio 33.6 H, Glucose 94, Calcium 8.9 Physical Exam Const alert and no apparent distress Constitutional Narrative: Lying in bed. She seems to spend a lot of time in bed when she is not doing therapy. She is cooperative with therapy. 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 Continue therapy 2. Discussed with Mehdi and Barbie decreasing the dose of trazodone to 100 mg to see if the heart rate improves and Barbie is willing to try decreasing the dose to 100 mg. I suspect she has sinoatrial node disease. Since Midodrine can cause bradycardia as well as Trazodone and Brimonidine I am going to continue holding the Midodrine at Bedtime. 3. Recheck a BMP tomorrow. 4. Plan DC home on Tuesday with OP therapy at [facility] in [place]. 5. I would like to try discontinuing Lexapro but, Barbie and her son are very resistant to any changes in the medications. Would also like to try treating the HTN with Norvasc to see if the HR improves. She is currently on 3 antidepressants including Wellbutrin, Trazodone and Lexapro. She is having nightmares at night that wake her up. she wants to take the Lexapro at HS because she thinks it makes her sleepy...........but, Lexapro can cause abnormal dreams. Lexapro can also cause bradycardia. Charges/Coding Visit Charges Inpatient E&M: 06393 Subs Hosp L2
--- NOTE | 2024-05-14 12:38 | CASEMGMT ---
Social Work- IDT Meeting IDT met with patient and son at bedside to complete care planning. Discussed patient progress with therapy PT/OT/ST and nursing support. Patient is progressing with Speech Therapy. Speech Therapy is recommending outpatient therapy. Patient is progressing with therapy; stand by assist, contact guard for ambulation. Patient practiced with front wheeled walker and rollator. Patient prefers rollator. Patient is recommended for outpatient therapy for PT/OT. SW inquired about home health v. outpatient therapy. Patient and son discussed outpatient therapy services. Patient son would like referral sent to [facility] for outpatient therapy. Son inquired about in home nursing care. Physician and care team informed son that care home is not required at this time. Physician discussed concerns for potential bradycardia. Physician will be adjusting medications. An event monitor will be ordered to monitor heart rate post discharge. SW will submit referral to [facility] Discharge: Outpatient therapy PT/OT/ST services FLAVIA Maddox
--- NOTE | 2024-05-14 13:47 | CASEMGMT ---
Social Work SW contacted [facility] ([phone]) and spoke with Yuliya who provided fax information for YVON to assist with arranging outpatient therapy via [facility]. YVON was informed to fax referral to [facility] ; Physician referral line can be contacted to confirm receipt of outpatient therapy order. YVON received signed order for outpatient PT/OT/ST from Dr. Deal. YVON attempted to contact sonChristian via phone to provide follow up; no answer. YVON will continue to monitor to provide support for discharge planning. YVON faxed referral for outpatient therapy PT/OT/ST to [facility]. FLAVIA Maddox
[2024-05-14 14:00] VITALS: BP 109/54; BP 109/59; BP 112/60; PULSE 51; PULSE 53; PULSE 56
[2024-05-14 17:00] VITALS: BMI 23.7
[2024-05-14 20:21] VITALS: BP 148/72; PULSE 57; RESP 17; TEMP 36.1; O2SAT 95
[2024-05-14] MEDS: Escitalopram Oxalate 10 MG Tablet 5 MG PO (20:56)
[2024-05-14] MEDS: Atorvastatin Calcium 40 MG Tablet PO (20:57)
[2024-05-14] MEDS: traZODone 100 MG Tablet PO (20:58)
[2024-05-14] MEDS: Latanoprost 0.005% 1 Bottle 1 DRP OPHTHALMIC (21:00)
[2024-05-14 22:14] VITALS: BMI 23.7
[2024-05-15 07:36] VITALS: BP 149/70; PULSE 57; RESP 16; TEMP 36.2; O2SAT 98
[2024-05-15] MEDS: BRIMONIDINE 0.15% 5 ML Bottle 1 DRP OPHTHALMIC ×2 (07:43→20:10)
[2024-05-15] MEDS: Methenamine Hippurate 1 GM Tablet PO ×2 (07:47→20:07)
[2024-05-15] MEDS: Dorzolamide HCL/Timolol 10 ml Bottle 1 DRP EACH EYE ×2 (07:47→16:41)
[2024-05-15] MEDS: Budesonide 3 MG CAPSULE.EC PO (07:48)
[2024-05-15] MEDS: Aspirin E.C. 81 MG Tablet PO (07:48)
[2024-05-15] MEDS: buPROPion (SR) 100 MG TABLET.SA 200 MG PO (07:48)
[2024-05-15] MEDS: APIXABAN 2.5 MG TABLET (WCH) PO ×2 (07:48→20:07)
[2024-05-15] MEDS: Lisinopril 10 MG Tablet PO (07:48)
[2024-05-15] MEDS: Multivitamins,Therapeutic Tablet 1 TABLET PO (07:50)
--- NOTE | 2024-05-15 08:30 | PCM.PROGNOTE ---
Subjective Subjective Afebrile Vital signs stable Maintaining appropriate oxygen saturation on room air Poor fluid intake but food intake has improved..... And was poor over the weekend. Therapy notes were reviewed. Barbie tells me that she did not sleep well last night but, nursing states she was sleeping every time they rounded on her. She had a BM at around midnight and another this morning at 0500. She is incontinent of urine. She denies lightheadedness and also denies CP, SOB, palpitations, N/V/heartburn/abd pain, dysuria and calf tenderness. Barbie was sleeping when I entered her room at about 8:30 AM. She naps frequently during the day. Objective Data Objective Data Vital Signs: Vital Signs Temp Pulse Resp BP Pulse Ox O2 Del Method O2 Flow Rate 97.1 F L 57 L 16 149/70 H 98 Room Air 0 05/15/24 07:36 05/15/24 07:36 05/15/24 07:36 05/15/24 07:36 05/15/24 07:36 05/15/24 07:36 05/11/24 21:53 FiO2 21 05/11/24 21:53 Oxygen Flow Rate (L/min) 0 Oxygen Delivery Method Room Air Weight: 113 lb 1.554 oz Body Mass Index (BMI) 23.7 Intake & Output: Intake and Output for Last 24 Hours 05/13/24 05/14/24 05/15/24 23:59 23:59 23:59 Intake Total 1260 / 1260 770 / 770 100 / 100 Output Total 950 / 950 850 / 850 100 / 100 Balance 310 / 310 -80 / -80 0 / 0 Lab / Micro Data 05/04/24 05:10 05/14/24 05:58 Physical Exam Const Constitutional Narrative: aroused easily from sleep and was appropriate General Appearance: cooperative HEENT Mouth: dry mucous membranes Resp normal respiratory effort and clear to auscultation bilaterally Effort and Inspection: Negative for tachypneic Cardio regular rhythm and no gallops Rate: bradycardia GI normal to inspection, nondistended, normoactive bowel sounds and soft to palpation GI Narrative: No guarding with palpation Extremity no calf tenderness General Extremity: Negative for edema Skin General Skin Exam: no breakdown Rashes: no rashes Wounds: Negative for wounds noted Psych cooperative Psych Narrative: pleasant Appearance: appropriate Assessment & Plan Assessment/Plan (1) Debility: (2) Ischemic cerebrovascular accident (CVA): (3) 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 Plan DC home tomorrow with OP ST/PT/OT 2. pt not happy with the decrease in the Trazodone dose last night........tells me she did not sleep well but, nursing says she was asleep every time they made rounds. Will DC on Trazodone 150 mg 3. will follow up with [facility] cardiology for bradycardia 4. Encouraged her again to increase fluid intake. Charges/Coding Visit Charges Inpatient E&M: 79721 Subs Hosp L1
--- NOTE | 2024-05-15 09:20 | PCM.DC ---
Discharge Instructions Diet Discharge Diet: Low fat / Low cholesterol Activity Discharge Activity: May Not Drive, May Shower and Use Walker Weight Bearing Status: Full weight bearing Dressing / Incision Call your doctor if you observe: Fever of 101 or Higher, Inability to urinate, Shortness of breath, Dizziness, Fainting spells, Swelling in the ankles, Chest pain, Increased palpitations (irregular heartbeat), Calf discomfort and Uncontrolled pain Follow Up Care Please Follow Up With: Castro Kidd MD When: you will also need to follow up with cardiology Test Results: Test results from this visit will be discussed in further detail at your follow-up appointment, if applicable. Pending Tests Upon Discharge: none Discharge Plan Admission Admit Date/Time: 05/03/24 13:45 Primary Reason for Your Visit: POST STROKE DEBILITY Attending Provider: Alena Deal Primary Care Provider: Castro Kidd Instructions Additional Instructions / Restrictions: 1. Your heart rate is slow and it does not increase with exertion like it should. This can contribute to a drop in BP when you go from lying to sitting and sitting to standing. The midodrine, Lexapro and Trazodone that you take at bedtime can all potentially cause the heart rate to slow down. We monitored your heart rate while you were sleeping at night and it was in the 40's 6 % of the time you were sleeping. This would put you at risk for falls should you get up in the middle of the night to use the restroom. We are sending you home with a heart monitor called an event monitor. This will monitor the heart rate and rhythm continuously for 14 days. the pin drafting machine tender will review the results when available and then you will follow up with the pin drafting machine tender at the [facility] to discuss the results. 2. You are actually taking 3 different antidepressants and they include Trazodone, Wellbutrin and Lexapro. Your doctor may want to consider a trail of discontinuing Lexapro to see how you do. I decreased the Trazodone from 200 mg to 150 mg and you continued to sleep well at night but, when we decreased the dose to 100 mg you told me you did not sleep well. I am discharging you on 150 mg at bedtime. 3. You have done well in therapy but, you still have more work to do with therapy. You will be getting outpatient therapy at [facility] for ongoing speech therapy, Occupational Therapy and physical therapy. 4. Atorvastatin was changed from 20 mg at bedtime to 40 mg at bedtime. 40 mg is considered a high intensity statin and so is 80 mg. In patients with stroke only the high intensity statins have been shown to prevent strokes. This is why the dose is increased. 5. If you or Mehdi have any questions after you leave rehab please do not hesitate to call me. OFFICE: [phone] CELL: [phone] Discharge Orders/Prescriptions Prescriptions: New atorvastatin 40 mg Tablet 40 mg PO QHS Qty: 30 0RF escitalopram oxalate 10 mg Tablet 5 mg PO HS Qty: 15 0RF Rx Instructions: 1/2 tab at bedtime Eliquis 5 mg Tablet 2.5 mg PO BID Qty: 15 0RF Rx Instructions: 1/2 tab twice daily atorvastatin 40 mg tablet 40 mg PO QHS Qty: 30 0RF escitalopram oxalate 5 mg tablet 5 mg PO DAILY Qty: 30 0RF midodrine 2.5 mg tablet 2.5 mg PO QHS Qty: 30 0RF trazodone 150 mg tablet 150 mg PO QHS Qty: 30 0RF Continued bupropion HCl 200 MG tablet sustained-release 12 hr 200 mg PO DAILY loperamide [Imodium A-D] 2 MG tablet 2 mg PO QHS PRN (Reason: loose stools) Patient Comments: diarrhea aspirin 81 MG tablet,delayed release (DR/EC) 1 tab PO DAILY nitroglycerin 0.4 MG tablet, sublingual 0.4 mg SL Q5M PRN (Reason: CHEST PAIN) budesonide 3 mg Capsule,Delayed,Extend.Release 3 mg PO DAILY methenamine hippurate 1 gram tablet 1 g PO BID hydroquinone 4 % cream 1 applic TOPICAL TID PRN PRN (Reason: skin) Patient Comments: APPLY TO AFFECTED AREA 3 TIMES A DAY multivitamin [Daily Multi-Vitamin] Tablet 1 tab PO DAILY acetaminophen 325 mg Tablet 650 mg PO Q6H PRN PRN (Reason: Pain 1-10 Or Fever>100.7) Qty: 0 0RF dorzolamide-timolol 22.3-6.8 mg/mL Drops 1 drp EACH EYE BID Qty: 10 0RF Rx Instructions: to be given at 0800 and 1600, AM dose to be given 10 minutes AFTER brimonidine brimonidine 1 DROP bottle 1 drp ophthalmic (eye) BID Qty: 5 0RF Rx Instructions: give at 0800 and 2000 Lumigan 0.01 % drops 1 drp ophthalmic (eye) DAILY Qty: 2.5 0RF Rx Instructions: to be given at night at least 10 minutes after brominidine and timolol gtts. meclizine 25 MG tablet 12.5 mg PO TID PRN PRN (Reason: Dizziness) Discontinued escitalopram oxalate 10 MG tablet 10 mg PO DAILY atorvastatin 20 mg tablet 20 mg PO QHS midodrine 5 mg tablet 5 mg PO QHS trazodone 150 mg tablet 200 mg PO DAILY Other Ambulatory Orders: 30 Day Event Recorder [employer]i (Urgent) Timeframe: 3 Days Location: Determined by Patient Ordered By: Dr. Alena Deal Referrals / Follow Up: Shawn Emery [Other] - 07/25/24 10:00 am (Cardiology) Castro Kidd MD [Primary Care Provider] - 05/23/24 11:00 am Disposition Disposition (needs filled in before D/C Order can be placed): Home, Self Care
--- NOTE | 2024-05-15 10:20 | CASEMGMT ---
Addendum entered by Priti Moses 05/15/24 15:25: SW received confirmation of [facility] Appointment: Occupational Therapy 05/22/2024 at 1330, Speech Therapy 05/22/2024 at 1430, and Physical Therapy 05/23/2024 at 0900. SW provided patient with scheduled appointments and updated discharge information Addendum entered by Priti Moses 05/15/24 12:52: SW received a call from patient's son, Mehdi informing SW that he spoke with his mother about outpatient therapy. Mehdi informed SW that he is unable to obtain an appointment for ST via [facility] and the earliest they could schedule an appointment is 06/06. SW informed Mehdi that [facility] can assist with providing PT/OT/ST services. Mehdi requested that SW arrange appointment via [facility]. Mehdi inquired about [facility] recommendation for outpatient follow up. SW to discuss with Physician. SW inquired about transportation to outpatient therapy. Mehdi informed SW that he will be able to provide transportation to outpatient therapy pending schedule. SW informed Mehdi that transportation can be provided via shuttle from [facility]. Mehdi requested that SW add shuttle service request. Mehdi informed SW that he will schedule transportation as needed. SW to submit referral to [facility] for outpatient PT/OT/ST. Addendum entered by Priti Moses 05/15/24 11:26: SW met with patient at bedside to notify of Medicare Rights. Patient was informed of her Medicare Right to appeal discharge via [employer] [phone]. Patient informed SW that she does not intend to appeal discharge. Patient is agreeable to discharge. Patient provided signature for [facility]. SW left a copy of IMM at bedside. Speech Therapist was present during conversation. ST informed SW that [facility] does not have speech therapy. ST recommended [facility] OP to patient. Patient informed SW that she will need to discuss Mover with her son, Christian. Patient expressed concerns for transportation to outpatient therapy. SW informed patient that [facility] has shuttle services, but will need to follow up, if transportation can be arranged from [place] to [facility], should patient decide to go to [facility]. SW will continue to follow to arrange care. Original Note: Social Work SW contacted [facility] to confirm receipt of referral for outpatient therapy. YVON spoke with Sofia who confirmed receipt of referral. Sofia informed SW that the patient or son should contact [facility] to arrange outpatient therapy appointment. [facility] direct contact information is [phone]. SW provided information to sonChristian via phone. FLAVIA Maddox
[2024-05-15] MEDS: Loperamide 2 MG Capsule PO ×2 (11:36→13:39)
--- NOTE | 2024-05-15 11:53 | DS.PCM_ITS ---
Providers Date of Admission: 05/03/24 Date of Discharge: 05/16/24 Primary Care Physician: Dr. Castro Kidd MD none Reason For Visit: STROKE Diagnosis Discharge Diagnosis (1) Debility: Status: Acute Code(s): R53.81 - Other malaise Plan: Due to ischemic CVA. 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: Status: Acute Code(s): I63.9 - Cerebral infarction, unspecified; R41.89 - Other symptoms and signs involving cognitive functions and awareness (5) Ataxia due to cerebrovascular disease: Status: Acute Code(s): I67.9 - Cerebrovascular disease, unspecified; R27.0 - Ataxia, unspecified (6) Paroxysmal atrial fibrillation: Status: Chronic Code(s): I48.0 - Paroxysmal atrial fibrillation (7) Chronic anticoagulation: Status: Chronic Code(s): Z79.01 - intermission coordinator (current) use of anticoagulants (8) Orthostatic hypotension: Status: Chronic Code(s): I95.1 - Orthostatic hypotension Plan: Taking Midodrine only at night. I suspect the orthostatic changes are due to chronic poor oral intake and bradycardia. Midodrine can cause bradycardia. She actually takes several medications that can cause bradycardia and these include Lexapro, Trazodone, Brimonidine eye drops and dorzolamide-Timolol eye drops. TSH is normal and the AM cortisol is reynaldo. Will defer changing the medications that cause bradycardia to PCP, Pt and family are hesitant to make changes. (9) Collagenous colitis: Status: Chronic Code(s): K52.831 - Collagenous colitis Plan: Continue Budesonide. (10) Bradycardia: Status: Acute Code(s): R00.1 - Bradycardia, unspecified Plan: Suspect drug induced but, can not r/o/ SA ying dysfunction. !4 day event monitor ordered at [place] and she will follow up with [facility] cardiology. Plan 1. DC home with OP PT/OT/ST. Medications at Discharge Home Medications bupropion HCl 200 mg tablet,12 hr sustained-release 200 mg PO DAILY mental health 09/11/16 loperamide 2 mg tablet (Imodium A-D) 2 mg PO QHS PRN loose stools 09/11/16 aspirin 81 mg tablet,delayed release 1 tab PO DAILY heart health 08/11/17 nitroglycerin 0.4 mg sublingual tablet 0.4 mg SL Q5M PRN CHEST PAIN 06/11/20 budesonide 3 mg capsule,delayed,extended release 3 mg PO DAILY breathing 05/09/21 hydroquinone 4 % topical cream 1 applic topical TID PRN PRN skin 06/14/23 methenamine hippurate 1 gram tablet 1 g PO BID bladder 06/14/23 multivitamin (Daily Multi-Vitamin tablet) 1 tab PO DAILY supp 05/01/24 acetaminophen 325 mg tablet 650 mg (2 x 325 mg) PO Q6H PRN PRN Pain 1-10 Or Fever>100.7 #0 tabs 05/03/24 bimatoprost 0.01 % eye drops (Lumigan) 1 drp ophthalmic (eye) DAILY eye #2.5 mL 05/03/24 brimonidine 0.15 % eye drops 1 drp ophthalmic (eye) BID eye #5 mL 05/03/24 dorzolamide 22.3 mg-timolol 6.8 mg/mL eye drops 1 drp EACH EYE BID eye #10 mL 05/03/24 meclizine 25 mg tablet 12.5 mg PO TID PRN PRN Dizziness 05/03/24 apixaban 5 mg tablet (Eliquis) 2.5 mg (1/2 x 5 mg) PO BID #15 tabs 05/15/24 atorvastatin 40 mg tablet 40 mg PO QHS #30 tabs 05/15/24 atorvastatin 40 mg tablet 40 mg PO QHS #30 tabs 05/15/24 escitalopram oxalate 10 mg tablet 5 mg (1/2 x 10 mg) PO HS #15 tabs 05/15/24 escitalopram oxalate 5 mg tablet 5 mg PO DAILY #30 tabs 05/15/24 midodrine 2.5 mg tablet 2.5 mg PO QHS #30 tabs 05/15/24 trazodone 150 mg tablet 150 mg PO QHS #30 tabs 05/15/24 Hospital Course Operations None Procedures 2-D Echocardiogram ( ECHO/Echo Complete W/ Contrast Interpretation Summary Normal LV size. Left ventricular systolic function is normal. The estimated ejection fraction is 60 %. Bubble contrast study negative for right to left interatrial shunt. Pulmonary artery systolic pressure is 30 mmHg. Contrast ) Summary of Care Provided Minutes Spent on Discharge: 40 Hospital Course: SANDY HUGHES, is a 83 F with a PMH of depression, prior strokes, collagenous colitis (on budesonide), glaucoma, orthostatic hypotension, frequent urinary tract infections, falls, paroxysmal atrial fibrillation, remote hysterectomy for cancer and chronic anticoagulation with apixaban who presented to the emergency department at [facility] on 05/01/2024 with complaint of acute onset of change in speech, left-sided weakness and incoordination. A stat noncontrast brain CT showed chronic involutional changes of the brain with no acute findings. CTA of the head and neck showed a mild degree of calcific plaque at the origin of the left internal carotid artery. Teleneurology was consulted and per their exam the NIHSS score was 1 for sensory loss. TNK was not recommended because she is on Eliquis. Continuation of Eliquis, aspirin and a statin was recommended. She was admitted to the hospitalist service. MRI of the brain revealed acute or subacute ischemic CVA in the right neostriatum. Transthoracic echocardiogram showed a normal-sized left ventricle with normal systolic function and an estimated ejection fraction of 60%. There were no wall motion abnormalities. Both atria were of normal size and the bubble contrast study was negative for right to left interatrial shunt. The pulmonary artery pressure was estimated at 30. There was no significant valvular heart disease. Hemoglobin A1c was 5.0%. The lipid panel showed triglycerides of 104, LDL of 83 and an HDL of 52 ( on Atorvastatin 20 mg). Atorvastatin was increased to a high intensity statin, Atorvastatin 40 mg. UA had 10-25 WBCs and 0-5 squamous epithelial cells. It was nitrite negative. Urine culture was ordered and showed 11,000-25,000 mixed contaminants. She has been afebrile with a normal white blood cell count and an unremarkable differential so no antibiotics were indicated. While in the hospital she was seen by PT/OT/ST and a recommendation for acute rehab at DC was made. She was transferred to the acute inpt rehab unit at [facility] on 05/03/24 for 3 hours of therapy daily to restore function/independence at or near her level prior to the recent CVA. She was ambulating with a WW at baseline. She has had fecal incontinence at times and she is often incontinent of urine. Her son Mehdi is her branch controller. Trazodone was decreased from 200 mg at HS to 150 mg and she tolerated the decrease with no recurrent insomnia. She remained bradycardic and the dose was decreased to 100 mg but she began complaining of difficulty sleeping. She is on 3 anti-depressants and has been on these medications for quite some time. She gets anxious at times and when she gets anxious the BP increases. Barbie and Mehdi are hesitant to make medication changes since she has been on these medications for quite some time. Barbie did well in therapy and was always cooperative with the therapists. At the time of DC she is supervision/set up for eating, grooming, bathing, upper body dressing, lower body dressing and toileting. She is standby assist for toilet transfer and tub/shower transfer. She is able to do 8 sit to stands using her arms to push up in 30 secs. Her goal is 11 in 30 secs. She has ambulated 90 feet with a wheeled walker at contact-guard assist. She has ambulated up to 117 feet with a wheeled walker at standby assist but has decreased step height on the left lower extremity and at times catches the left foot on the floor, especially with longer distances and when fatigued. Her goal for ambulation is 350 feet with a wheeled walker at A. She has not met her LT goals at the time of DC from acute rehab and she is being referred to [facility] for OP PT/OT/ST at the time of DC from acute. She was discharged with an order for an event monitor and she will F/U with [facility] cardiology to review the results. While on acute rehab she had an overnight trending pulse ox and she does not desaturate but, the HR is in the 40's at times. She has been taking Midodrine at HS only as an OP. She takes this because she fell in the BR at night in the past and it was presumed to be due to a drop in the BP. I suspect the drop in BP has more to do with bradycardia and chronic poor fluid intake. The HR does not increase with changes in position and this may be due to the medications she takes which can cause bradycardia. One of the SE's of Midodrine is bradycardia and this may be contributing to the problem. I have advised Barbie and Mehdi that she should avoid all medications that have any sedation properties, jewel at night. Follow-up appointments were scheduled for Barbie to see Dr. Kidd on 05/23/2024 at 11 AM and to follow-up with cardiology on 07/25/2024 at 10 AM. Physical Exam Const alert and no apparent distress General Appearance: cooperative HEENT HEENT Narrative: Dry mucous membranes. Mouth: dry mucous membranes Eyes PERRL, EOMs intact bilaterally, conjunctivae normal and no scleral icterus Eyes Narrative: No DC from the eyes. Neck supple, no JVD and no carotid bruits Chest Chest: symmetrical chest wall rise Resp normal respiratory effort and clear to auscultation bilaterally Effort and Inspection: Negative for tachypneic Cardio regular rhythm, no murmurs and no gallops Rate: bradycardia GI normal to inspection, nondistended, normoactive bowel sounds and soft to palpation GI Narrative: No guarding with palpation Extremity no calf tenderness General Extremity: Negative for edema Skin General Skin Exam: no breakdown Rashes: no rashes Wounds: Negative for wounds noted Neuro oriented x3, CN's II-XII intact bilaterally and no sensory deficits noted Neuro Narrative: dysarthria has improved and she has better volume to her voice. No aphasia. Still with weakness on the left side but, improved since DC. No extinction. No visual field cuts. Psych cooperative Psych Narrative: pleasant Appearance: appropriate Activity / Motor Behavior: appropriate eye contact Speech: normal speech Weight / BMI Weight Weight: 113 lb 1.554 oz Body Mass Index (BMI) 23.7 ABG / Lab / Microbiology Data 05/04/24 05:10 05/14/24 05:58 Indicators for Scoring Admitted with or Primary Diagnosis of CVA/Stroke: Yes Hx of CVA/Stroke: Yes Modified [place] Score MRS Score at time of Evaluation: 4-Moderate/severe disability NIHSS NIHSS 1a. Level of Consciousness: Alert; keenly responsive 1b. LOC Questions: Answers BOTH questions correctly. 1c. LOC Commands: Performs both tasks correctly. 2. Best Gaze: Normal 3. Visual: No visual loss 4. Facial Palsy: Normal symmetrical movements 5a. Left Arm: No drift; arm holds 90 (or 45) degrees for full 10 seconds (very mild drift now) 5b. Right Arm: No drift; arm holds 90 (or 45) degrees for full 10 seconds 6a. Left Leg: Drift; leg falls by the end of 5-seconds, but does not hit bed (very minor at DC) 6b. Right Leg: No drift; leg holds 30-degree position for full 5 seconds 7. Limb Ataxia: Present in 1 limb (Left arm only now. ) 8. Sensory: Normal; no sensory loss 9. Best Language: No aphasia; normal 10. Dysarthria: Normal 11. Extinction and Inattention: No abnormality Total: 2 Stroke Questions Stroke Team Activated: No D/C Instructions Discharge Diet: Low fat / Low cholesterol Weight Bearing Status: Full weight bearing Call your doctor if you observe: Fever of 101 or Higher, Inability to urinate, Shortness of breath, Dizziness, Fainting spells, Swelling in the ankles, Chest pain, Increased palpitations (irregular heartbeat), Calf discomfort and Uncontrolled pain Pending Tests Upon Discharge: none Please Follow Up With: Castro Kidd MD When: you will also need to follow up with cardiology Meaningful Use Info Meaningful Use Meaningful Use Diagnoses (Choose all that apply): Ischemic CVA CVA Therapy Assessed for PT,OT and/or ST?: Yes Ischemic Stroke Antithrombotic order at d/c?: Yes Dx of Atrial fib/flutter?: Yes Anticoagulant at discharge?: Yes Reason anticoagulant not ordered: Treatment not Indicated Statin Dosing Therapy Reference: STATIN DOSE THERAPY REFERENCE: * Patients > 75 years receive moderate or high dose statin therapy. * Patients 75 years or YOUNGER should receive HIGH intensity statin dose unless contraindicated. You will be required to document reason for non-treatment if statin daily dose does not meet guidelines. HIGH DOSE STATIN THERAPY DAILY Atorvastatin > than or = to 40 mg Rosuvastatin > than or = to 20 mg Amlodipine + Atorvastatin > than or = to 2.5/40 mg Ezetimibe + Simvastatin 10/80 mg Simvastatin 80mg Statins at discharge?: Yes Primary Dx Acute Ischemic CVA?: Yes IV thrombolytic ordered during stay?: No Reason IV thrombolytic not ordered: Medical Contraindication (She was taking Eliquis prior to recent stroke for known hx of AF) Discharge Plan Admission Admit Date/Time: 05/03/24 13:45 Primary Reason for Your Visit: POST STROKE DEBILITY Attending Provider: Alena Deal Primary Care Provider: Castro Kidd Instructions Additional Instructions / Restrictions: 1. Your heart rate is slow and it does not increase with exertion like it should. This can contribute to a drop in BP when you go from lying to sitting and sitting to standing. The midodrine, Lexapro and Trazodone that you take at bedtime can all potentially cause the heart rate to slow down. We monitored your heart rate while you were sleeping at night and it was in the 40's 6 % of the time you were sleeping. This would put you at risk for falls should you get up in the middle of the night to use the restroom. We are sending you home with a heart monitor called an event monitor. This will monitor the heart rate and rhythm continuously for 14 days. the human resources district manager will review the results when available and then you will follow up with the human resources district manager at the [facility] to discuss the results. 2. You are actually taking 3 different antidepressants and they include Trazodone, Wellbutrin and Lexapro. Your doctor may want to consider a trail of discontinuing Lexapro to see how you do. I decreased the Trazodone from 200 mg to 150 mg and you continued to sleep well at night but, when we decreased the dose to 100 mg you told me you did not sleep well. I am discharging you on 150 mg at bedtime. 3. You have done well in therapy but, you still have more work to do with therapy. You will be getting outpatient therapy at [facility] for ongoing speech therapy, Occupational Therapy and physical therapy. [facility] Appointment: Occupational Therapy 05/22/2024 at 1330, Speech Therapy 05/22/2024 at 1430, and Physical Therapy 05/23/2024 at 0900. 4. Atorvastatin was changed from 20 mg at bedtime to 40 mg at bedtime. 40 mg is considered a high intensity statin and so is 80 mg. In patients with stroke only the high intensity statins have been shown to prevent strokes. This is why the dose is increased. 5. If you or Mehdi have any questions after you leave rehab please do not hesitate to call me. OFFICE: [phone] CELL: [phone] Discharge Orders/Prescriptions Prescriptions: New atorvastatin 40 mg Tablet 40 mg PO QHS Qty: 30 0RF escitalopram oxalate 10 mg Tablet 5 mg PO HS Qty: 15 0RF Rx Instructions: 1/2 tab at bedtime Eliquis 5 mg Tablet 2.5 mg PO BID Qty: 15 0RF Rx Instructions: 1/2 tab twice daily atorvastatin 40 mg tablet 40 mg PO QHS Qty: 30 0RF escitalopram oxalate 5 mg tablet 5 mg PO DAILY Qty: 30 0RF midodrine 2.5 mg tablet 2.5 mg PO QHS Qty: 30 0RF trazodone 150 mg tablet 150 mg PO QHS Qty: 30 0RF Continued bupropion HCl 200 MG tablet sustained-release 12 hr 200 mg PO DAILY loperamide [Imodium A-D] 2 MG tablet 2 mg PO QHS PRN (Reason: loose stools) Patient Comments: diarrhea aspirin 81 MG tablet,delayed release (DR/EC) 1 tab PO DAILY nitroglycerin 0.4 MG tablet, sublingual 0.4 mg SL Q5M PRN (Reason: CHEST PAIN) budesonide 3 mg Capsule,Delayed,Extend.Release 3 mg PO DAILY methenamine hippurate 1 gram tablet 1 g PO BID hydroquinone 4 % cream 1 applic TOPICAL TID PRN PRN (Reason: skin) Patient Comments: APPLY TO AFFECTED AREA 3 TIMES A DAY multivitamin [Daily Multi-Vitamin] Tablet 1 tab PO DAILY acetaminophen 325 mg Tablet 650 mg PO Q6H PRN PRN (Reason: Pain 1-10 Or Fever>100.7) Qty: 0 0RF dorzolamide-timolol 22.3-6.8 mg/mL Drops 1 drp EACH EYE BID Qty: 10 0RF Rx Instructions: to be given at 0800 and 1600, AM dose to be given 10 minutes AFTER brimonidine brimonidine 1 DROP bottle 1 drp ophthalmic (eye) BID Qty: 5 0RF Rx Instructions: give at 0800 and 2000 Lumigan 0.01 % drops 1 drp ophthalmic (eye) DAILY Qty: 2.5 0RF Rx Instructions: to be given at night at least 10 minutes after brominidine and timolol gtts. meclizine 25 MG tablet 12.5 mg PO TID PRN PRN (Reason: Dizziness) Discontinued escitalopram oxalate 10 MG tablet 10 mg PO DAILY atorvastatin 20 mg tablet 20 mg PO QHS midodrine 5 mg tablet 5 mg PO QHS trazodone 150 mg tablet 200 mg PO DAILY Eliquis 5 mg tablet 2.5 mg PO BID lisinopril 10 mg Tablet 10 mg PO DAILY Qty: 0 0RF Other Ambulatory Orders: 30 Day Event Recorder Preventi (Urgent) Timeframe: 3 Days Location: Determined by Patient Ordered By: Dr. Alena Deal Referrals / Follow Up: Shawn Emery [Other] - 07/25/24 10:00 am (Cardiology) Bridger Calhoun-Neurology [Other] - 07/12/24 1:00 pm (f/u for stroke ) [facility] [Other] - 05/22/24 1:30 am (OT- 05/22/24 @1:30 ST- 05/22/24 @ 2:30 PT- 05/23/24 @ 9:00) Castro Kidd MD [Primary Care Provider] - 05/23/24 11:00 am Disposition Disposition (needs filled in before D/C Order can be placed): Home, Self Care Charges/Coding Visit Charges Inpatient E&M: 79064 Disch Hosp >30min
[2024-05-15] MEDS: Budesonide 3 MG CAPSULE.EC 6 MG PO (13:38)
[2024-05-15 13:40] VITALS: BMI 23.7
[2024-05-15 20:00] VITALS: BP 163/71; PULSE 58; RESP 16; TEMP 36.7; O2SAT 95
[2024-05-15] MEDS: Atorvastatin Calcium 40 MG Tablet PO (20:07)
[2024-05-15] MEDS: Escitalopram Oxalate 10 MG Tablet 5 MG PO (20:07)
[2024-05-15] MEDS: traZODone 100 MG Tablet PO (20:07)
[2024-05-15] MEDS: Latanoprost 0.005% 1 Bottle 1 DRP OPHTHALMIC (20:50)
[2024-05-15 23:30] VITALS: BMI 23.7
[2024-05-16 05:58] VITALS: BMI 23.1
[2024-05-16] MEDS: BRIMONIDINE 0.15% 5 ML Bottle 1 DRP OPHTHALMIC (07:41)
[2024-05-16] MEDS: Lisinopril 10 MG Tablet PO (07:47)
[2024-05-16] MEDS: buPROPion (SR) 100 MG TABLET.SA 200 MG PO (07:47)
[2024-05-16] MEDS: Multivitamins,Therapeutic Tablet 1 TABLET PO (07:47)
[2024-05-16] MEDS: APIXABAN 2.5 MG TABLET (WCH) PO (07:47)
[2024-05-16] MEDS: Methenamine Hippurate 1 GM Tablet PO (07:47)
[2024-05-16] MEDS: Aspirin E.C. 81 MG Tablet PO (07:47)
[2024-05-16] MEDS: Dorzolamide HCL/Timolol 10 ml Bottle 1 DRP EACH EYE (07:51)
[2024-05-16 08:44] VITALS: BP 157/71; PULSE 60; RESP 17; TEMP 35.6; O2SAT 97
[2024-05-16] MEDS: Budesonide 3 MG CAPSULE.EC PO (10:11)
[2024-05-16 12:50] VITALS: BMI 23.1
[2024-05-16 13:07] VITALS: BP 157/71; PULSE 60; RESP 17; TEMP 35.5; O2SAT 97
--- NOTE | 2024-05-16 13:09 | NURSING ---
discharged home with son. discharge instructions, medications and appointments reviewed with pt and family. denies questions or concerns
== END 2024-05-16 13:10 | disposition home or self-care (01) | DRG 57 ==
PROVIDERS: Admitting Provider Internal Medicine; PCP Family Medicine; Referring Provider Internal Medicine; Visit Provider Internal Medicine
DX: I69.354 Hemiplegia and hemiparesis following cerebral infarction affecting left non-dominant side (principal); E78.5 Hyperlipidemia, unspecified; I48.0 Paroxysmal atrial fibrillation; F34.1 Dysthymic disorder; I12.9 Hypertensive chronic kidney disease with stage 1 through stage 4 chronic kidney disease, or unspecified chronic kidney disease; I69.393 Ataxia following cerebral infarction; R00.1 Bradycardia, unspecified; K52.831 Collagenous colitis; I95.1 Orthostatic hypotension; N18.2 Chronic kidney disease, stage 2 (mild); I69.319 Unspecified symptoms and signs involving cognitive functions following cerebral infarction; I69.928 Other speech and language deficits following unspecified cerebrovascular disease; Z87.891 Personal history of nicotine dependence; Z79.01 Long term (current) use of anticoagulants; Z91.81 History of falling; Z79.52 Long term (current) use of systemic steroids; Z79.82 Long term (current) use of aspirin; Z79.899 Other long term (current) drug therapy
CPT/HCPCS: 36415; 80048; 80053; 82533; 83735; 84100; 85027; 92507; 92523; 92526; 92610; 94762; 97110; 97112; 97116; 97162; 97166; 97530; 97535; 97802; A4216; J0834; J3490

== ENCOUNTER 2024-06-11 17:05 | Observation (INO) | payer MEDICARE, BC, SELFPAY ==
[2024-06-11] VITALS (9 sets, daily range): BP systolic 120–173; BP diastolic 71–94; PULSE 57–138; RESP 14–20; TEMP 36.4–36.9; O2SAT 96–100; BMI 23.3; BMI 21.2
--- NOTE | 2024-06-11 18:41 | EKG12_ITS ---
Test Reason : Blood Pressure : / mmHG Vent. Rate : 060 BPM Atrial Rate : 060 BPM P-R Int : 136 ms QRS Dur : 080 ms QT Int : 400 ms P-R-T Axes : 059 -25 113 degrees QTc Int : 400 ms Normal sinus rhythm ST & T wave abnormality, consider lateral ischemia Abnormal ECG Confirmed by ALINA ARROYO, DEISY ([id number]), editor news BRANDIN TREJO ([id number]) on 06/12/2024 8:37:49 AM Referred By: SCOTT Confirmed By:DEISY FULLER MD
--- NOTE | 2024-06-11 18:41 | CT_ITS ---
STUDY: CT BRAIN WITHOUT CONTRAST REASON FOR EXAM: Female, 84 years old. HTN, recent stroke RADIATION DOSAGE (If Supplied By Facility): CTDIvol = ( 44.99 ) mGy, DLP = ( 745.49 ) mGycm TECHNIQUE: Transaxial CT imaging of the brain was performed without administration of intravenous contrast material. Individualized dose optimization techniques were used for this CT. COMPARISON: CT and MRI May 01, 2024 FINDINGS: Normal soft tissue structures. Normal calvarium. There is moderate cerebral atrophy with widening of the extra-axial spaces and ventricular dilatation. There are areas of decreased attenuation within the white matter tracts of the supratentorial brain, consistent with microvascular disease changes. Normal basal ganglia and thalami. Normal brainstem. There is moderate cerebellar atrophy. There is no intracranial hemorrhage. There are no findings of an acute ischemic infarction. Normal visualized paranasal sinuses. CT/Brain/Head without Contrast IMPRESSION: Chronic involutional changes of the brain. Electronically Signed: Salinas White MD at 19:47 EDT ,
--- NOTE | 2024-06-11 18:41 | RAD_ITS ---
STUDY: X-RAY CHEST REASON FOR EXAM: Female, 84 years old. cp TECHNIQUE: Single AP portable view of the chest. COMPARISON: May 01, 2024 FINDINGS: There is implantable loop recorder. There are monitoring devices. The lungs are clear and expanded. There is no demonstrated pleural abnormality. Normal size heart. Normal mediastinum and nikia. Normal visualized pulmonary arteries. Normal visualized aortic arch and descending thoracic aorta. There is thoracic dextroscoliosis with degenerative change of the spine . There is postoperative change of the left shoulder. There is no demonstrated abnormality of the visualized soft tissue structures of the upper abdomen. RAD/Chest 1 View (Portable) IMPRESSION: Degenerative changes, as described above. No demonstrated acute cardiopulmonary process. Electronically Signed: Salinas White MD at 19:52 EDT ,
--- NOTE | 2024-06-11 18:43 | EX.ED.DYSGE1 ---
HPI History of Present Illness Chief Complaint: Hypertension Informant: patient and family Narrative Narrative: Patient presents from physical therapy secondary to high blood pressure. Patient had a stroke 5 weeks ago. She been following up for outpatient physical therapy. They noted today at both the beginning and end of her therapy her blood pressure was elevated. She is not on any medication at home for hypertension, and in fact takes midodrine at night secondary to hypotension. Family states this morning her systolic blood pressure was 101. Patient states that she feels slightly more unsteady on her feet today than normal, but otherwise denies complaint. She is on Eliquis. [facility] Medical History Stroke Hyperlipidemia Depression Ataxia due to cerebrovascular disease Urinary urgency Chronic anticoagulation Paroxysmal atrial fibrillation Orthostatic hypotension HTN (hypertension) Collagenous colitis Angioedema History of multiple strokes Appendicitis Glaucoma Depression Home Medications ?Medication ?Instructions ?Recorded ?Last Taken ?Type bupropion HCl 200 mg tablet,12 hr 200 mg PO DAILY mental health 09/11/16 09/11/16 History sustained-release loperamide 2 mg tablet (Imodium 2 mg PO QHS PRN loose stools 09/11/16 09/10/16 History A-D) aspirin 81 mg tablet,delayed 1 tab PO DAILY heart health 08/11/17 Unknown History release nitroglycerin 0.4 mg sublingual 0.4 mg SL Q5M PRN CHEST PAIN 06/11/20 Unknown History tablet budesonide 3 mg 3 mg PO DAILY breathing 05/09/21 Unknown History capsule,delayed,extended release methenamine hippurate 1 gram tablet 1 g PO BID bladder 06/14/23 Unknown History multivitamin (Daily Multi-Vitamin 1 tab PO DAILY supp 05/01/24 Unknown History tablet) acetaminophen 325 mg tablet 650 mg (2 x 325 mg) PO Q6H PRN PRN 05/03/24 Unknown Rx Pain 1-10 Or Fever>100.7 #0 tabs bimatoprost 0.01 % eye drops 1 drp ophthalmic (eye) DAILY eye 05/03/24 Unknown Rx (Lumigan) #2.5 mL dorzolamide 22.3 mg-timolol 6.8 1 drp EACH EYE BID eye #10 mL 05/03/24 Unknown Rx mg/mL eye drops meclizine 25 mg tablet 12.5 mg PO TID PRN PRN Dizziness 05/03/24 Unknown History apixaban 5 mg tablet (Eliquis) 2.5 mg (1/2 x 5 mg) PO BID #15 tabs 05/15/24 Unknown Rx midodrine 2.5 mg tablet 2.5 mg PO QHS #30 tabs 05/15/24 Unknown Rx trazodone 150 mg tablet 150 mg PO QHS #30 tabs 05/15/24 Unknown Rx ascorbate calcium (vitamin C) 1 tab PO DAILY 06/11/24 Unknown History atorvastatin 40 mg tablet 20 mg PO QHS 06/11/24 Unknown History biotin 1,000 mcg chewable tablet 1,000 mcg PO DAILY 06/11/24 Unknown History brimonidine 0.15 % eye drops 1 drp ophthalmic (eye) BID eye 06/11/24 Unknown History escitalopram oxalate 10 mg tablet 10 mg PO HS 06/11/24 Unknown History Allergy/AdvReac Type Severity Reaction Status Date / Time [place] nut Allergy Severe Swelling Verified 06/11/24 22:17 rhina Allergy Severe Swelling Verified 06/11/24 22:15 morphine Allergy Unknown Verified 06/11/24 22:15 Sulfa (Sulfonamide Allergy Unknown Verified 06/11/24 22:15 Antibiotics) aspirin AdvReac Nausea/Vom/ Verified 06/11/24 22:15 Diarrhea Family History Other CVA (cerebral vascular accident) Heart disease Surgical History History of hysterectomy for cancer History of bunionectomy History of appendectomy Social History Smoking Status: Never smoker ROS ROS ED Constitutional Constitutional ED: Denies chills or fever(s) Eyes Eyes: Denies discharge from eye(s) ENT ENT ED: Denies discharge from eye(s), rhinorrhea or sore throat Cardiovascular Cardiovascular: Denies chest pain or palpitations Respiratory/Chest Respiratory/Chest: Denies cough or dyspnea Gastrointestinal Gastrointestinal: Denies abdominal pain, nausea or vomiting Genitourinary Genitourinary ED: Denies dysuria Musculoskeletal Musculoskeletal: Denies back pain or extremity pain Integumentary Denies Abrasions or rash Neurologic Neurologic: Reports weakness; Denies headache(s) Allergic/Immunologic Allergic/Immunologic ED: Denies lip swelling or urticaria EXAM Physical Exam Const Vital Signs: 06/11/24 17:06 06/11/24 18:58 06/11/24 19:11 Temperature 97.6 F L Temperature Source Temporal Pulse Rate 57 L 59 L Respiratory Rate 18 20 H Respiratory Effort Normal Respiratory Pattern Normal Blood Pressure 172/90 H 173/94 H Blood Pressure Mean 117 120 Pulse Ox 100 98 Oxygen Delivery Method Room Air Room Air 06/11/24 20:00 Temperature Temperature Source Pulse Rate 68 Respiratory Rate 18 Respiratory Effort Respiratory Pattern Blood Pressure 156/74 H Blood Pressure Mean 101 Pulse Ox 98 Oxygen Delivery Method Room Air Positive well nourished and well developed General Appearance ED: well developed HEENT Reports moist mucous membranes Chest Wall inspection of chest normal and palpation of chest normal Resp normal respiratory effort and clear to auscultation bilaterally Cardio regular rate and regular rhythm GI non-tender Palpation: soft Neuro Neuro Narrative: Patient alert and appropriate. She has chronic left-sided weakness and dysarthria from her recent stroke. Psych mental status grossly normal MDM MDM MDM Narrative Medical decision making narrative: Patient placed on welding machine operator gas. Blood pressure is normal exam is 189/86. She be given a dose of hydralazine. CT scan of the head will be obtained given her recent stroke and anticoagulation in the setting of hypertension. Labwork obtained to evaluate for leukocytosis, anemia, and electrolyte derangement. EKG obtained to evaluate for cardiac arrhythmia/ischemia. Chest x-ray obtained to evaluate for acute lung pathology, cardiac size, or mediastinal abnormality. History & Record Review Discussion w/independent historian: Patient and Family Additional record(s) reviewed:: Prior inpatient record, Prior ED visit and Prior labs Lab Data Attestation: I reviewed the patient's lab results. Labs: Laboratory Results - last 24 hr 06/11/24 06/11/24 18:30 18:58 WBC 8.0 RBC 4.34 Hgb 13.9 Hct 42.1 MCV 97.0 MCH 32.0 MCHC 33.0 RDW Std Deviation 46.4 H RDW Coeff of Nithin 12.9 Plt Count 222 MPV 10.4 Immature Gran % (Auto) 0.100 Neut % (Auto) 57.5 Lymph % (Auto) 20.3 [place] % (Auto) 10.0 Eos % (Auto) 11.1 H Baso % (Auto) 1.0 Absolute Neuts (auto) 4.6 Absolute Lymphs (auto) 1.63 Nucleated RBC % 0 Sodium 135 L Potassium 3.6 Chloride 104 Carbon Dioxide 22.0 Anion Gap 9 BUN 24 H Creatinine 0.92 Estim Creat Clear Calc 32.11 Est GFR (MDRD) Af Amer 74 Est GFR (MDRD) Non-Af 61 BUN/Creatinine Ratio 25.9 H Glucose 77 Calcium 9.4 Troponin I High Sens 15 Urine Color Yellow Urine Clarity Clear Urine pH 7.0 Ur Specific [place] 1.010 Urine Protein Negative Urine Glucose (UA) Normal Urine Ketones Negative Urine Occult Blood Negative Urine Nitrite Negative Urine Bilirubin Negative Urine Urobilinogen Normal Ur Leukocyte Esterase 100 H Urine RBC 0 SEEN Urine WBC 0-5 SEEN Ur Squamous Epith Cells 0-5 SEEN Urine Bacteria 0 SEEN Urine Mucus 0 SEEN Radiography Chest X-Ray - ED: 1 View, Read by ED Physician and Chronic Changes Diagnostic Testing: Clinical Impression(s) from Imaging Studies Brain CT 06/11/24 18:41 IMPRESSION: Chronic involutional changes of the brain. Electronically Signed: Salinas White MD at 19:47 EDT , Chest X-Ray 06/11/24 18:41 IMPRESSION: Degenerative changes, as described above. No demonstrated acute cardiopulmonary process. Electronically Signed: Salinas White MD at 19:52 EDT , EKG Initial EKG: Attestation: I personally reviewed and interpreted this EKG as follows: Interpretation: Sinus Rhythm (Sinus at 60 with [address] depression. This appears similar to prior study from 05/01/2024.) Treatment and Re-Evaluation :: CBC was normal white count 8.0 with a hemoglobin of 13.9. Chemistry studies unremarkable with normal renal function. Glucose is 77. Troponin is normal at 15. Urinalysis reveals 0 bacteria with 0-5 epithelial cells and 0-5 white cells. No nitrites. Patient does report urinary frequency and is urinated at least 5 times here in the emergency room. Urine be sent for culture. CT scan of the head reveals chronic involutional changes. Chest x-ray per my interpretation reveals chronic changes. Radiology interpretation reviewed and agrees. EKG is sinus rhythm with chronic lateral ST depression. Patient was initially given a dose of hydralazine. Blood pressure did come down to the 150s systolic. Patient started feeling very lightheaded and as if she might pass out. Heart rate was in the 70s at the time. Once all test results return, I spoke with patient as well as her son at bedside. Patient states that she felt more unsteady on her feet today and patient's son does agree. He has significant concerns about taking her home. I did review her prior records. From her admission and rehab stay May 03 through she was on lisinopril 10 mg daily. This was not provided for her at discharge and I do not see any comment about it in the discharge summary. However, patient also has problems with hypotension in the morning and family stated this morning her blood pressure was only 101 systolic after taking midodrine. Given her slight functional decline with hypertension, I will speak with hospitalist regarding observation overnight for blood pressure optimization. Discharge Plan Dx/Rx/DC Orders Clinical Impression: Hypertension, History of recent stroke Disposition Disposition: Acute Care Hospital [facility] Discharge Date/Time: 06/11/24 21:26
[2024-06-11 18:51] LABS: Bacteria 0 SEEN /hpf (None Seen); Mucous, Urine 0 SEEN /hpf (<or=2+); Red Blood Cells-Urine 0 SEEN /hpf (0-5)
[2024-06-11 18:52] LABS: Color, Urine Yellow (Yellow); Glucose, Dipstick Normal (Normal); Ketone-Dipstick Negative (Negative); Leukocyte Esterase-Dipstick 100 /ul (Negative); Nitrite-Dipstick Negative (Negative); Occult Blood-Urine Negative /ul (Negative); Protein-Dipstick Negative (Negative); Urine Bilirubin Dipstick Negative (Negative); Urine Clarity Clear (Clear); Urine Urobilinogen Normal (Normal)
[2024-06-11 18:57] LABS: Squamous Epithelial Cells - UA 0-5 SEEN /hpf (5-10); White Blood Cells 0-5 SEEN /hpf (0-5)
[2024-06-11] MEDS: hydrALAZINE 20 MG/ML Vial 10 MG IV (18:59)
[2024-06-11 19:10] LABS: Absolute Lymphocyte Count 1.63 X10^3/uL (0.83-4.51); Absolute Neutrophil Count 4.6 X10^3/uL (2.0-7.7); Basophil# 0.08 X10^3/uL; Eosinophil# 0.89 X10^3/uL; Eosinophils% 11.1 % (0-5); Hematocrit 42.1 % (37-47); Hemoglobin 13.9 g/dL (12.0-15.0); Lymphocyte # 1.63 X10^3/ul (0.83-4.51); Lymphocyte % 20.3 % (19-41); Mean Platelet Vol. 10.4 fl (6.2-12.0); NRBC Flagged by Analyzer 0 % (0-5); Neutrophil # 4.62 X10^3/uL (2.7-7.7); Neutrophil % 57.5 % (47-70); Platelet Count 222 K/mm3 (150-450); RBC Distribution Width CV 12.9 % (11.6-14.6); RBC Distribution Width SD 46.4 fl (35.1-43.9); Red Blood Count 4.34 M/mm3 (4.2-5.4)
[2024-06-11 19:27] LABS: Anion Gap 9 (5-15); BUN 24 mg/dL (7-18); BUN/Creat Ratio 25.9 RATIO (10-20); Calcium,Total 9.4 mg/dL (8.5-10.1); Chloride 104 mmol/L (98-107); Creatinine, Serum 0.92 mg/dL (0.55-1.02); EST Glomerular Filtration Rate 61 mL/min (>60); Est Glom Filt Rate - Afr Amer 74 mL/min (>60); Estimated Creatinine Clearance 32.11 ml/min; Glucose 77 mg/dL (74-106); Potassium 3.6 mmol/L (3.5-5.1); Sodium Level 135 mmol/L (136-145); Troponin-I HS 15 pg/mL (3.0-54.0)
--- NOTE | 2024-06-11 19:43 | ED.RN ---
Pt son Mehdi called out stating the pt feels faint. This RN went into the room to assess the patient and stated that I would send the dr in but we just received a trauma so it would be a moment. The pt son stated She is my priority and I want it noted that she feels faint. This RN went to grab dr Kay. Dr Kay is in the room assessing the pt now. This RN retook the patient blood pressure and it is 159/79. Dr Kay spoke to the family.
--- NOTE | 2024-06-11 20:27 | HP.PCM.HOS_ITS ---
HPI - General General Date of Admission: 06/11/24 Date of Service: 06/11/24 Chief Complaint: Elevated blood pressure with recent CVA HPI Narrative SANDY ROWANSHAERadha, is a 84 F who presented to [facility] ED on 06/11/2024 from her PT appointment with elevated blood pressure in setting of recent history of CVA. Saw patient at bedside in the ED, son present. Patient was laying in bed fairly comfortably, in no acute distress. 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 She made appropriate eye contact with me and answered some questions with short appropriate responses but otherwise had difficulty following conversation. Obtained most history from patient's son and from chart review. Patient was recently hospitalized here from 05/01-05/03 for acute/subacute right-sided stroke. She was discharged to inpatient rehab here 05/03 and remained there through 05/15. She was then discharged home and has been doing outpatient physical therapy at [facility]. Son notes that she had actually doing well with therapy recently. When he took her to therapy today, they noted that her blood pressure prior to therapy was elevated and then they remained elevated after the therapy session, so they recommended she come to the ED for further evaluation. Patient notably has history of hypotension specifically in the morning and takes midodrine 2.5 mg at night for this. She did have issues with hypertension during the short time on PCU from 05/01- and was started on lisinopril 10 mg daily on discharge to inpatient rehab, but it appears this medication was stopped likely due to concern for orthostatic hypotension. Patient's son states that they check her blood pressure at home just about every morning and most afternoons. Morning readings are typically in the 100s to 110s systolic, and afternoon reads are still usually in the 110s to 120s with occasional readings in the 130s. During therapy today she was noted to be in the 180s over 80s during multiple checks. On arrival to the ED her BP was 172/90 and remained stable there on multiple rechecks. She was given a dose of IV hydralazine with improvement to the 150s over 70s. She denied having any symptoms such as headache or chest pain when her blood pressure was high earlier today. She has a mild headache now but otherwise denies any other acute symptoms. No other new concerns at this time. Vitals in ED notable for hypertension and heart rate sinus rhythm rate around 60, otherwise unremarkable. Labs were unremarkable. Chest x-ray unremarkable. CT brain also unremarkable. Importantly, shortly after arrival to the floor patient was found to be in A-fib with RVR with heart rate in the 130s to 140s. Patient has history of paroxysmal A-fib and is on Eliquis for anticoagulation. She is not on any rate controlling agents. She was given a dose of IV Lopressor 5 mg, and she converted back to normal sinus rhythm about 30 minutes after Lopressor was given. However, on conversion her blood pressure was in the 90s over 60s. On recheck about 1 hour later her blood pressure remained in the 90s over 60s, so she was given a 1 L LR bolus over 4 hours. Notably had Echo done during previous hospitalization that showed normal EF. [facility] Medical History (Updated 06/12/24 @ 05:[address] Rick Chan, DO) Paroxysmal atrial fibrillation Stroke Hyperlipidemia Depression Ataxia due to cerebrovascular disease Urinary urgency Chronic anticoagulation Orthostatic hypotension HTN (hypertension) Collagenous colitis Angioedema History of multiple strokes Appendicitis Glaucoma Depression Home Medications ?Medication ?Instructions ?Recorded ?Last Taken ?Type bupropion HCl 200 mg tablet,12 hr 200 mg PO DAILY mental health 09/11/16 09/11/16 History sustained-release loperamide 2 mg tablet (Imodium 2 mg PO QHS PRN loose stools 09/11/16 09/10/16 History A-D) aspirin 81 mg tablet,delayed 1 tab PO DAILY heart health 08/11/17 Unknown History release nitroglycerin 0.4 mg sublingual 0.4 mg SL Q5M PRN CHEST PAIN 06/11/20 Unknown History tablet budesonide 3 mg 3 mg PO DAILY breathing 05/09/21 Unknown History capsule,delayed,extended release methenamine hippurate 1 gram tablet 1 g PO BID bladder 06/14/23 Unknown History multivitamin (Daily Multi-Vitamin 1 tab PO DAILY supp 05/01/24 Unknown History tablet) acetaminophen 325 mg tablet 650 mg (2 x 325 mg) PO Q6H PRN PRN 05/03/24 Unknown Rx Pain 1-10 Or Fever>100.7 #0 tabs bimatoprost 0.01 % eye drops 1 drp ophthalmic (eye) DAILY eye 05/03/24 Unknown Rx (Lumigan) #2.5 mL dorzolamide 22.3 mg-timolol 6.8 1 drp EACH EYE BID eye #10 mL 05/03/24 Unknown Rx mg/mL eye drops meclizine 25 mg tablet 12.5 mg PO TID PRN PRN Dizziness 05/03/24 Unknown History apixaban 5 mg tablet (Eliquis) 2.5 mg (1/2 x 5 mg) PO BID #15 tabs 05/15/24 Unknown Rx midodrine 2.5 mg tablet 2.5 mg PO QHS #30 tabs 05/15/24 Unknown Rx trazodone 150 mg tablet 150 mg PO QHS #30 tabs 05/15/24 Unknown Rx ascorbate calcium (vitamin C) 1 tab PO DAILY 06/11/24 Unknown History atorvastatin 40 mg tablet 20 mg PO QHS 06/11/24 Unknown History biotin 1,000 mcg chewable tablet 1,000 mcg PO DAILY 06/11/24 Unknown History brimonidine 0.15 % eye drops 1 drp ophthalmic (eye) BID eye 06/11/24 Unknown History escitalopram oxalate 10 mg tablet 10 mg PO HS 06/11/24 Unknown History Allergy/AdvReac Type Severity Reaction Status Date / Time Logan nut Allergy Severe Swelling Verified 06/11/24 22:17 rhina Allergy Severe Swelling Verified 06/11/24 22:15 morphine Allergy Unknown Verified 06/11/24 22:15 Sulfa (Sulfonamide Allergy Unknown Verified 06/11/24 22:15 Antibiotics) aspirin AdvReac Nausea/Vom/ Verified 06/11/24 22:15 Diarrhea Family History Other CVA (cerebral vascular accident) Heart disease Surgical History History of hysterectomy for cancer History of bunionectomy History of appendectomy Social History Smoking Status: Never smoker ROS Constitutional Constitutional: Denies chills, fatigue, fever(s) or weakness Cardiovascular Cardiovascular: Denies chest pain Respiratory/Chest Respiratory/Chest: Denies shortness of breath at rest Gastrointestinal Gastrointestinal: Denies abdominal pain Neurologic Neurologic: Denies dizziness, focal weakness or headache(s) Vital Signs Vital Signs Vital Signs: 06/11/24 17:06 06/11/24 18:58 06/11/24 19:11 Temperature 97.6 F L Temperature Source Temporal Pulse Rate 57 L 59 L Respiratory Rate 18 20 H Respiratory Effort Normal Respiratory Pattern Normal Blood Pressure 172/90 H 173/94 H Blood Pressure Mean 117 120 Pulse Ox 100 98 Oxygen Delivery Method Room Air Room Air 06/11/24 20:00 Temperature Temperature Source Pulse Rate 68 Respiratory Rate 18 Respiratory Effort Respiratory Pattern Blood Pressure 156/74 H Blood Pressure Mean 101 Pulse Ox 98 Oxygen Delivery Method Room Air Weight Weight: 52.3 kg Body Mass Index (BMI) 23.3 Physical Exam Const alert and no apparent distress Constitutional Narrative: Elderly female, chronically ill-appearing, laying comfortably in bed, making appropriate eye contact and answering only some questions with short responses, mildly anxious appearing but otherwise in no acute distress. General Appearance: cooperative and comfortable HEENT normocephalic, head/scalp atraumatic, hearing grossly normal bilaterally and nasal mucous membranes and turbinates normal Eyes PERRL, EOMs intact bilaterally and conjunctivae normal Neck full ROM Chest inspection of chest normal Resp normal respiratory effort, normal air movement, no use of accessory muscles and clear to auscultation bilaterally Cardio regular rate, regular rhythm, no murmurs and peripheral pulses 2+ throughout GI normal to inspection, nondistended, normoactive bowel sounds, soft to palpation, non-tender and non-distended Back/Spine normal ROM Extremity normal to inspection, full ROM and no pedal edema Skin no rashes or lesions noted Neuro moves all extremities and no focal motor deficits Neuro Narrative: Mild dysarthria noted. No significant left-sided weakness noted. Psych mental status grossly normal Mood & Affect: anxious Results Lab / Micro Data 06/11/24 18:58 06/11/24 18:58 Labs: Laboratory Results - last 24 hr 06/11/24 18:30: Urine Color Yellow, Urine Clarity Clear, Urine pH 7.0, Ur Specific [place] 1.010, Urine Protein Negative, Urine Glucose (UA) Normal, Urine Ketones Negative, Urine Occult Blood Negative, Urine Nitrite Negative, Urine Bilirubin Negative, Urine Urobilinogen Normal, Ur Leukocyte Esterase 100 H, Urine RBC 0 SEEN, Urine WBC 0-5 SEEN, Ur Squamous Epith Cells 0-5 SEEN, Urine Bacteria 0 SEEN, Urine Mucus 0 SEEN 06/11/24 18:58: WBC 8.0, RBC 4.34, Hgb 13.9, Hct 42.1, MCV 97.0, MCH 32.0, MCHC 33.0, RDW Std Deviation 46.4 H, RDW Coeff of Nithin 12.9, Plt Count 222, MPV 10.4, Immature Gran % (Auto) 0.100, Neut % (Auto) 57.5, Lymph % (Auto) 20.3, [place] % (Auto) 10.0, Eos % (Auto) 11.1 H, Baso % (Auto) 1.0, Absolute Neuts (auto) 4.6, Absolute Lymphs (auto) 1.63, Nucleated RBC % 0, Sodium 135 L, Potassium 3.6, Chloride 104, Carbon Dioxide 22.0, Anion Gap 9, BUN 24 H, Creatinine 0.92, Estim Creat Clear Calc 32.11, Est GFR (MDRD) Af Amer 74, Est GFR (MDRD) Non-Af 61, B UN/Creatinine Ratio 25.9 H, Glucose 77, Calcium 9.4, Troponin I High Sens 15 Imaging Radiology Impression Brain CT 06/11/24 18:41 IMPRESSION: Chronic involutional changes of the brain. Electronically Signed: Salinas White MD at 19:47 EDT , Chest X-Ray 06/11/24 18:41 IMPRESSION: Degenerative changes, as described above. No demonstrated acute cardiopulmonary process. Electronically Signed: Salinas White MD at 19:52 EDT , Assessment & Plan Assessment/Plan (1) Elevated BP without diagnosis of hypertension: (2) Paroxysmal atrial fibrillation: (3) History of recent stroke: PLAN: Plan Patient is an 84-year-old female who presented [facility] ED on 06/11/2024 for elevated blood pressure in setting of recent CVA. 1. Hypertensive episode with history of orthostatic hypotension ? Admit under observation status to PCU. Unclear etiology for hypertensive episode at PT session on afternoon of admission; difficult to determine if patient has hypotension in the morning with some elevated BP readings in the afternoon, or if she does have continued normal BPs most afternoons. Was suspected that hypotension in the morning is due to high dose of trazodone 100 mg at night along with escitalopram and bupropion; however, attempt to lower trazodone to 100 mg daily during previous hospitalization was unsuccessful as patient had significant insomnia with this. Plan on admit was to monitor BP every hour overnight and into the morning off of midodrine or any blood pressure agents to determine blood pressure trend. Unfortunately, patient developed paroxysmal A-fib with RVR requiring a dose of IV Lopressor with conversion back to sinus rhythm, and then had some hypotension after conversion requiring fluid bolus so we will not be able to determine blood pressure trend off medication. Patient and son notably hesitant to make any medication changes; may be reasonable to discharge home on hospital day 2 with close outpatient follow-up and plan for ambulatory BP monitoring in the near future. 2. Paroxysmal A-fib with RVR on Eliquis, sinus bradycardia ? Heart rate was in high 50s to low 60s on admit and patient has history of sinus bradycardia reported during previous hospitalization; suspected that sinus bradycardia is due to her home medications. Developed A-fib with RVR with heart rate into the 130s and 140s as noted above; converted back to normal sinus rhythm with 1 dose of IV Lopressor 5 mg. Continue home Eliquis. Will hold on any oral maintenance rate controlling agents given sinus bradycardia at baseline. Continue to monitor telemetry. 3. Recent acute CVA, history of multiple strokes with cognitive dysfunction and debility ? PT/OT/case management consulted. Recently finished stay at inpatient rehab and is doing outpatient physical therapy at [facility]; will likely be okay for discharge home with continued outpatient physical therapy going forward. Continue home aspirin and statin. Chronic medical conditions: ? History of UTIs: Continue home methenamine. ? Insomnia: Continue home trazodone. ? Glaucoma: Continue home eyedrops. ? Anxiety/depression: Stable. Continue home escitalopram and bupropion. DVT prophylaxis: Not indicated, on therapeutic Eliquis CODE STATUS: DNR CCA, DNI Expected disposition: Home, 1 to 2 days Total clinical time spent by myself addressing the patient's medical issues, reviewing all the data, and collaborating with patient's care team: 55 minutes. Charges/Coding Visit Charges Inpatient E&M: 91694 Init Hosp L2
--- NOTE | 2024-06-11 22:00 | EKG12_ITS ---
Test Reason : RHYTHM CHANGE Blood Pressure : / mmHG Vent. Rate : 139 BPM Atrial Rate : 000 BPM P-R Int : 000 ms QRS Dur : 080 ms QT Int : 338 ms P-R-T Axes : 000 -51 -66 degrees QTc Int : 514 ms Atrial fibrillation with rapid ventricular response with premature ventricular or aberrantly conducte d complexes Left axis deviation Marked ST abnormality, possible inferior subendocardial injury Marked ST abnormality, possible anterolateral subendocardial injury Abnormal ECG When compared with ECG of 11-JUN-2024 17:15, MANUAL COMPARISON REQUIRED, DATA IS UNCONFIRMED Confirmed by ALINA RAROYO, DEISY ([id number]), content editor LILA QUEVEDO ([id number]) on 06/12/2024 9:04:01 AM Referred By: ZORAIDA Confirmed By:DEISY FULLER MD
[2024-06-11] MEDS: Metoprolol Tartrate 5 MG/5 ML Vial IV (23:16)
[2024-06-11] MEDS: 0.9% Saline Lock 10 ML Syringe IV (23:16)
[2024-06-11] MEDS: traZODone 50 MG Tablet 150 MG PO (23:29)
[2024-06-11] MEDS: Acetaminophen 325 MG Tablet 650 MG PO (23:36)
[2024-06-11] MEDS: Escitalopram Oxalate 10 MG Tablet 5 MG PO (23:37)
[2024-06-11] MEDS: APIXABAN 2.5 MG TABLET (WCH) PO (23:37)
[2024-06-11] MEDS: Atorvastatin Calcium 20 MG Tablet PO (23:38)
[2024-06-11] MEDS: Methenamine Hippurate 1 GM Tablet PO (23:38)
[2024-06-12] VITALS (15 sets, daily range): BP systolic 86–141; BP diastolic 47–72; PULSE 52–74; RESP 12–23; TEMP 36.5–36.7; O2SAT 95–98
--- NOTE | 2024-06-12 00:09 | EKG12_ITS ---
Test Reason : RHYTHM CHANGE Blood Pressure : / mmHG Vent. Rate : 070 BPM Atrial Rate : 070 BPM P-R Int : 134 ms QRS Dur : 082 ms QT Int : 374 ms P-R-T Axes : 078 -35 122 degrees QTc Int : 403 ms Normal sinus rhythm Left axis deviation ST & T wave abnormality, consider lateral ischemia Abnormal ECG When compared with ECG of 11-JUN-2024 22:15, MANUAL COMPARISON REQUIRED, DATA IS UNCONFIRMED Confirmed by ALINA ARROYO, DEISY ([id number]), television news video editor LILA QUEVEDO ([id number]) on 06/13/2024 1:30:54 PM Referred By: ZORAIDA Confirmed By:DEISY FULLER MD
[2024-06-12] MEDS: Lactated Ringers 1,000 ML 250 ML IV (02:50)
[2024-06-12] MEDS: Acetaminophen 325 MG Tablet 650 MG PO (06:30)
[2024-06-12 06:42] LABS: Hematocrit 34.7 % (37-47); Hemoglobin 11.6 g/dL (12.0-15.0); Mean Corp Hgb Conc 33.4 g/dL (32-36); Mean Corpuscular Volume 95.9 fL (81-99); Mean Platelet Vol. 10.7 fl (6.2-12.0); Platelet Count 200 K/mm3 (150-450); RBC Distribution Width CV 13.1 % (11.6-14.6); RBC Distribution Width SD 46.5 fl (35.1-43.9); Red Blood Count 3.62 M/mm3 (4.2-5.4); White Blood Count 6.1 K/mm3 (4.4-11.0)
[2024-06-12 07:23] LABS: Anion Gap 8 (5-15); BUN 23 mg/dL (7-18); BUN/Creat Ratio 27.6 RATIO (10-20); Calcium,Total 8.7 mg/dL (8.5-10.1); Chloride 108 mmol/L (98-107); Creatinine, Serum 0.83 mg/dL (0.55-1.02); EST Glomerular Filtration Rate 69 mL/min (>60); Est Glom Filt Rate - Afr Amer 84 mL/min (>60); Estimated Creatinine Clearance 35.59 ml/min; Glucose 92 mg/dL (74-106); Potassium 3.4 mmol/L (3.5-5.1); Sodium Level 137 mmol/L (136-145)
[2024-06-12] MEDS: Dorzolamide HCL/Timolol 10 ml Bottle 1 DRP EACH EYE (08:40)
[2024-06-12] MEDS: Budesonide 3 MG CAPSULE.EC PO (08:42)
[2024-06-12] MEDS: Aspirin E.C. 81 MG Tablet PO (08:42)
[2024-06-12] MEDS: Multivitamins,Therapeutic Tablet 1 TABLET PO (08:42)
[2024-06-12] MEDS: APIXABAN 2.5 MG TABLET (WCH) PO (08:42)
[2024-06-12] MEDS: buPROPion (SR) 100 MG TABLET.SA 200 MG PO (08:43)
[2024-06-12] MEDS: Methenamine Hippurate 1 GM Tablet PO (08:43)
[2024-06-12] MEDS: BRIMONIDINE 0.15% 5 ML Bottle 2 DRP OPHTHALMIC (08:44)
--- NOTE | 2024-06-12 11:44 | DCINST_ITS ---
Discharge Instructions Diet Discharge Diet: No restrictions Activity Discharge Activity: Return to Normal Activity Weight Bearing Status: Full weight bearing Follow Up Care Test Results: Test results from this visit will be discussed in further detail at your follow- up appointment, if applicable. Discharge Plan Admission Admit Date/Time: 06/11/24 20:28 Primary Reason for Your Visit: HYPERTENSIVE URGENCY Attending Provider: Maciel Ramos Primary Care Provider: Castro Kidd Consulting Providers: Rick Chan Instructions Additional Instructions / Restrictions: You may monitor your blood pressure twice a day-once in the morning and once in the evening, you may also take it if you feel lightheaded. Your Holter monitor report should be available within the next 2 weeks, have Dr. Kidd call for the results if he is not able to find the result on her medical records here Discharge Orders/Prescriptions Prescriptions: Continued bupropion HCl 200 MG tablet sustained-release 12 hr 200 mg PO DAILY loperamide [Imodium A-D] 2 MG tablet 2 mg PO QHS PRN (Reason: loose stools) Patient Comments: diarrhea aspirin 81 MG tablet,delayed release (DR/EC) 1 tab PO DAILY nitroglycerin 0.4 MG tablet, sublingual 0.4 mg SL Q5M PRN (Reason: CHEST PAIN) budesonide 3 mg Capsule,Delayed,Extend.Release 3 mg PO DAILY methenamine hippurate 1 gram tablet 1 g PO BID multivitamin [Daily Multi-Vitamin] Tablet 1 tab PO DAILY acetaminophen 325 mg Tablet 650 mg PO Q6H PRN PRN (Reason: Pain 1-10 Or Fever>100.7) Qty: 0 0RF dorzolamide-timolol 22.3-6.8 mg/mL Drops 1 drp EACH EYE BID Qty: 10 0RF Rx Instructions: to be given at 0800 and 1600, AM dose to be given 10 minutes AFTER brimonidine Lumigan 0.01 % drops 1 drp ophthalmic (eye) DAILY Qty: 2.5 0RF Rx Instructions: to be given at night at least 10 minutes after brominidine and timolol gtts. meclizine 25 MG tablet 12.5 mg PO TID PRN PRN (Reason: Dizziness) Patient Comments: pt. has not taken in years Eliquis 5 mg Tablet 2.5 mg PO BID Qty: 15 0RF Rx Instructions: 1/2 tab twice daily midodrine 2.5 mg tablet 2.5 mg PO QHS Qty: 30 0RF trazodone 150 mg tablet 150 mg PO QHS Qty: 30 0RF atorvastatin 40 mg Tablet 20 mg PO QHS brimonidine 1 DROP bottle 1 drp ophthalmic (eye) BID Rx Instructions: give at 0830 and 2030 escitalopram oxalate 10 mg Tablet 10 mg PO HS biotin 1,000 mcg tablet,chewable 1,000 mcg PO DAILY ascorbate calcium (vitamin C) 1 tab PO DAILY Referrals / Follow Up: Castro Kidd MD [Primary Care Provider] - See Referral Note (In 2 weeks) Disposition Disposition (needs filled in before D/C Order can be placed): Home, Self Care
--- NOTE | 2024-06-12 11:48 | PCM.DC.SUM ---
Providers Date of Admission: 06/11/24 Date of Discharge: 06/12/24 Primary Care Physician: Dr. Castro Kidd MD Reason For Visit: POORLY CONTROLLED HTN, DEBILITY Diagnosis Discharge Diagnosis (1) Elevated BP without diagnosis of hypertension: Status: Acute Code(s): R03.0 - Elevated blood-pressure reading, without diagnosis of hypertension (2) Paroxysmal atrial fibrillation: Status: Acute Code(s): I48.0 - Paroxysmal atrial fibrillation (3) History of recent stroke: Status: Acute Code(s): Z86.73 - Personal history of transient ischemic attack (TIA), and cerebral infarction without residual deficits Plan 1. Hypertensive urgency-etiology unclear #2 paroxysmal atrial fibrillation with rapid ventricular response #3 cerebrovascular disease Medications at Discharge Home Medications bupropion HCl 200 mg tablet,12 hr sustained-release 200 mg PO DAILY mental health 09/11/16 loperamide 2 mg tablet (Imodium A-D) 2 mg PO QHS PRN loose stools 09/11/16 aspirin 81 mg tablet,delayed release 1 tab PO DAILY heart health 08/11/17 nitroglycerin 0.4 mg sublingual tablet 0.4 mg SL Q5M PRN CHEST PAIN 06/11/20 budesonide 3 mg capsule,delayed,extended release 3 mg PO DAILY breathing 05/09/21 methenamine hippurate 1 gram tablet 1 g PO BID bladder 06/14/23 multivitamin (Daily Multi-Vitamin tablet) 1 tab PO DAILY supp 05/01/24 acetaminophen 325 mg tablet 650 mg (2 x 325 mg) PO Q6H PRN PRN Pain 1-10 Or Fever>100.7 #0 tabs 05/03/24 bimatoprost 0.01 % eye drops (Lumigan) 1 drp ophthalmic (eye) DAILY eye #2.5 mL 05/03/24 dorzolamide 22.3 mg-timolol 6.8 mg/mL eye drops 1 drp EACH EYE BID eye #10 mL 05/03/24 meclizine 25 mg tablet 12.5 mg PO TID PRN PRN Dizziness 05/03/24 apixaban 5 mg tablet (Eliquis) 2.5 mg (1/2 x 5 mg) PO BID #15 tabs 05/15/24 midodrine 2.5 mg tablet 2.5 mg PO QHS #30 tabs 05/15/24 trazodone 150 mg tablet 150 mg PO QHS #30 tabs 05/15/24 ascorbate calcium (vitamin C) 1 tab PO DAILY 06/11/24 atorvastatin 40 mg tablet 20 mg PO QHS 06/11/24 biotin 1,000 mcg chewable tablet 1,000 mcg PO DAILY 06/11/24 brimonidine 0.15 % eye drops 1 drp ophthalmic (eye) BID eye 06/11/24 escitalopram oxalate 10 mg tablet 10 mg PO HS 06/11/24 Hospital Course Operations None Procedures None Summary of Care Provided Minutes Spent on Discharge: 31 Hospital Course: This 84-year-old white female was seen in the emergency room at [facility] after being sent in for elevated blood pressure that was noted when she was at outpatient physical therapy. Patient is not on any medications for blood pressure, patient takes a small dose of midodrine at night for low blood pressure. Blood pressure was noted to be 172/90 in the emergency room, patient's pulse was 57, patient's labs were unremarkable. Patient was given a dose of IV hydralazine, CT of the brain was performed which showed no acute changes. EKG showed a sinus rhythm at 60. Patient complained of feeling unsteady on her feet, it was felt that the patient would benefit from overnight stay under observation status in the hospital to monitor the patient's blood pressure. Patient was placed into observation status on PCU, while on PCU she had an episode of paroxysmal A-fib with fast ventricular response, she was given 5 mg metoprolol and converted to normal sinus rhythm. Patient had a past history of paroxysmal A-fib and was currently on Eliquis. The following day, patient's blood pressures all appear to be within a normal range, patient's pulse rate was between 55 and 60, I had a long conversation with the patient's son who lives with the patient and I did not recommend putting the patient on any medication for her paroxysmal A-fib due to the patient's bradycardia. Son said that she had a 2-week Holter monitor that was just completed, I called Dr. Saha's office and was told that the data it was in the office but it had not been read out. The nurse told me that what was mentioned on the report was that the patient had runs of paroxysmal A-fib with PVCs, her lowest rate was around 55. Patient's son tells me patient had no symptoms while on the monitor. I asked that when the report was finalized, it would be sent to Dr. Kidd who is the patient's physician. On 06/12/2024, patient was seen and examined: On examination she appeared in good health and spirits, she does not appear to be in any distress. Vital signs as documented. Skin warm and dry and without overt rashes. Neck without JVD, thyroid appears normal, trachea is midline, neck is supple. Lungs clear, normal air movement was noted. Heart exam notable for regular rhythm, normal sounds and absence of murmurs, rubs or gallops. Abdomen unremarkable and without evidence of organomegaly, masses, or abdominal aortic enlargement, bowel sounds are present in all 4 quadrants, no abdominal tenderness was noted. Extremities nonedematous, no cyanosis was noted, no clubbing was noted. Neuro: Cranial nerves II through XII are grossly intact, no focal motor deficits were noted, sensation to light touch and pinprick is intact, motor exam 5/5 throughout. Psych: Patient is alert and oriented x3, she does not appear anxious or depressed, she does not appear agitated. Patient was discharged home in stable condition on 06/12/2024 Weight / BMI Weight Weight: 49.4 kg Body Mass Index (BMI) 21.2 ABG / Lab / Microbiology Data 06/12/24 06:05 06/12/24 06:05 Laboratory: Laboratory Results - last 24 hr 06/11/24 18:30: Urine Color Yellow, Urine Clarity Clear, Urine pH 7.0, Ur Specific [place] 1.010, Urine Protein Negative, Urine Glucose (UA) Normal, Urine Ketones Negative, Urine Occult Blood Negative, Urine Nitrite Negative, Urine Bilirubin Negative, Urine Urobilinogen Normal, Ur Leukocyte Esterase 100 H, Urine RBC 0 SEEN, Urine WBC 0-5 SEEN, Ur Squamous Epith Cells 0-5 SEEN, Urine Bacteria 0 SEEN, Urine Mucus 0 SEEN 06/11/24 18:58: WBC 8.0, RBC 4.34, Hgb 13.9, Hct 42.1, MCV 97.0, MCH 32.0, MCHC 33.0, RDW Std Deviation 46.4 H, RDW Coeff of Nithin 12.9, Plt Count 222, MPV 10.4, Immature Gran % (Auto) 0.100, Neut % (Auto) 57.5, Lymph % (Auto) 20.3, [place] % (Auto) 10.0, Eos % (Auto) 11.1 H, Baso % (Auto) 1.0, Absolute Neuts (auto) 4.6, Absolute Lymphs (auto) 1.63, Nucleated RBC % 0, Sodium 135 L, Potassium 3.6, Chloride 104, Carbon Dioxide 22.0, Anion Gap 9, BUN 24 H, Creatinine 0.92, Estim Creat Clear Calc 32.11, Est GFR (MDRD) Af Amer 74, Est GFR (MDRD) Non-Af 61, BUN/Creatinine Ratio 25.9 H, Glucose 77, Calcium 9.4, Troponin I High Sens 15 06/12/24 06:05: WBC 6.1, RBC 3.62 L, Hgb 11.6 L, Hct 34.7 L, MCV 95.9, MCH 32.0, MCHC 33.4, RDW Std Deviation 46.5 H, RDW Coeff of Nithin 13.1, Plt Count 200, MPV 10.7, Sodium 137, Potassium 3.4 L, Chloride 108 H, Carbon Dioxide 21.0, Anion Gap 8, BUN 23 H, Creatinine 0.83, Estim Creat Clear Calc 35.59, Est GFR (MDRD) Af Amer 84, Est GFR (MDRD) Non-Af 69, BUN/Creatinine Ratio 27.6 H, Glucose 92, Calcium 8.7 Radiography Diagnostic Testing: Radiology Impression Brain CT 06/11/24 18:41 IMPRESSION: Chronic involutional changes of the brain. Electronically Signed: Salinas White MD at 19:47 EDT , Chest X-Ray 06/11/24 18:41 IMPRESSION: Degenerative changes, as described above. No demonstrated acute cardiopulmonary process. Electronically Signed: Salinas White MD at 19:52 EDT , D/C Instructions Discharge Diet: No restrictions Weight Bearing Status: Full weight bearing Meaningful Use Info Meaningful Use Meaningful Use Diagnoses (Choose all that apply): None applicable Ischemic Stroke Statin Dosing Therapy Reference: STATIN DOSE THERAPY REFERENCE: * Patients > 75 years receive moderate or high dose statin therapy. * Patients 75 years or YOUNGER should receive HIGH intensity statin dose unless contraindicated. You will be required to document reason for non-treatment if statin daily dose does not meet guidelines. HIGH DOSE STATIN THERAPY DAILY Atorvastatin > than or = to 40 mg Rosuvastatin > than or = to 20 mg Amlodipine + Atorvastatin > than or = to 2.5/40 mg Ezetimibe + Simvastatin 10/80 mg Simvastatin 80mg Discharge Plan Admission Admit Date/Time: 06/11/24 20:28 Primary Reason for Your Visit: HYPERTENSIVE URGENCY Attending Provider: Maciel Ramos Primary Care Provider: Castro Kidd Consulting Providers: Rick Chan Instructions Additional Instructions / Restrictions: You may monitor your blood pressure twice a day-once in the morning and once in the evening, you may also take it if you feel lightheaded. Your Holter monitor report should be available within the next 2 weeks, have Dr. Kidd call for the results if he is not able to find the result on her medical records here Discharge Orders/Prescriptions Prescriptions: Continued bupropion HCl 200 MG tablet sustained-release 12 hr 200 mg PO DAILY loperamide [Imodium A-D] 2 MG tablet 2 mg PO QHS PRN (Reason: loose stools) Patient Comments: diarrhea aspirin 81 MG tablet,delayed release (DR/EC) 1 tab PO DAILY nitroglycerin 0.4 MG tablet, sublingual 0.4 mg SL Q5M PRN (Reason: CHEST PAIN) budesonide 3 mg Capsule,Delayed,Extend.Release 3 mg PO DAILY methenamine hippurate 1 gram tablet 1 g PO BID multivitamin [Daily Multi-Vitamin] Tablet 1 tab PO DAILY acetaminophen 325 mg Tablet 650 mg PO Q6H PRN PRN (Reason: Pain 1-10 Or Fever>100.7) Qty: 0 0RF dorzolamide-timolol 22.3-6.8 mg/mL Drops 1 drp EACH EYE BID Qty: 10 0RF Rx Instructions: to be given at 0800 and 1600, AM dose to be given 10 minutes AFTER brimonidine Lumigan 0.01 % drops 1 drp ophthalmic (eye) DAILY Qty: 2.5 0RF Rx Instructions: to be given at night at least 10 minutes after brominidine and timolol gtts. meclizine 25 MG tablet 12.5 mg PO TID PRN PRN (Reason: Dizziness) Patient Comments: pt. has not taken in years Eliquis 5 mg Tablet 2.5 mg PO BID Qty: 15 0RF Rx Instructions: 1/2 tab twice daily midodrine 2.5 mg tablet 2.5 mg PO QHS Qty: 30 0RF trazodone 150 mg tablet 150 mg PO QHS Qty: 30 0RF atorvastatin 40 mg Tablet 20 mg PO QHS brimonidine 1 DROP bottle 1 drp ophthalmic (eye) BID Rx Instructions: give at 0830 and 2029 escitalopram oxalate 10 mg Tablet 10 mg PO HS biotin 1,000 mcg tablet,chewable 1,000 mcg PO DAILY ascorbate calcium (vitamin C) 1 tab PO DAILY Referrals / Follow Up: Castro Kidd MD [Primary Care Provider] - 06/19/24 1:00 pm (Appointment is with Jaquelin Steve N.P.) Disposition Disposition (needs filled in before D/C Order can be placed): Home, Self Care Charges/Coding Visit Charges Inpatient E&M: 71361 Disch Hosp >30min
[2024-06-12] MEDS: Ketorolac 15 MG/ML Vial IV (11:51)
[2024-06-12] MEDS: 0.9% Saline Lock 10 ML Syringe IV (11:51)
--- NOTE | 2024-06-12 11:58 | CASEMGMT ---
Pt has a DC order placed. This RN CM to pt room. Pt son at bedside. Pt states that she lives at home with her son who provides her with assistance. Pt states that she is active with OP therapy through [facility] and denies the need for HHC. Pt states that she feels safe discharging home today via her son with the continuation of OP Tx. Pt denies any further questions or concerns and is ready for DC home today.
--- NOTE | 2024-06-12 12:02 | PHA.DC.MR.R ---
Pharmacy [place] Med Reconciliation Pharmacy Service has performed discharge medication reconciliation for this patient. The patient's discharge medication list was reviewed for discrepancies and discrepancies were resolved. Medications at Discharge Home Medications bupropion HCl 200 mg tablet,12 hr sustained-release 200 mg PO DAILY mental health 09/11/16 loperamide 2 mg tablet (Imodium A-D) 2 mg PO QHS PRN loose stools 09/11/16 aspirin 81 mg tablet,delayed release 1 tab PO DAILY heart health 08/11/17 nitroglycerin 0.4 mg sublingual tablet 0.4 mg SL Q5M PRN CHEST PAIN 06/11/20 budesonide 3 mg capsule,delayed,extended release 3 mg PO DAILY breathing 05/09/21 methenamine hippurate 1 gram tablet 1 g PO BID bladder 06/14/23 multivitamin (Daily Multi-Vitamin tablet) 1 tab PO DAILY supp 05/01/24 acetaminophen 325 mg tablet 650 mg (2 x 325 mg) PO Q6H PRN PRN Pain 1-10 Or Fever>100.7 #0 tabs 05/03/24 bimatoprost 0.01 % eye drops (Lumigan) 1 drp ophthalmic (eye) DAILY eye #2.5 mL 05/03/24 dorzolamide 22.3 mg-timolol 6.8 mg/mL eye drops 1 drp EACH EYE BID eye #10 mL 05/03/24 meclizine 25 mg tablet 12.5 mg PO TID PRN PRN Dizziness 05/03/24 apixaban 5 mg tablet (Eliquis) 2.5 mg (1/2 x 5 mg) PO BID #15 tabs 05/15/24 midodrine 2.5 mg tablet 2.5 mg PO QHS #30 tabs 05/15/24 trazodone 150 mg tablet 150 mg PO QHS #30 tabs 05/15/24 ascorbate calcium (vitamin C) 1 tab PO DAILY 06/11/24 atorvastatin 40 mg tablet 20 mg PO QHS 06/11/24 biotin 1,000 mcg chewable tablet 1,000 mcg PO DAILY 06/11/24 brimonidine 0.15 % eye drops 1 drp ophthalmic (eye) BID eye 06/11/24 escitalopram oxalate 10 mg tablet 10 mg PO HS 06/11/24
--- NOTE | 2024-06-12 13:55 | CASEMGMT ---
Social Work SW spoke w/pt, she states she completed the POA papers last time she was here, and her son Mehdi is Healthcare POA. The documents have not yet been scanned into [employer], SW let pt know. ARIES Diaz
== END 2024-06-12 11:47 | disposition home or self-care (01) ==
LOC: ED 20:32 → PCU 20:46
PROVIDERS: Admitting Provider Hospitalist; Emergency Provider Emergency Medicine; PCP Family Medicine; Visit Provider Internal Medicine
DX: R03.0 Elevated blood-pressure reading, without diagnosis of hypertension (principal); I69.354 Hemiplegia and hemiparesis following cerebral infarction affecting left non-dominant side; I48.0 Paroxysmal atrial fibrillation; H40.9 Unspecified glaucoma; E78.5 Hyperlipidemia, unspecified; I49.3 Ventricular premature depolarization; Z79.01 Long term (current) use of anticoagulants; F41.9 Anxiety disorder, unspecified; Z79.82 Long term (current) use of aspirin; G47.00 Insomnia, unspecified; I69.319 Unspecified symptoms and signs involving cognitive functions following cerebral infarction; I69.393 Ataxia following cerebral infarction; R53.81 Other malaise; F32.A Depression, unspecified; Z79.899 Other long term (current) drug therapy
CPT/HCPCS: 36415; 70450; 71045; 80048; 81001; 84484; 85025; 85027; 87086; 87088; 93005; 96361; 96374; 96375; 97110; 99221; 99285; J7120; A4216; G0378

== ENCOUNTER 2024-09-04 15:00 | Outpatient (RCR) | payer MEDICARE, BC, SELFPAY ==
--- NOTE | 2024-05-22 16:06 | HP.OTEVAL ---
Patient's Visit Information Visit Information Visit Information: SANDY HUGHES is a 83 year old F, referred to Occupational Therapy by Dr. Alena Deal DO, with a diagnosis of debility/ CVA. Date of Evaluation: 05/22/24 Occupational Therapist: Cassandra Jean Subjective Subjective: This 83 year old female referred to skilled OT s/p acute or subacute ischemic CVA in R medial striatal. female lives with son reports she is able to do all ADL tasks son completes IADL tasks. pt son is able to work [email or web address] home as criminal attorney however does occ leave the home. pt remains on main level once in home has 2 steps to enter with railing. [facility] for approx 1 to 1.5 weeks before returning home. pt has hx of previous strokes and reports she feels as though it is taking her longer to get back to her baseline at this time. pt main concerns is her strength. denies having any falls since being home. pt believes stroke affected RUE this time however past strokes affected her L side per location of CVA affects should be on L side. Objective Objective/Observation: This female arrives with use of 4WW as means of mobility forward rounded posture pt requires use of wheelchair to get back to OT room due to long distance walk. ROM ROM Comments: Nava WFL Strength Shoulder: L 7.3 and R 6.3 pounds Elbow: L 13.2 R 5.7 pounds/ tricep L 11.4 R 13.0 pounds Customer Engineer: L and R 20 pounds Lateral Pinch: L 3 and R 3 pounds Tripod Pinch: L 5 R 3 pounds Strength Comments: R handed Edema Other: none Sensation Sensation Comments: denies numbness or tingling Nine Hole Peg Right: 47 sec Left: 52 sec In-Hand Manipulation Finger to Palm Translation: Moderate - Right and Moderate - Left Palm to Finger Translation: Moderate - Right and Moderate - Left Quick DASH-Disab of Arm,Shoulder& Hand Quick DASH Score: 47.7250 Goals Goal:: pt will increase L shoulder flexion strength to 10 pounds or more in order to maximize I in ADL / IADL tasks pt will increase R shoulder flexion strength to 8 pounds or more in order to maximize I in ADL /IADL tasks pt will increase L tricep extension strength to 13 pounds or more in order to maximize I in ADL/IADL tasks pt will increase R tricep extension strength to 15 pounds or more in order to maximize I in ADL/IADL tasks Pt will improve B hand director enterprise data architecture strength to 23 pounds or more in order to maxmize I in day to day tasks as well as hobbies Goal:: pt will improve R UE FMC as evident by 9 hole peg assessment time of 50 sec or less in order to maximize I in self care and IADL tasks Goal:: pt will verbalize/ demonstrate the ability get in and out of bathroom at home with KS no LOB in order to decrease risk for falls Goal:: pt will improve quick dash score by 15 points or more (47.72) in order to maximize performance in all functional activities Goal:: pt will verbalize/ demonstrate 100% carryover in proper joint protection and positioning during day to day tasks in order to promote UE function Rehabilitation General Assessment: This 83 year old female referred to OT s/p CVA impacting strength coordination as well as stability impacting pt ability to perform all day to day tasks. This female would benefit from OT services 1-2x a week for 4-6 weeks in order to re gain strength, coordination as well as stability and provide training in AE DME and environmental modifications as needed for return to PLOF. Rehabilitation Potential: Good Anticipated Interventions Anticipated Interventions: A/AAROM/PROM, Strengthening, Triggerpoint Release, Sensory Retraining, Orthoses, Joint Protection/Energy Conservation, Fine Motor Coord/Jae, Neuro Reeducation, ADL Training, Education re assistive Equipment, Education re Diagnosis, Caregiver Training and Home Program Visit Plan Frequency: 1-2x /Week Duration: 4-6 Weeks General Plan: AROM/AAROM/PROM strengthening FMC environmental modification AE/DME training TEXT: Thank you for the opportunity to evaluate your patient. For Medicare and Medicare HMO plans, please review the plan of care and approve it. It will need to be FAXED BACK to us at [phone] for Medicare purposes. Please let me know if there are questions or concerns regarding this plan of care. Physician Signature: Date:
--- NOTE | 2024-05-22 16:09 | HP.SP.EV_ITS ---
Visit History Visit Info Date of Eval: 05/22/24 Visit: 1 Packaging Materials Inspector: GUDELIA History Attending Doctor: Referring Doctor: Reason for Referral: DEBILITY/CVA RX HERE Medical Diagnosis: Cognitive difficulties, quiet voice Date of Onset of Diagnosis: 05/01/2024 Previous speech therapy: Yes Results: ST in the rehab unit at the [facility] April 2024 Other Relevant Medical History/Diagnoses/Surgery: SANDY ANUMSPURGER, is a 83 F with a PMH of depression, prior strokes, collagenous colitis (on budesonide), glaucoma, orthostatic hypotension, frequent urinary tract infections, falls, paroxysmal atrial fibrillation, remote hysterectomy for cancer and chronic anticoagulation with apixaban who presented to the emergency department at [facility] on 05/01/2024 with complaint of acute onset of change in speech, left-sided weakness and incoordination. MRI of the brain revealed acute or subacute ischemic CVA in the right neostriatum. Medications related to this diagnosis: atorvastatin 40 mg Tablet 40 mg PO QHS Qty: 30 0RF escitalopram oxalate 10 mg Tablet 5 mg PO HS Qty: 15 0RF Rx Instructions: 1/2 tab at bedtime Eliquis 5 mg Tablet 2.5 mg PO BID Qty: 15 0RF Rx Instructions: 1/2 tab twice daily atorvastatin 40 mg tablet 40 mg PO QHS Qty: 30 0RF escitalopram oxalate 5 mg tablet 5 mg PO DAILY Qty: 30 0RF midodrine 2.5 mg tablet 2.5 mg PO QHS Qty: 30 0RF trazodone 150 mg tablet 150 mg PO QHS Qty: 30 0RF bupropion HCl 200 MG tablet sustained-release 12 hr 200 mg PO DAILY loperamide [Imodium A-D] 2 MG tablet 2 mg PO QHS PRN (Reason: loose stools) Patient Comments: diarrhea aspirin 81 MG tablet,delayed release (DR/EC) 1 tab PO DAILY nitroglycerin 0.4 MG tablet, sublingual 0.4 mg SL Q5M PRN (Reason: CHEST PAIN) budesonide 3 mg Capsule,Delayed,Extend.Release 3 mg PO DAILY methenamine hippurate 1 gram tablet 1 g PO BID hydroquinone 4 % cream 1 applic TOPICAL TID PRN PRN (Reason: skin) Patient Comments: APPLY TO AFFECTED AREA 3 TIMES A DAY multivitamin [Daily Multi-Vitamin] Tablet 1 tab PO DAILY acetaminophen 325 mg Tablet 650 mg PO Q6H PRN PRN (Reason: Pain 1-10 Or Fever>100.7) Qty: 0 0RF dorzolamide-timolol 22.3-6.8 mg/mL Drops 1 drp EACH EYE BID Qty: 10 0RF Rx Instructions: to be given at 0800 and 1600, AM dose to be given 10 minutes AFTER brimonidine brimonidine 1 DROP bottle 1 drp ophthalmic (eye) BID Qty: 5 0RF Rx Instructions: give at 0800 and 2000 Lumigan 0.01 % drops 1 drp ophthalmic (eye) DAILY Qty: 2.5 0RF Rx Instructions: to be given at night at least 10 minutes after brominidine and timolol gtts. meclizine 25 MG tablet 12.5 mg PO TID PRN PRN (Reason: Dizziness) Smoking Status: Never smoker Diagnosis Diagnosis: Cognitive difficulties as a result of CVA Pain Is pain an issue with your current prescribed condition?: No Personal Preferred language: [place] Patient Allergies Allergies Allergies: Allergies morphine Allergy (Verified 06/14/23 21:32) Unknown Sulfa (Sulfonamide Antibiotics) Allergy (Verified 06/14/23 21:32) Unknown aspirin Adverse Reaction (Verified 06/14/23 21:32) Nausea/Vom/Diarrhea CLQT CLQT CLQT Administered: Yes CLQT: Cognitive Linguistic Quick Test (CLQT) is a criterion - referenced assessment designed for adults between the ages of 18 and 89 with known or suspected neurological dysfuntions. The CLQT is to assess strength and weaknesses in five cognitive domains. Severity ratings are within normal limits, mild, moderate, severe deficits. The subtests are as follows: Date: 05/22/24 CLQT Comments CLQT: -: Pt requested to pause testing until a later date due to being tired and fatigued. Finished sections up to design memory Reference: Neuro-QoL instrument Radiation Oncology Patient Plan Plan Plan: Will recommend Pt for weekly outpatient speech therapy to address moderate cognitive impairment characterized by deficits in immediate and short-term memory, executive functioning, attention, problem solving/reasoning, safety awareness, and vocal quality/loudness. Pt would benefit from training in compensatory strategies for recall and word retrieval, as well as cognitive training to improve cognitive functioning. Recommendations Treatment Warranted: Yes Treatment Warranted: Cognition and Voice Comment: Pt voice was soft, pt reports decline in loudness after most recent CVA Progress Prognosis: Good Frequency Frequency: 2x /Week Duration: 4 Weeks Patient/Family Goal Patient/Family Goal: Pt wants to increase clarity of speech and volume. Goals that are Established Determination:: Goals will be added/modified as deemed necessary and appropriate. Therapy will be discontinued when results of re-evaluation indicate therapy is no longer needed or lack of progress has been documented. Goal #1-5 Goal #1: Pt will complete basic to mod complex planning, organizing, and sequencing tasks with 90% acc independently across 3 measured opportunities. Goal #2: Pt will approximate target volume level in sentences 10x per session independently across 3 measured opportunities Goal #3: Pt will continue cognitive linguistic testing to assess baseline skills and understanding Education Patient has Indicated that the Following Identified Educational Needs: None Other Educational Needs: [employer] The Patient has indicated that they have no educational or learning abilities that may effect their care.: Yes Patient Instruction Patient Education: Diagnosis, Treatment Plan and Goals Person Taught: Patient Teaching Method: Discussion Response to teaching: Verbalize understanding
--- NOTE | 2024-05-28 19:16 | HP.PTEVAL ---
Patient's Visit Information Visit Information Visit Information: SADNY HUGHES is a 84 year old F referred to Physical Therapy by Dr. 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 Date of Evaluation: 05/28/24 Physical Therapist: Sho Jaime, PT, Cert MDT Visit Plan Frequency: 2x /Week Duration: 6-8 WKS Plan: *HARD OF HEARING. FALL RISK - USE GAIT BELT. TAKE BLOOD PRESSURE BEGINNING AND END OF EA VISIT AND NEEDED* GAIT TRAINING, BALANCE TRAINING, STRENGTH AND ENDURANCE TRAINING WITH HEP INSTRUCTIONS. CERTIFIED ANESTHESIOLOGIST ASSISTANT EDUCATION/TRAINING TO ASSIST WITH HEP AND GAIT SAFETY NEEDED. Subjective Subjective: THIS PATIENT PRESENTS TO OUT-PATIENT PHYSICAL THERAPY S/P RECENT CVA WITH [facility] ADMISSION 05/03/24 TO 05/16/24. UPON ARRIVAL SHE REPORTS THAT SHE IS MORE TIRED THAN USUAL THIS MORNING. HER SON STATES HE THINKS SHE MIGHT BE GETTING ANOTHER UTI AND SHE HAS AN RUFUS'T WITH HER DOCTOR THIS AFTERNOON. HE STATES SHE WAS MAKING PROGRESS IN THE HOSPITAL. HE REPORTS HER FIRST STROKE WAS IN 2015 THEN SHE HAD 2-3 SMALL ONES EFFECTING HER R SIDE AND SOME FALLS. THIS STROKE EFFECTED HER L SIDE. BEFORE THIS STROKE SHE WAS ABLE TO GET UP THEIR RAMP AND STAIRS WITH ASSIST AND WALK ABOUT 100 YARDS. SHE WAS DOING AN EX PROGRAM AT HOME WITH ONE TO 2 LB WEIGHTS AND BANDS FOR MAINTENANCE. SHE HAS HAD 2 HOSPITALIZATIONS IN ADDITION TO THIS ONE SINCE NOVEMBER FOR UTI'S. PATIENT DENIES PAIN IN GENERAL BUT HAVING A LITTLE BIT OF A HEADACHE TODAY AND REPORTS SHE DOES GET HEADACHES SOMETIMES. UNABLE TO RATE PAIN ON PAIN SCALE. Objective Objective: THIS PATIENT WAS FOUND SITTING ALONE IN OUR LOBBY. SHE DID NOT INITIALLY RESPOND TO HER NAME BEING CALLED. SHE INITIALLY STARTED TO AMBULATED INDEP'LY INTO PT WITH HER ROLLATOR REPORTING SHE WAS FEELING MORE TIRED THAN USUAL TODAY AND SHE WAS HAVING TROUBLE GUIDING HER ROLLATOR. SHE WAS DEVIATING TO THE RIGHT AND NEEDED ASSIST FROM THIS PT TO CORRECT MULTIPLE TIMES. AT APPROX 80 FEET THIS PT HAD PATIENT SIT DOWN TO REST AND A CO-WORKER WENT TO FIND HER SON THAT BROUGHT HER SO HER COULD PROVIDE MORE INFORMATION AND HE ATTENDED THE REST OF THE SESSION AT THIS PT'S REQUEST. PATIENT WAS TAKEN THE REST OF THE WAY BACK TO THE TREATMENT ROOM IN A W/C. HER BLOOD PRESSURE WAS 107/60. HER SON REPORTS HER BLOOD PRESSURE HAS BEEN LOW AND IS SOMETIMES EVEN 90/55. PATIENT IS ALERT, PLEASANT AND CALM. SHE AND HER SON STATE THEY WANT TO PROCEED WITH THE PHYSICAL THERAPY EVALUATION TODAY SO THAT THEY CAN GET TREATMENTS SET UP. STANDING STATIC BALANCE WITHOUT UE ASSIST IS FAIR. STANDING DYNAMIC BALANCE WITHOUT UE ASSIT IS POOR. STATIC SITTING BALANCE IS GOOD. TUG TIME WITH ROLLATOR IS 31.31 SEC WITH SUPERVISION. PATIENT IS UNABLE TO TRANSFER SIT TO STAND WITHOUT UE ASSIST BUT SHE IS ABLE TO DO SO WITH ONE UE VS 2. 30 SEC STS TEST = 4 WITH ONE UE. [place] LE STRENGTH IS GROSSLY 4/5 WITH MMT'ING TODAY. PATIENT DENIES LE PAIN WITH TESTING. PATIENT IS HARD OF HEARING BUT FOLLOWS COMMANDS WELL WHEN SHE IS ABLE TO HEAR THEM. UPON DEPARTURE PATIENT DEMONSTRATED THE ABILITY TO WALK 160 FEET WITH ROLLATOR WITH CONTACT GUARD. Balance/Special Test Scores Lower Extremity Functional Score: 9 Goals Goal 1:: PATIENT WILL REPORT AT LEAST 25% IMPROVEMENT IN ABILITY TO DO DAILY ACTIVITIES SUCH WALK INTO AND WITHIN HER HOME. Goal Time Frame: 8-12 Weeks Goal 2:: PATIENT WILL COMPLETE 6 STANDS IN 30 SECS WITH ONE UE ASSIST TO DEMONSTRATE IMPROVED FUNCTIONAL STRENGTH Goal Time Frame: 4-6 Weeks Goal 3:: PATIENT WILL COMPLETE TUG IN < 25 SECS WITH ROLLATOR INDEP'LY TO DEMONSTRATE IMPROVED GAIT STABILITY Goal Time Frame: 4-6 Weeks Goal 4:: PATIENT WILL BE ABLE TO WALK FOR AT LEAST 200 FEET WITH ROLLATOR AND WITHOUT AGGREVATION OF SYMPTOMS WITH SUPERVISION TO IMPROVE ENDURANCE. Goal Time Frame: 6-8 Weeks Goal 5:: PATIENT WILL BE INDEP WITH A HEP WITH HELP OF CERTIFIED ANESTHESIOLOGIST ASSISTANT FOR CONTINUED IMPROVEMENT ONCE FORMAL PHYSICAL THERAPY CONCLUDES. Goal Time Frame: 6-8 Weeks Rehabilitation Potential Physical Therapy Diagnosis: THIS PATIENT PRESENTS TO PT WITH UNSTEADY GAIT, WEAKNESS AND DECREASED ENDURANCE S/P CVA. Rehabilitation Potential: Good Anticipated Interventions Patient/Client Instruction: Educate patient on: Condition, Plan of Care and Risk Factors For the Purpose of:: To facilitate caregiver knowledge and To improve self management Therapeutic Exercise to Include: Strength training, Endurance training, Balance training, Coordination, Body mechanics, Postural training, Gait and locomotor training and Neuromotor development For the Purpose of:: To improve muscle performance and motor function, To increase tolerance to activity/condition/position, To improve ability of physical actions for home/community/work/leisure, To improve gait and locomotor functions, To improve endurance, To improve balance, To improve safety with gait, To assume or resume ADL's, To facilitate caregiver knowledge and To improve self management Text: Thank you for the opportunity to evaluate your patient. For Medicare and Medicare HMO plans, please review the plan of care and approve it. It will need to be FAXED BACK to us at [phone] for Medicare purposes. For Medicare only, by signing this I certify the plan of care. Please let me know if there are questions or concerns regarding this plan of care. Physician Signature: Date:
--- NOTE | 2024-06-25 19:39 | HP.PTREVAL_ITS ---
Re-Evaluation Intro: Dr. 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 Please see the progress note below for an update on the physical therapy plan of care! Subjective Subjective: Patient reports she is feeling good today. She reports PT has been helping. I feel much stronger and I am able to do more exercises. She also reports she can go into the kitchen now and back with confidence by herself but she likes someone to be around. She reports she can even go beyond the kitchen to the dinning room. Patient reports that after she got out of the hospital Dr. Kidd's assist saw her and dx'd her with pneumonia and prescribed antibiotic. She is going to follow up with them again next week. She denies any recent dx of UTI. She reports her blood pressure has been doing better and they are monitoring it at home 2x's a day. She reports she isn't able to go up steps as well as she could before this stroke and she can't walk as far yet either. Objective Objective/Function: THIS PATIENT IS MAKING SLOW PROGRESS WITH PT AND APPEARS TO BE A GOOD CANDIDATE TO CONTINUE PT BASED ON PROGRESS MADE AND ROOM FOR FURTHER PROGRESS ESPECIALLY WHEN REPORTED PLOF IS TAKEN INTO CONSIDERATION. CURRENTLY HER BLOOD PRESSURE IS A LIMITING FACTOR AT TIMES AND WE ARE MONITORING IT CLOSELY. SHE IS NOW ABLE TO TRANSFER FROM SIT TO STAND WITHOUT UE ASSIST BUT INCONSISTENTLY (50% OF THE TIME) DURING HER 30 SEC STS TEST. THIS PT ENCOURAGED HER TO USE ONE UE FOR TRANSFER STAND TO SIT FOR SAFETY BECAUSE SHE IS NOT STRONG ENOUGH TO CONTROL IT WITHOUT AT LEAST ONE UE YET. HER TUG TIME ALSO IMPROVED TODAY ALONG WITH LE STRENGTH. I WAS UNABLE TO TEST HER GAIT DISTANCE DUE TO A RISE IN HER BLOOD PRESSURE AFTER OTHER TESTING. PATIENT WAS PLEASANT AND COOPERATIVE TO WORK WITH THROUGHOUT SESSION TODAY. SHE WAS TALKATIVE AND FOLLOWED COMMANDS WELL. SHE GUIDED THE ROLLATOR WELL INDEP'LY DURING THE TUG TEST. MMT'ING: R HIP 4/5, KNEE 4/5, ANKLE 4/5. L HIP 4-/5, L KNEE 4-/5, L ANKLE 4-/5. TUG TIME WITH ROLLATOR, CG+1 = 26.10 STS = 6 WITH 1 UE ASSIST 50% OF THE TIME, CG+1 AND VERBAL CUES FOR SAFETY. BLOOD PRESSURE: PRE-EX: 126/71 MID-TX: 150/76 POST-STS TEST AND REST: 148/81 Plan Plan Plan: CONT PT 2X'S A WK X 4-6 WKS. *HARD OF HEARING. FALL RISK - USE GAIT BELT. TAKE BLOOD PRESSURE BEGINNING AND END OF EA VISIT AND NEEDED* GAIT TRAINING, BALANCE TRAINING, STRENGTH AND ENDURANCE TRAINING WITH HEP INSTRUCTIONS. DIRECTOR SELECTION AND ADMINISTRATION EDUCATION/TRAINING TO ASSIST WITH HEP AND GAIT SAFETY NEEDED. Balance/Gait/Functional tests Balance/Special Test Scores Lower Extremity Functional Score: 9 Goals Goals Goal 1:: PATIENT WILL REPORT AT LEAST 25% IMPROVEMENT IN ABILITY TO DO DAILY ACTIVITIES SUCH WALK INTO AND WITHIN HER HOME. Goal Time Frame: 8-12 Weeks Goal Progress: Goal Met Goal 2:: PATIENT WILL COMPLETE 6 STANDS IN 30 SECS WITH ONE UE ASSIST TO DEMONSTRATE IMPROVED FUNCTIONAL STRENGTH - GOAL MET. NEW GOAL: PATIENT WILL BE ABLE TO COMPLETE 6 STANDS IN 30 SECS WITH ONE UE ASSIST WITH GOOD CONTROL WITHOUT ELEVATION IN BLOOD PRESSURE. Goal Time Frame: 4-6 Weeks Goal 3:: PATIENT WILL COMPLETE TUG IN < 25 SECS WITH ROLLATOR INDEP'LY TO DEMONSTRATE IMPROVED GAIT STABILITY Goal Time Frame: 4-6 Weeks Goal Progress: Progressing Goal 4:: PATIENT WILL BE ABLE TO WALK FOR AT LEAST 200 FEET WITH ROLLATOR AND WITHOUT AGGREVATION OF SYMPTOMS WITH SUPERVISION TO IMPROVE ENDURANCE. Goal Time Frame: 6-8 Weeks Goal 5:: PATIENT WILL BE INDEP WITH A HEP WITH HELP OF DIRECTOR SELECTION AND ADMINISTRATION FOR CONTINUED IMPROVEMENT ONCE FORMAL PHYSICAL THERAPY CONCLUDES. Goal Time Frame: 6-8 Weeks Goal Progress: Progressing Goal 6:: NEW GOAL: PATIENT WILL BE ABLE TO GO UP 6 STEPS HOLDING ON TO ONE HANDRAIL WITH 2 HANDS WITH +1 CG ASSIST. Goal Time Frame: 4-6 Weeks Anticipated Interventions Anticipated Interventions Patient/Client Instruction: Educate patient on: Condition, Plan of Care and Risk Factors For the Purpose of:: To facilitate caregiver knowledge and To improve self management Therapeutic Exercise to Include: Strength training, Endurance training, Balance training, Coordination, Body mechanics, Postural training, Gait and locomotor training and Neuromotor development For the Purpose of:: To improve muscle performance and motor function, To increase tolerance to activity/condition/position, To improve ability of physical actions for home/community/work/leisure, To improve gait and locomotor functions, To improve endurance, To improve balance, To improve safety with gait, To assume or resume ADL's, To facilitate caregiver knowledge and To improve self management Re-Evaluation Ending Re-evaluation ending: Please do not hesitate to contact me at [phone] by phone or if you have questions or concerns regarding this new plan of care! Sincerely, Sho Jaime, PT, Cert MDT
--- NOTE | 2024-08-08 16:52 | HP.OT.NRP ---
Patient Information Patient Information: SANDY PETERSON AUGSPURGER was seen in my office for initial evaluation on 05/22/24. The following Plan of Care was established for this patient: POC Established Initial Frequency: 1-2x /Week Initial Duration: 4-6 Weeks Plan: coordination strength AROM/AAROM/PROM Anticipated Interventions Anticipated Interventions: A/AAROM/PROM, Strengthening, Triggerpoint Release, Sensory Retraining, Orthoses, Joint Protection/Energy Conservation, Fine Motor Coord/Jae, Neuro Reeducation, ADL Training, Education re assistive Equipment, Education re Diagnosis, Caregiver Training and Home Program Last Seen Last Seen: This patient was last seen in our office 07/31/24. Pertinent comments regarding their Occupational therapy will appear below: This 84 year old female seen by OT for dx of ischemic CVA. pt seen by OT for improved overall UB strength as well as FMC and dexterity as well as education regarding compensatory adaptive techniques for ease and I in day to day routines. Unbale to assess last visit measurements due to pt unable to come to last scheduled visit from being ill. OT confirms with son and pt that they would like to cease OT at this time and continue with PT only. At this point I will be discontinuing this patient from occupational therapy. I would be happy to see this patient again in the future if found appropriate by the physician. Thank you! Cassandra Jean
--- NOTE | 2024-08-16 15:01 | HP.PTREVAL ---
Re-Evaluation Intro: Dr. 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 Please see the progress note below for an update on the physical therapy plan of care! Subjective Subjective: I am now able to transfer from sitting to standing, and I can walk a lot further now Objective Objective/Function: BP is 136/68 prior to testing Pt is able to ambulate 200 feet with WW and CGAx1 until needing to sit secondary to fatigue. Pt had to take a rest rest at 150' Pt is able to negotiate 10 stairs sideways with 1 handrail and use of 2 UE's. Pt is progressing with HEP Pt is showing significant gains at this time but is still limited with ambulation both at home and in community Plan Plan Plan: 08/16/24- Continue to progress ex's 2x's per week x 4 weeks consisting of B LE strengthneing, gait training, stair negotiation, and nustep *GAIT TRAINING IN STAIR WELL NEXT VISIT WITH 2 HANDS ON ONE RAIL IF BP OK TO SIMULATE HOME SITUATION* CONT PT 2X'S A WK X 4-6 WKS. *HARD OF HEARING. FALL RISK - USE GAIT BELT. TAKE BLOOD PRESSURE BEGINNING AND END OF EA VISIT AND NEEDED* GAIT TRAINING, BALANCE TRAINING, STRENGTH AND ENDURANCE TRAINING WITH HEP INSTRUCTIONS. PROGRAM MANAGER EDUCATION/TRAINING TO ASSIST WITH HEP AND GAIT SAFETY NEEDED. Balance/Gait/Functional tests Balance/Special Test Scores Lower Extremity Functional Score: 9 Goals Goals Goal 1:: PATIENT WILL REPORT AT LEAST 25% IMPROVEMENT IN ABILITY TO DO DAILY ACTIVITIES SUCH WALK INTO AND WITHIN HER HOME. Goal Time Frame: 8-12 Weeks Goal Progress: Goal Met Goal 2:: PATIENT WILL COMPLETE 6 STANDS IN 30 SECS WITH ONE UE ASSIST TO DEMONSTRATE IMPROVED FUNCTIONAL STRENGTH - GOAL MET. NEW GOAL: PATIENT WILL BE ABLE TO COMPLETE 6 STANDS IN 30 SECS WITH ONE UE ASSIST WITH GOOD CONTROL WITHOUT ELEVATION IN BLOOD PRESSURE. Goal Time Frame: 4-6 Weeks Goal Progress: Goal Met Goal 3:: PATIENT WILL COMPLETE TUG IN < 25 SECS WITH ROLLATOR INDEP'LY TO DEMONSTRATE IMPROVED GAIT STABILITY Goal Time Frame: 4-6 Weeks Goal Progress: Goal Met Goal 4:: PATIENT WILL BE ABLE TO WALK FOR AT LEAST 200 FEET WITH ROLLATOR AND WITHOUT AGGREVATION OF SYMPTOMS WITH SUPERVISION TO IMPROVE ENDURANCE. Goal Time Frame: 6-8 Weeks Goal Progress: Progressing Goal 5:: PATIENT WILL BE INDEP WITH A HEP WITH HELP OF PROGRAM MANAGER FOR CONTINUED IMPROVEMENT ONCE FORMAL PHYSICAL THERAPY CONCLUDES. Goal Time Frame: 6-8 Weeks Goal Progress: Progressing Goal 6:: NEW GOAL: PATIENT WILL BE ABLE TO GO UP 6 STEPS HOLDING ON TO ONE HANDRAIL WITH 2 HANDS WITH +1 CG ASSIST. Goal Time Frame: 4-6 Weeks Goal Progress: Goal Met Anticipated Interventions Anticipated Interventions Patient/Client Instruction: Educate patient on: Condition, Plan of Care and Risk Factors For the Purpose of:: To facilitate caregiver knowledge and To improve self management Therapeutic Exercise to Include: Strength training, Endurance training, Balance training, Coordination, Body mechanics, Postural training, Gait and locomotor training and Neuromotor development For the Purpose of:: To improve muscle performance and motor function, To increase tolerance to activity/condition/position, To improve ability of physical actions for home/community/work/leisure, To improve gait and locomotor functions, To improve endurance, To improve balance, To improve safety with gait, To assume or resume ADL's, To facilitate caregiver knowledge and To improve self management Re-Evaluation Ending Re-evaluation ending: Please do not hesitate to contact me at [phone] by phone or if you have questions or concerns regarding this new plan of care! Sincerely, Rai Raphael, PT, ATC
--- NOTE | 2024-08-28 09:30 | HP.SP.DC ---
ST Discharge Summary Discharged: Discharge: Angela Augspurger is discharged from [facility] speech therapy as of 07/31/24 at the patient?s request. She was evaluated on with therapy recommended weekly for cognitive deficits and dysphonia. She attended 9 visits and requested to discontinue therapy. She requested discharge as she stated she had no progress but once goals were reviewed with progress she agreed she was making progress. She continued to request discontinuing as she stated she wanted to see her ENT in [place] when she goes in September. Her son was notified of her decision with her present. Please see evaluation and daily notes for complete details. Thank you for allowing me to participate in the care of this patient.
--- NOTE | 2024-09-16 16:41 | HP.PT.NRP ---
Patient Information Patient Information: SANDY PETERSON AUGSPURGER was seen in my office for initial evaluation on 05/28/24. The following Plan of Care was established for this patient: POC Established Initial Frequency: 2x /Week Initial Duration: 6-8 WKS Anticipated Interventions Patient/Client Instruction: Educate patient on: Condition, Plan of Care and Risk Factors For the Purpose of:: To facilitate caregiver knowledge and To improve self management Therapeutic Exercise to Include: Strength training, Endurance training, Balance training, Coordination, Body mechanics, Postural training, Gait and locomotor training and Neuromotor development For the Purpose of:: To improve muscle performance and motor function, To increase tolerance to activity/condition/position, To improve ability of physical actions for home/community/work/leisure, To improve gait and locomotor functions, To improve endurance, To improve balance, To improve safety with gait, To assume or resume ADL's, To facilitate caregiver knowledge and To improve self management Last Seen Last Seen: This patient was last seen in our office 09/04/24. Pertinent comments regarding their Physical therapy will appear below: It has been my pleasure to see this patient for a total of 21 visits This patient has not returned to Physical Therapy for more visits and is appropriate to return to MD for further follow-up as needed. This PT received a message from Manjula at our desktop support engineer stating that the patient?s son called and cancelled remaining visits. She has apparently been sick and is going to take a break from therapy and appreciates what we have done for her. She has attended 3 visits since last re-check by LILIANE Max. She walked approximately 210 feet with a FWW with supervision her last visit with us. At this point I will be discontinuing this patient from physical therapy. I would be happy to see this patient again in the future if found appropriate by the physician. Thank you! Sho Jaime, PT, Cert MDT Balance/Gait/Functional tests Balance/Special Test Scores Lower Extremity Functional Score: 9
== END 2024-09-04 19:00 | disposition home or self-care (01) ==
LOC: PT 15:00
PROVIDERS: PCP Family Medicine; Referring Provider Internal Medicine; Visit Provider Internal Medicine
DX: I69.354 Hemiplegia and hemiparesis following cerebral infarction affecting left non-dominant side (principal); I69.319 Unspecified symptoms and signs involving cognitive functions following cerebral infarction; I69.393 Ataxia following cerebral infarction; R53.81 Other malaise; I69.322 Dysarthria following cerebral infarction
CPT/HCPCS: 92507; 97110; 97116; 97162; 97166; 97530

== ENCOUNTER 2025-06-03 13:30 | Outpatient (RCR) | payer MEDICARE, BC, SELFPAY ==
--- NOTE | 2025-05-29 14:56 | HP.PTEVAL_ITS ---
Patient's Visit Information Visit Information Visit Information: SANDY HUGHES is a 85 year old F referred to Physical Therapy by Dr. Castro Kidd MD with a diagnosis of Debility. Date of Evaluation: 05/29/25 Physical Therapist: Jack Milner, DPT, OCS, CSCS Visit Plan Frequency: 3x /Week Duration: 4-6 Weeks Plan: 3x/week for 4-6 weeks: IE HEP: seated march, overhead reach seated, seated LAQ, seated AP all 20x 2x/day and lie down and sit up every new chapter of her book and walk with rollator with son 8+ x/day 15 feet. HO given. treat in clinic with standing LE and postural strength, mat based core strength to HEP, gradual progression of walking distance with rollaotr, standing balance ex dyanmic. Subjective Subjective: I need to get stronger. I want to stand. I had surgery to put in a pacemaker. That was March 21 and then pneumonia since then til May 02, then at home PT to begin strength. Is limited to used a rollator and limited to short distances. 10-20 feet and was unstable. Prior was able to walk 100 yards or so into a restaurant. Had a stroke last year and had PT for recovery, everything weakened from heart adn pneumonia. Does use bathroom by herself barely, sits up in bed barely. needs core strength adn walking. Bed mobility I but difficult. Son does mot of talking today. Wants to be able to go gt a snack or glass of water. Right now spends day on couch and sleeps on couch. Gets to bathroom with rollator with supervision. HEP does marching at times 20x, walks to front door. Sleep well. No pain.No spinning. No falls but has to be careful. Objective Objective: Very weak, neeeds to be pushed back in WC. Ambulation: with wh walker 20 feet only iwth CGA and very tiring. sit to stand with UE required Mod I, tends to reach for chair prior to getting there to sit down and VC needed to get to chair first. stands with much fear without UE assist 30 seconds 2x/ today, wobbly with ec and one LOB in 30 seconds. sit to supine I but slow and very weak core at 3/5 abs and ext. UE AROM WFL and strngth 3/5 LE AROM WFL, tightness L HS, weakness L leg noticeable and she says this is since her stroke. 3 on L and 3+ on R knees and ankles, hips strength 3/5 B abd and ext, 3+ R hip flexion adn 3 on L. 30 SSTS is 2 TUG is 50 seconds very poor confidnce with movement. Hesitant to move and reaching for things. Balance/Special Test Scores Lower Extremity Functional Score: 7 TUG Test Time Seconds: 50 30 Second Chair Rise Test Seconds: 2 Goals Goal 1:: I appropriate standing HEP to minimize future problems Goal Time Frame: 4-6 Weeks Goal 2:: Walk with rollator household distances I and safely Goal Time Frame: 4-6 Weeks Goal 3:: TUG 25 seconds or better Goal Time Frame: 4-6 Weeks Goal 4:: 8 on 30 SSTS Goal Time Frame: 4-6 Weeks Rehabilitation Potential Physical Therapy Diagnosis: weakness from recent health concerns effecting mobility and QOL Rehabilitation Potential: Fair Anticipated Interventions Patient/Client Instruction: Educate patient on: Condition and Risk Factors For the Purpose of:: To increase ROM, To improve muscle performance and motor function, To increase tolerance to activity/condition/position, To improve ability of physical actions for home/community/work/leisure, To improve gait and locomotor functions and To improve safety Therapeutic Exercise to Include: Strength training, Balance training, Flexibilty training and Gait and locomotor training For the Purpose of:: To improve nutrient delivery to tissue, To improve muscle performance and motor function, To increase tolerance to activity/condi tion/position, To improve ability of physical actions for home/community/work/leisure, To improve gait and locomotor functions and To improve safety Text: Thank you for the opportunity to evaluate your patient. For Medicare and Medicare HMO plans, please review the plan of care and approve it. It will need to be FAXED BACK to us at [phone] for Medicare purposes. For Medicare only, by signing this I certify the plan of care. Please let me know if there are questions or concerns regarding this plan of care. Physician Sign ature: Date:
--- NOTE | 2025-09-05 16:24 | HP.PT.NRP ---
Patient Information Patient Information: SANDY PETERSON AUGSPURGER was seen in my office for initial evaluation on 05/29/25. The following Plan of Care was established for this patient: POC Established Initial Frequency: 3x /Week Initial Duration: 4-6 Weeks Anticipated Interventions Patient/Client Instruction: Educate patient on: Condition and Risk Factors For the Purpose of:: To increase ROM, To improve muscle performance and motor function, To increase tolerance to activity/condition/position, To improve ability of physical actions for home/community/work/leisure, To improve gait and locomotor functions and To improve safety Therapeutic Exercise to Include: Strength training, Balance training, Flexibilty training and Gait and locomotor training For the Purpose of:: To improve nutrient delivery to tissue, To improve muscle performance and motor function, To increase tolerance to activity/condition/position, To improve ability of physical actions for home/community/work/leisure, To improve gait and locomotor functions and To improve safety Last Seen Last Seen: This patient was last seen in our office 06/03/25. Pertinent comments regarding their Physical therapy will appear below: Pt seen two visits of POC but did not return for further visits. At this point I will disocntinue due to lack of attendance. At this point I will be discontinuing this patient from physical therapy. I would be happy to see this patient again in the future if found appropriate by the physician. Thank you! Jack Milner, DPT, OCS, CSCS Balance/Gait/Functional tests Balance/Special Test Scores Lower Extremity Functional Score: 7 TUG Test Time Seconds: 50 Tug Test: >30sec.=impaired mobility 30 Second Chair Rise Test Seconds: 2
== END 2025-06-03 19:00 | disposition home or self-care (01) ==
LOC: PT 13:30
PROVIDERS: PCP Family Medicine; Referring Provider Family Medicine; Visit Provider Family Medicine
DX: Z86.73 Personal history of transient ischemic attack (TIA), and cerebral infarction without residual deficits (principal); Z95.0 Presence of cardiac pacemaker; Z87.01 Personal history of pneumonia (recurrent); N39.0 Urinary tract infection, site not specified; R53.81 Other malaise
CPT/HCPCS: 97110; 97163

== ENCOUNTER 2025-06-05 08:23 | Emergency (ER) | payer MEDICARE, BC, SELFPAY ==
[2025-06-05] VITALS (10 sets, daily range): BP systolic 125–149; BP diastolic 83–107; PULSE 88–112; RESP 17–28; TEMP 35.1–36.7; O2SAT 92–100; BMI 21.5
--- NOTE | 2025-06-05 08:45 | EDS_ITS ---
HPI History of Present Illness Chief Complaint: Shortness of Breath Detail of Chief Complaint: Physical decline, hypoxia, failure to thrive Informant: family (Son who is POA) and EMS (When paramedics arrived I was informed that son wants no antibiotics.) Onset/Context/Timing Onset: Days (Decline started 1.5 days ago) Context: sudden Timing: Continuous Current Severity: Severe Maximum Severity: Severe Worsened by: Nothing Relieved by: Nothing Narrative Narrative: Patient is a 85-year-old woman. 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 When squad arrived her pulse ox was 66%. She is not on oxygen at home. She has a legal document from [place] that is signed by physician in 2023 for DNR comfort care measures only. Dr. Kidd signed a DNR comfort care document May 21, 2025. Confirmed with son that she is DNR comfort care. He asked questions. He was informed that DNR comfort care means comfort i.e. suction, oxygen and medication as needed for comfort. He wonders no I would be able to make her better in 6 hours. He was informed that may entail putting on life support aggressive measures. He does not wish for me to proceed those avenues. He was told that we could contact hospice. Hospice would have to evaluate his mother and there are multiple options and avenues. After being made aware with DNR comfort care does not mean and what her wishes are hospice was paged at [phone]. Prior similar symptoms: No Recent Illness/Hospitalization: No PFSH PFSH Medical History Paroxysmal atrial fibrillation Stroke Hyperlipidemia Depression Ataxia due to cerebrovascular disease Urinary urgency Chronic anticoagulation Orthostatic hypotension HTN (hypertension) Collagenous colitis Angioedema History of multiple strokes Appendicitis Glaucoma Depression Home Medications ?Medication ?Instructions ?Recorded ?Last Taken ?Type bupropion HCl 200 mg tablet,12 hr 200 mg PO DAILY [facility] 09/11/16 09/11/16 History sustained-release loperamide 2 mg tablet (Imodium 2 mg PO QHS PRN loose stools 09/11/16 09/10/16 History A-D) aspirin 81 mg tablet,delayed 1 tab PO DAILY [facility] 09/21/17 Unknown History release nitroglycerin 0.4 mg sublingual 0.4 mg SL Q5M PRN CHES T PAIN 06/11/20 Unknown H istory tablet budesonide 3 mg 3 mg PO DAILY breathing 04/21 08/11 Unknown History capsule,delayed,extended release methenamine hippurate 1 gram tablet 1 g PO BID bladder 06/14/23 Unknown History multivitamin (Daily Multi-Vitamin 1 tab PO DAILY supp 05/01/24 Unknown History tablet) acetaminophen 325 mg tablet 650 mg (2 x 325 mg) PO Q6H PRN PRN 05/03/24 Unknown Rx Pain 1-10 Or Fever>100.7 #0 tabs bimatoprost 0.01 % eye drops 1 drp ophthalmic (eye) DA WEST eye 05/03/24 Unknown Rx (Lumigan) #2.5 mL dorzolamide 22.3 mg-timolol 6.8 1 drp EACH EYE BID eye #10 mL 05/03/24 Unknown Rx mg/mL eye drops meclizine 25 mg tablet 12.5 mg PO TID PRN PRN Dizzi ness 05/03/24 Unknown History apixaban 5 mg tablet (Eliquis) 2.5 mg (1/2 x 5 mg) PO BID #15 tabs 05/15/24 Unknown Rx midodrine 2.5 mg tablet 2.5 mg PO QHS #30 tabs 05/15 Unknown Rx trazodone 150 mg tablet 150 mg PO QHS #30 tabs 05/15 Unknown Rx ascorbate calcium (vitamin C) 1 tab PO DAILY 06/11/24 Unknown History atorvastatin 40 mg tablet 20 mg PO QHS 06/11/24 Unknow n History biotin 1,000 mcg chewable tablet 1,000 mcg PO DAILY Unknown History brimonidine 0.15 % eye drops 1 drp ophthalmic (eye) BI D eye 06/11/24 Unknown History escitalopram oxalate 10 mg tablet 10 mg PO HS 06/11/24 Unknown History Allergy/AdvReac Type Severity Reaction Status Date / Time [place] nut Allergy Severe Swelling Verified 06/11/24 22:17 rhina Allergy Severe Swelling Verified 06/11/24 22:15 morphine Allergy Unknown Verified 06/11/24 22:15 Sulfa (Sulfonamide Allergy Unknown Verified 06/11/24 22:15 Antibiotics) aspirin AdvReac Nausea/Vom/ Verified 06/11/24 22:15 Diarrhea Family History Other CVA (cerebral vascular accident) Heart disease Surgical History History of hysterectomy for cancer History of bunionectomy History of appendectomy Social History Smoking Status: Never smoker ROS ROS ED Review of Systems ROS Unobtainable: due to mental status EXAM Physical Exam Const Vital Signs: 06/05/25 09:36 06/05/25 10:00 06/05/25 10:30 Temperature Pulse Rate 108 H 99 88 Respiratory Rate 22 H 24 H 24 H Blood Pressure 140/101 H 139/100 H 142/95 H Blood Pressure Mean 114 113 110 Pulse Ox 95 92 94 Oxygen Delivery Method High Flow High Flow High Flow Oxygen Flow Rate (L/min) 7 7 7 06/05/25 11:00 06/05/25 15:27 06/05/25 20:00 Temperature Pulse Rate 112 H Respiratory Rate 18 18 19 H Blood Pressure 125/88 H 140/95 H Blood Pressure Mean 100 110 Pulse Ox 96 99 Oxygen Delivery Method High Flow Nasal Cannula Oxygen Flow Rate (L/min) 2 7 06/05/25 22:46 Temperature 98.1 F Pulse Rate 98 Respiratory Rate 17 Blood Pressure 147/93 H Blood Pressure Mean 111 Pulse Ox 96 Oxygen Delivery Method Oxygen Flow Rate (L/min) Positive cachectic Constitutional Narrative: Patient slightly diaphoretic, labored breathing and audible abnormal breath sounds. General Appearance ED: cachectic; Negative for NAD Nutritional Appearance: cachectic Eyes PERRL General Eye ED: Yes pale conjunctiva Neck no lymphadenopathy and supple Neck Narrative: Trachea is midline. Resp No normal respiratory effort and No clear to auscultation bilaterally Auscultation: rhonchi, wheezes and diminished lung sounds Cardio Rate: tachycardic Rhythm: abnormal rhythm irregularly irregular GI non-tender and non-distended Palpation: soft Extremity General Extremety ED: Negative for tenderness Neuro No oriented x3 Neuro Narrative: GCS is 4. Patient opens her eyes to noxious stimuli MDM MDM MDM Narrative Medical decision making narrative: Had lengthy discussion with son in the hallway regarding his mom. She is DNR comfort care only. Hospice has been paged. He was informed in my decision he has made the correct decision and we will honor her wishes. Treatment and Re-Evaluation :: Charge nurse inform me that they are unable establish IV for administration of medication. Therefore will order Ativan IM. Comments:: I was informed at 1032 the patient is having increased secretions. Parental glycopyrrolate was ordered. Son told nurse that his mom is gurgling. Nurse states her secretions have increased. Will order additional dose of glycopyrrolate Discharge Plan Triage Chief Complaint: Shortness of Breath ED Provider: Ag Rios Dx/Rx/DC Orders Clinical Impression: Acute hypoxemic respiratory failure, History of recent stroke, Atrial fibrillation with RVR, DNR (do not resuscitate) discussion, DNR no code (do not resuscitate), History of permanent cardiac pacemaker placement, Hypothermia Prescriptions: No Action bupropion HCl 200 MG tablet sustained-release 12 hr 200 mg PO DAILY loperamide [Imodium A-D] 2 MG tablet 2 mg PO QHS PRN (Reason: loose stools) Patient Comments: diarrhea aspirin 81 MG tablet,delayed release (DR/EC) 1 tab PO DAILY nitroglycerin 0.4 MG tablet, sublingual 0.4 mg SL Q5M PRN (Reason: CHEST PAIN) budesonide 3 mg Capsule,Delayed,Extend.Release 3 mg PO DAILY methenamine hippurate 1 gram tablet 1 g PO BID multivitamin [Daily Multi-Vitamin] Tablet 1 tab PO DAILY acetaminophen 325 mg Tablet 650 mg PO Q6H PRN PRN (Reason: Pain 1-10 Or Fever>100.7) Qty: 0 0RF dorzolamide-timolol 22.3-6.8 mg/mL Drops 1 drp EACH EYE BID Qty: 10 0RF Rx Instructions: to be given at 0800 and 1600, AM dose to be given 10 minutes AFTER brimonidine [place] 0.01 % drops 1 drp ophthalmic (eye) DAILY Qty: 2.5 0RF Rx Instructions: to be given at night at least 10 minutes after brominidine and timolol gtts. meclizine 25 MG tablet 12.5 mg PO TID PRN PRN (Reason: Dizziness) Patient Comments: pt. has not taken in years Eliquis 5 mg Tablet 2.5 mg PO BID Qty: 15 0RF Rx Instructions: 1/2 tab twice daily midodrine 2.5 mg tablet 2.5 mg PO QHS Qty: 30 0RF trazodone 150 mg tablet 150 mg PO QHS Qty: 30 0RF atorvastatin 40 mg Tablet 20 mg PO QHS brimonidine 1 DROP bottle 1 drp ophthalmic (eye) BID Rx Instructions: give at 0830 and 2030 escitalopram oxalate 10 mg Tablet 10 mg PO HS biotin 1,000 mcg tablet,chewable 1,000 mcg PO DAILY ascorbate calcium (vitamin C) 1 tab PO DAILY Primary Care Provider: Castro Kidd Referrals: Castro Kidd MD [Primary Care Provider] - Print Language: Armenian Disposition Disposition: Hospice in Home Discharge Date/Time: 06/05/25 22:47
--- NOTE | 2025-06-05 09:08 | PCA ---
FAXED THE INFO TO HOSPICE
--- NOTE | 2025-06-05 09:08 | PCA ---
FAXED THE INFO TO HOSPICE
[2025-06-05] MEDS: Lorazepam 2 MG/ML WCH Syringe 1 MG IM (09:33)
--- NOTE | 2025-06-05 09:56 | PCA ---
CALLED HOSPICE @ [phone] TO MAKE SURE THEY GOT THE INFO I FAXED OVER. THEY DID RECEIVE IT. WILL BE CALLING THE SON. THEY WILL SEND SOMEONE OUT FOR EVALUATION AND CONSULT RENETTA
--- NOTE | 2025-06-05 09:56 | PCA ---
CALLED HOSPICE @ [phone] TO MAKE SURE THEY GOT THE INFO I FAXED OVER. THEY DID RECEIVE IT. WILL BE CALLING THE SON. THEY WILL SEND SOMEONE OUT FOR EVALUATION AND CONSULT RENETTA
--- NOTE | 2025-06-05 16:14 | CHAPLAIN ---
Type of Pastoral Visit ___ Initial Visit ___ Follow-up Visit ___ On-call Visit ___ General Patient Visit ___ Spiritual Assessment ___ Family Conference ___ Bereavement ___ Rapid Response ___ Code Blue _x__ Other (describe below) Pastoral Care Referral From ___ Patient ___ Family _x__ Nurse ___ Physician ___ Glazier Helper ___ Wastewater Treatment Plant Instructor ___ Other (describe below) Sacrament/Intervention ___ Active listening ___ Anointing ___ Latter Day ___ Bereavement ___ Communion ___ Maryam exploration ___ ___ Life review _x__ Prayer ___ Reconciliation ___ Sacrament of Sick _x__ Supportive presence ___ Wedding ___ Other (describe below) Pastoral Comments house registry rn and charge nurse in ED both contacted this apartment maintenance technician to provide support to son of this patient; patient is in great decline and will be evaluated for hospice services later today with expectation that will come soon; upon entering the room the patient was alone and apparently resting with her one eye open; spoke softly to patient who opened other eye for a short time; offered assurance of kind care and attention at the hospital; quoted Psalm 23 and said a brief prayer; began writing a note to the family when the son returned to the room; son was polite and thanked this apartment maintenance technician for the visit; son made clear statement that he did not want a conversation at this time; offered personal support and asked if the son had other family coming to be there and he denied any further need and that no one else would be involved; son was clear that he wanted visit to be completed, although expressed again appreciation for the offer
--- NOTE | 2025-06-05 16:14 | CHAPLAIN ---
Type of Pastoral Visit ___ Initial Visit ___ Follow-up Visit ___ On-call Visit ___ General Patient Visit ___ Spiritual Assessment ___ Family Conference ___ Bereavement ___ Rapid Response ___ Code Blue _x__ Other (describe below) Pastoral Care Referral From ___ Patient ___ Family _x__ Nurse ___ Physician ___ Medicare Specialist ___ Customer Engagement Manager ___ Other (describe below) Sacrament/Intervention ___ Active listening ___ Anointing ___ Pentecostal ___ Bereavement ___ Communion ___ Maryam exploration ___ ___ Life review _x__ Prayer ___ Reconciliation ___ Sacrament of Sick _x__ Supportive presence ___ Wedding ___ Other (describe below) Pastoral Comments warehouse material handler and charge nurse in ED both contacted this speech language pathologist assistant to provide support to son of this patient; patient is in great decline and will be evaluated for hospice services later today with expectation that will come soon; upon entering the room the patient was alone and apparently resting with her one eye open; spoke softly to patient who opened other eye for a short time; offered assurance of kind care and attention at the hospital; quoted Psalm 23 and said a brief prayer; began writing a note to the family when the son returned to the room; son was polite and thanked this speech language pathologist assistant for the visit; son made clear statement that he did not want a conversation at this time; offered personal support and asked if the son had other family coming to be there and he denied any further need and that no one else would be involved; son was clear that he wanted visit to be completed, although expressed again appreciation for the offer
--- NOTE | 2025-06-05 18:53 | CM.ED ---
Social Work SW verified with son that he had spoken to hospice nurse and understood that they would in to assess patient around 5:30. Son stated understanding and stated that he had no further needs at this time. Danii Domingo, DRAWING CHECKER, SIGNAL TIMER
--- NOTE | 2025-06-05 18:53 | CM.ED ---
Social Work SW verified with son that he had spoken to hospice nurse and understood that they would in to assess patient around 5:30. Son stated understanding and stated that he had no further needs at this time. Danii Domingo, DOCUMENTATION CLERK, PIPELINES SUPERVISOR
== END 2025-06-05 22:47 | disposition hospice, home (50) ==
LOC: ED 09:15
PROVIDERS: Emergency Provider Emergency Medicine; PCP Family Medicine; Visit Provider Emergency Medicine
DX: J96.01 Acute respiratory failure with hypoxia (principal); I69.354 Hemiplegia and hemiparesis following cerebral infarction affecting left non-dominant side; I48.91 Unspecified atrial fibrillation; Z90.710 Acquired absence of both cervix and uterus; R62.7 Adult failure to thrive; Z51.5 Encounter for palliative care; E78.5 Hyperlipidemia, unspecified; I10 Essential (primary) hypertension; Z66 Do not resuscitate; Z95.0 Presence of cardiac pacemaker; T68.XXXA Hypothermia, initial encounter; I69.319 Unspecified symptoms and signs involving cognitive functions following cerebral infarction
CPT/HCPCS: 93005; 96372; 99285